=== PATIENT | male | born 1990 | race Caucasian/White ===

== ENCOUNTER 2017-01-27 00:36 | Inpatient (IN) | payer SELFPAY ==
[~2017-01-27] VITALS: Ht 193 cm; Wt 136.1 kg
[2017-01-27] MEDS ORDERED: IV NORMAL SALINE 1000ML BAG 1,000 ML IV SCH (01:30)
[2017-01-27] MEDS ORDERED: fentaNYL PF VIAL 100 MCG/2 ML VIAL IV ONE (01:30)
[2017-01-27] MEDS ORDERED: ONDANSETRON PF 4 MG/2 ML VIAL. IV ONE (01:30)
[2017-01-27 01:37] LABS: BASO # 0.1 x10^3/uL (0.0-0.2); BASO % 1 % (0-3); EOS % 3 % (0-3); HEMATOCRIT 50.6 % (39.0-53.0); HEMOGLOBIN 16.9 g/dL (13.0-17.5); LYMPH # 3.3 x10^3/uL (1.0-4.8); LYMPH % 27 % (24-48); MEAN CORPUSCULAR HEMOGLOBIN 30 pg (25-35); MEAN CORPUSCULAR HGB CONC 33 g/dL (31-37); MEAN CORPUSCULAR VOLUME 90 fL (79-100); MONO % 8 % (0-9); NEUT % 62 % (31-73); PLATELET COUNT 257 x10^3/uL (140-400); RED BLOOD COUNT 5.63 x10^6/uL (4.30-5.70); RED CELL DISTRIBUTION WIDTH 13.2 % (11.5-14.5); WHITE BLOOD COUNT 12.4 x10^3/uL (4.0-11.0)
[2017-01-27 01:45] LABS: CALCIUM 9.2 mg/dL (8.5-10.1); CREATININE 1.1 mg/dL (0.7-1.3); GFR 80.3; POTASSIUM 3.4 mmol/L (3.5-5.1)
[2017-01-27] MEDS ORDERED: CONTRAST GIVEN MC PRN (01:45)
[2017-01-27 01:51] LABS: ALBUMIN 4.3 g/dL (3.4-5.0); ALBUMIN/GLOBULIN RATIO 1.2 (1.0-1.7); TOTAL BILIRUBIN 0.3 mg/dL (0.2-1.0); TOTAL PROTEIN 7.8 g/dL (6.4-8.2)
[2017-01-27] MEDS ORDERED: IOHEXOL 300 MG/ML 75 ML VIAL IV ONE (02:00)
[2017-01-27] MEDS ORDERED: HYDROmorphone 2 MG/ML VIAL IV ONE (02:30)
--- NOTE | 2017-01-27 02:31 | RAD ---
CT abdomen and pelvis with contrast Indication: Lower abdominal pain. Axial imaging of the abdomen and pelvis was performed after the administration of intravenous contrast PQRS STATEMENT One or more of the following individualized dose reduction techniques were utilized for this study: 1.Automated exposure control. 2.Adjustment of the mA and/orkVaccording to patient size. 3.Use of iterative reconstruction technique. No prior studies are available for comparison. The lung bases are clear. The liver and gallbladder are unremarkable. The pancreas and spleen are unremarkable. No adrenal mass is detected. The kidneys are unremarkable. Aorta is not aneurysmal. The bowel loops are normal caliber. The appendix is visualized and unremarkable. There does appear to be some inflammation in the anterior aspect of the lower abdomen. This is associated with the sigmoid colon. There appear to be diverticuli present. Findings are consistent with acute diverticulitis. There are small gas bubbles present adjacent to the inflamed sigmoid loop consistent with micro perforations. No focal fluid collection is seen to suggest abscess formation. There is no bowel obstruction. Small bowel is unremarkable. There is no free air. The bladder is unremarkable. Impression: Findings consistent with acute sigmoid diverticulitis with micro perforations. No abscess formation or bowel obstruction is detected. Electronically signed by: Kalpesh Mijares MD (Jan 27, 2017 02:29:19)
--- NOTE | 2017-01-27 03:05 | PHYS DOC ---
Past Medical History Past Medical History: Diverticulitis, Diverticulosis, Kidney Stone Past Surgical History: Other Additional Past Surgical Histo: "kidney stone surgury" Alcohol Use: None Drug Use: Marijuana Adult General Chief Complaint Chief Complaint: ABDOMINAL PAIN HPI HPI Patient is a 26 year old male who presents with abdominal pain. Patient reports about 9:00 tonight he started having lower abdominal pain, most prominent in the right lower quadrant. Pain has continued to progress is severe at this time. He says his abdomen feels "full of air". Denies N/V/D. No fever. Has had similar pain in the past with bouts of diverticulitis. Has not taken anything at home for pain. No other acute complaints. Review of Systems Review of Systems Constitutional: Denies fever or chills Respiratory: Denies cough or shortness of breath Cardiovascular: Denies chest pain GI: Lower abdominal pain. Denies nausea, vomiting, bloody stools or diarrhea : Denies dysuria or hematuria Musculoskeletal: Denies back pain or joint pain Neurologic: Denies headache, focal weakness or sensory changes Current Medications Current Medications Current Medications Medications (Trade) Dose Ordered Sig/Bernardino Start Time Stop Time Status Last Admin Dose Admin Acetaminophen (Tylenol) 650 mg PRN Q4HRS PRN 01/27/17 03:15 01/28/17 03:14 Fentanyl Citrate (Fentanyl 2ml Vial) 50 mcg 1X ONCE 01/27/17 01:30 01/27/17 01:31 DC 01/27/17 01:26 50 MCG Hydromorphone HCl (Dilaudid) 1 mg PRN Q2HRS PRN 01/27/17 03:15 Hydromorphone HCl 1 mg 1 mg 1X ONCE 01/27/17 02:30 01/27/17 02:31 DC 01/27/17 02:19 1 MG Info (Do NOT chart on this entry -- for MONITORING) 1 each PRN DAILY PRN 01/27/17 01:45 01/29/17 01:44 Iohexol (Omnipaque 300 Mg/ml) 75 ml 1X ONCE 01/27/17 02:00 01/27/17 02:01 DC 01/27/17 02:00 75 ML Meropenem/Sodium Chloride (Merrem/Iv Sodium Chloride 0.9% 100ml) 100 ml @ 200 mls/hr 1X ONCE 01/27/17 03:30 01/27/17 03:59 01/27/17 03:11 200 MLS/HR Ondansetron HCl (Zofran) 4 mg 1X ONCE 01/27/17 01:30 01/27/17 01:31 DC 01/27/17 01:24 4 MG Ondansetron HCl 4 mg 4 mg PRN Q8HRS PRN 01/27/17 03:15 01/28/17 03:14 Sodium Chloride (Iv Sodium Chloride 0.9% 1000ml Bag) 1,000 ml @ 150 mls/hr Q6H40M 01/27/17 03:05 01/28/17 03:04 01/27/17 03:12 150 MLS/HR Allergies Allergies Allergies Coded Allergies Type Severity Reaction Last Updated Verified Penicillins Allergy Intermediate hives 01/27/17 Yes morphine Allergy Intermediate n/v, hives 01/27/17 Yes Physical Exam Physical Exam Constitutional: Well developed, well nourished, no acute distress, non-toxic appearance HENT: Normocephalic, atraumatic, bilateral external ears normal Eyes: EOMI, conjunctiva normal, no discharge Neck: Normal range of motion, no stridor Cardiovascular: Heart rate normal, regular rhythm, no murmur Lungs & Thorax: Bilateral breath sounds clear to auscultation Abdomen: Bowel sounds normal, soft, non-distended, suprapubic and RLQ TTP without rebound or guarding Skin: Warm, dry, no erythema, no rash Extremities: No obvious deformity, no edema Neurologic: Alert and oriented X 3, no gross deficits noted Current Patient Data Vital Signs Vital Signs Date Time Temp Pulse Resp B/P Pulse Ox O2 Delivery O2 Flow Rate FiO2 01/27/17 01:26 25 99 01/27/17 00:41 98.8 85 162/77 Room Air 98.8 Lab Values Laboratory Tests Test 01/27/17 00:45 White Blood Count 12.4x10^3/uL (4.0-11.0) H Red Blood Count 5.63x10^6/uL (4.30-5.70) Hemoglobin 16.9g/dL (13.0-17.5) Hematocrit 50.6% (39.0-53.0) Mean Corpuscular Volume 90fL (79-100) Mean Corpuscular Hemoglobin 30pg (25-35) Mean Corpuscular Hemoglobin Concent 33g/dL (31-37) Red Cell Distribution Width 13.2% (11.5-14.5) Platelet Count 257x10^3/uL (140-400) Neutrophils (%) (Auto) 62% (31-73) Lymphocytes (%) (Auto) 27% (24-48) Monocytes (%) (Auto) 8% (0-9) Eosinophils (%) (Auto) 3% (0-3) Basophils (%) (Auto) 1% (0-3) Neutrophils # (Auto) 7.7x10^3uL (1.8-7.7) Lymphocytes # (Auto) 3.3x10^3/uL (1.0-4.8) Monocytes # (Auto) 1.0x10^3/uL (0.0-1.1) Eosinophils # (Auto) 0.3x10^3/uL (0.0-0.7) Basophils # (Auto) 0.1x10^3/uL (0.0-0.2) Sodium Level 141mmol/L (136-145) Potassium Level 3.4mmol/L (3.5-5.1) L Chloride Level 102mmol/L (98-107) Carbon Dioxide Level 32mmol/L (21-32) Anion Gap 7 (6-14) Blood Urea Nitrogen 8mg/dL (8-26) Creatinine 1.1mg/dL (0.7-1.3) Estimated GFR (Cockcroft-Gault) 80.3 BUN/Creatinine Ratio 7 (6-20) Glucose Level 106mg/dL (70-99) H Calcium Level 9.2mg/dL (8.5-10.1) Total Bilirubin 0.3mg/dL (0.2-1.0) Aspartate Amino Transferase (AST) 24U/L (15-37) Alanine Aminotransferase (ALT) 40U/L (16-63) Alkaline Phosphatase 68U/L (46-116) Total Protein 7.8g/dL (6.4-8.2) Albumin 4.3g/dL (3.4-5.0) Albumin/Globulin Ratio 1.2 (1.0-1.7) Lipase 262U/L (73-393) Laboratory Tests 01/27/17 00:45 Laboratory Tests 01/27/17 00:45 EKG EKG [] Radiology/Procedures Radiology/Procedures CT A/P: Impression: Findings consistent with acute sigmoid diverticulitis with micro perforations. No abscess formation or bowel obstruction is detected. Course & Med Decision Making Course & Med Decision Making Pertinent Labs and Imaging studies reviewed. (See chart for details) Patient is 26 year old male who presents with lower abdominal pain. DDx includes appendicitis, diverticulitis, colitis. Will check labs, CT A/P. IV fluid, pain meds, nausea meds ordered for relief of symptoms. Labs notable for mild leukocytosis. Imaging shows acute sigmoid diverticulitis with microperforations. Discussed results with patient. Discussed with Dr. Beyer. As patient has penicillin allergy, I spoke with pharmacist (Jim) re:abx choice. We decided on meropenem for broad spectrum coverage of intra-abdominal infection and low rate of cross-reactivity in patients with pcn allergy. Will admit under the care of Dr. Pompa for further evaluation and treatment. Dragon Disclaimer Dragon Disclaimer This electronic medical record was generated, in whole or in part, using a voice recognition dictation system. Departure Departure Impression: Primary Impression: Acute diverticulitis Disposition: ADMITTED INPATIENT Admitting Physician: Poly Pompa Condition: STABLE Referrals: NO PCP (PCP) JESSE SOLANO MD Jan 27, 2017 03:05
[2017-01-27] MEDS: IV NORMAL SALINE 1000ML BAG 1,000 ML IV SCH ×4 (03:12→23:05)
[2017-01-27] MEDS ORDERED: ONDANSETRON PF 4 MG/2 ML VIAL. IV PRN (03:15)
[2017-01-27] MEDS ORDERED: ACETAMINOPHEN 325 MG TABLET. PO PRN (03:15)
[2017-01-27] MEDS ORDERED: MEROPENEM 1 GM in IV NORMAL SALINE 100ML 100 ML IV ONE (03:30)
[2017-01-27 03:55] LABS: BILIRUBIN,URINE NEGATIVE (NEG); GLUCOSE,URINE NEGATIVE (NEG); NITRITE,URINE NEGATIVE (NEG); PROTEIN,URINE NEGATIVE (NEG-TRACE); UROBILINOGEN,URINE 0.2 mg/dL (0.2 mg/dL)
[2017-01-27] MEDS: HYDROmorphone 2 MG/ML VIAL IV PRN ×8 (03:57→23:28)
[2017-01-27 04:14] LABS: BACTERIA,URINE 0 /HPF (0-FEW); RBC,URINE 0 /HPF (0-2); SQUAMOUS EPITHELIAL CELL,UR FEW /LPF; WBC,URINE OCC /HPF (0-4)
[2017-01-27 07:00] VITALS: BP 126/63
--- NOTE | 2017-01-27 09:08 | PDOC2 ---
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 At this time pain is most severe to LLQ. Associated nausea/emesis. No aggravating or alleviating factors. He has had multiple attacks, several last year at [facility], planned for surgery then canceled due to lack of insurance/cost. It has been about a year since last attack. He has never had a colonoscopy Past Medical History Past Medical History diverticulitis, kidney stones, obesity Past Surgical History Past Surgical History: No pertinent history Social History No ALCOHOL: rare Drugs: Marijuana Lives: with Family Current Problem List Problem List Problems Medical Problems: (1) Acute diverticulitis Status: Acute Current Medications Current Medications Current Medications Sodium Chloride (Iv Sodium Chloride 0.9% 1000ml Bag) 1,000 ml @ 1,000 mls/hr Q1H IV Last administered on 01/27/17 01:24; Start 01/27/17 at 01:30; Stop at 02:29; Status DC Fentanyl Citrate (Fentanyl 2ml Vial) 50 mcg 1X ONCE IV Last administered on 01:26; Start 01/27/17 at 01:30; Stop 01/27/17 at 01:31; Status DC Ondansetron HCl (Zofran) 4 mg 1X ONCE IV Last administered on 01/27/17 01:24 ; Start 01/27/17 at 01:30; Stop 01/27/17 at 01:31; Status DC Iohexol (Omnipaque 300 Mg/ml) 75 ml 1X ONCE IV Last administered on 01/27/17 02:00; Start 01/27/17 at 02:00; Stop 01/27/17 at 02:01; Status DC Info (Do NOT chart on this entry -- for MONITORING) 1 each PRN DAILY PRN MC SEE COMMENTS; Start 01/27/17 at 01:45; Stop 01/29/17 at 01:44 Hydromorphone HCl 1 mg 1 mg 1X ONCE IV Last administered on 01/27/17 02:19; Start 01/27/17 at 02:30; Stop 01/27/17 at 02:31; Status DC Meropenem/Sodium Chloride (Merrem/Iv Sodium Chloride 0.9% 100ml) 100 ml @ 200 mls/hr 1X ONCE IV Last administered on 01/27/17 03:11; Start 01/27/17 at 03: 30; Stop 01/27/17 at 03:59; Status DC Ondansetron HCl 4 mg 4 mg PRN Q8HRS PRN IV NAUSEA/VOMITING; Start 01/27/17 at 03:15; Stop 01/28/17 at 03:14 Sodium Chloride (Iv Sodium Chloride 0.9% 1000ml Bag) 1,000 ml @ 150 mls/hr Q6H40M IV Last administered on 01/27/17 03:12; Start 01/27/17 at 03:05; Stop 01/28/17 at 03:04 Acetaminophen (Tylenol) 650 mg PRN Q4HRS PRN PO FEVER Last administered on 01/27 03:56; Start 01/27/17 at 03:15; Stop 01/28/17 at 03:14 Hydromorphone HCl 1 mg 1 mg PRN Q2HRS PRN IV SEVERE PAIN Last administered on 07:37; Start 01/27/17 at 03:15 Potassium Chloride (KCl Premix 10meq) 100 ml @ 100 mls/hr Q1H IV ; Start at 09:30; Stop 01/27/17 at 11:29 Active Scripts Active Reported No Known Medications Prior To Admisstion (Info) Each 1 Each Allergies Allergies: Coded Allergies: Penicillins (Verified Allergy, Intermediate, hives, 01/27/17) morphine (Verified Allergy, Intermediate, n/v, hives, 01/27/17) ROS General: No: Chills, Other (fevers) PSYCHOLOGICAL ROS: No: Anxiety, Depression Eyes: No Blurry vision, No Double vision HEENT: No: Heacaches, Sore Throat Hematological and Lymphatic: No: Bleeding Problems, Blood Clots Respiratory: YES: Shortness of breath (due to pain), No: Cough Cardiovascular: No Chest Pain, No Palpitations Gastrointestinal: Yes Other (see hpi) Genitourinary: No Dysuria, No Hematuria Neurological: No Confusion, No Numbness/Tingling Skin: No Pruritus, No Rash Physical Exam General: Alert, Oriented X3, Other (in acute pain) HEENT: Atraumatic, PERRLA Lungs: Clear to auscultation, Normal air movement Heart: Regular rate, Normal S1, Normal S2, No murmurs Abdomen: Soft, Other (moderate tto RLQ and LLQ, no guarding ) Extremities: No clubbing, No cyanosis Skin: No rashes, No breakdown Neuro: Normal speech, Sensation intact Psych/Mental Status: Mental status NL, Mood NL MUSCULOSKELETAL: No deformity, No swelling Vitals VITALS Vital Signs Date Time Temp Pulse Resp B/P Pulse Ox O2 Delivery O2 Flow Rate FiO2 01/27/17 07:37 Room Air 01/27/17 03:57 95 01/27/17 02:48 82 16 149/69 01/27/17 00:41 98.8 98.8 Labs Labs Laboratory Tests Test 01/27/17 00:45 01/27/17 03:10 White Blood Count 12.4x10^3/uL (4.0-11.0) Red Blood Count 5.63x10^6/uL (4.30-5.70) Hemoglobin 16.9g/dL (13.0-17.5) Hematocrit 50.6% (39.0-53.0) Mean Corpuscular Volume 90fL (79-100) Mean Corpuscular Hemoglobin 30pg (25-35) Mean Corpuscular Hemoglobin Concent 33g/dL (31-37) Red Cell Distribution Width 13.2% (11.5-14.5) Platelet Count 257x10^3/uL (140-400) Neutrophils (%) (Auto) 62% (31-73) Lymphocytes (%) (Auto) 27% (24-48) Monocytes (%) (Auto) 8% (0-9) Eosinophils (%) (Auto) 3% (0-3) Basophils (%) (Auto) 1% (0-3) Neutrophils # (Auto) 7.7x10^3uL (1.8-7.7) Lymphocytes # (Auto) 3.3x10^3/uL (1.0-4.8) Monocytes # (Auto) 1.0x10^3/uL (0.0-1.1) Eosinophils # (Auto) 0.3x10^3/uL (0.0-0.7) Basophils # (Auto) 0.1x10^3/uL (0.0-0.2) Sodium Level 141mmol/L (136-145) Potassium Level 3.4mmol/L (3.5-5.1) Chloride Level 102mmol/L (98-107) Carbon Dioxide Level 32mmol/L (21-32) Anion Gap 7 (6-14) Blood Urea Nitrogen 8mg/dL (8-26) Creatinine 1.1mg/dL (0.7-1.3) Estimated GFR (Cockcroft-Gault) 80.3 BUN/Creatinine Ratio 7 (6-20) Glucose Level 106mg/dL (70-99) Calcium Level 9.2mg/dL (8.5-10.1) Total Bilirubin 0.3mg/dL (0.2-1.0) Aspartate Amino Transf (AST/SGOT) 24U/L (15-37) Alanine Aminotransferase (ALT/SGPT) 40U/L (16-63) Alkaline Phosphatase 68U/L (46-116) Total Protein 7.8g/dL (6.4-8.2) Albumin 4.3g/dL (3.4-5.0) Albumin/Globulin Ratio 1.2 (1.0-1.7) Lipase 262U/L (73-393) Urine Collection Type Unknown Urine Color Yellow Urine Clarity Clear Urine pH 8.0 Urine Specific [place] 1.020 Urine Protein Negativemg/dL (NEG-TRACE) Urine Glucose (UA) Negativemg/dL (NEG) Urine Ketones (Stick) Negativemg/dL (NEG) Urine Blood Negative (NEG) Urine Nitrite Negative (NEG) Urine Bilirubin Negative (NEG) Urine Urobilinogen Dipstick 0.2mg/dL (0.2 mg/dL) Urine Leukocyte Esterase Negative (NEG) Urine RBC 0/HPF (0-2) Urine WBC Occ/HPF (0-4) Urine Squamous Epithelial Cells Few/LPF Urine Amorphous Sediment Present/HPF Urine Bacteria 0/HPF (0-FEW) Laboratory Tests Test 01/27/17 00:45 01/27/17 03:10 White Blood Count 12.4x10^3/uL (4.0-11.0) Red Blood Count 5.63x10^6/uL (4.30-5.70) Hemoglobin 16.9g/dL (13.0-17.5) Hematocrit 50.6% (39.0-53.0) Mean Corpuscular Volume 90fL (79-100) Mean Corpuscular Hemoglobin 30pg (25-35) Mean Corpuscular Hemoglobin Concent 33g/dL (31-37) Red Cell Distribution Width 13.2% (11.5-14.5) Platelet Count 257x10^3/uL (140-400) Neutrophils (%) (Auto) 62% (31-73) Lymphocytes (%) (Auto) 27% (24-48) Monocytes (%) (Auto) 8% (0-9) Eosinophils (%) (Auto) 3% (0-3) Basophils (%) (Auto) 1% (0-3) Neutrophils # (Auto) 7.7x10^3uL (1.8-7.7) Lymphocytes # (Auto) 3.3x10^3/uL (1.0-4.8) Monocytes # (Auto) 1.0x10^3/uL (0.0-1.1) Eosinophils # (Auto) 0.3x10^3/uL (0.0-0.7) Basophils # (Auto) 0.1x10^3/uL (0.0-0.2) Sodium Level 141mmol/L (136-145) Potassium Level 3.4mmol/L (3.5-5.1) Chloride Level 102mmol/L (98-107) Carbon Dioxide Level 32mmol/L (21-32) Anion Gap 7 (6-14) Blood Urea Nitrogen 8mg/dL (8-26) Creatinine 1.1mg/dL (0.7-1.3) Estimated GFR (Cockcroft-Gault) 80.3 BUN/Creatinine Ratio 7 (6-20) Glucose Level 106mg/dL (70-99) Calcium Level 9.2mg/dL (8.5-10.1) Total Bilirubin 0.3mg/dL (0.2-1.0) Aspartate Amino Transf (AST/SGOT) 24U/L (15-37) Alanine Aminotransferase (ALT/SGPT) 40U/L (16-63) Alkaline Phosphatase 68U/L (46-116) Total Protein 7.8g/dL (6.4-8.2) Albumin 4.3g/dL (3.4-5.0) Albumin/Globulin Ratio 1.2 (1.0-1.7) Lipase 262U/L (73-393) Urine Collection Type Unknown Urine Color Yellow Urine Clarity Clear Urine pH 8.0 Urine Specific [place] 1.020 Urine Protein Negativemg/dL (NEG-TRACE) Urine Glucose (UA) Negativemg/dL (NEG) Urine Ketones (Stick) Negativemg/dL (NEG) Urine Blood Negative (NEG) Urine Nitrite Negative (NEG) Urine Bilirubin Negative (NEG) Urine Urobilinogen Dipstick 0.2mg/dL (0.2 mg/dL) Urine Leukocyte Esterase Negative (NEG) Urine RBC 0/HPF (0-2) Urine WBC Occ/HPF (0-4) Urine Squamous Epithelial Cells Few/LPF Urine Amorphous Sediment Present/HPF Urine Bacteria 0/HPF (0-FEW) Images Images reviewed Assessment/Plan Assessment/Plan acute diverticulitis with microperf, no abscess seen on CT, multiple episodes ID consulted for abx management obesity BMI 36 continue NPO, hydration, IV abx, bowel rest if increasing pain/fevers/leukocytosis--repeat CT for possible abscess attempt conservative management, may require surgery if not improving/worsening will review with MAURICIO Whalen MD 01/27/171950: CONSULT Allergies Allergies: Coded Allergies: Penicillins (Verified Allergy, Intermediate, hives, 01/27/17) morphine (Verified Allergy, Intermediate, n/v, hives, 01/27/17) Assessment/Plan Assessment/Plan Pt seen and examined by myself; 26 year old male with lower abdominal pain, has had prior bouts of similar pain and reportedly treated for diverticulitis. He states he was scheduled for a colonoscopy and surgery, but didn't proceed due to financial issues. He reported with severe and sharp lower abdominal pain , worse in the LLQ. PMH/PSH/ROS/SH as above; exam: alert, oriented, no distress, no neck masses, lungs clear, heart RR and R, abdomen obese, soft, tender LLQ with focal guarding, ext neg for deformity or edema; labs and CT reviewed. Suspect diverticulitis with focal perforation. Recommend IV abx, consult ID, bowel rest, serial exam/lab. 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
[2017-01-27] MEDS: POTASSIUM CHLORIDE 10MEQ 100 ML IV SCH ×2 (10:05→12:48)
--- NOTE | 2017-01-27 10:08 | PDOC1 ---
History and Physical Date of Admission Date of Admission DATE: 01/27/17 TIME: 10:02 Identification/Chief Complaint Chief Complaint abd pain Problems: Source Source: Chart review, Patient History of Present Illness History of Present Illness Mr. Sepulveda, is a 26 year old male admit from ER overnight with acute abdominal pain. Acute left lower pain, pain worse with movemetn, he had normal stool yesterday 1500. pain 8/10 after IV pain meds, 10 without no gas, but feels very bloated prior [facility], [facility], was hospitalized 3 wks last years for same Past Medical History Cardiovascular: No pertinent hx Pulmonary: No pertinent hx Musculoskeletal: low back pain Rheumatologic: No pertinent hx Infectious disease: No pertinent hx ENT: No pertinent hx Renal/: No pertinent hx Endocrine: No pertinent hx Past Surgical History Past Surgical History: No pertinent history Family History Family History: No Significant Social History Smoke: No ALCOHOL: rare Drugs: Marijuana Current Problem List Problem List Problems Medical Problems: (1) Acute diverticulitis Status: Acute Problems: Current Medications Current Medications Current Medications Sodium Chloride (Iv Sodium Chloride 0.9% 1000ml Bag) 1,000 ml @ 1,000 mls/hr Q1H IV Last administered on 01/27/17 01:24; Start 01/27/17 at 01:30; Stop at 02:29; Status DC Fentanyl Citrate (Fentanyl 2ml Vial) 50 mcg 1X ONCE IV Last administered on 01:26; Start 01/27/17 at 01:30; Stop 01/27/17 at 01:31; Status DC Ondansetron HCl (Zofran) 4 mg 1X ONCE IV Last administered on 01/27/17 01:24 ; Start 01/27/17 at 01:30; Stop 01/27/17 at 01:31; Status DC Iohexol (Omnipaque 300 Mg/ml) 75 ml 1X ONCE IV Last administered on 01/27/17 02:00; Start 01/27/17 at 02:00; Stop 01/27/17 at 02:01; Status DC Info (Do NOT chart on this entry -- for MONITORING) 1 each PRN DAILY PRN MC SEE COMMENTS; Start 01/27/17 at 01:45; Stop 01/29/17 at 01:44 Hydromorphone HCl 1 mg 1 mg 1X ONCE IV Last administered on 01/27/17 02:19; Start 01/27/17 at 02:30; Stop 01/27/17 at 02:31; Status DC Meropenem/Sodium Chloride (Merrem/Iv Sodium Chloride 0.9% 100ml) 100 ml @ 200 mls/hr 1X ONCE IV Last administered on 01/27/17 03:11; Start 01/27/17 at 03: 30; Stop 01/27/17 at 03:59; Status DC Ondansetron HCl 4 mg 4 mg PRN Q8HRS PRN IV NAUSEA/VOMITING; Start 01/27/17 at 03:15; Stop 01/28/17 at 03:14 Sodium Chloride (Iv Sodium Chloride 0.9% 1000ml Bag) 1,000 ml @ 150 mls/hr Q6H40M IV Last administered on 01/27/17 03:12; Start 01/27/17 at 03:05; Stop 01/28/17 at 03:04 Acetaminophen (Tylenol) 650 mg PRN Q4HRS PRN PO FEVER Last administered on 01/27 03:56; Start 01/27/17 at 03:15; Stop 01/28/17 at 03:14 Hydromorphone HCl 1 mg 1 mg PRN Q2HRS PRN IV SEVERE PAIN Last administered on 07:37; Start 01/27/17 at 03:15 Potassium Chloride (KCl Premix 10meq) 100 ml @ 100 mls/hr Q1H IV ; Start at 09:30; Stop 01/27/17 at 11:29 Active Scripts Active Reported No Known Medications Prior To Admisstion (Info) Each 1 Each Allergies Allergies: Coded Allergies: Penicillins (Verified Allergy, Intermediate, hives, 01/27/17) morphine (Verified Allergy, Intermediate, n/v, hives, 01/27/17) ROS General: No: Appetite, Chills, Fatigue, Malaise, Night Sweats, Other PSYCHOLOGICAL ROS: No: Anxiety, Behavioral Disorder, Concentration difficultie , Decreased libido, Depression, Disorientation, Hallucinations, Hostility, Irritablity, Memory difficulties, Mood Swings, Obsessive thoughts, Other, Physical abuse, Sexual abuse, Sleep disturbances, Suicidal ideation Eyes: No Blurry vision, No Decreased vision, No Double vision, No Dry eyes, No Excessive tearing, No Eye Pain, No Itchy Eyes, No Loss of vision, No Other, No Photophobia, No Scotomata, No Uses contacts, No Uses glasses HEENT: No: Epistaxis, Heacaches, Hearing change, Nasal congestion, Nasal discharge, Oral lesions, Other, Sinus pain, Sneezing, Snoring, Sore Throat, Tinnitus, Vertigo, Visual Changes, Vocal changes Hematological and Lymphatic: No: Bleeding Problems, Blood Clots, Blood Transfusions, Brusing, Night Sweats, Other, Pallor, Swollen Lymph Nodes Respiratory: No: Cough, Hemoptysis, Orthopnea, Other, Pleuritic Pain, SOB with excertion, Shortness of breath, Sputum Changes, Stridor, Tachypnea, Wheezing Gastrointestinal: Yes Abdominal Pain, Yes Nausea, Yes Vomiting, No Constipation, No Diarrhea, No Hematochezia, No Melena, No Other Genitourinary: No , No , No , No , No , No , No , No Discharge, No Dysuria, No Flank Pain, No Frequency, No Hematuria, No Incontinence, No Other, No Pain, No Retention, No Urgency Musculoskeletal: Yes Joint Pain, No Gait Disturbance, No Joint Stiffness, No Joint Swelling, No Muscle Pain, No Muscular Weakness, No Other, No Pain In:, No Swelling In: Neurological: No Behavorial Changes, No Bowel/Bladder ControlChng, No Confusion , No Dizziness, No Gait Disturbance, No Headaches, No Impaired Coord/balance, No Memory Loss, No Numbness/Tingling, No Other, No Seizures, No Speech Problems , No Tremors, No Visual Changes, No Weakness Skin: No Acne, No Dry Skin, No Eczema, No Hair Changes, No Lumps, No Mole Changes, No Mottling, No Nail Changes, No Other, No Pruritus, No Rash, No Skin Lesion Changes Physical Exam General: Alert, Oriented X3, Cooperative, moderate distress HEENT: Atraumatic, PERRLA, EOMI, Mucous membr. moist/pink Lungs: Clear to auscultation, Normal air movement Heart: S1S2, no gallops, no murmurs Abdomen: Soft (hypoactive sounds) Rectal Exam: not examined Extremities: No clubbing, No cyanosis, No edema, Normal pulses Skin: No rashes Neuro: Normal gait, Normal speech, Normal tone, Sensation intact Psych/Mental Status: Mood NL Vitals Vitals Vital Signs Date Time Temp Pulse Resp B/P Pulse Ox O2 Delivery O2 Flow Rate FiO2 01/27/17 08:15 Room Air 01/27/17 07:00 98.3 83 18 126/63 95 98.3 Labs Labs Laboratory Tests Test 01/27/17 00:45 01/27/17 03:10 White Blood Count 12.4x10^3/uL (4.0-11.0) Red Blood Count 5.63x10^6/uL (4.30-5.70) Hemoglobin 16.9g/dL (13.0-17.5) Hematocrit 50.6% (39.0-53.0) Mean Corpuscular Volume 90fL (79-100) Mean Corpuscular Hemoglobin 30pg (25-35) Mean Corpuscular Hemoglobin Concent 33g/dL (31-37) Red Cell Distribution Width 13.2% (11.5-14.5) Platelet Count 257x10^3/uL (140-400) Neutrophils (%) (Auto) 62% (31-73) Lymphocytes (%) (Auto) 27% (24-48) Monocytes (%) (Auto) 8% (0-9) Eosinophils (%) (Auto) 3% (0-3) Basophils (%) (Auto) 1% (0-3) Neutrophils # (Auto) 7.7x10^3uL (1.8-7.7) Lymphocytes # (Auto) 3.3x10^3/uL (1.0-4.8) Monocytes # (Auto) 1.0x10^3/uL (0.0-1.1) Eosinophils # (Auto) 0.3x10^3/uL (0.0-0.7) Basophils # (Auto) 0.1x10^3/uL (0.0-0.2) Sodium Level 141mmol/L (136-145) Potassium Level 3.4mmol/L (3.5-5.1) Chloride Level 102mmol/L (98-107) Carbon Dioxide Level 32mmol/L (21-32) Anion Gap 7 (6-14) Blood Urea Nitrogen 8mg/dL (8-26) Creatinine 1.1mg/dL (0.7-1.3) Estimated GFR (Cockcroft-Gault) 80.3 BUN/Creatinine Ratio 7 (6-20) Glucose Level 106mg/dL (70-99) Calcium Level 9.2mg/dL (8.5-10.1) Total Bilirubin 0.3mg/dL (0.2-1.0) Aspartate Amino Transf (AST/SGOT) 24U/L (15-37) Alanine Aminotransferase (ALT/SGPT) 40U/L (16-63) Alkaline Phosphatase 68U/L (46-116) Total Protein 7.8g/dL (6.4-8.2) Albumin 4.3g/dL (3.4-5.0) Albumin/Globulin Ratio 1.2 (1.0-1.7) Lipase 262U/L (73-393) Urine Collection Type Unknown Urine Color Yellow Urine Clarity Clear Urine pH 8.0 Urine Specific [place] 1.020 Urine Protein Negativemg/dL (NEG-TRACE) Urine Glucose (UA) Negativemg/dL (NEG) Urine Ketones (Stick) Negativemg/dL (NEG) Urine Blood Negative (NEG) Urine Nitrite Negative (NEG) Urine Bilirubin Negative (NEG) Urine Urobilinogen Dipstick 0.2mg/dL (0.2 mg/dL) Urine Leukocyte Esterase Negative (NEG) Urine RBC 0/HPF (0-2) Urine WBC Occ/HPF (0-4) Urine Squamous Epithelial Cells Few/LPF Urine Amorphous Sediment Present/HPF Urine Bacteria 0/HPF (0-FEW) Laboratory Tests Test 01/27/17 00:45 01/27/17 03:10 White Blood Count 12.4x10^3/uL (4.0-11.0) Red Blood Count 5.63x10^6/uL (4.30-5.70) Hemoglobin 16.9g/dL (13.0-17.5) Hematocrit 50.6% (39.0-53.0) Mean Corpuscular Volume 90fL (79-100) Mean Corpuscular Hemoglobin 30pg (25-35) Mean Corpuscular Hemoglobin Concent 33g/dL (31-37) Red Cell Distribution Width 13.2% (11.5-14.5) Platelet Count 257x10^3/uL (140-400) Neutrophils (%) (Auto) 62% (31-73) Lymphocytes (%) (Auto) 27% (24-48) Monocytes (%) (Auto) 8% (0-9) Eosinophils (%) (Auto) 3% (0-3) Basophils (%) (Auto) 1% (0-3) Neutrophils # (Auto) 7.7x10^3uL (1.8-7.7) Lymphocytes # (Auto) 3.3x10^3/uL (1.0-4.8) Monocytes # (Auto) 1.0x10^3/uL (0.0-1.1) Eosinophils # (Auto) 0.3x10^3/uL (0.0-0.7) Basophils # (Auto) 0.1x10^3/uL (0.0-0.2) Sodium Level 141mmol/L (136-145) Potassium Level 3.4mmol/L (3.5-5.1) Chloride Level 102mmol/L (98-107) Carbon Dioxide Level 32mmol/L (21-32) Anion Gap 7 (6-14) Blood Urea Nitrogen 8mg/dL (8-26) Creatinine 1.1mg/dL (0.7-1.3) Estimated GFR (Cockcroft-Gault) 80.3 BUN/Creatinine Ratio 7 (6-20) Glucose Level 106mg/dL (70-99) Calcium Level 9.2mg/dL (8.5-10.1) Total Bilirubin 0.3mg/dL (0.2-1.0) Aspartate Amino Transf (AST/SGOT) 24U/L (15-37) Alanine Aminotransferase (ALT/SGPT) 40U/L (16-63) Alkaline Phosphatase 68U/L (46-116) Total Protein 7.8g/dL (6.4-8.2) Albumin 4.3g/dL (3.4-5.0) Albumin/Globulin Ratio 1.2 (1.0-1.7) Lipase 262U/L (73-393) Urine Collection Type Unknown Urine Color Yellow Urine Clarity Clear Urine pH 8.0 Urine Specific [place] 1.020 Urine Protein Negativemg/dL (NEG-TRACE) Urine Glucose (UA) Negativemg/dL (NEG) Urine Ketones (Stick) Negativemg/dL (NEG) Urine Blood Negative (NEG) Urine Nitrite Negative (NEG) Urine Bilirubin Negative (NEG) Urine Urobilinogen Dipstick 0.2mg/dL (0.2 mg/dL) Urine Leukocyte Esterase Negative (NEG) Urine RBC 0/HPF (0-2) Urine WBC Occ/HPF (0-4) Urine Squamous Epithelial Cells Few/LPF Urine Amorphous Sediment Present/HPF Urine Bacteria 0/HPF (0-FEW) VTE Prophylaxis Ordered VTE Prophylaxis Devices: No VTE Pharmacological Prophylaxi: Yes Assessment/Plan Assessment/Plan acute abd pain acute diverticulitis sepsis microperf PCN allergy ID consult, will start Merrem gen surg following, prior surg considered, mult and freq. exac. obesity, BMI 36 FRANCISCA HORN MD Jan 27, 2017 10:08
[2017-01-27] MEDS ORDERED: MORPHINE SULFATE 10 MG/ML VIAL. IV PRN (10:15)
[2017-01-27] MEDS ORDERED: fentaNYL PF VIAL 100 MCG/2 ML VIAL IV PRN (10:15)
[2017-01-27 11:00] VITALS: BP 117/71
[2017-01-27] MEDS: MEROPENEM 1 GM in IV NORMAL SALINE 100ML 100 ML IV SCH ×2 (11:40→21:09)
[2017-01-27 15:00] VITALS: BP 117/65
[2017-01-27 19:00] VITALS: BP 148/63
[2017-01-28] MEDS: HYDROmorphone 2 MG/ML VIAL IV PRN ×9 (01:40→22:00)
[2017-01-28 03:20] VITALS: BP 137/82
--- NOTE | 2017-01-28 03:56 | ACF ---
Admit Criteria Forms Admit Criteria Forms Admit Criteria Forms DIVERTICULITIS, ACUTE Clinical Indications for Admission to Inpatient Care (Place 'X' for any and all applicable criteria): Admission is indicated for ANY ONE of the following (1)(2)(3)(4): [ ]I. Peritoneal signs on physical examination (eg, acute abdominal pain, abdominal tenderness and guarding) [ ]II. Hemodynamic instability [ ]III. Persistent gross bleeding per rectum [ ]IV. Need for inpatient surgical intervention [ ]V. Significant abnormality on imaging study including ANY ONE of the following: [ ]a) Abscess [ ]b) Obstruction [ ]c) Fistula [ ]d) Ileus [ ]e) Free perforation [ ]. Immunocompromised patient (steroid use, chemotherapy, uremia, AIDS , transplant patient ) with acute symptoms [X]VII Inpatient admission required rather than observation care (also use Diverticulitis, Acute: Observation Care as appropriate) because of ANY ONE of the following: [ ]a) High fever or infection. requiring inpatient admission as indicated by ANY ONE of the following(5): [ ]1) Appropriate outpatient or observation care antimicrobial treatment unavailable, not effective, not feasible [ ]2) Temperature > 103.1 degrees F (39.5 degrees C) (oral) or < 96.8 degrees F (36 degrees C)(rectal) that does not respond to all emergency treatment measures [ ]3) Temperature> 104.9 degrees F (40.5 degrees C)( oral) [ ]4) Documented bacteremia [X]b) Severe pain requiring acute inpatient management [ ]c) Severe electrolyte abnormalities requiring inpatient care [ ]d) Ongoing transfusion for blood loss (> 2 units) [ ]e) IV fluid to replace significant ongoing losses (> 3 L/m2 per day) [ ]f) Parenteral nutrition regimen that must be implemented on inpatient basis [ ]g) Other condition, treatment or monitoring requiring inpatient admission Extended stay beyond goal length of stay may be needed for (2) (15) : [ ]a) Unresolved symptoms (19) [ ]b) Complications [ ]c) Diverticular hemorrhage(2) The original [facility] [employer] content created by Linda Walker has been revised. The portions of the content which have been revised are identified through the use of italic text or in bold, and Linda Walker has neither reviewed nor approved the modified material. All other unmodified content is copyright [facility]. Please see references footnoted in the original [facility] edition 2016 SHAMA COLIN Jan 28, 2017 03:56
[2017-01-28 05:37] LABS: BASO % 0 % (0-3); EOS % 0 % (0-3); HEMOGLOBIN 16.8 g/dL (13.0-17.5); LYMPH # 1.2 x10^3/uL (1.0-4.8); LYMPH % 8 % (24-48); MEAN CORPUSCULAR HEMOGLOBIN 30 pg (25-35); MEAN CORPUSCULAR HGB CONC 34 g/dL (31-37); MEAN CORPUSCULAR VOLUME 89 fL (79-100); MONO % 8 % (0-9); NEUT % 83 % (31-73); PLATELET COUNT 228 x10^3/uL (140-400); RED BLOOD COUNT 5.53 x10^6/uL (4.30-5.70); RED CELL DISTRIBUTION WIDTH 13.4 % (11.5-14.5); WHITE BLOOD COUNT 14.8 x10^3/uL (4.0-11.0)
[2017-01-28] MEDS: MEROPENEM 1 GM in IV NORMAL SALINE 100ML 100 ML IV SCH ×3 (05:40→22:03)
[2017-01-28 05:56] LABS: ALBUMIN 3.6 g/dL (3.4-5.0); ALBUMIN/GLOBULIN RATIO 1.1 (1.0-1.7); CALCIUM 9.1 mg/dL (8.5-10.1); CREATININE 0.8 mg/dL (0.7-1.3); POTASSIUM 4.3 mmol/L (3.5-5.1); TOTAL BILIRUBIN 1.4 mg/dL (0.2-1.0)
[2017-01-28 07:00] VITALS: BP 152/93
[2017-01-28] MEDS ORDERED: fentaNYL 12MCG/HR PATCH 1 PATCH PATCH.TD72 TD ONE (09:45)
--- NOTE | 2017-01-28 10:03 | PDOC ---
SERGE BOB CHECK INSPECTOR 01/28/17 1003: SURGICAL PROGRESS NOTE Subjective pain improved no nausea Vital Signs Vital Signs Date Time Temp Pulse Resp B/P Pulse Ox O2 Delivery O2 Flow Rate FiO2 01/28/17 08:00 Room Air 01/28/17 07:56 20 90 01/28/17 07:00 99.7 84 152/93 99.7 I&O Intake and Output 01/28/17 07:00 Intake Total 300 ml Output Total 500 ml Balance -200 ml Intake Oral 0 ml IV Total 300 ml Output Urine Total 500 ml # Voids 3 PATIENT HAS A WYNNE: No General: Alert, Oriented X3, Cooperative, No acute distress Abdomen: Soft, Other (tenderness to LLQ, no guarding) Labs Laboratory Tests Test 01/27/17 00:45 01/27/17 03:10 01/28/17 04:50 White Blood Count 12.4x10^3/uL (4.0-11.0) 14.8x10^3/uL (4.0-11.0) Red Blood Count 5.63x10^6/uL (4.30-5.70) 5.53x10^6/uL (4.30-5.70) Hemoglobin 16.9g/dL (13.0-17.5) 16.8g/dL (13.0-17.5) Hematocrit 50.6% (39.0-53.0) 49.0% (39.0-53.0) Mean Corpuscular Volume 90fL (79-100) 89fL (79-100) Mean Corpuscular Hemoglobin 30pg (25-35) 30pg (25-35) Mean Corpuscular Hemoglobin Concent 33g/dL (31-37) 34g/dL (31-37) Red Cell Distribution Width 13.2% (11.5-14.5) 13.4% (11.5-14.5) Platelet Count 257x10^3/uL (140-400) 228x10^3/uL (140-400) Neutrophils (%) (Auto) 62% (31-73) 83% (31-73) Lymphocytes (%) (Auto) 27% (24-48) 8% (24-48) Monocytes (%) (Auto) 8% (0-9) 8% (0-9) Eosinophils (%) (Auto) 3% (0-3) 0% (0-3) Basophils (%) (Auto) 1% (0-3) 0% (0-3) Neutrophils # (Auto) 7.7x10^3uL (1.8-7.7) 12.3x10^3uL (1.8-7.7) Lymphocytes # (Auto) 3.3x10^3/uL (1.0-4.8) 1.2x10^3/uL (1.0-4.8) Monocytes # (Auto) 1.0x10^3/uL (0.0-1.1) 1.2x10^3/uL (0.0-1.1) Eosinophils # (Auto) 0.3x10^3/uL (0.0-0.7) 0.0x10^3/uL (0.0-0.7) Basophils # (Auto) 0.1x10^3/uL (0.0-0.2) 0.0x10^3/uL (0.0-0.2) Sodium Level 141mmol/L (136-145) 139mmol/L (136-145) Potassium Level 3.4mmol/L (3.5-5.1) 4.3mmol/L (3.5-5.1) Chloride Level 102mmol/L (98-107) 102mmol/L (98-107) Carbon Dioxide Level 32mmol/L (21-32) 25mmol/L (21-32) Anion Gap 7 (6-14) 12 (6-14) Blood Urea Nitrogen 8mg/dL (8-26) 9mg/dL (8-26) Creatinine 1.1mg/dL (0.7-1.3) 0.8mg/dL (0.7-1.3) Estimated GFR (Cockcroft-Gault) 80.3 116.0 BUN/Creatinine Ratio 7 (6-20) 11 (6-20) Glucose Level 106mg/dL (70-99) 108mg/dL (70-99) Calcium Level 9.2mg/dL (8.5-10.1) 9.1mg/dL (8.5-10.1) Total Bilirubin 0.3mg/dL (0.2-1.0) 1.4mg/dL (0.2-1.0) Aspartate Amino Transf (AST/SGOT) 24U/L (15-37) 17U/L (15-37) Alanine Aminotransferase (ALT/SGPT) 40U/L (16-63) 29U/L (16-63) Alkaline Phosphatase 68U/L (46-116) 65U/L (46-116) Total Protein 7.8g/dL (6.4-8.2) 7.0g/dL (6.4-8.2) Albumin 4.3g/dL (3.4-5.0) 3.6g/dL (3.4-5.0) Albumin/Globulin Ratio 1.2 (1.0-1.7) 1.1 (1.0-1.7) Lipase 262U/L (73-393) Urine Collection Type Unknown Urine Color Yellow Urine Clarity Clear Urine pH 8.0 Urine Specific [place] 1.020 Urine Protein Negativemg/dL (NEG-TRACE) Urine Glucose (UA) Negativemg/dL (NEG) Urine Ketones (Stick) Negativemg/dL (NEG) Urine Blood Negative (NEG) Urine Nitrite Negative (NEG) Urine Bilirubin Negative (NEG) Urine Urobilinogen Dipstick 0.2mg/dL (0.2 mg/dL) Urine Leukocyte Esterase Negative (NEG) Urine RBC 0/HPF (0-2) Urine WBC Occ/HPF (0-4) Urine Squamous Epithelial Cells Few/LPF Urine Amorphous Sediment Present/HPF Urine Bacteria 0/HPF (0-FEW) Laboratory Tests Test 01/28/17 04:50 White Blood Count 14.8x10^3/uL (4.0-11.0) Red Blood Count 5.53x10^6/uL (4.30-5.70) Hemoglobin 16.8g/dL (13.0-17.5) Hematocrit 49.0% (39.0-53.0) Mean Corpuscular Volume 89fL (79-100) Mean Corpuscular Hemoglobin 30pg (25-35) Mean Corpuscular Hemoglobin Concent 34g/dL (31-37) Red Cell Distribution Width 13.4% (11.5-14.5) Platelet Count 228x10^3/uL (140-400) Neutrophils (%) (Auto) 83% (31-73) Lymphocytes (%) (Auto) 8% (24-48) Monocytes (%) (Auto) 8% (0-9) Eosinophils (%) (Auto) 0% (0-3) Basophils (%) (Auto) 0% (0-3) Neutrophils # (Auto) 12.3x10^3uL (1.8-7.7) Lymphocytes # (Auto) 1.2x10^3/uL (1.0-4.8) Monocytes # (Auto) 1.2x10^3/uL (0.0-1.1) Eosinophils # (Auto) 0.0x10^3/uL (0.0-0.7) Basophils # (Auto) 0.0x10^3/uL (0.0-0.2) Sodium Level 139mmol/L (136-145) Potassium Level 4.3mmol/L (3.5-5.1) Chloride Level 102mmol/L (98-107) Carbon Dioxide Level 25mmol/L (21-32) Anion Gap 12 (6-14) Blood Urea Nitrogen 9mg/dL (8-26) Creatinine 0.8mg/dL (0.7-1.3) Estimated GFR (Cockcroft-Gault) 116.0 BUN/Creatinine Ratio 11 (6-20) Glucose Level 108mg/dL (70-99) Calcium Level 9.1mg/dL (8.5-10.1) Total Bilirubin 1.4mg/dL (0.2-1.0) Aspartate Amino Transf (AST/SGOT) 17U/L (15-37) Alanine Aminotransferase (ALT/SGPT) 29U/L (16-63) Alkaline Phosphatase 65U/L (46-116) Total Protein 7.0g/dL (6.4-8.2) Albumin 3.6g/dL (3.4-5.0) Albumin/Globulin Ratio 1.1 (1.0-1.7) Problem List Problems Medical Problems: (1) Acute diverticulitis Status: Acute Assessment/Plan diverticulitis with micro perf tmax 100, wbc today 14.8 continue abx, npo, bowel rest, hydration, pain control ID consult pending Problems: JASE REYNOSO MD 01/28/172010: SURGICAL PROGRESS NOTE Assessment/Plan Pt seen and examined. Agree with Ms. Bob's note Pt feels better and passing flatus abd soft, mild TTP cont abx Problems: SERGE BOB CHECK INSPECTOR Jan 28, 2017 10:03 JASE REYNOSO MD Jan 28, 2017 20:11
--- NOTE | 2017-01-28 10:14 | PDOC ---
PROGRESS NOTES Chief Complaint Chief Complaint acute abd pain w/ diverticulitis sepsis microperf on Merrem gen surg following, prior surg considered, obesity, BMI 36 History of Present Illness History of Present Illness feels a little better today, getting dilaudid IV Q2, but a little better will start fent patch X1, low dose, discussed cont aggressive iv fluid Vitals Vitals Vital Signs Date Time Temp Pulse Resp B/P Pulse Ox O2 Delivery O2 Flow Rate FiO2 01/28/17 08:00 Room Air 01/28/17 07:56 20 90 01/28/17 07:00 99.7 84 152/93 99.7 Physical Exam General: Alert, Oriented X3, Cooperative, No acute distress Heart: Regular rate, Normal S1, Normal S2, No murmurs Abdomen: Soft, Other (tenderness to LLQ, no guarding) Extremities: No clubbing, No cyanosis, No edema, Normal pulses Skin: No rashes Labs LABS Laboratory Tests Test 01/28/17 04:50 White Blood Count 14.8x10^3/uL (4.0-11.0) Red Blood Count 5.53x10^6/uL (4.30-5.70) Hemoglobin 16.8g/dL (13.0-17.5) Hematocrit 49.0% (39.0-53.0) Mean Corpuscular Volume 89fL (79-100) Mean Corpuscular Hemoglobin 30pg (25-35) Mean Corpuscular Hemoglobin Concent 34g/dL (31-37) Red Cell Distribution Width 13.4% (11.5-14.5) Platelet Count 228x10^3/uL (140-400) Neutrophils (%) (Auto) 83% (31-73) Lymphocytes (%) (Auto) 8% (24-48) Monocytes (%) (Auto) 8% (0-9) Eosinophils (%) (Auto) 0% (0-3) Basophils (%) (Auto) 0% (0-3) Neutrophils # (Auto) 12.3x10^3uL (1.8-7.7) Lymphocytes # (Auto) 1.2x10^3/uL (1.0-4.8) Monocytes # (Auto) 1.2x10^3/uL (0.0-1.1) Eosinophils # (Auto) 0.0x10^3/uL (0.0-0.7) Basophils # (Auto) 0.0x10^3/uL (0.0-0.2) Sodium Level 139mmol/L (136-145) Potassium Level 4.3mmol/L (3.5-5.1) Chloride Level 102mmol/L (98-107) Carbon Dioxide Level 25mmol/L (21-32) Anion Gap 12 (6-14) Blood Urea Nitrogen 9mg/dL (8-26) Creatinine 0.8mg/dL (0.7-1.3) Estimated GFR (Cockcroft-Gault) 116.0 BUN/Creatinine Ratio 11 (6-20) Glucose Level 108mg/dL (70-99) Calcium Level 9.1mg/dL (8.5-10.1) Total Bilirubin 1.4mg/dL (0.2-1.0) Aspartate Amino Transf (AST/SGOT) 17U/L (15-37) Alanine Aminotransferase (ALT/SGPT) 29U/L (16-63) Alkaline Phosphatase 65U/L (46-116) Total Protein 7.0g/dL (6.4-8.2) Albumin 3.6g/dL (3.4-5.0) Albumin/Globulin Ratio 1.1 (1.0-1.7) Review of Systems Review of Systems abd pain, nausea, xerostoma Assessment and Plan Assessmemt and Plan Problems Medical Problems: (1) Acute diverticulitis Status: Acute Problems: Comment Review of Relevant I have reviewed the following items matilde (where applicable) has been applied. Labs Laboratory Tests Test 01/27/17 00:45 01/27/17 03:10 01/28/17 04:50 White Blood Count 12.4x10^3/uL (4.0-11.0) 14.8x10^3/uL (4.0-11.0) Red Blood Count 5.63x10^6/uL (4.30-5.70) 5.53x10^6/uL (4.30-5.70) Hemoglobin 16.9g/dL (13.0-17.5) 16.8g/dL (13.0-17.5) Hematocrit 50.6% (39.0-53.0) 49.0% (39.0-53.0) Mean Corpuscular Volume 90fL (79-100) 89fL (79-100) Mean Corpuscular Hemoglobin 30pg (25-35) 30pg (25-35) Mean Corpuscular Hemoglobin Concent 33g/dL (31-37) 34g/dL (31-37) Red Cell Distribution Width 13.2% (11.5-14.5) 13.4% (11.5-14.5) Platelet Count 257x10^3/uL (140-400) 228x10^3/uL (140-400) Neutrophils (%) (Auto) 62% (31-73) 83% (31-73) Lymphocytes (%) (Auto) 27% (24-48) 8% (24-48) Monocytes (%) (Auto) 8% (0-9) 8% (0-9) Eosinophils (%) (Auto) 3% (0-3) 0% (0-3) Basophils (%) (Auto) 1% (0-3) 0% (0-3) Neutrophils # (Auto) 7.7x10^3uL (1.8-7.7) 12.3x10^3uL (1.8-7.7) Lymphocytes # (Auto) 3.3x10^3/uL (1.0-4.8) 1.2x10^3/uL (1.0-4.8) Monocytes # (Auto) 1.0x10^3/uL (0.0-1.1) 1.2x10^3/uL (0.0-1.1) Eosinophils # (Auto) 0.3x10^3/uL (0.0-0.7) 0.0x10^3/uL (0.0-0.7) Basophils # (Auto) 0.1x10^3/uL (0.0-0.2) 0.0x10^3/uL (0.0-0.2) Sodium Level 141mmol/L (136-145) 139mmol/L (136-145) Potassium Level 3.4mmol/L (3.5-5.1) 4.3mmol/L (3.5-5.1) Chloride Level 102mmol/L (98-107) 102mmol/L (98-107) Carbon Dioxide Level 32mmol/L (21-32) 25mmol/L (21-32) Anion Gap 7 (6-14) 12 (6-14) Blood Urea Nitrogen 8mg/dL (8-26) 9mg/dL (8-26) Creatinine 1.1mg/dL (0.7-1.3) 0.8mg/dL (0.7-1.3) Estimated GFR (Cockcroft-Gault) 80.3 116.0 BUN/Creatinine Ratio 7 (6-20) 11 (6-20) Glucose Level 106mg/dL (70-99) 108mg/dL (70-99) Calcium Level 9.2mg/dL (8.5-10.1) 9.1mg/dL (8.5-10.1) Total Bilirubin 0.3mg/dL (0.2-1.0) 1.4mg/dL (0.2-1.0) Aspartate Amino Transf (AST/SGOT) 24U/L (15-37) 17U/L (15-37) Alanine Aminotransferase (ALT/SGPT) 40U/L (16-63) 29U/L (16-63) Alkaline Phosphatase 68U/L (46-116) 65U/L (46-116) Total Protein 7.8g/dL (6.4-8.2) 7.0g/dL (6.4-8.2) Albumin 4.3g/dL (3.4-5.0) 3.6g/dL (3.4-5.0) Albumin/Globulin Ratio 1.2 (1.0-1.7) 1.1 (1.0-1.7) Lipase 262U/L (73-393) Urine Collection Type Unknown Urine Color Yellow Urine Clarity Clear Urine pH 8.0 Urine Specific [place] 1.020 Urine Protein Negativemg/dL (NEG-TRACE) Urine Glucose (UA) Negativemg/dL (NEG) Urine Ketones (Stick) Negativemg/dL (NEG) Urine Blood Negative (NEG) Urine Nitrite Negative (NEG) Urine Bilirubin Negative (NEG) Urine Urobilinogen Dipstick 0.2mg/dL (0.2 mg/dL) Urine Leukocyte Esterase Negative (NEG) Urine RBC 0/HPF (0-2) Urine WBC Occ/HPF (0-4) Urine Squamous Epithelial Cells Few/LPF Urine Amorphous Sediment Present/HPF Urine Bacteria 0/HPF (0-FEW) Laboratory Tests Test 01/28/17 04:50 White Blood Count 14.8x10^3/uL (4.0-11.0) Red Blood Count 5.53x10^6/uL (4.30-5.70) Hemoglobin 16.8g/dL (13.0-17.5) Hematocrit 49.0% (39.0-53.0) Mean Corpuscular Volume 89fL (79-100) Mean Corpuscular Hemoglobin 30pg (25-35) Mean Corpuscular Hemoglobin Concent 34g/dL (31-37) Red Cell Distribution Width 13.4% (11.5-14.5) Platelet Count 228x10^3/uL (140-400) Neutrophils (%) (Auto) 83% (31-73) Lymphocytes (%) (Auto) 8% (24-48) Monocytes (%) (Auto) 8% (0-9) Eosinophils (%) (Auto) 0% (0-3) Basophils (%) (Auto) 0% (0-3) Neutrophils # (Auto) 12.3x10^3uL (1.8-7.7) Lymphocytes # (Auto) 1.2x10^3/uL (1.0-4.8) Monocytes # (Auto) 1.2x10^3/uL (0.0-1.1) Eosinophils # (Auto) 0.0x10^3/uL (0.0-0.7) Basophils # (Auto) 0.0x10^3/uL (0.0-0.2) Sodium Level 139mmol/L (136-145) Potassium Level 4.3mmol/L (3.5-5.1) Chloride Level 102mmol/L (98-107) Carbon Dioxide Level 25mmol/L (21-32) Anion Gap 12 (6-14) Blood Urea Nitrogen 9mg/dL (8-26) Creatinine 0.8mg/dL (0.7-1.3) Estimated GFR (Cockcroft-Gault) 116.0 BUN/Creatinine Ratio 11 (6-20) Glucose Level 108mg/dL (70-99) Calcium Level 9.1mg/dL (8.5-10.1) Total Bilirubin 1.4mg/dL (0.2-1.0) Aspartate Amino Transf (AST/SGOT) 17U/L (15-37) Alanine Aminotransferase (ALT/SGPT) 29U/L (16-63) Alkaline Phosphatase 65U/L (46-116) Total Protein 7.0g/dL (6.4-8.2) Albumin 3.6g/dL (3.4-5.0) Albumin/Globulin Ratio 1.1 (1.0-1.7) Medications Current Medications Sodium Chloride (Iv Sodium Chloride 0.9% 1000ml Bag) 1,000 ml @ 1,000 mls/hr Q1H IV Last administered on 01/27/17 01:24; Start 01/27/17 at 01:30; Stop at 02:29; Status DC Fentanyl Citrate (Fentanyl 2ml Vial) 50 mcg 1X ONCE IV Last administered on 01:26; Start 01/27/17 at 01:30; Stop 01/27/17 at 01:31; Status DC Ondansetron HCl (Zofran) 4 mg 1X ONCE IV Last administered on 01/27/17 01:24 ; Start 01/27/17 at 01:30; Stop 01/27/17 at 01:31; Status DC Iohexol (Omnipaque 300 Mg/ml) 75 ml 1X ONCE IV Last administered on 01/27/17 02:00; Start 01/27/17 at 02:00; Stop 01/27/17 at 02:01; Status DC Info (Do NOT chart on this entry -- for MONITORING) 1 each PRN DAILY PRN MC SEE COMMENTS; Start 01/27/17 at 01:45; Stop 01/29/17 at 01:44 Hydromorphone HCl 1 mg 1 mg 1X ONCE IV Last administered on 01/27/17 02:19; Start 01/27/17 at 02:30; Stop 01/27/17 at 02:31; Status DC Meropenem/Sodium Chloride (Merrem/Iv Sodium Chloride 0.9% 100ml) 100 ml @ 200 mls/hr 1X ONCE IV Last administered on 01/27/17 03:11; Start 01/27/17 at 03: 30; Stop 01/27/17 at 03:59; Status DC Ondansetron HCl 4 mg 4 mg PRN Q8HRS PRN IV NAUSEA/VOMITING; Start 01/27/17 at 03:15; Stop 01/28/17 at 03:14; Status DC Sodium Chloride (Iv Sodium Chloride 0.9% 1000ml Bag) 1,000 ml @ 150 mls/hr Q6H40M IV Last administered on 01/27/17 21:07; Start 01/27/17 at 03:05; Stop 01/28/17 at 03:04; Status DC Acetaminophen (Tylenol) 650 mg PRN Q4HRS PRN PO FEVER Last administered on 01/27 03:56; Start 01/27/17 at 03:15; Stop 01/28/17 at 03:14; Status DC Hydromorphone HCl 1 mg 1 mg PRN Q2HRS PRN IV SEVERE PAIN Last administered on 10:07; Start 01/27/17 at 03:15; Stop 01/27/17 at 10:14; Status DC Potassium Chloride 100 ml @ 100 mls/hr Q1H IV Last administered on 01/27/17 12:48; Start 01/27/17 at 09:30; Stop 01/27/17 at 11:29; Status DC Meropenem/Sodium Chloride (Merrem/Iv Sodium Chloride 0.9% 100ml) 100 ml @ 200 mls/hr Q8HRS IV Last administered on 01/28/17 05:40; Start 01/27/17 at 11:00 Morphine Sulfate 10 mg PRN Q2HR PRN IV PAIN; Start 01/27/17 at 10:15; Status UNV Hydromorphone HCl (Dilaudid) 2 mg PRN Q2HRS PRN IV SEVERE PAIN Last administered on 01/28/17 07:56; Start 01/27/17 at 10:15 Fentanyl Citrate (Fentanyl 2ml Vial) 50 mcg PRN Q2HR PRN IV PAIN; Start at 10:15 Fentanyl (Duragesic 12mcg/ Hr Patch) 1 patch 1X ONCE TD ; Start 01/28/17 at 09: 45; Stop 01/28/17 at 09:47; Status DC Active Scripts Active Reported No Known Medications Prior To Admisstion (Info) Each 1 Each Vitals/I & O Vital Sign - Last 24 Hours 01/27/17 01/27/17 01/27/17 01/27/17 11:00 12:44 15:00 16:06 Temp 100.0 98.6 100.0 98.6 Pulse 86 89 Resp 16 18 B/P 117/71 117/65 Pulse Ox 94 93 O2 Delivery Room Air Room Air Room Air Room Air 01/27/17 01/27/17 01/27/17 01/27/17 18:39 19:00 20:00 21:04 Temp 98.8 98.8 Pulse 84 Resp 18 18 B/P 148/63 Pulse Ox 90 93 O2 Delivery Room Air Room Air Room Air Room Air 01/27/17 01/28/17 01/28/17 01/28/17 23:28 01:40 03:20 03:48 Temp 98.8 98.8 Pulse 88 Resp 20 18 16 18 B/P 137/82 Pulse Ox 93 93 90 90 O2 Delivery Room Air Room Air Room Air Room Air 01/28/17 01/28/17 01/28/17 01/28/17 05:42 06:14 07:00 07:56 Temp 99.7 99.7 Pulse 84 Resp 18 18 18 20 B/P 152/93 Pulse Ox 90 90 90 O2 Delivery Room Air Room Air Room Air Room Air 01/28/17 08:00 O2 Delivery Room Air Intake and Output 01/27/17 01/27/17 01/28/17 15:00 23:00 07:00 Intake Total 300 ml 0 ml Output Total 500 ml Balance 300 ml -500 ml 0 ml FRANCISCA HORN MD Jan 28, 2017 10:14
[2017-01-28] MEDS: ENOXAPARIN 40 MG/0.4 ML SYRINGE. SQ SCH (10:39)
[2017-01-28 11:00] VITALS: BP 148/90
[2017-01-28 15:00] VITALS: BP 142/94
[2017-01-28] MEDS: IV DEXTROSE 5 %-0.45 % NACL 1,000 ML IV SCH (18:19)
[2017-01-28 19:00] VITALS: BP 138/88
[2017-01-28 23:00] VITALS: BP 144/82
[2017-01-29] MEDS: HYDROmorphone 2 MG/ML VIAL IV PRN ×11 (00:02→23:42)
[2017-01-29] MEDS: IV DEXTROSE 5 %-0.45 % NACL 1,000 ML IV SCH ×3 (02:09→18:10)
[2017-01-29 03:00] VITALS: BP 135/85
[2017-01-29 05:03] LABS: BASO % 0 % (0-3); EOS % 1 % (0-3); HEMATOCRIT 47.3 % (39.0-53.0); HEMOGLOBIN 16.2 g/dL (13.0-17.5); LYMPH % 16 % (24-48); MEAN CORPUSCULAR HEMOGLOBIN 31 pg (25-35); MEAN CORPUSCULAR HGB CONC 34 g/dL (31-37); MEAN CORPUSCULAR VOLUME 90 fL (79-100); MONO % 10 % (0-9); NEUT % 74 % (31-73); PLATELET COUNT 236 x10^3/uL (140-400); RED BLOOD COUNT 5.27 x10^6/uL (4.30-5.70); RED CELL DISTRIBUTION WIDTH 12.8 % (11.5-14.5); WHITE BLOOD COUNT 12.5 x10^3/uL (4.0-11.0)
[2017-01-29] MEDS: MEROPENEM 1 GM in IV NORMAL SALINE 100ML 100 ML IV SCH ×3 (06:02→21:23)
[2017-01-29 07:00] VITALS: BP 137/86
--- NOTE | 2017-01-29 09:17 | PDOC ---
[employer] 01/29/17 0917: SURGICAL PROGRESS NOTE Subjective pain about the same no nausea Vital Signs Vital Signs Date Time Temp Pulse Resp B/P Pulse Ox O2 Delivery O2 Flow Rate FiO2 01/29/17 08:25 20 92 Room Air 01/29/17 03:00 99.5 90 135/85 99.5 I&O Intake and Output 01/29/17 07:00 Intake Total 0 ml Balance 0 ml Intake Oral 0 ml # Voids 2 General: Alert, Oriented X3, Cooperative, No acute distress Abdomen: Soft, Other (ND, moderate tenderness to LLQ on exam(worse than yesterday)) Labs Laboratory Tests Test 01/28/17 04:50 01/29/17 04:00 White Blood Count 14.8x10^3/uL (4.0-11.0) 12.5x10^3/uL (4.0-11.0) Red Blood Count 5.53x10^6/uL (4.30-5.70) 5.27x10^6/uL (4.30-5.70) Hemoglobin 16.8g/dL (13.0-17.5) 16.2g/dL (13.0-17.5) Hematocrit 49.0% (39.0-53.0) 47.3% (39.0-53.0) Mean Corpuscular Volume 89fL (79-100) 90fL (79-100) Mean Corpuscular Hemoglobin 30pg (25-35) 31pg (25-35) Mean Corpuscular Hemoglobin Concent 34g/dL (31-37) 34g/dL (31-37) Red Cell Distribution Width 13.4% (11.5-14.5) 12.8% (11.5-14.5) Platelet Count 228x10^3/uL (140-400) 236x10^3/uL (140-400) Neutrophils (%) (Auto) 83% (31-73) 74% (31-73) Lymphocytes (%) (Auto) 8% (24-48) 16% (24-48) Monocytes (%) (Auto) 8% (0-9) 10% (0-9) Eosinophils (%) (Auto) 0% (0-3) 1% (0-3) Basophils (%) (Auto) 0% (0-3) 0% (0-3) Neutrophils # (Auto) 12.3x10^3uL (1.8-7.7) 9.2x10^3uL (1.8-7.7) Lymphocytes # (Auto) 1.2x10^3/uL (1.0-4.8) 2.0x10^3/uL (1.0-4.8) Monocytes # (Auto) 1.2x10^3/uL (0.0-1.1) 1.2x10^3/uL (0.0-1.1) Eosinophils # (Auto) 0.0x10^3/uL (0.0-0.7) 0.1x10^3/uL (0.0-0.7) Basophils # (Auto) 0.0x10^3/uL (0.0-0.2) 0.0x10^3/uL (0.0-0.2) Sodium Level 139mmol/L (136-145) Potassium Level 4.3mmol/L (3.5-5.1) Chloride Level 102mmol/L (98-107) Carbon Dioxide Level 25mmol/L (21-32) Anion Gap 12 (6-14) Blood Urea Nitrogen 9mg/dL (8-26) Creatinine 0.8mg/dL (0.7-1.3) Estimated GFR (Cockcroft-Gault) 116.0 BUN/Creatinine Ratio 11 (6-20) Glucose Level 108mg/dL (70-99) Calcium Level 9.1mg/dL (8.5-10.1) Total Bilirubin 1.4mg/dL (0.2-1.0) Aspartate Amino Transf (AST/SGOT) 17U/L (15-37) Alanine Aminotransferase (ALT/SGPT) 29U/L (16-63) Alkaline Phosphatase 65U/L (46-116) Total Protein 7.0g/dL (6.4-8.2) Albumin 3.6g/dL (3.4-5.0) Albumin/Globulin Ratio 1.1 (1.0-1.7) Laboratory Tests Test 01/29/17 04:00 White Blood Count 12.5x10^3/uL (4.0-11.0) Red Blood Count 5.27x10^6/uL (4.30-5.70) Hemoglobin 16.2g/dL (13.0-17.5) Hematocrit 47.3% (39.0-53.0) Mean Corpuscular Volume 90fL (79-100) Mean Corpuscular Hemoglobin 31pg (25-35) Mean Corpuscular Hemoglobin Concent 34g/dL (31-37) Red Cell Distribution Width 12.8% (11.5-14.5) Platelet Count 236x10^3/uL (140-400) Neutrophils (%) (Auto) 74% (31-73) Lymphocytes (%) (Auto) 16% (24-48) Monocytes (%) (Auto) 10% (0-9) Eosinophils (%) (Auto) 1% (0-3) Basophils (%) (Auto) 0% (0-3) Neutrophils # (Auto) 9.2x10^3uL (1.8-7.7) Lymphocytes # (Auto) 2.0x10^3/uL (1.0-4.8) Monocytes # (Auto) 1.2x10^3/uL (0.0-1.1) Eosinophils # (Auto) 0.1x10^3/uL (0.0-0.7) Basophils # (Auto) 0.0x10^3/uL (0.0-0.2) Problem List Problems Medical Problems: (1) Acute diverticulitis Status: Acute Assessment/Plan diverticulitis with micro perf increased pain on exam--wbc 12, afebrile--if continued high pain in AM repeat Ct for abscess continue abx cbc in am Problems: JASE REYNOSO MD 01/29/17 1351: SURGICAL PROGRESS NOTE Assessment/Plan Pt seen and examined. Agree with Binta's note Pt with c/o pain in LLQ, especially after urinating abd soft, TTP LLQ CT in AM, if not improved Problems: [employer] Jan 29, 2017 09:17 JASE REYNOSO MD Jan 29, 2017 13:51
[2017-01-29] MEDS: ENOXAPARIN 40 MG/0.4 ML SYRINGE. SQ SCH (10:50)
[2017-01-29 11:00] VITALS: BP 134/77
--- NOTE | 2017-01-29 14:39 | PDOC ---
PROGRESS NOTES Chief Complaint Chief Complaint acute abd pain w/ diverticulitis sepsis microperf on Merrem gen surg following, prior surg considered, obesity, BMI 36 History of Present Illness History of Present Illness feels a little better today, getting dilaudid IV Q2, but a little better will start fent patch X1, low dose, discussed cont aggressive iv fluid Vitals Vitals Vital Signs Date Time Temp Pulse Resp B/P Pulse Ox O2 Delivery O2 Flow Rate FiO2 01/29/17 13:43 20 Room Air 01/29/17 11:20 94 01/29/17 11:00 99.9 74 134/77 99.9 Physical Exam General: Alert, Oriented X3, Cooperative, No acute distress Heart: Regular rate, Normal S1, Normal S2, No murmurs Lungs: Clear Abdomen: Soft, Other (ND, moderate tenderness to LLQ on exam(worse than yesterday)) Extremities: No clubbing, No cyanosis, No edema, Normal pulses Skin: No rashes Labs LABS Laboratory Tests Test 01/29/17 04:00 White Blood Count 12.5x10^3/uL (4.0-11.0) Red Blood Count 5.27x10^6/uL (4.30-5.70) Hemoglobin 16.2g/dL (13.0-17.5) Hematocrit 47.3% (39.0-53.0) Mean Corpuscular Volume 90fL (79-100) Mean Corpuscular Hemoglobin 31pg (25-35) Mean Corpuscular Hemoglobin Concent 34g/dL (31-37) Red Cell Distribution Width 12.8% (11.5-14.5) Platelet Count 236x10^3/uL (140-400) Neutrophils (%) (Auto) 74% (31-73) Lymphocytes (%) (Auto) 16% (24-48) Monocytes (%) (Auto) 10% (0-9) Eosinophils (%) (Auto) 1% (0-3) Basophils (%) (Auto) 0% (0-3) Neutrophils # (Auto) 9.2x10^3uL (1.8-7.7) Lymphocytes # (Auto) 2.0x10^3/uL (1.0-4.8) Monocytes # (Auto) 1.2x10^3/uL (0.0-1.1) Eosinophils # (Auto) 0.1x10^3/uL (0.0-0.7) Basophils # (Auto) 0.0x10^3/uL (0.0-0.2) Review of Systems Review of Systems nausea and pain unable to ambulate pain in abdomen after urinating, no pain while urinating Assessment and Plan Assessmemt and Plan Problems Medical Problems: (1) Acute diverticulitis Status: Acute Problems: Comment Review of Relevant I have reviewed the following items matilde (where applicable) has been applied. Labs Laboratory Tests Test 01/28/17 04:50 01/29/17 04:00 White Blood Count 14.8x10^3/uL (4.0-11.0) 12.5x10^3/uL (4.0-11.0) Red Blood Count 5.53x10^6/uL (4.30-5.70) 5.27x10^6/uL (4.30-5.70) Hemoglobin 16.8g/dL (13.0-17.5) 16.2g/dL (13.0-17.5) Hematocrit 49.0% (39.0-53.0) 47.3% (39.0-53.0) Mean Corpuscular Volume 89fL (79-100) 90fL (79-100) Mean Corpuscular Hemoglobin 30pg (25-35) 31pg (25-35) Mean Corpuscular Hemoglobin Concent 34g/dL (31-37) 34g/dL (31-37) Red Cell Distribution Width 13.4% (11.5-14.5) 12.8% (11.5-14.5) Platelet Count 228x10^3/uL (140-400) 236x10^3/uL (140-400) Neutrophils (%) (Auto) 83% (31-73) 74% (31-73) Lymphocytes (%) (Auto) 8% (24-48) 16% (24-48) Monocytes (%) (Auto) 8% (0-9) 10% (0-9) Eosinophils (%) (Auto) 0% (0-3) 1% (0-3) Basophils (%) (Auto) 0% (0-3) 0% (0-3) Neutrophils # (Auto) 12.3x10^3uL (1.8-7.7) 9.2x10^3uL (1.8-7.7) Lymphocytes # (Auto) 1.2x10^3/uL (1.0-4.8) 2.0x10^3/uL (1.0-4.8) Monocytes # (Auto) 1.2x10^3/uL (0.0-1.1) 1.2x10^3/uL (0.0-1.1) Eosinophils # (Auto) 0.0x10^3/uL (0.0-0.7) 0.1x10^3/uL (0.0-0.7) Basophils # (Auto) 0.0x10^3/uL (0.0-0.2) 0.0x10^3/uL (0.0-0.2) Sodium Level 139mmol/L (136-145) Potassium Level 4.3mmol/L (3.5-5.1) Chloride Level 102mmol/L (98-107) Carbon Dioxide Level 25mmol/L (21-32) Anion Gap 12 (6-14) Blood Urea Nitrogen 9mg/dL (8-26) Creatinine 0.8mg/dL (0.7-1.3) Estimated GFR (Cockcroft-Gault) 116.0 BUN/Creatinine Ratio 11 (6-20) Glucose Level 108mg/dL (70-99) Calcium Level 9.1mg/dL (8.5-10.1) Total Bilirubin 1.4mg/dL (0.2-1.0) Aspartate Amino Transf (AST/SGOT) 17U/L (15-37) Alanine Aminotransferase (ALT/SGPT) 29U/L (16-63) Alkaline Phosphatase 65U/L (46-116) Total Protein 7.0g/dL (6.4-8.2) Albumin 3.6g/dL (3.4-5.0) Albumin/Globulin Ratio 1.1 (1.0-1.7) Laboratory Tests Test 01/29/17 04:00 White Blood Count 12.5x10^3/uL (4.0-11.0) Red Blood Count 5.27x10^6/uL (4.30-5.70) Hemoglobin 16.2g/dL (13.0-17.5) Hematocrit 47.3% (39.0-53.0) Mean Corpuscular Volume 90fL (79-100) Mean Corpuscular Hemoglobin 31pg (25-35) Mean Corpuscular Hemoglobin Concent 34g/dL (31-37) Red Cell Distribution Width 12.8% (11.5-14.5) Platelet Count 236x10^3/uL (140-400) Neutrophils (%) (Auto) 74% (31-73) Lymphocytes (%) (Auto) 16% (24-48) Monocytes (%) (Auto) 10% (0-9) Eosinophils (%) (Auto) 1% (0-3) Basophils (%) (Auto) 0% (0-3) Neutrophils # (Auto) 9.2x10^3uL (1.8-7.7) Lymphocytes # (Auto) 2.0x10^3/uL (1.0-4.8) Monocytes # (Auto) 1.2x10^3/uL (0.0-1.1) Eosinophils # (Auto) 0.1x10^3/uL (0.0-0.7) Basophils # (Auto) 0.0x10^3/uL (0.0-0.2) Medications Current Medications Sodium Chloride (Iv Sodium Chloride 0.9% 1000ml Bag) 1,000 ml @ 1,000 mls/hr Q1H IV Last administered on 01/27/17 01:24; Start 01/27/17 at 01:30; Stop at 02:29; Status DC Fentanyl Citrate (Fentanyl 2ml Vial) 50 mcg 1X ONCE IV Last administered on 01:26; Start 01/27/17 at 01:30; Stop 01/27/17 at 01:31; Status DC Ondansetron HCl (Zofran) 4 mg 1X ONCE IV Last administered on 01/27/17 01:24 ; Start 01/27/17 at 01:30; Stop 01/27/17 at 01:31; Status DC Iohexol (Omnipaque 300 Mg/ml) 75 ml 1X ONCE IV Last administered on 01/27/17 02:00; Start 01/27/17 at 02:00; Stop 01/27/17 at 02:01; Status DC Info (Do NOT chart on this entry -- for MONITORING) 1 each PRN DAILY PRN MC SEE COMMENTS; Start 01/27/17 at 01:45; Stop 01/29/17 at 01:44; Status DC Hydromorphone HCl 1 mg 1 mg 1X ONCE IV Last administered on 01/27/17 02:19; Start 01/27/17 at 02:30; Stop 01/27/17 at 02:31; Status DC Meropenem/Sodium Chloride (Merrem/Iv Sodium Chloride 0.9% 100ml) 100 ml @ 200 mls/hr 1X ONCE IV Last administered on 01/27/17 03:11; Start 01/27/17 at 03: 30; Stop 01/27/17 at 03:59; Status DC Ondansetron HCl 4 mg 4 mg PRN Q8HRS PRN IV NAUSEA/VOMITING; Start 01/27/17 at 03:15; Stop 01/28/17 at 03:14; Status DC Sodium Chloride (Iv Sodium Chloride 0.9% 1000ml Bag) 1,000 ml @ 150 mls/hr Q6H40M IV Last administered on 01/27/17 21:07; Start 01/27/17 at 03:05; Stop 01/28/17 at 03:04; Status DC Acetaminophen (Tylenol) 650 mg PRN Q4HRS PRN PO FEVER Last administered on 01/27 03:56; Start 01/27/17 at 03:15; Stop 01/28/17 at 03:14; Status DC Hydromorphone HCl 1 mg 1 mg PRN Q2HRS PRN IV SEVERE PAIN Last administered on 10:07; Start 01/27/17 at 03:15; Stop 01/27/17 at 10:14; Status DC Potassium Chloride 100 ml @ 100 mls/hr Q1H IV Last administered on 01/27/17 12:48; Start 01/27/17 at 09:30; Stop 01/27/17 at 11:29; Status DC Meropenem/Sodium Chloride (Merrem/Iv Sodium Chloride 0.9% 100ml) 100 ml @ 200 mls/hr Q8HRS IV Last administered on 01/29/17 13:49; Start 01/27/17 at 11:00 Morphine Sulfate 10 mg PRN Q2HR PRN IV PAIN; Start 01/27/17 at 10:15; Status UNV Hydromorphone HCl (Dilaudid) 2 mg PRN Q2HRS PRN IV SEVERE PAIN Last administered on 01/29/17 13:43; Start 01/27/17 at 10:15 Fentanyl Citrate (Fentanyl 2ml Vial) 50 mcg PRN Q2HR PRN IV PAIN; Start at 10:15 Fentanyl (Duragesic 12mcg/ Hr Patch) 1 patch 1X ONCE TD Last administered on 10:32; Start 01/28/17 at 09:45; Stop 01/28/17 at 09:47; Status DC Enoxaparin Sodium (Lovenox Per Pharmacy Prophylaxis Dosing) 1 each PRN DAILY PRN MC SEE COMMENTS; Start 01/28/17 at 10:30 Enoxaparin Sodium 40 mg 40 mg Q24H SQ Last administered on 01/29/17 10:50; Start 01/28/17 at 11:00 Dextrose/Sodium Chloride (Iv D5% - 1/2 NS) 1,000 ml @ 125 mls/hr Q8H IV Last administered on 01/29/17 10:57; Start 01/28/17 at 15:15 Active Scripts Active Reported No Known Medications Prior To Admisstion (Info) Each 1 Each Vitals/I & O Vital Sign - Last 24 Hours 01/28/17 01/28/17 01/28/17 01/28/17 15:00 16:19 18:18 19:00 Temp 98.7 98.8 98.7 98.8 Pulse 94 94 Resp B/P 142/94 138/88 Pulse Ox 92 92 92 O2 Delivery Room Air Room Air Room Air Room Air 01/28/17 01/28/17 01/28/17 01/29/17 20:00 22:00 23:00 00:02 Temp 99.9 99.9 Pulse 98 Resp B/P 144/82 Pulse Ox 90 90 O2 Delivery Room Air Room Air Room Air Room Air 01/29/17 01/29/17 01/29/17 01/29/17 02:06 03:00 04:07 06:02 Temp 99.5 99.5 Pulse 90 Resp 18 B/P 135/85 Pulse Ox 90 92 92 92 O2 Delivery Room Air Room Air Room Air Room Air 01/29/17 01/29/17 01/29/17 01/29/17 07:00 08:00 08:25 08:55 Temp 100.4 100.4 Pulse 92 Resp B/P 137/86 Pulse Ox 94 92 O2 Delivery Room Air Room Air Room Air Room Air 01/29/17 01/29/17 01/29/17 01/29/17 10:50 11:00 11:20 13:43 Temp 99.9 99.9 Pulse 74 Resp B/P 134/77 Pulse Ox 92 94 94 O2 Delivery Room Air Room Air Room Air Intake and Output 01/28/17 01/28/17 01/29/17 15:00 23:00 07:00 Intake Total 0 ml 0 ml Balance 0 ml 0 ml FRANCISCA HORN MD Jan 29, 2017 14:39
[2017-01-29] MEDS ORDERED: KETOROLAC 15 MG/ML VIAL. IV PRN (14:45)
[2017-01-29 15:00] VITALS: BP 141/81
[2017-01-29 19:00] VITALS: BP 143/84
[2017-01-29 23:00] VITALS: BP 146/93
[2017-01-30] VITALS (10 sets, daily range): BP systolic 127–151; BP diastolic 52–87
[2017-01-30] MEDS: HYDROmorphone 2 MG/ML VIAL IV PRN ×9 (01:40→21:57)
[2017-01-30] MEDS: IV DEXTROSE 5 %-0.45 % NACL 1,000 ML IV SCH ×3 (01:41→18:12)
[2017-01-30 04:53] LABS: BASO % 0 % (0-3); EOS % 1 % (0-3); HEMATOCRIT 47.1 % (39.0-53.0); HEMOGLOBIN 16.3 g/dL (13.0-17.5); LYMPH # 1.7 x10^3/uL (1.0-4.8); LYMPH % 18 % (24-48); MEAN CORPUSCULAR HEMOGLOBIN 31 pg (25-35); MEAN CORPUSCULAR HGB CONC 35 g/dL (31-37); MEAN CORPUSCULAR VOLUME 89 fL (79-100); MONO % 12 % (0-9); NEUT % 68 % (31-73); PLATELET COUNT 250 x10^3/uL (140-400); RED BLOOD COUNT 5.28 x10^6/uL (4.30-5.70); RED CELL DISTRIBUTION WIDTH 13.1 % (11.5-14.5); WHITE BLOOD COUNT 9.5 x10^3/uL (4.0-11.0)
[2017-01-30 05:23] LABS: ALBUMIN/GLOBULIN RATIO 0.7 (1.0-1.7); CREATININE 0.8 mg/dL (0.7-1.3); POTASSIUM 3.7 mmol/L (3.5-5.1); TOTAL BILIRUBIN 1.2 mg/dL (0.2-1.0); TOTAL PROTEIN 7.6 g/dL (6.4-8.2)
[2017-01-30] MEDS: MEROPENEM 1 GM in IV NORMAL SALINE 100ML 100 ML IV SCH ×3 (06:21→21:56)
--- NOTE | 2017-01-30 09:02 | PDOC ---
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 0902: SURGICAL PROGRESS NOTE Subjective pain at 8, up to 10 with palpation no nausea/vomiting Vital Signs Vital Signs Date Time Temp Pulse Resp B/P Pulse Ox O2 Delivery O2 Flow Rate FiO2 01/30/17 08:50 20 Nasal Cannula 01/30/17 06:51 94 01/29/17 23:00 98.1 81 146/93 98.1 I&O Intake and Output 01/30/17 07:00 Intake Total 200 ml Output Total 850 ml Balance -650 ml Intake Oral 200 ml Output Urine Total 850 ml # Voids 3 General: Alert, Oriented X3, Cooperative, No acute distress Abdomen: Soft, Other (moderate to severe LLQ ttp with mild palpation, gaurding on exam) Labs Laboratory Tests Test 01/29/17 04:00 01/30/17 04:15 White Blood Count 12.5x10^3/uL (4.0-11.0) 9.5x10^3/uL (4.0-11.0) Red Blood Count 5.27x10^6/uL (4.30-5.70) 5.28x10^6/uL (4.30-5.70) Hemoglobin 16.2g/dL (13.0-17.5) 16.3g/dL (13.0-17.5) Hematocrit 47.3% (39.0-53.0) 47.1% (39.0-53.0) Mean Corpuscular Volume 90fL (79-100) 89fL (79-100) Mean Corpuscular Hemoglobin 31pg (25-35) 31pg (25-35) Mean Corpuscular Hemoglobin Concent 34g/dL (31-37) 35g/dL (31-37) Red Cell Distribution Width 12.8% (11.5-14.5) 13.1% (11.5-14.5) Platelet Count 236x10^3/uL (140-400) 250x10^3/uL (140-400) Neutrophils (%) (Auto) 74% (31-73) 68% (31-73) Lymphocytes (%) (Auto) 16% (24-48) 18% (24-48) Monocytes (%) (Auto) 10% (0-9) 12% (0-9) Eosinophils (%) (Auto) 1% (0-3) 1% (0-3) Basophils (%) (Auto) 0% (0-3) 0% (0-3) Neutrophils # (Auto) 9.2x10^3uL (1.8-7.7) 6.5x10^3uL (1.8-7.7) Lymphocytes # (Auto) 2.0x10^3/uL (1.0-4.8) 1.7x10^3/uL (1.0-4.8) Monocytes # (Auto) 1.2x10^3/uL (0.0-1.1) 1.1x10^3/uL (0.0-1.1) Eosinophils # (Auto) 0.1x10^3/uL (0.0-0.7) 0.1x10^3/uL (0.0-0.7) Basophils # (Auto) 0.0x10^3/uL (0.0-0.2) 0.0x10^3/uL (0.0-0.2) Sodium Level 136mmol/L (136-145) Potassium Level 3.7mmol/L (3.5-5.1) Chloride Level 99mmol/L (98-107) Carbon Dioxide Level 27mmol/L (21-32) Anion Gap 10 (6-14) Blood Urea Nitrogen 11mg/dL (8-26) Creatinine 0.8mg/dL (0.7-1.3) Estimated GFR (Cockcroft-Gault) 116.0 BUN/Creatinine Ratio 14 (6-20) Glucose Level 107mg/dL (70-99) Calcium Level 9.0mg/dL (8.5-10.1) Total Bilirubin 1.2mg/dL (0.2-1.0) Aspartate Amino Transf (AST/SGOT) 17U/L (15-37) Alanine Aminotransferase (ALT/SGPT) 22U/L (16-63) Alkaline Phosphatase 63U/L (46-116) Total Protein 7.6g/dL (6.4-8.2) Albumin 3.0g/dL (3.4-5.0) Albumin/Globulin Ratio 0.7 (1.0-1.7) Laboratory Tests Test 01/30/17 04:15 White Blood Count 9.5x10^3/uL (4.0-11.0) Red Blood Count 5.28x10^6/uL (4.30-5.70) Hemoglobin 16.3g/dL (13.0-17.5) Hematocrit 47.1% (39.0-53.0) Mean Corpuscular Volume 89fL (79-100) Mean Corpuscular Hemoglobin 31pg (25-35) Mean Corpuscular Hemoglobin Concent 35g/dL (31-37) Red Cell Distribution Width 13.1% (11.5-14.5) Platelet Count 250x10^3/uL (140-400) Neutrophils (%) (Auto) 68% (31-73) Lymphocytes (%) (Auto) 18% (24-48) Monocytes (%) (Auto) 12% (0-9) Eosinophils (%) (Auto) 1% (0-3) Basophils (%) (Auto) 0% (0-3) Neutrophils # (Auto) 6.5x10^3uL (1.8-7.7) Lymphocytes # (Auto) 1.7x10^3/uL (1.0-4.8) Monocytes # (Auto) 1.1x10^3/uL (0.0-1.1) Eosinophils # (Auto) 0.1x10^3/uL (0.0-0.7) Basophils # (Auto) 0.0x10^3/uL (0.0-0.2) Sodium Level 136mmol/L (136-145) Potassium Level 3.7mmol/L (3.5-5.1) Chloride Level 99mmol/L (98-107) Carbon Dioxide Level 27mmol/L (21-32) Anion Gap 10 (6-14) Blood Urea Nitrogen 11mg/dL (8-26) Creatinine 0.8mg/dL (0.7-1.3) Estimated GFR (Cockcroft-Gault) 116.0 BUN/Creatinine Ratio 14 (6-20) Glucose Level 107mg/dL (70-99) Calcium Level 9.0mg/dL (8.5-10.1) Total Bilirubin 1.2mg/dL (0.2-1.0) Aspartate Amino Transf (AST/SGOT) 17U/L (15-37) Alanine Aminotransferase (ALT/SGPT) 22U/L (16-63) Alkaline Phosphatase 63U/L (46-116) Total Protein 7.6g/dL (6.4-8.2) Albumin 3.0g/dL (3.4-5.0) Albumin/Globulin Ratio 0.7 (1.0-1.7) Problem List Problems Medical Problems: (1) Acute diverticulitis Status: Acute Assessment/Plan wbc normal however pain not improving will repeat CT today Problems: JASE REYNOSO MD 01/30/17 1529: SURGICAL PROGRESS NOTE Assessment/Plan Pt seen and examined. Agree with Ms. 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
[2017-01-30] MEDS ORDERED: CONTRAST GIVEN MC PRN (10:00)
[2017-01-30] MEDS ORDERED: IOHEXOL 300 MG/ML 75 ML VIAL IV ONE (10:00)
[2017-01-30] MEDS ORDERED: IOHEXOL 240 MG/ML 50ML VIAL. PO ONE (10:00)
--- NOTE | 2017-01-30 10:02 | PDOC ---
PROGRESS NOTES Chief Complaint Chief Complaint acute abd pain w/ diverticulitis sepsis microperf on Merrem gen surg following, prior surg considered, obesity, BMI 36 History of Present Illness History of Present Illness feels a little better today, getting dilaudid IV Q2, but a little better pain better cont aggressive iv fluid Vitals Vitals Vital Signs Date Time Temp Pulse Resp B/P Pulse Ox O2 Delivery O2 Flow Rate FiO2 01/30/17 08:50 20 Nasal Cannula 01/30/17 07:00 99.1 81 127/52 94 99.1 Physical Exam General: Alert, Oriented X3, Cooperative, No acute distress Heart: Regular rate, Normal S1, Normal S2, No murmurs Lungs: Clear Abdomen: Soft, Other (moderate to severe LLQ ttp with mild palpation, gaurding on exam) Extremities: No clubbing, No cyanosis, No edema, Normal pulses Skin: No rashes Labs LABS Laboratory Tests Test 01/30/17 04:15 White Blood Count 9.5x10^3/uL (4.0-11.0) Red Blood Count 5.28x10^6/uL (4.30-5.70) Hemoglobin 16.3g/dL (13.0-17.5) Hematocrit 47.1% (39.0-53.0) Mean Corpuscular Volume 89fL (79-100) Mean Corpuscular Hemoglobin 31pg (25-35) Mean Corpuscular Hemoglobin Concent 35g/dL (31-37) Red Cell Distribution Width 13.1% (11.5-14.5) Platelet Count 250x10^3/uL (140-400) Neutrophils (%) (Auto) 68% (31-73) Lymphocytes (%) (Auto) 18% (24-48) Monocytes (%) (Auto) 12% (0-9) Eosinophils (%) (Auto) 1% (0-3) Basophils (%) (Auto) 0% (0-3) Neutrophils # (Auto) 6.5x10^3uL (1.8-7.7) Lymphocytes # (Auto) 1.7x10^3/uL (1.0-4.8) Monocytes # (Auto) 1.1x10^3/uL (0.0-1.1) Eosinophils # (Auto) 0.1x10^3/uL (0.0-0.7) Basophils # (Auto) 0.0x10^3/uL (0.0-0.2) Sodium Level 136mmol/L (136-145) Potassium Level 3.7mmol/L (3.5-5.1) Chloride Level 99mmol/L (98-107) Carbon Dioxide Level 27mmol/L (21-32) Anion Gap 10 (6-14) Blood Urea Nitrogen 11mg/dL (8-26) Creatinine 0.8mg/dL (0.7-1.3) Estimated GFR (Cockcroft-Gault) 116.0 BUN/Creatinine Ratio 14 (6-20) Glucose Level 107mg/dL (70-99) Calcium Level 9.0mg/dL (8.5-10.1) Total Bilirubin 1.2mg/dL (0.2-1.0) Aspartate Amino Transf (AST/SGOT) 17U/L (15-37) Alanine Aminotransferase (ALT/SGPT) 22U/L (16-63) Alkaline Phosphatase 63U/L (46-116) Total Protein 7.6g/dL (6.4-8.2) Albumin 3.0g/dL (3.4-5.0) Albumin/Globulin Ratio 0.7 (1.0-1.7) Assessment and Plan Assessmemt and Plan Problems Medical Problems: (1) Acute diverticulitis Status: Acute Problems: Comment Review of Relevant I have reviewed the following items matilde (where applicable) has been applied. Labs Laboratory Tests Test 01/29/17 04:00 01/30/17 04:15 White Blood Count 12.5x10^3/uL (4.0-11.0) 9.5x10^3/uL (4.0-11.0) Red Blood Count 5.27x10^6/uL (4.30-5.70) 5.28x10^6/uL (4.30-5.70) Hemoglobin 16.2g/dL (13.0-17.5) 16.3g/dL (13.0-17.5) Hematocrit 47.3% (39.0-53.0) 47.1% (39.0-53.0) Mean Corpuscular Volume 90fL (79-100) 89fL (79-100) Mean Corpuscular Hemoglobin 31pg (25-35) 31pg (25-35) Mean Corpuscular Hemoglobin Concent 34g/dL (31-37) 35g/dL (31-37) Red Cell Distribution Width 12.8% (11.5-14.5) 13.1% (11.5-14.5) Platelet Count 236x10^3/uL (140-400) 250x10^3/uL (140-400) Neutrophils (%) (Auto) 74% (31-73) 68% (31-73) Lymphocytes (%) (Auto) 16% (24-48) 18% (24-48) Monocytes (%) (Auto) 10% (0-9) 12% (0-9) Eosinophils (%) (Auto) 1% (0-3) 1% (0-3) Basophils (%) (Auto) 0% (0-3) 0% (0-3) Neutrophils # (Auto) 9.2x10^3uL (1.8-7.7) 6.5x10^3uL (1.8-7.7) Lymphocytes # (Auto) 2.0x10^3/uL (1.0-4.8) 1.7x10^3/uL (1.0-4.8) Monocytes # (Auto) 1.2x10^3/uL (0.0-1.1) 1.1x10^3/uL (0.0-1.1) Eosinophils # (Auto) 0.1x10^3/uL (0.0-0.7) 0.1x10^3/uL (0.0-0.7) Basophils # (Auto) 0.0x10^3/uL (0.0-0.2) 0.0x10^3/uL (0.0-0.2) Sodium Level 136mmol/L (136-145) Potassium Level 3.7mmol/L (3.5-5.1) Chloride Level 99mmol/L (98-107) Carbon Dioxide Level 27mmol/L (21-32) Anion Gap 10 (6-14) Blood Urea Nitrogen 11mg/dL (8-26) Creatinine 0.8mg/dL (0.7-1.3) Estimated GFR (Cockcroft-Gault) 116.0 BUN/Creatinine Ratio 14 (6-20) Glucose Level 107mg/dL (70-99) Calcium Level 9.0mg/dL (8.5-10.1) Total Bilirubin 1.2mg/dL (0.2-1.0) Aspartate Amino Transf (AST/SGOT) 17U/L (15-37) Alanine Aminotransferase (ALT/SGPT) 22U/L (16-63) Alkaline Phosphatase 63U/L (46-116) Total Protein 7.6g/dL (6.4-8.2) Albumin 3.0g/dL (3.4-5.0) Albumin/Globulin Ratio 0.7 (1.0-1.7) Laboratory Tests Test 01/30/17 04:15 White Blood Count 9.5x10^3/uL (4.0-11.0) Red Blood Count 5.28x10^6/uL (4.30-5.70) Hemoglobin 16.3g/dL (13.0-17.5) Hematocrit 47.1% (39.0-53.0) Mean Corpuscular Volume 89fL (79-100) Mean Corpuscular Hemoglobin 31pg (25-35) Mean Corpuscular Hemoglobin Concent 35g/dL (31-37) Red Cell Distribution Width 13.1% (11.5-14.5) Platelet Count 250x10^3/uL (140-400) Neutrophils (%) (Auto) 68% (31-73) Lymphocytes (%) (Auto) 18% (24-48) Monocytes (%) (Auto) 12% (0-9) Eosinophils (%) (Auto) 1% (0-3) Basophils (%) (Auto) 0% (0-3) Neutrophils # (Auto) 6.5x10^3uL (1.8-7.7) Lymphocytes # (Auto) 1.7x10^3/uL (1.0-4.8) Monocytes # (Auto) 1.1x10^3/uL (0.0-1.1) Eosinophils # (Auto) 0.1x10^3/uL (0.0-0.7) Basophils # (Auto) 0.0x10^3/uL (0.0-0.2) Sodium Level 136mmol/L (136-145) Potassium Level 3.7mmol/L (3.5-5.1) Chloride Level 99mmol/L (98-107) Carbon Dioxide Level 27mmol/L (21-32) Anion Gap 10 (6-14) Blood Urea Nitrogen 11mg/dL (8-26) Creatinine 0.8mg/dL (0.7-1.3) Estimated GFR (Cockcroft-Gault) 116.0 BUN/Creatinine Ratio 14 (6-20) Glucose Level 107mg/dL (70-99) Calcium Level 9.0mg/dL (8.5-10.1) Total Bilirubin 1.2mg/dL (0.2-1.0) Aspartate Amino Transf (AST/SGOT) 17U/L (15-37) Alanine Aminotransferase (ALT/SGPT) 22U/L (16-63) Alkaline Phosphatase 63U/L (46-116) Total Protein 7.6g/dL (6.4-8.2) Albumin 3.0g/dL (3.4-5.0) Albumin/Globulin Ratio 0.7 (1.0-1.7) Medications Current Medications Sodium Chloride (Iv Sodium Chloride 0.9% 1000ml Bag) 1,000 ml @ 1,000 mls/hr Q1H IV Last administered on 01/27/17 01:24; Start 01/27/17 at 01:30; Stop at 02:29; Status DC Fentanyl Citrate (Fentanyl 2ml Vial) 50 mcg 1X ONCE IV Last administered on 01:26; Start 01/27/17 at 01:30; Stop 01/27/17 at 01:31; Status DC Ondansetron HCl (Zofran) 4 mg 1X ONCE IV Last administered on 01/27/17 01:24 ; Start 01/27/17 at 01:30; Stop 01/27/17 at 01:31; Status DC Iohexol (Omnipaque 300 Mg/ml) 75 ml 1X ONCE IV Last administered on 01/27/17 02:00; Start 01/27/17 at 02:00; Stop 01/27/17 at 02:01; Status DC Info (Do NOT chart on this entry -- for MONITORING) 1 each PRN DAILY PRN MC SEE COMMENTS; Start 01/27/17 at 01:45; Stop 01/29/17 at 01:44; Status DC Hydromorphone HCl 1 mg 1 mg 1X ONCE IV Last administered on 01/27/17 02:19; Start 01/27/17 at 02:30; Stop 01/27/17 at 02:31; Status DC Meropenem/Sodium Chloride (Merrem/Iv Sodium Chloride 0.9% 100ml) 100 ml @ 200 mls/hr 1X ONCE IV Last administered on 01/27/17 03:11; Start 01/27/17 at 03: 30; Stop 01/27/17 at 03:59; Status DC Ondansetron HCl 4 mg 4 mg PRN Q8HRS PRN IV NAUSEA/VOMITING; Start 01/27/17 at 03:15; Stop 01/28/17 at 03:14; Status DC Sodium Chloride (Iv Sodium Chloride 0.9% 1000ml Bag) 1,000 ml @ 150 mls/hr Q6H40M IV Last administered on 01/27/17 21:07; Start 01/27/17 at 03:05; Stop 01/28/17 at 03:04; Status DC Acetaminophen (Tylenol) 650 mg PRN Q4HRS PRN PO FEVER Last administered on 01/27 03:56; Start 01/27/17 at 03:15; Stop 01/28/17 at 03:14; Status DC Hydromorphone HCl 1 mg 1 mg PRN Q2HRS PRN IV SEVERE PAIN Last administered on 10:07; Start 01/27/17 at 03:15; Stop 01/27/17 at 10:14; Status DC Potassium Chloride 100 ml @ 100 mls/hr Q1H IV Last administered on 01/27/17 12:48; Start 01/27/17 at 09:30; Stop 01/27/17 at 11:29; Status DC Meropenem/Sodium Chloride (Merrem/Iv Sodium Chloride 0.9% 100ml) 100 ml @ 200 mls/hr Q8HRS IV Last administered on 01/30/17 06:21; Start 01/27/17 at 11:00 Morphine Sulfate 10 mg PRN Q2HR PRN IV PAIN; Start 01/27/17 at 10:15; Status UNV Hydromorphone HCl (Dilaudid) 2 mg PRN Q2HRS PRN IV SEVERE PAIN Last administered on 01/30/17 08:50; Start 01/27/17 at 10:15 Fentanyl Citrate (Fentanyl 2ml Vial) 50 mcg PRN Q2HR PRN IV PAIN; Start at 10:15 Fentanyl (Duragesic 12mcg/ Hr Patch) 1 patch 1X ONCE TD Last administered on 10:32; Start 01/28/17 at 09:45; Stop 01/28/17 at 09:47; Status DC Enoxaparin Sodium (Lovenox Per Pharmacy Prophylaxis Dosing) 1 each PRN DAILY PRN MC SEE COMMENTS; Start 01/28/17 at 10:30 Enoxaparin Sodium 40 mg 40 mg Q24H SQ Last administered on 01/29/17 10:50; Start 01/28/17 at 11:00 Dextrose/Sodium Chloride (Iv D5% - 1/2 NS) 1,000 ml @ 125 mls/hr Q8H IV Last administered on 01/30/17 01:41; Start 01/28/17 at 15:15 Ketorolac Tromethamine (Toradol) 15 mg PRN Q12HR PRN IV PAIN; Start 01/29/17 at 14:45; Stop 02/03/17 at 14:44 Iohexol (Omnipaque 300 Mg/ml) 75 ml 1X ONCE IV ; Start 01/30/17 at 10:00; Stop 01/30/17 at 10:01; Status DC Iohexol (Omnipaque 240 Mg/ml) 50 ml 1X ONCE PO ; Start 01/30/17 at 10:00; Stop 01/30/17 at 10:01; Status DC Info (Do NOT chart on this entry -- for MONITORING) 1 each PRN DAILY PRN MC SEE COMMENTS; Start 01/30/17 at 10:00; Stop 02/01/17 at 09:59 Active Scripts Active Reported No Known Medications Prior To Admisstion (Info) Each 1 Each MC Vitals/I & O Vital Sign - Last 24 Hours 01/29/17 01/29/17 01/29/17 01/29/17 10:50 11:00 13:43 15:00 Temp 99.9 99.9 99.9 99.9 Pulse 74 77 Resp 18 18 20 20 B/P 134/77 141/81 Pulse Ox 92 94 94 O2 Delivery Room Air Room Air Room Air Room Air 01/29/17 01/29/17 01/29/17 01/29/17 16:51 19:00 19:12 20:00 Temp 98.1 98.1 Pulse 80 Resp 20 17 20 B/P 143/84 Pulse Ox 94 93 94 O2 Delivery Room Air Room Air Room Air Room Air 01/29/17 01/29/17 01/29/17 01/30/17 21:23 23:00 23:42 01:40 Temp 98.1 98.1 Pulse 81 Resp 17 20 B/P 146/93 Pulse Ox 94 95 94 O2 Delivery Room Air Room Air Room Air Room Air 01/30/17 01/30/17 01/30/17 01/30/17 04:15 06:21 06:51 07:00 Temp 99.1 99.1 Pulse 81 Resp 20 18 20 20 B/P 127/52 Pulse Ox 94 94 O2 Delivery Room Air Room Air Room Air Room Air 01/30/17 08:50 Resp 20 O2 Delivery Nasal Cannula Intake and Output 01/29/17 01/29/17 01/30/17 15:00 23:00 07:00 Intake Total 200 ml Output Total 850 ml Balance -850 ml 200 ml FRANCISCA HORN MD Jan 30, 2017 10:02
[2017-01-30] MEDS: ENOXAPARIN 40 MG/0.4 ML SYRINGE. SQ SCH (10:54)
--- NOTE | 2017-01-30 12:29 | RAD ---
CT of the abdomen and pelvis with contrast, 01/30/2017: History: Abdominal pain, follow-up diverticulitis Multidetector CT imaging was performed following oral and IV administration of contrast. Comparison is made to a study from 01/27/2017. There are mild streaky basilar opacities compatible with atelectasis. There are ongoing inflammatory changes in the paracolic fat adjacent to the proximal to mid sigmoid colon. There are underlying diverticula with mural thickening. Extraluminal gas collections have increased. Pneumoperitoneum is now evident in the upper abdomen. There is now a 5 x 2 cm cavity along the anterior aspect of the sigmoid colon which contains small air-fluid levels. The appearance is that of a developing abscess. There are couple of other separate small extraluminal gas collections in this region. Streaky inflammatory changes now extend into the left paracolic gutter and to a lesser degree on the right. There is a trace amount of free fluid in pelvis. There is no evidence of bowel obstruction. The liver demonstrates no intrinsic abnormality. The gallbladder is unremarkable. No pancreatic abnormality is seen. The spleen is of normal size. The kidneys demonstrate no intrinsic abnormality. There is a small collection of gas in Morison's pouch on the right. IMPRESSION: Worsening acute sigmoid diverticulitis with perforation and interval development of a paracolic abscess. There is now pneumoperitoneum with inflammation extending into the left paracolic gutter, and a small amount of free fluid in the pelvis. PQRS Compliance Statement: One or more of the following individualized dose reduction techniques were utilized for this examination: 1. Automated exposure control 2. Adjustment of the mA and/or kV according to patient size 3. Use of iterative reconstruction technique
[2017-01-30] MEDS ORDERED: IV RINGERS,LACTATED 1000ML 1,000 ML IV SCH (13:20)
[2017-01-30] MEDS ORDERED: LIDOCAINE 1% / SOD BICARB 8.4% 20 ML VIAL. IJ ONE ×2 (13:26→14:15)
[2017-01-30] MEDS ORDERED: PROCHLORPERAZINE 10 MG/2 ML VIAL. IV PRN (13:30)
[2017-01-30] MEDS ORDERED: LIDOCAINE 1% 1 ML SYRINGE. ID PRN (13:30)
[2017-01-30] MEDS ORDERED: ONDANSETRON PF 4 MG/2 ML VIAL. IV PRN (13:30)
[2017-01-30] MEDS ORDERED: fentaNYL PF VIAL 100 MCG/2 ML VIAL IV PRN ×2 (13:30)
[2017-01-30] MEDS ORDERED: PROPOFOL 20 ML IV ONE ×2 (13:33→13:34)
[2017-01-30] MEDS ORDERED: KETAMINE HCL 500 MG/10 ML VIAL. ONE (13:39)
[2017-01-30] MEDS ORDERED: IOHEXOL 300 MG/ML 50 ML VIAL. ONE (14:34)
--- NOTE | 2017-01-30 14:51 | PDOC ---
Exam Card Checker Card Checker Kassidy Ceramic Restorer Ceramic Restorer F Ndumbu Pre-Procedure Diagnosis Pre-Procedure Diagnosis 26 YO male with perisigmoid diverticular abscess Post-Procedure Diagnosis Post-Procedure Diagnosis Same Procedure Performed Procedure Performed CT guided abscess drain insertion Type of Anesthesia Type of Anesthesia MAC by anesthesia Estimated Blood Loss EBL: Minimal Specimens Specimans 10 cc pink-turbid complex fluid removed---samples to micro for aerobic/ anaerobic C&S Drain/Tubes Drains/Tubes 12F locking pigtail perisigmoid diverticular abscess drain to bulb suction. Condition of Patient Condition of Patient Stable. No apparent complication. Disposition Disposition From IR/CT to PACU, then return to 500 post recovery, if no problems. Abscess drain in place---to bulb suction. F/u with HIMS and General Surgery. Full report to follow. ERIN LIU MD Jan 30, 2017 14:51
[2017-01-31] MEDS: HYDROmorphone 2 MG/ML VIAL IV PRN ×11 (00:14→23:33)
[2017-01-31] MEDS: IV DEXTROSE 5 %-0.45 % NACL 1,000 ML IV SCH ×3 (02:54→19:27)
[2017-01-31] MEDS: MEROPENEM 1 GM in IV NORMAL SALINE 100ML 100 ML IV SCH ×3 (05:08→21:36)
[2017-01-31 07:40] VITALS: BP 133/75
[2017-01-31 10:45] VITALS: BP 126/77
--- NOTE | 2017-01-31 11:26 | RAD ---
CT-guided insertion of pericolic diverticular abscess drain Indication: 26-year-old male with a developing pericolic abscess, likely diverticular in origin. CT-guided drain insertion has been requested. Anesthesia: Mac anesthesia was provided by the department of anesthesiology. [facility] Compliance Statement: One or more of the following individualized dose reduction techniques was/were utilized for this CT examination or procedure: 1. Automated exposure control. 2. Adjustment of mA and/or kV according to patient size. 3. Iterative reconstruction technique. Procedure: Informed consent was obtained the patient. He was placed supine on the CT scanner. Preliminary noncontrast CT images confirmed the presence of a gas lie fluid containing pericolic abscess within anterior aspect of lower abdomen, centered just left of midline. An overlying skin site suitable for CT-guided drain placement was selected and marked. That area was prepped and draped in the usual sterile fashion. Mac anesthesia was provided by the department of anesthesiology. Using aseptic technique, local anesthesia, and CT guidance, a 19-gauge needle was successfully introduced into the gas/fluid containing abscess. Needle was removed over a guidewire. The percutaneous tract was dilated and a 12 [place] locking pigtail drainage catheter was successfully introduced. Approximately 10 cc of pink-turbid complex fluid was aspirated, a sample of which was submitted to microbiology for aerobic and anaerobic culture and sensitivity. Completion CT images documented satisfactory position of the drainage catheter, which was connected to bulb suction, and was secured at the skin exit site utilizing suture and sterile dressing. Patient tolerated the procedure well without apparent complication. He was transported from the CT suite to the postanesthesia care unit in stable condition. Impression: Successful, uneventful CT-guided insertion of a 12 [place] locking pigtail abscess drainage catheter, as described.
[2017-01-31] MEDS: ENOXAPARIN 40 MG/0.4 ML SYRINGE. SQ SCH (11:42)
--- NOTE | 2017-01-31 13:42 | PDOC ---
PROGRESS NOTES Chief Complaint Chief Complaint acute abd pain w/ micro perforated diverticulitis sepsis obesity, BMI 36 plan: fu with sx on drainage NPO ivf pain control iv on meropenum , altho allergic to PCN dvt, gi ppx History of Present Illness History of Present Illness pain slightly better, still need dilaudid q2h iv cont aggressive iv fluid got RLQ drainage cath on 01/30, has flatus Vitals Vitals Vital Signs Date Time Temp Pulse Resp B/P Pulse Ox O2 Delivery O2 Flow Rate FiO2 01/31/17 12:55 Room Air 01/31/17 10:45 98.2 74 18 126/77 94 98.2 01/30/17 21:57 2.0 Physical Exam General: Alert, Oriented X3, Cooperative, No acute distress Heart: Regular rate, Normal S1, Normal S2, No murmurs Lungs: Clear Abdomen: Soft, Other (moderate to severe LLQ ttp with mild palpation, gaurding on exam) Extremities: No clubbing, No cyanosis, No edema, Normal pulses Skin: No rashes Labs LABS Laboratory Tests Test 01/30/17 15:04 Glucose (Fingerstick) 110mg/dL (70-99) Review of Systems Review of Systems no fever, chills, sob or chest pain Assessment and Plan Assessmemt and Plan Problems Medical Problems: (1) Acute diverticulitis Status: Acute Problems: Comment Review of Relevant I have reviewed the following items matilde (where applicable) has been applied. Labs Laboratory Tests Test 01/30/17 04:15 01/30/17 15:04 White Blood Count 9.5x10^3/uL (4.0-11.0) Red Blood Count 5.28x10^6/uL (4.30-5.70) Hemoglobin 16.3g/dL (13.0-17.5) Hematocrit 47.1% (39.0-53.0) Mean Corpuscular Volume 89fL (79-100) Mean Corpuscular Hemoglobin 31pg (25-35) Mean Corpuscular Hemoglobin Concent 35g/dL (31-37) Red Cell Distribution Width 13.1% (11.5-14.5) Platelet Count 250x10^3/uL (140-400) Neutrophils (%) (Auto) 68% (31-73) Lymphocytes (%) (Auto) 18% (24-48) Monocytes (%) (Auto) 12% (0-9) Eosinophils (%) (Auto) 1% (0-3) Basophils (%) (Auto) 0% (0-3) Neutrophils # (Auto) 6.5x10^3uL (1.8-7.7) Lymphocytes # (Auto) 1.7x10^3/uL (1.0-4.8) Monocytes # (Auto) 1.1x10^3/uL (0.0-1.1) Eosinophils # (Auto) 0.1x10^3/uL (0.0-0.7) Basophils # (Auto) 0.0x10^3/uL (0.0-0.2) Sodium Level 136mmol/L (136-145) Potassium Level 3.7mmol/L (3.5-5.1) Chloride Level 99mmol/L (98-107) Carbon Dioxide Level 27mmol/L (21-32) Anion Gap 10 (6-14) Blood Urea Nitrogen 11mg/dL (8-26) Creatinine 0.8mg/dL (0.7-1.3) Estimated GFR (Cockcroft-Gault) 116.0 BUN/Creatinine Ratio 14 (6-20) Glucose Level 107mg/dL (70-99) Calcium Level 9.0mg/dL (8.5-10.1) Total Bilirubin 1.2mg/dL (0.2-1.0) Aspartate Amino Transf (AST/SGOT) 17U/L (15-37) Alanine Aminotransferase (ALT/SGPT) 22U/L (16-63) Alkaline Phosphatase 63U/L (46-116) Total Protein 7.6g/dL (6.4-8.2) Albumin 3.0g/dL (3.4-5.0) Albumin/Globulin Ratio 0.7 (1.0-1.7) Glucose (Fingerstick) 110mg/dL (70-99) Laboratory Tests Test 01/30/17 15:04 Glucose (Fingerstick) 110mg/dL (70-99) Microbiology 01/30/17 Gram Stain - Final, Complete Medications Current Medications Sodium Chloride (Iv Sodium Chloride 0.9% 1000ml Bag) 1,000 ml @ 1,000 mls/hr Q1H IV Last administered on 01/27/17 01:24; Start 01/27/17 at 01:30; Stop at 02:29; Status DC Fentanyl Citrate (Fentanyl 2ml Vial) 50 mcg 1X ONCE IV Last administered on 01:26; Start 01/27/17 at 01:30; Stop 01/27/17 at 01:31; Status DC Ondansetron HCl (Zofran) 4 mg 1X ONCE IV Last administered on 01/27/17 01:24 ; Start 01/27/17 at 01:30; Stop 01/27/17 at 01:31; Status DC Iohexol (Omnipaque 300 Mg/ml) 75 ml 1X ONCE IV Last administered on 01/27/17 02:00; Start 01/27/17 at 02:00; Stop 01/27/17 at 02:01; Status DC Info (Do NOT chart on this entry -- for MONITORING) 1 each PRN DAILY PRN MC SEE COMMENTS; Start 01/27/17 at 01:45; Stop 01/29/17 at 01:44; Status DC Hydromorphone HCl 1 mg 1 mg 1X ONCE IV Last administered on 01/27/17 02:19; Start 01/27/17 at 02:30; Stop 01/27/17 at 02:31; Status DC Meropenem/Sodium Chloride (Merrem/Iv Sodium Chloride 0.9% 100ml) 100 ml @ 200 mls/hr 1X ONCE IV Last administered on 01/27/17 03:11; Start 01/27/17 at 03: 30; Stop 01/27/17 at 03:59; Status DC Ondansetron HCl 4 mg 4 mg PRN Q8HRS PRN IV NAUSEA/VOMITING; Start 01/27/17 at 03:15; Stop 01/28/17 at 03:14; Status DC Sodium Chloride (Iv Sodium Chloride 0.9% 1000ml Bag) 1,000 ml @ 150 mls/hr Q6H40M IV Last administered on 01/27/17 21:07; Start 01/27/17 at 03:05; Stop 01/28/17 at 03:04; Status DC Acetaminophen (Tylenol) 650 mg PRN Q4HRS PRN PO FEVER Last administered on 01/27 03:56; Start 01/27/17 at 03:15; Stop 01/28/17 at 03:14; Status DC Hydromorphone HCl 1 mg 1 mg PRN Q2HRS PRN IV SEVERE PAIN Last administered on 10:07; Start 01/27/17 at 03:15; Stop 01/27/17 at 10:14; Status DC Potassium Chloride 100 ml @ 100 mls/hr Q1H IV Last administered on 01/27/17 12:48; Start 01/27/17 at 09:30; Stop 01/27/17 at 11:29; Status DC Meropenem/Sodium Chloride (Merrem/Iv Sodium Chloride 0.9% 100ml) 100 ml @ 200 mls/hr Q8HRS IV Last administered on 01/31/17 05:08; Start 01/27/17 at 11:00 Morphine Sulfate 10 mg PRN Q2HR PRN IV PAIN; Start 01/27/17 at 10:15; Status UNV Hydromorphone HCl (Dilaudid) 2 mg PRN Q2HRS PRN IV SEVERE PAIN Last administered on 01/31/17 12:14; Start 01/27/17 at 10:15 Fentanyl Citrate (Fentanyl 2ml Vial) 50 mcg PRN Q2HR PRN IV PAIN; Start at 10:15 Fentanyl (Duragesic 12mcg/ Hr Patch) 1 patch 1X ONCE TD Last administered on 10:32; Start 01/28/17 at 09:45; Stop 01/28/17 at 09:47; Status DC Enoxaparin Sodium (Lovenox Per Pharmacy Prophylaxis Dosing) 1 each PRN DAILY PRN MC SEE COMMENTS; Start 01/28/17 at 10:30 Enoxaparin Sodium 40 mg 40 mg Q24H SQ Last administered on 01/31/17 11:42; Start 01/28/17 at 11:00 Dextrose/Sodium Chloride (Iv D5% - 1/2 NS) 1,000 ml @ 125 mls/hr Q8H IV Last administered on 01/31/17 11:39; Start 01/28/17 at 15:15 Ketorolac Tromethamine (Toradol) 15 mg PRN Q12HR PRN IV PAIN; Start 01/29/17 at 14:45; Stop 02/03/17 at 14:44 Iohexol (Omnipaque 300 Mg/ml) 75 ml 1X ONCE IV Last administered on 01/30/17t 11:08; Start 01/30/17 at 10:00; Stop 01/30/17 at 10:01; Status DC Iohexol (Omnipaque 240 Mg/ml) 50 ml 1X ONCE PO Last administered on 01/30/17t 11:08; Start 01/30/17 at 10:00; Stop 01/30/17 at 10:01; Status DC Info (Do NOT chart on this entry -- for MONITORING) 1 each PRN DAILY PRN MC SEE COMMENTS; Start 01/30/17 at 10:00; Stop 02/01/17 at 09:59 Ondansetron HCl (Zofran) 4 mg PRN Q6HRS PRN IV NAUSEA/VOMITING; Start 01/30/17 at 13:30; Stop 01/31/17 at 13:29; Status DC Fentanyl Citrate (Fentanyl 2ml Vial) 25 mcg PRN Q5MIN PRN IV MILD PAIN; Start 01/30/17 at 13:30; Stop 01/31/17 at 13:29; Status DC Fentanyl Citrate 50 mcg 50 mcg PRN Q5MIN PRN IV MODERATE PAIN; Start 01/30/17 at 13:30; Stop 01/31/17 at 13:29; Status DC Lactated Ringer's (Iv Lactated Ringers) 1,000 ml @ 30 mls/hr Q24H IV ; Start at 13:20; Stop 01/31/17 at 01:19; Status DC Lidocaine HCl 2 ml PRN 1X PRN ID PRIOR TO IV START; Start 01/30/17 at 13:30; Stop 01/31/17 at 13:29; Status DC Prochlorperazine Edisylate (Compazine) 5 mg PACU PRN PRN IV NAUSEA, MRX1; Start 01/30/17 at 13:30; Stop 01/31/17 at 13:29; Status DC Lidocaine/Sodium Bicarbonate 20 ml 20 ml STK-MED ONCE IJ ; Start 01/30/17 at 13: 26; Stop 01/30/17 at 13:27; Status DC Propofol 20 ml @ As Directed STK-MED ONCE IV ; Start 01/30/17 at 13:33; Stop at 13:34; Status DC Propofol (Diprivan) 20 ml @ As Directed STK-MED ONCE IV ; Start 01/30/17 at 13: 34; Stop 01/30/17 at 13:35; Status DC Ketamine HCl 500 mg STK-MED ONCE .ROUTE ; Start 01/30/17 at 13:39; Stop at 13:40; Status DC Lidocaine/Sodium Bicarbonate (Buffered Lidocaine 1%) 20 ml 1X ONCE IJ Last administered on 01/30/17t 14:42; Start 01/30/17 at 14:15; Stop 01/30/17 at 14:16 ; Status DC Iohexol (Omnipaque 300 Mg/ml) 50 ml STK-MED ONCE .ROUTE ; Start 01/30/17 at 14: 34; Stop 01/30/17 at 14:35; Status DC Active Scripts Active Reported No Known Medications Prior To Admisstion (Info) Each 1 Each Vitals/I & O Vital Sign - Last 24 Hours 01/30/17 01/30/17 01/30/17 01/30/17 14:49 14:49 15:04 15:19 Temp 97.0 97.0 Pulse 110 84 78 Resp 16 16 20 B/P 159/97 186/94 161/80 Pulse Ox 96 97 98 O2 Delivery Nasal Cannula Nasal Cannula Nasal Cannula Room Air O2 Flow Rate 2 2 2 01/30/17 01/30/17 01/30/17 01/30/17 15:34 16:00 16:15 16:30 Temp 98.8 98.4 98.8 98.8 98.4 98.8 Pulse 71 78 77 76 Resp 20 B/P 147/80 151/81 150/80 Pulse Ox 94 94 97 O2 Delivery Room Air Room Air Room Air 01/30/17 01/30/17 01/30/17 01/30/17 16:50 17:05 17:25 18:00 Temp 98.8 99.1 98.1 98.8 99.1 98.1 Pulse 73 74 67 Resp 20 18 18 B/P 146/87 147/86 145/82 Pulse Ox 96 98 96 93 O2 Delivery Room Air Nasal Cannula Room Air Room Air O2 Flow Rate 2.0 01/30/17 01/30/17 01/30/17 01/30/17 19:00 19:28 20:00 21:57 Temp 98.4 98.4 Pulse 65 Resp 18 18 B/P 145/84 Pulse Ox 96 96 O2 Delivery Room Air Room Air Nasal Cannula O2 Flow Rate 2.0 01/30/17 01/31/17 01/31/17 01/31/17 23:00 00:14 02:54 05:40 Temp 98.8 98.8 Pulse 75 Resp 18 18 18 18 B/P 140/78 Pulse Ox 95 95 O2 Delivery Room Air 01/31/17 01/31/17 01/31/17 01/31/17 07:30 07:40 07:54 10:06 Temp 98.8 98.8 Pulse 79 Resp 18 B/P 133/75 Pulse Ox 93 O2 Delivery Room Air Room Air Room Air Room Air 01/31/17 01/31/17 01/31/17 10:45 12:14 12:55 Temp 98.2 98.2 Pulse 74 Resp 18 B/P 126/77 Pulse Ox 94 O2 Delivery Room Air Room Air Room Air Intake and Output 01/30/17 01/30/17 01/31/17 15:00 23:00 07:00 Intake Total 825 ml 100 ml Output Total 510 ml 1010 ml Balance 315 ml -910 ml OCRA DEL VALLE MD Jan 31, 2017 13:42
[2017-01-31] MEDS ORDERED: ONDANSETRON PF 4 MG/2 ML VIAL. IV PRN (13:45)
[2017-01-31] MEDS ORDERED: ACETAMINOPHEN 325 MG TABLET. PO PRN (13:45)
[2017-01-31] MEDS: PANTOPRAZOLE IV PUSH 40 MG VIAL. IVP SCH (13:54)
--- NOTE | 2017-01-31 14:15 | PDOC ---
Provider Note Provider Note much less abd pain since drain placed. +flatus. afeb vss appears well abd soft nd min tender in lower abd drain in place, serosang in bulb now a/p diverticulitis with abscess. s/p perc drain. cont abx. would not advance diet. RENU DELGADILLO MD Jan 31, 2017 14:15
[2017-01-31 14:49] VITALS: BP 134/83
[2017-01-31 19:00] VITALS: BP 141/92
[2017-02-01] MEDS: HYDROmorphone 2 MG/ML VIAL IV PRN ×10 (01:35→22:24)
[2017-02-01 03:00] VITALS: BP 136/73
[2017-02-01] MEDS: IV DEXTROSE 5 %-0.45 % NACL 1,000 ML IV SCH ×4 (03:43→23:15)
[2017-02-01 03:56] LABS: BASO % 0 % (0-3); EOS % 3 % (0-3); HEMATOCRIT 45.6 % (39.0-53.0); HEMOGLOBIN 16.3 g/dL (13.0-17.5); LYMPH # 1.6 x10^3/uL (1.0-4.8); LYMPH % 22 % (24-48); MEAN CORPUSCULAR HEMOGLOBIN 32 pg (25-35); MEAN CORPUSCULAR HGB CONC 36 g/dL (31-37); MEAN CORPUSCULAR VOLUME 88 fL (79-100); MONO % 12 % (0-9); NEUT % 62 % (31-73); PLATELET COUNT 306 x10^3/uL (140-400); RED BLOOD COUNT 5.18 x10^6/uL (4.30-5.70); RED CELL DISTRIBUTION WIDTH 12.9 % (11.5-14.5); WHITE BLOOD COUNT 7.1 x10^3/uL (4.0-11.0)
[2017-02-01 04:13] LABS: CALCIUM 9.2 mg/dL (8.5-10.1); CREATININE 0.8 mg/dL (0.7-1.3); POTASSIUM 3.5 mmol/L (3.5-5.1)
[2017-02-01] MEDS: MEROPENEM 1 GM in IV NORMAL SALINE 100ML 100 ML IV SCH ×3 (05:45→20:26)
[2017-02-01 07:10] VITALS: BP 137/75
[2017-02-01] MEDS: PANTOPRAZOLE IV PUSH 40 MG VIAL. IVP SCH (08:08)
[2017-02-01 10:57] VITALS: BP 157/92
[2017-02-01] MEDS: ENOXAPARIN 40 MG/0.4 ML SYRINGE. SQ SCH (11:08)
--- NOTE | 2017-02-01 13:21 | PDOC ---
PROGRESS NOTES Chief Complaint Chief Complaint acute abd pain w/ micro perforated diverticulitis sepsis obesity, BMI 36 plan: fu with sx on drainage, cx + Ecoli NPO ivf pain control iv on meropenum , altho allergic to PCN dvt, gi ppx History of Present Illness History of Present Illness pain slightly better, still need dilaudid q2h iv cont aggressive iv fluid got RLQ drainage cath on 01/30, has flatus Vitals Vitals Vital Signs Date Time Temp Pulse Resp B/P Pulse Ox O2 Delivery O2 Flow Rate FiO2 02/01/17 11:40 Room Air 02/01/17 10:57 98.2 72 18 157/92 96 98.2 02/01/17 06:09 2.0 Physical Exam General: Alert, Oriented X3, Cooperative, No acute distress Heart: Regular rate, Normal S1, Normal S2, No murmurs Lungs: Clear Abdomen: Soft, Other (moderate to severe LLQ ttp with mild palpation, gaurding on exam) Extremities: No clubbing, No cyanosis, No edema, Normal pulses Skin: No rashes Labs LABS Laboratory Tests Test 02/01/17 03:05 White Blood Count 7.1x10^3/uL (4.0-11.0) Red Blood Count 5.18x10^6/uL (4.30-5.70) Hemoglobin 16.3g/dL (13.0-17.5) Hematocrit 45.6% (39.0-53.0) Mean Corpuscular Volume 88fL (79-100) Mean Corpuscular Hemoglobin 32pg (25-35) Mean Corpuscular Hemoglobin Concent 36g/dL (31-37) Red Cell Distribution Width 12.9% (11.5-14.5) Platelet Count 306x10^3/uL (140-400) Neutrophils (%) (Auto) 62% (31-73) Lymphocytes (%) (Auto) 22% (24-48) Monocytes (%) (Auto) 12% (0-9) Eosinophils (%) (Auto) 3% (0-3) Basophils (%) (Auto) 0% (0-3) Neutrophils # (Auto) 4.4x10^3uL (1.8-7.7) Lymphocytes # (Auto) 1.6x10^3/uL (1.0-4.8) Monocytes # (Auto) 0.9x10^3/uL (0.0-1.1) Eosinophils # (Auto) 0.2x10^3/uL (0.0-0.7) Basophils # (Auto) 0.0x10^3/uL (0.0-0.2) Sodium Level 140mmol/L (136-145) Potassium Level 3.5mmol/L (3.5-5.1) Chloride Level 101mmol/L (98-107) Carbon Dioxide Level 32mmol/L (21-32) Anion Gap 7 (6-14) Blood Urea Nitrogen 11mg/dL (8-26) Creatinine 0.8mg/dL (0.7-1.3) Estimated GFR (Cockcroft-Gault) 116.0 Glucose Level 95mg/dL (70-99) Calcium Level 9.2mg/dL (8.5-10.1) Review of Systems Review of Systems no fever, chills, sob or chest pain Assessment and Plan Assessmemt and Plan Problems Medical Problems: (1) Acute diverticulitis Status: Acute Problems: Comment Review of Relevant I have reviewed the following items matilde (where applicable) has been applied. Labs Laboratory Tests Test 01/30/17 15:04 02/01/17 03:05 Glucose (Fingerstick) 110mg/dL (70-99) White Blood Count 7.1x10^3/uL (4.0-11.0) Red Blood Count 5.18x10^6/uL (4.30-5.70) Hemoglobin 16.3g/dL (13.0-17.5) Hematocrit 45.6% (39.0-53.0) Mean Corpuscular Volume 88fL (79-100) Mean Corpuscular Hemoglobin 32pg (25-35) Mean Corpuscular Hemoglobin Concent 36g/dL (31-37) Red Cell Distribution Width 12.9% (11.5-14.5) Platelet Count 306x10^3/uL (140-400) Neutrophils (%) (Auto) 62% (31-73) Lymphocytes (%) (Auto) 22% (24-48) Monocytes (%) (Auto) 12% (0-9) Eosinophils (%) (Auto) 3% (0-3) Basophils (%) (Auto) 0% (0-3) Neutrophils # (Auto) 4.4x10^3uL (1.8-7.7) Lymphocytes # (Auto) 1.6x10^3/uL (1.0-4.8) Monocytes # (Auto) 0.9x10^3/uL (0.0-1.1) Eosinophils # (Auto) 0.2x10^3/uL (0.0-0.7) Basophils # (Auto) 0.0x10^3/uL (0.0-0.2) Sodium Level 140mmol/L (136-145) Potassium Level 3.5mmol/L (3.5-5.1) Chloride Level 101mmol/L (98-107) Carbon Dioxide Level 32mmol/L (21-32) Anion Gap 7 (6-14) Blood Urea Nitrogen 11mg/dL (8-26) Creatinine 0.8mg/dL (0.7-1.3) Estimated GFR (Cockcroft-Gault) 116.0 Glucose Level 95mg/dL (70-99) Calcium Level 9.2mg/dL (8.5-10.1) Laboratory Tests Test 02/01/17 03:05 White Blood Count 7.1x10^3/uL (4.0-11.0) Red Blood Count 5.18x10^6/uL (4.30-5.70) Hemoglobin 16.3g/dL (13.0-17.5) Hematocrit 45.6% (39.0-53.0) Mean Corpuscular Volume 88fL (79-100) Mean Corpuscular Hemoglobin 32pg (25-35) Mean Corpuscular Hemoglobin Concent 36g/dL (31-37) Red Cell Distribution Width 12.9% (11.5-14.5) Platelet Count 306x10^3/uL (140-400) Neutrophils (%) (Auto) 62% (31-73) Lymphocytes (%) (Auto) 22% (24-48) Monocytes (%) (Auto) 12% (0-9) Eosinophils (%) (Auto) 3% (0-3) Basophils (%) (Auto) 0% (0-3) Neutrophils # (Auto) 4.4x10^3uL (1.8-7.7) Lymphocytes # (Auto) 1.6x10^3/uL (1.0-4.8) Monocytes # (Auto) 0.9x10^3/uL (0.0-1.1) Eosinophils # (Auto) 0.2x10^3/uL (0.0-0.7) Basophils # (Auto) 0.0x10^3/uL (0.0-0.2) Sodium Level 140mmol/L (136-145) Potassium Level 3.5mmol/L (3.5-5.1) Chloride Level 101mmol/L (98-107) Carbon Dioxide Level 32mmol/L (21-32) Anion Gap 7 (6-14) Blood Urea Nitrogen 11mg/dL (8-26) Creatinine 0.8mg/dL (0.7-1.3) Estimated GFR (Cockcroft-Gault) 116.0 Glucose Level 95mg/dL (70-99) Calcium Level 9.2mg/dL (8.5-10.1) Microbiology 01/30/17 Anaerobic/Aerobic Culture, Resulted Pending 01/30/17 Anaerobic Culture Result 1 (PRANAV), Resulted Pending 01/30/17 Aerobic Culture - Final, Resulted 01/30/17 Aerobic Culture Result 1 (PRANAV) - Final, Resulted 01/30/17 Antimicrobic Susceptibility - Final, Resulted Medications Current Medications Sodium Chloride (Iv Sodium Chloride 0.9% 1000ml Bag) 1,000 ml @ 1,000 mls/hr Q1H IV Last administered on 01/27/17 01:24; Start 01/27/17 at 01:30; Stop at 02:29; Status DC Fentanyl Citrate (Fentanyl 2ml Vial) 50 mcg 1X ONCE IV Last administered on 01:26; Start 01/27/17 at 01:30; Stop 01/27/17 at 01:31; Status DC Ondansetron HCl (Zofran) 4 mg 1X ONCE IV Last administered on 01/27/17 01:24 ; Start 01/27/17 at 01:30; Stop 01/27/17 at 01:31; Status DC Iohexol (Omnipaque 300 Mg/ml) 75 ml 1X ONCE IV Last administered on 01/27/17 02:00; Start 01/27/17 at 02:00; Stop 01/27/17 at 02:01; Status DC Info (Do NOT chart on this entry -- for MONITORING) 1 each PRN DAILY PRN MC SEE COMMENTS; Start 01/27/17 at 01:45; Stop 01/29/17 at 01:44; Status DC Hydromorphone HCl 1 mg 1 mg 1X ONCE IV Last administered on 01/27/17 02:19; Start 01/27/17 at 02:30; Stop 01/27/17 at 02:31; Status DC Meropenem/Sodium Chloride (Merrem/Iv Sodium Chloride 0.9% 100ml) 100 ml @ 200 mls/hr 1X ONCE IV Last administered on 01/27/17 03:11; Start 01/27/17 at 03: 30; Stop 01/27/17 at 03:59; Status DC Ondansetron HCl 4 mg 4 mg PRN Q8HRS PRN IV NAUSEA/VOMITING; Start 01/27/17 at 03:15; Stop 01/28/17 at 03:14; Status DC Sodium Chloride (Iv Sodium Chloride 0.9% 1000ml Bag) 1,000 ml @ 150 mls/hr Q6H40M IV Last administered on 01/27/17 21:07; Start 01/27/17 at 03:05; Stop 01/28/17 at 03:04; Status DC Acetaminophen (Tylenol) 650 mg PRN Q4HRS PRN PO FEVER Last administered on 01/27 03:56; Start 01/27/17 at 03:15; Stop 01/28/17 at 03:14; Status DC Hydromorphone HCl 1 mg 1 mg PRN Q2HRS PRN IV SEVERE PAIN Last administered on 10:07; Start 01/27/17 at 03:15; Stop 01/27/17 at 10:14; Status DC Potassium Chloride 100 ml @ 100 mls/hr Q1H IV Last administered on 01/27/17 12:48; Start 01/27/17 at 09:30; Stop 01/27/17 at 11:29; Status DC Meropenem/Sodium Chloride (Merrem/Iv Sodium Chloride 0.9% 100ml) 100 ml @ 200 mls/hr Q8HRS IV Last administered on 02/01/17 05:45; Start 01/27/17 at 11:00 Morphine Sulfate 10 mg PRN Q2HR PRN IV PAIN; Start 01/27/17 at 10:15; Status UNV Hydromorphone HCl (Dilaudid) 2 mg PRN Q2HRS PRN IV SEVERE PAIN Last administered on 02/01/17 11:07; Start 01/27/17 at 10:15 Fentanyl Citrate (Fentanyl 2ml Vial) 50 mcg PRN Q2HR PRN IV PAIN; Start at 10:15 Fentanyl (Duragesic 12mcg/ Hr Patch) 1 patch 1X ONCE TD Last administered on 10:32; Start 01/28/17 at 09:45; Stop 01/28/17 at 09:47; Status DC Enoxaparin Sodium (Lovenox Per Pharmacy Prophylaxis Dosing) 1 each PRN DAILY PRN MC SEE COMMENTS; Start 01/28/17 at 10:30 Enoxaparin Sodium 40 mg 40 mg Q24H SQ Last administered on 02/01/17 11:08; Start 01/28/17 at 11:00 Dextrose/Sodium Chloride (Iv D5% - 1/2 NS) 1,000 ml @ 125 mls/hr Q8H IV Last administered on 02/01/17 03:43; Start 01/28/17 at 15:15 Ketorolac Tromethamine (Toradol) 15 mg PRN Q12HR PRN IV PAIN; Start 01/29/17 at 14:45; Stop 02/03/17 at 14:44 Iohexol (Omnipaque 300 Mg/ml) 75 ml 1X ONCE IV Last administered on 01/30/17 11:08; Start 01/30/17 at 10:00; Stop 01/30/17 at 10:01; Status DC Iohexol (Omnipaque 240 Mg/ml) 50 ml 1X ONCE PO Last administered on 01/30/17 11:08; Start 01/30/17 at 10:00; Stop 01/30/17 at 10:01; Status DC Info (Do NOT chart on this entry -- for MONITORING) 1 each PRN DAILY PRN MC SEE COMMENTS; Start 01/30/17 at 10:00; Stop 02/01/17 at 09:59; Status DC Ondansetron HCl (Zofran) 4 mg PRN Q6HRS PRN IV NAUSEA/VOMITING; Start 01/30/17 at 13:30; Stop 01/31/17 at 13:29; Status DC Fentanyl Citrate (Fentanyl 2ml Vial) 25 mcg PRN Q5MIN PRN IV MILD PAIN; Start 01/30/17 at 13:30; Stop 01/31/17 at 13:29; Status DC Fentanyl Citrate 50 mcg 50 mcg PRN Q5MIN PRN IV MODERATE PAIN; Start 01/30/17 at 13:30; Stop 01/31/17 at 13:29; Status DC Lactated Ringer's (Iv Lactated Ringers) 1,000 ml @ 30 mls/hr Q24H IV ; Start at 13:20; Stop 01/31/17 at 01:19; Status DC Lidocaine HCl 2 ml PRN 1X PRN ID PRIOR TO IV START; Start 01/30/17 at 13:30; Stop 01/31/17 at 13:29; Status DC Prochlorperazine Edisylate (Compazine) 5 mg PACU PRN PRN IV NAUSEA, MRX1; Start 01/30/17 at 13:30; Stop 01/31/17 at 13:29; Status DC Lidocaine/Sodium Bicarbonate 20 ml 20 ml STK-MED ONCE IJ ; Start 01/30/17 at 13: 26; Stop 01/30/17 at 13:27; Status DC Propofol 20 ml @ As Directed STK-MED ONCE IV ; Start 01/30/17 at 13:33; Stop at 13:34; Status DC Propofol (Diprivan) 20 ml @ As Directed STK-MED ONCE IV ; Start 01/30/17 at 13: 34; Stop 01/30/17 at 13:35; Status DC Ketamine HCl 500 mg STK-MED ONCE .ROUTE ; Start 01/30/17 at 13:39; Stop at 13:40; Status DC Lidocaine/Sodium Bicarbonate (Buffered Lidocaine 1%) 20 ml 1X ONCE IJ Last administered on 01/30/17t 14:42; Start 01/30/17 at 14:15; Stop 01/30/17 at 14:16 ; Status DC Iohexol (Omnipaque 300 Mg/ml) 50 ml STK-MED ONCE .ROUTE ; Start 01/30/17 at 14: 34; Stop 01/30/17 at 14:35; Status DC Acetaminophen (Tylenol) 650 mg PRN Q6HRS PRN PO FEVER; Start 01/31/17 at 13:45 Ondansetron HCl (Zofran) 4 mg PRN Q6HRS PRN IV NAUSEA/VOMITING; Start 01/31/17 at 13:45 Pantoprazole Sodium (Protonix Vial) 40 mg DAILYAC IVP Last administered on 02/01t 08:08; Start 01/31/17 at 14:00 Active Scripts Active Reported No Known Medications Prior To Admisstion (Info) Each 1 Each Vitals/I & O Vital Sign - Last 24 Hours 01/31/17 01/31/17 01/31/17 01/31/17 14:17 14:49 17:12 19:00 Temp 97.7 98.3 97.7 98.3 Pulse 63 63 Resp 18 18 B/P 134/83 141/92 Pulse Ox 95 95 O2 Delivery Room Air Room Air Room Air Room Air 01/31/17 01/31/17 01/31/17 01/31/17 19:23 19:56 21:37 23:33 Resp 18 18 18 Pulse Ox 95 95 95 O2 Delivery Room Air Room Air Room Air Room Air O2 Flow Rate 2.0 2.0 2.0 02/01/17 02/01/17 02/01/17 02/01/17 01:35 03:00 03:43 05:43 Temp 98.3 98.3 Pulse 62 Resp 18 18 18 18 B/P 136/73 Pulse Ox 94 95 95 O2 Delivery Room Air Room Air Room Air Room Air O2 Flow Rate 2.0 2.0 02/01/17 02/01/17 02/01/17 02/01/17 06:09 07:10 08:09 08:15 Temp 98.2 98.2 Pulse 66 Resp 18 18 B/P 137/75 Pulse Ox 95 95 O2 Delivery Room Air Room Air Room Air O2 Flow Rate 2.0 02/01/17 02/01/17 02/01/17 10:57 11:07 11:40 Temp 98.2 98.2 Pulse 72 Resp 18 B/P 157/92 Pulse Ox 96 O2 Delivery Room Air Room Air Room Air Intake and Output 4/01/31/17 02/01/17 15:00 23:00 07:00 Intake Total 0 ml Output Total 1115 ml 1015 ml Balance -1115 ml -1015 ml CORA DEL VALLE MD Feb 01, 2017 13:21
[2017-02-01 15:15] VITALS: BP 159/87
--- NOTE | 2017-02-01 15:41 | PDOC ---
Provider Note Provider Note Pain improved with the drain. +flatus afeb vss wbc normal abd soft nd min LLQ/lower abd tenderness stephanie serous a/p diverticulitis with abscess. clear liquids. RENU DELGADILLO MD Feb 01, 2017 15:41
[2017-02-01 19:00] VITALS: BP 146/90
[2017-02-02] MEDS: HYDROmorphone 2 MG/ML VIAL IV PRN ×10 (00:28→22:01)
[2017-02-02 03:00] VITALS: BP 146/78
[2017-02-02] MEDS: MEROPENEM 1 GM in IV NORMAL SALINE 100ML 100 ML IV SCH (05:37)
[2017-02-02 05:57] LABS: BASO % 1 % (0-3); EOS % 4 % (0-3); HEMOGLOBIN 16.2 g/dL (13.0-17.5); LYMPH % 24 % (24-48); MEAN CORPUSCULAR HEMOGLOBIN 31 pg (25-35); MEAN CORPUSCULAR HGB CONC 35 g/dL (31-37); MEAN CORPUSCULAR VOLUME 88 fL (79-100); MONO % 11 % (0-9); NEUT % 60 % (31-73); PLATELET COUNT 321 x10^3/uL (140-400); RED BLOOD COUNT 5.23 x10^6/uL (4.30-5.70); RED CELL DISTRIBUTION WIDTH 12.7 % (11.5-14.5); WHITE BLOOD COUNT 8.3 x10^3/uL (4.0-11.0)
[2017-02-02 06:08] LABS: CALCIUM 8.8 mg/dL (8.5-10.1); CREATININE 0.8 mg/dL (0.7-1.3); POTASSIUM 3.4 mmol/L (3.5-5.1)
[2017-02-02 07:00] VITALS: BP 138/87
[2017-02-02] MEDS: PANTOPRAZOLE IV PUSH 40 MG VIAL. IVP SCH (07:28)
[2017-02-02 07:32] VITALS: BP 160/89
--- NOTE | 2017-02-02 10:24 | PDOC ---
S[employer] 02/02/17 1024: SURGICAL PROGRESS NOTE Subjective still having pain, improving taking few clears Vital Signs Vital Signs Date Time Temp Pulse Resp B/P Pulse Ox O2 Delivery O2 Flow Rate FiO2 02/02/17 10:10 Room Air 02/02/17 07:32 98.3 72 12 160/89 98.3 02/02/17 05:20 95 2.0 I&O Intake and Output 02/02/17 07:00 Intake Total 1100 ml Output Total 5710 ml Balance -4610 ml IV Total 1100 ml Output Urine Total 5700 ml Drainage Total 10 ml # Voids 5 General: Alert, Oriented X3, Cooperative, No acute distress Abdomen: Soft, Other (drain in place, no drainage, tender to drain site and llq ) Labs Laboratory Tests Test 02/01/17 03:05 02/02/17 05:35 White Blood Count 7.1x10^3/uL (4.0-11.0) 8.3x10^3/uL (4.0-11.0) Red Blood Count 5.18x10^6/uL (4.30-5.70) 5.23x10^6/uL (4.30-5.70) Hemoglobin 16.3g/dL (13.0-17.5) 16.2g/dL (13.0-17.5) Hematocrit 45.6% (39.0-53.0) 46.0% (39.0-53.0) Mean Corpuscular Volume 88fL (79-100) 88fL (79-100) Mean Corpuscular Hemoglobin 32pg (25-35) 31pg (25-35) Mean Corpuscular Hemoglobin Concent 36g/dL (31-37) 35g/dL (31-37) Red Cell Distribution Width 12.9% (11.5-14.5) 12.7% (11.5-14.5) Platelet Count 306x10^3/uL (140-400) 321x10^3/uL (140-400) Neutrophils (%) (Auto) 62% (31-73) 60% (31-73) Lymphocytes (%) (Auto) 22% (24-48) 24% (24-48) Monocytes (%) (Auto) 12% (0-9) 11% (0-9) Eosinophils (%) (Auto) 3% (0-3) 4% (0-3) Basophils (%) (Auto) 0% (0-3) 1% (0-3) Neutrophils # (Auto) 4.4x10^3uL (1.8-7.7) 5.0x10^3uL (1.8-7.7) Lymphocytes # (Auto) 1.6x10^3/uL (1.0-4.8) 2.0x10^3/uL (1.0-4.8) Monocytes # (Auto) 0.9x10^3/uL (0.0-1.1) 0.9x10^3/uL (0.0-1.1) Eosinophils # (Auto) 0.2x10^3/uL (0.0-0.7) 0.3x10^3/uL (0.0-0.7) Basophils # (Auto) 0.0x10^3/uL (0.0-0.2) 0.0x10^3/uL (0.0-0.2) Sodium Level 140mmol/L (136-145) 137mmol/L (136-145) Potassium Level 3.5mmol/L (3.5-5.1) 3.4mmol/L (3.5-5.1) Chloride Level 101mmol/L (98-107) 99mmol/L (98-107) Carbon Dioxide Level 32mmol/L (21-32) 29mmol/L (21-32) Anion Gap 7 (6-14) 9 (6-14) Blood Urea Nitrogen 11mg/dL (8-26) 11mg/dL (8-26) Creatinine 0.8mg/dL (0.7-1.3) 0.8mg/dL (0.7-1.3) Estimated GFR (Cockcroft-Gault) 116.0 116.0 Glucose Level 95mg/dL (70-99) 92mg/dL (70-99) Calcium Level 9.2mg/dL (8.5-10.1) 8.8mg/dL (8.5-10.1) Laboratory Tests Test 02/02/17 05:35 White Blood Count 8.3x10^3/uL (4.0-11.0) Red Blood Count 5.23x10^6/uL (4.30-5.70) Hemoglobin 16.2g/dL (13.0-17.5) Hematocrit 46.0% (39.0-53.0) Mean Corpuscular Volume 88fL (79-100) Mean Corpuscular Hemoglobin 31pg (25-35) Mean Corpuscular Hemoglobin Concent 35g/dL (31-37) Red Cell Distribution Width 12.7% (11.5-14.5) Platelet Count 321x10^3/uL (140-400) Neutrophils (%) (Auto) 60% (31-73) Lymphocytes (%) (Auto) 24% (24-48) Monocytes (%) (Auto) 11% (0-9) Eosinophils (%) (Auto) 4% (0-3) Basophils (%) (Auto) 1% (0-3) Neutrophils # (Auto) 5.0x10^3uL (1.8-7.7) Lymphocytes # (Auto) 2.0x10^3/uL (1.0-4.8) Monocytes # (Auto) 0.9x10^3/uL (0.0-1.1) Eosinophils # (Auto) 0.3x10^3/uL (0.0-0.7) Basophils # (Auto) 0.0x10^3/uL (0.0-0.2) Sodium Level 137mmol/L (136-145) Potassium Level 3.4mmol/L (3.5-5.1) Chloride Level 99mmol/L (98-107) Carbon Dioxide Level 29mmol/L (21-32) Anion Gap 9 (6-14) Blood Urea Nitrogen 11mg/dL (8-26) Creatinine 0.8mg/dL (0.7-1.3) Estimated GFR (Cockcroft-Gault) 116.0 Glucose Level 92mg/dL (70-99) Calcium Level 8.8mg/dL (8.5-10.1) Problem List Problems Medical Problems: (1) Acute diverticulitis Status: Acute Assessment/Plan diverticulitis, abscess, s/p perc drain minimal drain output cultures reviewed, asked ID to evaluate abx needed continue clears Problems: MAURICIO TOMAS MD 02/02/173: SURGICAL PROGRESS NOTE Assessment/Plan Reviewed, agree with above Problems: [employer] Feb 02, 2017 10:24 MAURICIO TOMAS MD Feb 02, 2017 19:43
[2017-02-02 10:27] VITALS: BP 141/82
--- NOTE | 2017-02-02 11:42 | PDOC ---
Infectious Disease Note ROS ROS GEN: Denies fevers, chills, sweats HEENT: Denies blurred vision, sore throat CV: Denies chest pain RESP: Denies shortness of air, cough GI: Denies n/v/d NEURO: Denies confusion, dizziness MSK: Denies weakness, joint pain/swelling Vital Sign Vital Signs Vital Signs Date Time Temp Pulse Resp B/P Pulse Ox O2 Delivery O2 Flow Rate FiO2 02/02/17 10:27 98.3 69 16 141/82 94 Room Air 98.3 02/02/17 05:20 2.0 Physical Exam PHYSICAL EXAM GENERAL: NAD, Alert HEENT: PERRL, OC/OP NECK: Supple, no JVD, no LN LUNGS: Clear HEART: S1S2, no gallop, no murmur ABD: Soft, NT, no organomegaly, no rebound EXT: No edema, no cyanosis GUIDANCE SECRETARY: Alert, oriented x 3, no focal neurologic deficit SKIN: No rash IV: ok Labs Lab Laboratory Tests Test 02/02/17 05:35 White Blood Count 8.3x10^3/uL (4.0-11.0) Red Blood Count 5.23x10^6/uL (4.30-5.70) Hemoglobin 16.2g/dL (13.0-17.5) Hematocrit 46.0% (39.0-53.0) Mean Corpuscular Volume 88fL (79-100) Mean Corpuscular Hemoglobin 31pg (25-35) Mean Corpuscular Hemoglobin Concent 35g/dL (31-37) Red Cell Distribution Width 12.7% (11.5-14.5) Platelet Count 321x10^3/uL (140-400) Neutrophils (%) (Auto) 60% (31-73) Lymphocytes (%) (Auto) 24% (24-48) Monocytes (%) (Auto) 11% (0-9) Eosinophils (%) (Auto) 4% (0-3) Basophils (%) (Auto) 1% (0-3) Neutrophils # (Auto) 5.0x10^3uL (1.8-7.7) Lymphocytes # (Auto) 2.0x10^3/uL (1.0-4.8) Monocytes # (Auto) 0.9x10^3/uL (0.0-1.1) Eosinophils # (Auto) 0.3x10^3/uL (0.0-0.7) Basophils # (Auto) 0.0x10^3/uL (0.0-0.2) Sodium Level 137mmol/L (136-145) Potassium Level 3.4mmol/L (3.5-5.1) Chloride Level 99mmol/L (98-107) Carbon Dioxide Level 29mmol/L (21-32) Anion Gap 9 (6-14) Blood Urea Nitrogen 11mg/dL (8-26) Creatinine 0.8mg/dL (0.7-1.3) Estimated GFR (Cockcroft-Gault) 116.0 Glucose Level 92mg/dL (70-99) Calcium Level 8.8mg/dL (8.5-10.1) Micro IMPRESSION: Worsening acute sigmoid diverticulitis with perforation and interval development of a paracolic abscess. There is now pneumoperitoneum with inflammation extending into the left paracolic gutter, and a small amount of free fluid in the pelvis. Objective Assessment Diverticulitis with perforation Abscess s/p drain 01/30 Ecoli Amox allergy - thinks may have had a "Cef" abx Plan Plan of Care Discont Meropenem Can change to Rocephin/Flagyl to aid in potential d/c therapy Will need repeat CT soon # [id number] ENMA GRANDA MD Feb 02, 2017 11:42
[2017-02-02] MEDS: ENOXAPARIN 40 MG/0.4 ML SYRINGE. SQ SCH (12:26)
--- NOTE | 2017-02-02 14:20 | PDOC ---
PROGRESS NOTES Chief Complaint Chief Complaint Acute abd pain ASSESSMENT AND PLAN: 1. diverticulitis with micro perf and abscess formation: s/p drain placement RLQ on 01/30. culture growing E.coli 2. Peritonitis: appreciate Dr Diaz's input: karen castillo 3. Sepsis: no ongoing fevers, VS stble 4. Nutrition: starting on clears w/o N/V 5. on fairly generous doses of dilaudid, pain scale ratings incongruous with exam and activity level. start weaning. History of Present Illness History of Present Illness c/o ongoig sever pain in abd. + flatus, + "snot" from rectum Vitals Vitals Vital Signs Date Time Temp Pulse Resp B/P Pulse Ox O2 Delivery O2 Flow Rate FiO2 02/02/17 12:27 94 Room Air 02/02/17 10:27 98.3 69 16 141/82 98.3 02/02/17 05:20 2.0 Physical Exam General: Alert, Oriented X3, Cooperative, No acute distress Heart: Regular rate, No murmurs Lungs: Clear Abdomen: Normal bowel sounds, Soft, Other (drain in place, no drainage, tender to drain site and LLQ) Extremities: No edema Skin: No rashes Labs LABS Laboratory Tests Test 02/02/17 05:35 White Blood Count 8.3x10^3/uL (4.0-11.0) Red Blood Count 5.23x10^6/uL (4.30-5.70) Hemoglobin 16.2g/dL (13.0-17.5) Hematocrit 46.0% (39.0-53.0) Mean Corpuscular Volume 88fL (79-100) Mean Corpuscular Hemoglobin 31pg (25-35) Mean Corpuscular Hemoglobin Concent 35g/dL (31-37) Red Cell Distribution Width 12.7% (11.5-14.5) Platelet Count 321x10^3/uL (140-400) Neutrophils (%) (Auto) 60% (31-73) Lymphocytes (%) (Auto) 24% (24-48) Monocytes (%) (Auto) 11% (0-9) Eosinophils (%) (Auto) 4% (0-3) Basophils (%) (Auto) 1% (0-3) Neutrophils # (Auto) 5.0x10^3uL (1.8-7.7) Lymphocytes # (Auto) 2.0x10^3/uL (1.0-4.8) Monocytes # (Auto) 0.9x10^3/uL (0.0-1.1) Eosinophils # (Auto) 0.3x10^3/uL (0.0-0.7) Basophils # (Auto) 0.0x10^3/uL (0.0-0.2) Sodium Level 137mmol/L (136-145) Potassium Level 3.4mmol/L (3.5-5.1) Chloride Level 99mmol/L (98-107) Carbon Dioxide Level 29mmol/L (21-32) Anion Gap 9 (6-14) Blood Urea Nitrogen 11mg/dL (8-26) Creatinine 0.8mg/dL (0.7-1.3) Estimated GFR (Cockcroft-Gault) 116.0 Glucose Level 92mg/dL (70-99) Calcium Level 8.8mg/dL (8.5-10.1) Comment Review of Relevant I have reviewed the following items matilde (where applicable) has been applied. Labs Laboratory Tests Test 02/01/17 03:05 02/02/17 05:35 White Blood Count 7.1x10^3/uL (4.0-11.0) 8.3x10^3/uL (4.0-11.0) Red Blood Count 5.18x10^6/uL (4.30-5.70) 5.23x10^6/uL (4.30-5.70) Hemoglobin 16.3g/dL (13.0-17.5) 16.2g/dL (13.0-17.5) Hematocrit 45.6% (39.0-53.0) 46.0% (39.0-53.0) Mean Corpuscular Volume 88fL (79-100) 88fL (79-100) Mean Corpuscular Hemoglobin 32pg (25-35) 31pg (25-35) Mean Corpuscular Hemoglobin Concent 36g/dL (31-37) 35g/dL (31-37) Red Cell Distribution Width 12.9% (11.5-14.5) 12.7% (11.5-14.5) Platelet Count 306x10^3/uL (140-400) 321x10^3/uL (140-400) Neutrophils (%) (Auto) 62% (31-73) 60% (31-73) Lymphocytes (%) (Auto) 22% (24-48) 24% (24-48) Monocytes (%) (Auto) 12% (0-9) 11% (0-9) Eosinophils (%) (Auto) 3% (0-3) 4% (0-3) Basophils (%) (Auto) 0% (0-3) 1% (0-3) Neutrophils # (Auto) 4.4x10^3uL (1.8-7.7) 5.0x10^3uL (1.8-7.7) Lymphocytes # (Auto) 1.6x10^3/uL (1.0-4.8) 2.0x10^3/uL (1.0-4.8) Monocytes # (Auto) 0.9x10^3/uL (0.0-1.1) 0.9x10^3/uL (0.0-1.1) Eosinophils # (Auto) 0.2x10^3/uL (0.0-0.7) 0.3x10^3/uL (0.0-0.7) Basophils # (Auto) 0.0x10^3/uL (0.0-0.2) 0.0x10^3/uL (0.0-0.2) Sodium Level 140mmol/L (136-145) 137mmol/L (136-145) Potassium Level 3.5mmol/L (3.5-5.1) 3.4mmol/L (3.5-5.1) Chloride Level 101mmol/L (98-107) 99mmol/L (98-107) Carbon Dioxide Level 32mmol/L (21-32) 29mmol/L (21-32) Anion Gap 7 (6-14) 9 (6-14) Blood Urea Nitrogen 11mg/dL (8-26) 11mg/dL (8-26) Creatinine 0.8mg/dL (0.7-1.3) 0.8mg/dL (0.7-1.3) Estimated GFR (Cockcroft-Gault) 116.0 116.0 Glucose Level 95mg/dL (70-99) 92mg/dL (70-99) Calcium Level 9.2mg/dL (8.5-10.1) 8.8mg/dL (8.5-10.1) Laboratory Tests Test 02/02/17 05:35 White Blood Count 8.3x10^3/uL (4.0-11.0) Red Blood Count 5.23x10^6/uL (4.30-5.70) Hemoglobin 16.2g/dL (13.0-17.5) Hematocrit 46.0% (39.0-53.0) Mean Corpuscular Volume 88fL (79-100) Mean Corpuscular Hemoglobin 31pg (25-35) Mean Corpuscular Hemoglobin Concent 35g/dL (31-37) Red Cell Distribution Width 12.7% (11.5-14.5) Platelet Count 321x10^3/uL (140-400) Neutrophils (%) (Auto) 60% (31-73) Lymphocytes (%) (Auto) 24% (24-48) Monocytes (%) (Auto) 11% (0-9) Eosinophils (%) (Auto) 4% (0-3) Basophils (%) (Auto) 1% (0-3) Neutrophils # (Auto) 5.0x10^3uL (1.8-7.7) Lymphocytes # (Auto) 2.0x10^3/uL (1.0-4.8) Monocytes # (Auto) 0.9x10^3/uL (0.0-1.1) Eosinophils # (Auto) 0.3x10^3/uL (0.0-0.7) Basophils # (Auto) 0.0x10^3/uL (0.0-0.2) Sodium Level 137mmol/L (136-145) Potassium Level 3.4mmol/L (3.5-5.1) Chloride Level 99mmol/L (98-107) Carbon Dioxide Level 29mmol/L (21-32) Anion Gap 9 (6-14) Blood Urea Nitrogen 11mg/dL (8-26) Creatinine 0.8mg/dL (0.7-1.3) Estimated GFR (Cockcroft-Gault) 116.0 Glucose Level 92mg/dL (70-99) Calcium Level 8.8mg/dL (8.5-10.1) Microbiology 01/30/17 Anaerobic/Aerobic Culture, Resulted Pending 01/30/17 Anaerobic Culture Result 1 (PRANAV), Resulted Pending 01/30/17 Aerobic Culture - Final, Resulted 01/30/17 Aerobic Culture Result 1 (PRANAV) - Final, Resulted 01/30/17 Antimicrobic Susceptibility - Final, Resulted Medications Current Medications Sodium Chloride (Iv Sodium Chloride 0.9% 1000ml Bag) 1,000 ml @ 1,000 mls/hr Q1H IV Last administered on 01/27/17 01:24; Start 01/27/17 at 01:30; Stop at 02:29; Status DC Fentanyl Citrate (Fentanyl 2ml Vial) 50 mcg 1X ONCE IV Last administered on 01:26; Start 01/27/17 at 01:30; Stop 01/27/17 at 01:31; Status DC Ondansetron HCl (Zofran) 4 mg 1X ONCE IV Last administered on 01/27/17 01:24 ; Start 01/27/17 at 01:30; Stop 01/27/17 at 01:31; Status DC Iohexol (Omnipaque 300 Mg/ml) 75 ml 1X ONCE IV Last administered on 01/27/17 02:00; Start 01/27/17 at 02:00; Stop 01/27/17 at 02:01; Status DC Info (Do NOT chart on this entry -- for MONITORING) 1 each PRN DAILY PRN MC SEE COMMENTS; Start 01/27/17 at 01:45; Stop 01/29/17 at 01:44; Status DC Hydromorphone HCl 1 mg 1 mg 1X ONCE IV Last administered on 01/27/17 02:19; Start 01/27/17 at 02:30; Stop 01/27/17 at 02:31; Status DC Meropenem/Sodium Chloride (Merrem/Iv Sodium Chloride 0.9% 100ml) 100 ml @ 200 mls/hr 1X ONCE IV Last administered on 01/27/17 03:11; Start 01/27/17 at 03: 30; Stop 01/27/17 at 03:59; Status DC Ondansetron HCl 4 mg 4 mg PRN Q8HRS PRN IV NAUSEA/VOMITING; Start 01/27/17 at 03:15; Stop 01/28/17 at 03:14; Status DC Sodium Chloride (Iv Sodium Chloride 0.9% 1000ml Bag) 1,000 ml @ 150 mls/hr Q6H40M IV Last administered on 01/27/17 21:07; Start 01/27/17 at 03:05; Stop 01/28/17 at 03:04; Status DC Acetaminophen (Tylenol) 650 mg PRN Q4HRS PRN PO FEVER Last administered on 01/27 03:56; Start 01/27/17 at 03:15; Stop 01/28/17 at 03:14; Status DC Hydromorphone HCl 1 mg 1 mg PRN Q2HRS PRN IV SEVERE PAIN Last administered on 10:07; Start 01/27/17 at 03:15; Stop 01/27/17 at 10:14; Status DC Potassium Chloride 100 ml @ 100 mls/hr Q1H IV Last administered on 01/27/17 12:48; Start 01/27/17 at 09:30; Stop 01/27/17 at 11:29; Status DC Meropenem/Sodium Chloride (Merrem/Iv Sodium Chloride 0.9% 100ml) 100 ml @ 200 mls/hr Q8HRS IV Last administered on 02/02/17 05:37; Start 01/27/17 at 11:00; Stop 02/02/17 at 11:43; Status DC Morphine Sulfate 10 mg PRN Q2HR PRN IV PAIN; Start 01/27/17 at 10:15; Status UNV Hydromorphone HCl (Dilaudid) 2 mg PRN Q2HRS PRN IV SEVERE PAIN Last administered on 02/02/17 12:27; Start 01/27/17 at 10:15 Fentanyl Citrate (Fentanyl 2ml Vial) 50 mcg PRN Q2HR PRN IV PAIN; Start at 10:15 Fentanyl (Duragesic 12mcg/ Hr Patch) 1 patch 1X ONCE TD Last administered on 10:32; Start 01/28/17 at 09:45; Stop 01/28/17 at 09:47; Status DC Enoxaparin Sodium (Lovenox Per Pharmacy Prophylaxis Dosing) 1 each PRN DAILY PRN MC SEE COMMENTS; Start 01/28/17 at 10:30 Enoxaparin Sodium 40 mg 40 mg Q24H SQ Last administered on 02/02/17 12:26; Start 01/28/17 at 11:00 Dextrose/Sodium Chloride (Iv D5% - 1/2 NS) 1,000 ml @ 125 mls/hr Q8H IV Last administered on 02/01/17 23:15; Start 01/28/17 at 15:15 Ketorolac Tromethamine (Toradol) 15 mg PRN Q12HR PRN IV PAIN; Start 01/29/17 at 14:45; Stop 02/03/17 at 14:44 Iohexol (Omnipaque 300 Mg/ml) 75 ml 1X ONCE IV Last administered on 01/30/17 11:08; Start 01/30/17 at 10:00; Stop 01/30/17 at 10:01; Status DC Iohexol (Omnipaque 240 Mg/ml) 50 ml 1X ONCE PO Last administered on 01/30/17 11:08; Start 01/30/17 at 10:00; Stop 01/30/17 at 10:01; Status DC Info (Do NOT chart on this entry -- for MONITORING) 1 each PRN DAILY PRN MC SEE COMMENTS; Start 01/30/17 at 10:00; Stop 02/01/17 at 09:59; Status DC Ondansetron HCl (Zofran) 4 mg PRN Q6HRS PRN IV NAUSEA/VOMITING; Start 01/30/17 at 13:30; Stop 01/31/17 at 13:29; Status DC Fentanyl Citrate (Fentanyl 2ml Vial) 25 mcg PRN Q5MIN PRN IV MILD PAIN; Start 01/30/17 at 13:30; Stop 01/31/17 at 13:29; Status DC Fentanyl Citrate 50 mcg 50 mcg PRN Q5MIN PRN IV MODERATE PAIN; Start 01/30/17 at 13:30; Stop 01/31/17 at 13:29; Status DC Lactated Ringer's (Iv Lactated Ringers) 1,000 ml @ 30 mls/hr Q24H IV ; Start at 13:20; Stop 01/31/17 at 01:19; Status DC Lidocaine HCl 2 ml PRN 1X PRN ID PRIOR TO IV START; Start 01/30/17 at 13:30; Stop 01/31/17 at 13:29; Status DC Prochlorperazine Edisylate (Compazine) 5 mg PACU PRN PRN IV NAUSEA, MRX1; Start 01/30/17 at 13:30; Stop 01/31/17 at 13:29; Status DC Lidocaine/Sodium Bicarbonate 20 ml 20 ml STK-MED ONCE IJ ; Start 01/30/17 at 13: 26; Stop 01/30/17 at 13:27; Status DC Propofol 20 ml @ As Directed STK-MED ONCE IV ; Start 01/30/17 at 13:33; Stop at 13:34; Status DC Propofol (Diprivan) 20 ml @ As Directed STK-MED ONCE IV ; Start 01/30/17 at 13: 34; Stop 01/30/17 at 13:35; Status DC Ketamine HCl 500 mg STK-MED ONCE .ROUTE ; Start 01/30/17 at 13:39; Stop at 13:40; Status DC Lidocaine/Sodium Bicarbonate (Buffered Lidocaine 1%) 20 ml 1X ONCE IJ Last administered on 01/30/17 14:42; Start 01/30/17 at 14:15; Stop 01/30/17 at 14:16 ; Status DC Iohexol (Omnipaque 300 Mg/ml) 50 ml STK-MED ONCE .ROUTE ; Start 01/30/17 at 14: 34; Stop 01/30/17 at 14:35; Status DC Acetaminophen (Tylenol) 650 mg PRN Q6HRS PRN PO FEVER; Start 01/31/17 at 13:45 Ondansetron HCl (Zofran) 4 mg PRN Q6HRS PRN IV NAUSEA/VOMITING; Start 01/31/17 at 13:45 Pantoprazole Sodium 40 mg 40 mg DAILYAC IVP Last administered on 02/02/17 07: 28; Start 01/31/17 at 14:00 Ceftriaxone Sodium 2 gm/ Sodium Chloride 100 ml @ 200 mls/hr Q24H IV Last administered on 02/02/17 12:27; Start 02/02/17 at 13:00 Metronidazole (FLAGYL 500Mmg PREMIX) 100 ml @ 100 mls/hr Q8HRS IV ; Start 02/02 at 14:00 Active Scripts Active Reported No Known Medications Prior To Admisstion (Info) Each 1 Each Vitals/I & O Vital Sign - Last 24 Hours 02/01/17 02/01/17 02/01/17 02/01/17 15:15 15:58 18:08 19:00 Temp 98.4 98.6 98.4 98.6 Pulse 71 60 Resp 18 18 B/P 159/87 146/90 Pulse Ox 95 97 O2 Delivery Room Air Room Air Room Air Room Air 02/01/17 02/01/17 02/01/17 02/02/17 20:00 20:23 22:24 00:28 Pulse Ox 95 95 95 O2 Delivery Room Air Room Air Room Air Room Air O2 Flow Rate 2.0 2.0 2.0 2.0 02/02/17 02/02/17 02/02/17 02/02/17 02:39 03:00 04:50 05:20 Temp 98.6 98.6 Pulse 60 Resp 18 18 18 B/P 146/78 Pulse Ox 95 96 95 95 O2 Delivery Room Air Room Air Room Air Room Air O2 Flow Rate 2.0 2.0 2.0 02/02/17 02/02/17 02/02/17 02/02/17 07:28 07:32 07:59 10:10 Temp 98.3 98.3 Pulse 72 Resp 12 B/P 160/89 O2 Delivery Room Air Room Air Room Air Room Air 02/02/17 02/02/17 10:27 12:27 Temp 98.3 98.3 Pulse 69 Resp 16 B/P 141/82 Pulse Ox 94 94 O2 Delivery Room Air Room Air Intake and Output 02/01/17 02/01/17 02/02/17 15:00 23:00 07:00 Intake Total 1100 ml Output Total 1710 ml 4000 ml Balance -1710 ml -2900 ml RAJESH KAY MD Feb 02, 2017 14:20
[2017-02-02] MEDS: METRONIDAZOLE 500mg PREMIX 100 ML IV SCH ×2 (14:59→22:21)
[2017-02-02 15:00] VITALS: BP 150/79
[2017-02-02] MEDS: IV DEXTROSE 5 %-0.45 % NACL 1,000 ML IV SCH ×2 (17:24→23:15)
[2017-02-02] MEDS ORDERED: SIMETHICONE 80 MG TAB.CHEW PO PRN (20:00)
[2017-02-02] MEDS ORDERED: OXYCODONE IR 5 MG TABLET. PO PRN (22:15)
[2017-02-02 23:00] VITALS: BP 155/80
[2017-02-03 03:00] VITALS: BP 148/86
--- NOTE | 2017-02-03 04:00 | CONS ---
DATE OF CONSULTATION: 02/02/2017 PATIENT ROOM: 500 REQUESTING PHYSICIAN: Dr. Roach. REASON FOR CONSULTATION: Antibiotic choices. HISTORY OF PRESENT ILLNESS: The patient is a 25-year-old gentleman with history of obesity. He has had prior episodes of diverticulitis with last summer he spent two weeks in [facility]. He additionally has a history of kidney stones. He presented to [facility] with acute abdominal pain starting approximately 01/26/2017. He had nausea and vomiting. He had a white count of 12.[address] scan on 01/27/2017, showed acute sigmoid diverticulitis with microperforations. Meropenem was instituted after I was curbsided. He has been doing fairly well; however, he continued to have ongoing pain. Repeat CT scan was performed on 01/30/2017, showed worsening sigmoid diverticulitis with perforation and development of a pericolic abscess as well as some pneumoperitoneum. He was taken down to Interventional Radiology, underwent a CT-guided insertion of a pigtail into the abscess, 10 mL fluid were returned. Cultures were obtained and are now growing an E. coli resistant to ampicillin, intermediate to cefuroxime, ciprofloxacin resistant, levofloxacin and piperacillin resistant. His white blood cell count is normal. He has been afebrile, but he continues to have abdominal pain. Diet has been advanced to clear liquids today per Surgery. PAST MEDICAL HISTORY: Positive for previous diverticulitis, history of kidney stones, obesity, history of sciatica. PAST SURGICAL HISTORY: He has had cystoscopy and sounds like lithotripsy in the past. REVIEW OF SYSTEMS: Otherwise, negative except for as mentioned above. ALLERGIES: LISTED MORE AMOXICILLIN CAUSES A RASH AND HIVES, BUT HE BELIEVES HE HAS HAD ____ ANTIBIOTIC IN THE PAST. SOCIAL HISTORY: No alcohol. Does have a history of marijuana use. 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 FAMILY HISTORY: Positive for diverticulitis in his father. CURRENT MEDICATIONS: Include meropenem, Lovenox, Toradol, Zofran and Protonix. Other meds were available and had been reviewed in the chart. PHYSICAL EXAMINATION: VITAL SIGNS: Afebrile. Temperature 93, pulse 69, respirations 16, blood pressure 141/82, satting 94% on room air. CONSTITUTIONAL: He is lying in bed, is cooperative, in no acute distress. HEENT: Pupils equal and reactive. Normal conjunctivae. Oral cavity and oropharynx is clear. He has a tongue stud and a lip piercing. NECK: Supple, no JVD. LUNGS: Clear to auscultation. HEART: S1, S2. ABDOMEN: Obese, soft, mild tenderness. He has a drain in place. EXTREMITIES: No clubbing or cyanosis. No gross edema. SKIN: Warm to touch without signs of rash. NEUROLOGICAL: He is nonfocal and appropriate. PSYCHIATRIC: Affect is appropriate. LABORATORY DATA: White count 8.3, hemoglobin 16.2, platelets of 321, neutrophils 64, lymphs are 24, monocytes 11, creatinine 0.8, glucose 92. Urine was clean. IMAGING: Reviewed in history of present illness. IMPRESSION: 1. Diverticulitis with perforation. 2. Abscess, status post drainage placement. 3. Escherichia coli with resistance pattern as mentioned above. 4. AMOXICILLIN ALLERGY, but thinks he may have had a ____ antibiotic in the past that caused rashes. Currently, he is tolerating the meropenem. At this point, we will discontinue and we will change to Rocephin and Flagyl to aid in potential therapy for discharge if his diet advances and he continues to do well, but would repeat a CT scan soon. Thank you for allowing me to participate in the patient's care. If you have any questions, please do not hesitate to contact me. ENMA GRANDA MD DR: VENICE/trini JOB#: [id number] / [id number]
[2017-02-03] MEDS: METRONIDAZOLE 500mg PREMIX 100 ML IV SCH ×3 (05:32→20:18)
[2017-02-03] MEDS ORDERED: OXYCODONE IR 5 MG TABLET. PO PRN ×2 (06:45→13:00)
[2017-02-03] MEDS: HYDROmorphone 2 MG/ML VIAL IV PRN ×5 (06:48→23:15)
[2017-02-03 07:00] VITALS: BP 141/87
[2017-02-03] MEDS: IV DEXTROSE 5 %-0.45 % NACL 1,000 ML IV SCH ×4 (07:15→23:15)
[2017-02-03 09:36] LABS: BASO % 0 % (0-3); EOS % 2 % (0-3); HEMATOCRIT 45.2 % (39.0-53.0); HEMOGLOBIN 16.1 g/dL (13.0-17.5); LYMPH # 1.7 x10^3/uL (1.0-4.8); LYMPH % 16 % (24-48); MEAN CORPUSCULAR HEMOGLOBIN 31 pg (25-35); MEAN CORPUSCULAR HGB CONC 36 g/dL (31-37); MEAN CORPUSCULAR VOLUME 88 fL (79-100); MONO % 9 % (0-9); NEUT % 73 % (31-73); PLATELET COUNT 356 x10^3/uL (140-400); RED BLOOD COUNT 5.17 x10^6/uL (4.30-5.70); RED CELL DISTRIBUTION WIDTH 12.5 % (11.5-14.5); WHITE BLOOD COUNT 10.8 x10^3/uL (4.0-11.0)
[2017-02-03 09:43] LABS: CALCIUM 9.1 mg/dL (8.5-10.1); CREATININE 0.8 mg/dL (0.7-1.3); POTASSIUM 3.9 mmol/L (3.5-5.1)
[2017-02-03] MEDS: OXYCODONE IR 5 MG TABLET. PO PRN ×2 (10:18→20:18)
--- NOTE | 2017-02-03 10:19 | PDOC ---
Infectious Disease Note Subjective Subjective Doing ok. Hungry. Less pain ROS ROS GEN: Denies fevers, chills, sweats HEENT: Denies blurred vision, sore throat CV: Denies chest pain RESP: Denies shortness of air, cough GI: Denies n/v/d NEURO: Denies confusion, dizziness MSK: Denies weakness, joint pain/swelling Vital Sign Vital Signs Vital Signs Date Time Temp Pulse Resp B/P Pulse Ox O2 Delivery O2 Flow Rate FiO2 02/03/17 07:00 98.4 70 19 141/87 92 Room Air 98.4 Physical Exam PHYSICAL EXAM GENERAL: NAD, Alert HEENT: PERRL, OC/OP - clear NECK: Supple, no JVD, no LN LUNGS: Clear HEART: S1S2, no gallop, no murmur ABD: Soft, NT, no organomegaly, no rebound. ND. 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, oriented x 3, no focal neurologic deficit SKIN: No rash IV: ok Labs Lab Laboratory Tests Test 02/03/17 09:05 White Blood Count 10.8x10^3/uL (4.0-11.0) Red Blood Count 5.17x10^6/uL (4.30-5.70) Hemoglobin 16.1g/dL (13.0-17.5) Hematocrit 45.2% (39.0-53.0) Mean Corpuscular Volume 88fL (79-100) Mean Corpuscular Hemoglobin 31pg (25-35) Mean Corpuscular Hemoglobin Concent 36g/dL (31-37) Red Cell Distribution Width 12.5% (11.5-14.5) Platelet Count 356x10^3/uL (140-400) Neutrophils (%) (Auto) 73% (31-73) Lymphocytes (%) (Auto) 16% (24-48) Monocytes (%) (Auto) 9% (0-9) Eosinophils (%) (Auto) 2% (0-3) Basophils (%) (Auto) 0% (0-3) Neutrophils # (Auto) 7.8x10^3uL (1.8-7.7) Lymphocytes # (Auto) 1.7x10^3/uL (1.0-4.8) Monocytes # (Auto) 1.0x10^3/uL (0.0-1.1) Eosinophils # (Auto) 0.2x10^3/uL (0.0-0.7) Basophils # (Auto) 0.0x10^3/uL (0.0-0.2) Sodium Level 137mmol/L (136-145) Potassium Level 3.9mmol/L (3.5-5.1) Chloride Level 100mmol/L (98-107) Carbon Dioxide Level 27mmol/L (21-32) Anion Gap 10 (6-14) Blood Urea Nitrogen 11mg/dL (8-26) Creatinine 0.8mg/dL (0.7-1.3) Estimated GFR (Cockcroft-Gault) 116.0 Glucose Level 112mg/dL (70-99) Calcium Level 9.1mg/dL (8.5-10.1) Micro IMPRESSION: Worsening acute sigmoid diverticulitis with perforation and interval development of a paracolic abscess. There is now pneumoperitoneum with inflammation extending into the left paracolic gutter, and a small amount of free fluid in the pelvis. Objective Assessment Diverticulitis with perforation Abscess s/p drain 01/30 Ecoli Amox allergy - thinks may have had a "Cef" abx Plan Plan of Care Cont Rocephin/Flagyl to aid in potential d/c therapy Will need repeat CT soon D/w ENMA Noriega MD Feb 03, 2017 10:19
[2017-02-03] MEDS: ENOXAPARIN 40 MG/0.4 ML SYRINGE. SQ SCH (10:26)
[2017-02-03 11:00] VITALS: BP 139/72
--- NOTE | 2017-02-03 12:22 | PDOC ---
PROGRESS NOTES Subjective Subjective states his prior pain is improving, now notices more discomfort at ANKUR site; passing gas, ramona liquids Objective Objective Vital Signs Date Time Temp Pulse Resp B/P Pulse Ox O2 Delivery O2 Flow Rate FiO2 02/03/17 11:33 Room Air 02/03/17 11:00 98.7 74 20 139/72 93 98.7 02/02/17 05:20 2.0 Intake and Output 02/03/17 07:00 Intake Total 2040 ml Output Total 1925 ml Balance 115 ml Intake Oral 1840 ml IV Total 200 ml Output Urine Total 1925 ml Physical Exam Abdomen: Soft (tender with palpation in LLQ, no guarding) Heart: Regular rate Extremities: No clubbing, No cyanosis General: Alert, Oriented X3, Cooperative HEENT: Atraumatic Psych/Mental Status: Mental status NL Skin: No rashes, No breakdown Assessment Assessment Problems Medical Problems: (1) Acute diverticulitis Status: Acute Plan Plan of Care Continue abx/ANKUR drainage; FU CT on to reassess Comment Review of Relevant I have reviewed the following items matilde (where applicable) has been applied. Labs Laboratory Tests Test 02/02/17 05:35 02/03/17 09:05 White Blood Count 8.3x10^3/uL (4.0-11.0) 10.8x10^3/uL (4.0-11.0) Red Blood Count 5.23x10^6/uL (4.30-5.70) 5.17x10^6/uL (4.30-5.70) Hemoglobin 16.2g/dL (13.0-17.5) 16.1g/dL (13.0-17.5) Hematocrit 46.0% (39.0-53.0) 45.2% (39.0-53.0) Mean Corpuscular Volume 88fL (79-100) 88fL (79-100) Mean Corpuscular Hemoglobin 31pg (25-35) 31pg (25-35) Mean Corpuscular Hemoglobin Concent 35g/dL (31-37) 36g/dL (31-37) Red Cell Distribution Width 12.7% (11.5-14.5) 12.5% (11.5-14.5) Platelet Count 321x10^3/uL (140-400) 356x10^3/uL (140-400) Neutrophils (%) (Auto) 60% (31-73) 73% (31-73) Lymphocytes (%) (Auto) 24% (24-48) 16% (24-48) Monocytes (%) (Auto) 11% (0-9) 9% (0-9) Eosinophils (%) (Auto) 4% (0-3) 2% (0-3) Basophils (%) (Auto) 1% (0-3) 0% (0-3) Neutrophils # (Auto) 5.0x10^3uL (1.8-7.7) 7.8x10^3uL (1.8-7.7) Lymphocytes # (Auto) 2.0x10^3/uL (1.0-4.8) 1.7x10^3/uL (1.0-4.8) Monocytes # (Auto) 0.9x10^3/uL (0.0-1.1) 1.0x10^3/uL (0.0-1.1) Eosinophils # (Auto) 0.3x10^3/uL (0.0-0.7) 0.2x10^3/uL (0.0-0.7) Basophils # (Auto) 0.0x10^3/uL (0.0-0.2) 0.0x10^3/uL (0.0-0.2) Sodium Level 137mmol/L (136-145) 137mmol/L (136-145) Potassium Level 3.4mmol/L (3.5-5.1) 3.9mmol/L (3.5-5.1) Chloride Level 99mmol/L (98-107) 100mmol/L (98-107) Carbon Dioxide Level 29mmol/L (21-32) 27mmol/L (21-32) Anion Gap 9 (6-14) 10 (6-14) Blood Urea Nitrogen 11mg/dL (8-26) 11mg/dL (8-26) Creatinine 0.8mg/dL (0.7-1.3) 0.8mg/dL (0.7-1.3) Estimated GFR (Cockcroft-Gault) 116.0 116.0 Glucose Level 92mg/dL (70-99) 112mg/dL (70-99) Calcium Level 8.8mg/dL (8.5-10.1) 9.1mg/dL (8.5-10.1) Laboratory Tests Test 02/03/17 09:05 White Blood Count 10.8x10^3/uL (4.0-11.0) Red Blood Count 5.17x10^6/uL (4.30-5.70) Hemoglobin 16.1g/dL (13.0-17.5) Hematocrit 45.2% (39.0-53.0) Mean Corpuscular Volume 88fL (79-100) Mean Corpuscular Hemoglobin 31pg (25-35) Mean Corpuscular Hemoglobin Concent 36g/dL (31-37) Red Cell Distribution Width 12.5% (11.5-14.5) Platelet Count 356x10^3/uL (140-400) Neutrophils (%) (Auto) 73% (31-73) Lymphocytes (%) (Auto) 16% (24-48) Monocytes (%) (Auto) 9% (0-9) Eosinophils (%) (Auto) 2% (0-3) Basophils (%) (Auto) 0% (0-3) Neutrophils # (Auto) 7.8x10^3uL (1.8-7.7) Lymphocytes # (Auto) 1.7x10^3/uL (1.0-4.8) Monocytes # (Auto) 1.0x10^3/uL (0.0-1.1) Eosinophils # (Auto) 0.2x10^3/uL (0.0-0.7) Basophils # (Auto) 0.0x10^3/uL (0.0-0.2) Sodium Level 137mmol/L (136-145) Potassium Level 3.9mmol/L (3.5-5.1) Chloride Level 100mmol/L (98-107) Carbon Dioxide Level 27mmol/L (21-32) Anion Gap 10 (6-14) Blood Urea Nitrogen 11mg/dL (8-26) Creatinine 0.8mg/dL (0.7-1.3) Estimated GFR (Cockcroft-Gault) 116.0 Glucose Level 112mg/dL (70-99) Calcium Level 9.1mg/dL (8.5-10.1) Microbiology 01/30/17 Anaerobic/Aerobic Culture - Final, Complete 01/30/17 Anaerobic Culture Result 1 (PRANAV) - Final, Complete 01/30/17 Aerobic Culture - Final, Complete 01/30/17 Aerobic Culture Result 1 (RPANAV) - Final, Complete 01/30/17 Antimicrobic Susceptibility - Final, Complete Medications Current Medications Sodium Chloride (Iv Sodium Chloride 0.9% 1000ml Bag) 1,000 ml @ 1,000 mls/hr Q1H IV Last administered on 01/27/17 01:24; Start 01/27/17 at 01:30; Stop at 02:29; Status DC Fentanyl Citrate (Fentanyl 2ml Vial) 50 mcg 1X ONCE IV Last administered on 01:26; Start 01/27/17 at 01:30; Stop 01/27/17 at 01:31; Status DC Ondansetron HCl (Zofran) 4 mg 1X ONCE IV Last administered on 01/27/17 01:24 ; Start 01/27/17 at 01:30; Stop 01/27/17 at 01:31; Status DC Iohexol (Omnipaque 300 Mg/ml) 75 ml 1X ONCE IV Last administered on 01/27/17 02:00; Start 01/27/17 at 02:00; Stop 01/27/17 at 02:01; Status DC Info (Do NOT chart on this entry -- for MONITORING) 1 each PRN DAILY PRN MC SEE COMMENTS; Start 01/27/17 at 01:45; Stop 01/29/17 at 01:44; Status DC Hydromorphone HCl 1 mg 1 mg 1X ONCE IV Last administered on 01/27/17 02:19; Start 01/27/17 at 02:30; Stop 01/27/17 at 02:31; Status DC Meropenem/Sodium Chloride (Merrem/Iv Sodium Chloride 0.9% 100ml) 100 ml @ 200 mls/hr 1X ONCE IV Last administered on 01/27/17 03:11; Start 01/27/17 at 03: 30; Stop 01/27/17 at 03:59; Status DC Ondansetron HCl 4 mg 4 mg PRN Q8HRS PRN IV NAUSEA/VOMITING; Start 01/27/17 at 03:15; Stop 01/28/17 at 03:14; Status DC Sodium Chloride (Iv Sodium Chloride 0.9% 1000ml Bag) 1,000 ml @ 150 mls/hr Q6H40M IV Last administered on 01/27/17 21:07; Start 01/27/17 at 03:05; Stop 01/28/17 at 03:04; Status DC Acetaminophen (Tylenol) 650 mg PRN Q4HRS PRN PO FEVER Last administered on 01/27 03:56; Start 01/27/17 at 03:15; Stop 01/28/17 at 03:14; Status DC Hydromorphone HCl 1 mg 1 mg PRN Q2HRS PRN IV SEVERE PAIN Last administered on 10:07; Start 01/27/17 at 03:15; Stop 01/27/17 at 10:14; Status DC Potassium Chloride 100 ml @ 100 mls/hr Q1H IV Last administered on 01/27/17 12:48; Start 01/27/17 at 09:30; Stop 01/27/17 at 11:29; Status DC Meropenem/Sodium Chloride (Merrem/Iv Sodium Chloride 0.9% 100ml) 100 ml @ 200 mls/hr Q8HRS IV Last administered on 02/02/17 05:37; Start 01/27/17 at 11:00; Stop 02/02/17 at 11:43; Status DC Morphine Sulfate 10 mg PRN Q2HR PRN IV PAIN; Start 01/27/17 at 10:15; Status UNV Hydromorphone HCl (Dilaudid) 2 mg PRN Q2HRS PRN IV SEVERE PAIN Last administered on 02/02/17 17:24; Start 01/27/17 at 10:15; Stop 02/02/17 at 19:20 ; Status DC Fentanyl Citrate (Fentanyl 2ml Vial) 50 mcg PRN Q2HR PRN IV PAIN; Start at 10:15; Stop 02/02/17 at 22:17; Status DC Fentanyl (Duragesic 12mcg/ Hr Patch) 1 patch 1X ONCE TD Last administered on 10:32; Start 01/28/17 at 09:45; Stop 01/28/17 at 09:47; Status DC Enoxaparin Sodium (Lovenox Per Pharmacy Prophylaxis Dosing) 1 each PRN DAILY PRN MC SEE COMMENTS; Start 01/28/17 at 10:30 Enoxaparin Sodium 40 mg 40 mg Q24H SQ Last administered on 02/03/17 10:26; Start 01/28/17 at 11:00 Dextrose/Sodium Chloride (Iv D5% - 1/2 NS) 1,000 ml @ 125 mls/hr Q8H IV Last administered on 02/02/17 17:24; Start 01/28/17 at 15:15 Ketorolac Tromethamine (Toradol) 15 mg PRN Q12HR PRN IV PAIN Last administered on 02/03/17 00:04; Start 01/29/17 at 14:45; Stop 02/03/17 at 14:44 Iohexol (Omnipaque 300 Mg/ml) 75 ml 1X ONCE IV Last administered on 01/30/17 11:08; Start 01/30/17 at 10:00; Stop 01/30/17 at 10:01; Status DC Iohexol (Omnipaque 240 Mg/ml) 50 ml 1X ONCE PO Last administered on 01/30/17 11:08; Start 01/30/17 at 10:00; Stop 01/30/17 at 10:01; Status DC Info (Do NOT chart on this entry -- for MONITORING) 1 each PRN DAILY PRN MC SEE COMMENTS; Start 01/30/17 at 10:00; Stop 02/01/17 at 09:59; Status DC Ondansetron HCl (Zofran) 4 mg PRN Q6HRS PRN IV NAUSEA/VOMITING; Start 01/30/17 at 13:30; Stop 01/31/17 at 13:29; Status DC Fentanyl Citrate (Fentanyl 2ml Vial) 25 mcg PRN Q5MIN PRN IV MILD PAIN; Start 01/30/17 at 13:30; Stop 01/31/17 at 13:29; Status DC Fentanyl Citrate 50 mcg 50 mcg PRN Q5MIN PRN IV MODERATE PAIN; Start 01/30/17 at 13:30; Stop 01/31/17 at 13:29; Status DC Lactated Ringer's (Iv Lactated Ringers) 1,000 ml @ 30 mls/hr Q24H IV ; Start at 13:20; Stop 01/31/17 at 01:19; Status DC Lidocaine HCl 2 ml PRN 1X PRN ID PRIOR TO IV START; Start 01/30/17 at 13:30; Stop 01/31/17 at 13:29; Status DC Prochlorperazine Edisylate (Compazine) 5 mg PACU PRN PRN IV NAUSEA, MRX1; Start 01/30/17 at 13:30; Stop 01/31/17 at 13:29; Status DC Lidocaine/Sodium Bicarbonate 20 ml 20 ml STK-MED ONCE IJ ; Start 01/30/17 at 13: 26; Stop 01/30/17 at 13:27; Status DC Propofol 20 ml @ As Directed STK-MED ONCE IV ; Start 01/30/17 at 13:33; Stop at 13:34; Status DC Propofol (Diprivan) 20 ml @ As Directed STK-MED ONCE IV ; Start 01/30/17 at 13: 34; Stop 01/30/17 at 13:35; Status DC Ketamine HCl 500 mg STK-MED ONCE .ROUTE ; Start 01/30/17 at 13:39; Stop at 13:40; Status DC Lidocaine/Sodium Bicarbonate (Buffered Lidocaine 1%) 20 ml 1X ONCE IJ Last administered on 01/30/17t 14:42; Start 01/30/17 at 14:15; Stop 01/30/17 at 14:16 ; Status DC Iohexol (Omnipaque 300 Mg/ml) 50 ml STK-MED ONCE .ROUTE ; Start 01/30/17 at 14: 34; Stop 01/30/17 at 14:35; Status DC Acetaminophen (Tylenol) 650 mg PRN Q6HRS PRN PO FEVER; Start 01/31/17 at 13:45 Ondansetron HCl (Zofran) 4 mg PRN Q6HRS PRN IV NAUSEA/VOMITING; Start 01/31/17 at 13:45; Stop 02/02/17 at 22:17; Status DC Pantoprazole Sodium 40 mg 40 mg DAILYAC IVP Last administered on 02/02/17t 07: 28; Start 01/31/17 at 14:00; Stop 02/02/17 at 22:17; Status DC Ceftriaxone Sodium 2 gm/ Sodium Chloride 100 ml @ 200 mls/hr Q24H IV Last administered on 02/02/17 12:27; Start 02/02/17 at 13:00 Metronidazole (FLAGYL 500Mmg PREMIX) 100 ml @ 100 mls/hr Q8HRS IV Last administered on 02/02/17 22:21; Start 02/02/17 at 14:00 Simethicone (Gas-X) 160 mg PRN Q4HRS PRN PO GAS / BLOATING; Start 02/02/17 at 20:00 Hydromorphone HCl (Dilaudid) 1 mg PRN Q2HRS PRN IV SEVERE PAIN Last administered on 02/03/17 11:33; Start 02/02/17 at 19:30 Oxycodone HCl (Roxicodone) 1 tab for pain 5-7 2 tabs ... PRN Q6HRS PRN PO PAIN Last administered on 02/03/17 01:58; Start 02/02/17 at 22:15; Stop 02/03/17 at 06:38; Status DC Oxycodone HCl (Roxicodone) 5 mg PRN Q6HRS PRN PO PAIN; Start 02/03/17 at 06:45 Oxycodone HCl (Roxicodone) 10 mg PRN Q6HRS PRN PO PAIN Last administered on 10:18; Start 02/03/17 at 06:45 Active Scripts Active Reported No Known Medications Prior To Admisstion (Info) Each 1 Each Vitals/I & O Vital Sign - Last 24 Hours 02/02/17 02/02/17 02/02/17 02/02/17 12:27 15:00 15:00 17:24 Temp 97.7 97.7 Pulse 67 Resp 19 B/P 150/79 Pulse Ox 94 95 O2 Delivery Room Air Room Air Room Air Room Air 02/02/17 02/02/17 02/02/17 02/02/17 18:10 19:39 20:00 22:01 Resp 20 16 Pulse Ox 95 95 O2 Delivery Room Air Room Air Room Air Room Air 02/02/17 02/02/17 02/03/17 02/03/17 22:31 23:00 01:58 03:00 Temp 98.6 98.6 98.6 98.6 Pulse 62 67 Resp 18 18 20 17 B/P 155/80 148/86 Pulse Ox 94 97 97 94 O2 Delivery Room Air Room Air 02/03/17 02/03/17 02/03/17 02/03/17 06:48 07:00 08:00 10:18 Temp 98.4 98.4 Pulse 70 Resp 20 19 B/P 141/87 Pulse Ox 94 92 O2 Delivery Room Air Room Air Room Air Room Air 02/03/17 02/03/17 11:00 11:33 Temp 98.7 98.7 Pulse 74 Resp 20 B/P 139/72 Pulse Ox 93 O2 Delivery Room Air Room Air Intake and Output 02/02/17 02/02/17 02/03/17 15:00 23:00 07:00 Intake Total 650 ml 1150 ml 240 ml Output Total 725 ml 1200 ml Balance 650 ml 425 ml -960 ml MAURICIO TOMAS MD Feb 03, 2017 12:22
--- NOTE | 2017-02-03 12:53 | PDOC ---
PROGRESS NOTES Chief Complaint Chief Complaint Acute abd pain ASSESSMENT AND PLAN: 1. diverticulitis with micro perf and abscess formation: s/p drain placement RLQ on 01/30. culture growing E.coli 2. Peritonitis: appreciate Dr Diaz's input: karen castillo 3. Sepsis: resolved 4. Nutrition: starting on clears w/o N/V. advance as per surg service 5. Pain control: switch to PO meds 6. Prophylaxis: lovenox History of Present Illness History of Present Illness abd pain now focalizing on drain, decreased in intensity. tolerating PO. no real BM yet. Vitals Vitals Vital Signs Date Time Temp Pulse Resp B/P Pulse Ox O2 Delivery O2 Flow Rate FiO2 02/03/17 11:33 Room Air 02/03/17 11:00 98.7 74 20 139/72 93 98.7 Physical Exam General: Alert, Oriented X3, Cooperative Heart: Regular rate Lungs: Clear Abdomen: Soft (tender with palpation in LLQ, no guarding) Extremities: No clubbing, No cyanosis Skin: No rashes, No breakdown Labs LABS Laboratory Tests Test 02/03/17 09:05 White Blood Count 10.8x10^3/uL (4.0-11.0) Red Blood Count 5.17x10^6/uL (4.30-5.70) Hemoglobin 16.1g/dL (13.0-17.5) Hematocrit 45.2% (39.0-53.0) Mean Corpuscular Volume 88fL (79-100) Mean Corpuscular Hemoglobin 31pg (25-35) Mean Corpuscular Hemoglobin Concent 36g/dL (31-37) Red Cell Distribution Width 12.5% (11.5-14.5) Platelet Count 356x10^3/uL (140-400) Neutrophils (%) (Auto) 73% (31-73) Lymphocytes (%) (Auto) 16% (24-48) Monocytes (%) (Auto) 9% (0-9) Eosinophils (%) (Auto) 2% (0-3) Basophils (%) (Auto) 0% (0-3) Neutrophils # (Auto) 7.8x10^3uL (1.8-7.7) Lymphocytes # (Auto) 1.7x10^3/uL (1.0-4.8) Monocytes # (Auto) 1.0x10^3/uL (0.0-1.1) Eosinophils # (Auto) 0.2x10^3/uL (0.0-0.7) Basophils # (Auto) 0.0x10^3/uL (0.0-0.2) Sodium Level 137mmol/L (136-145) Potassium Level 3.9mmol/L (3.5-5.1) Chloride Level 100mmol/L (98-107) Carbon Dioxide Level 27mmol/L (21-32) Anion Gap 10 (6-14) Blood Urea Nitrogen 11mg/dL (8-26) Creatinine 0.8mg/dL (0.7-1.3) Estimated GFR (Cockcroft-Gault) 116.0 Glucose Level 112mg/dL (70-99) Calcium Level 9.1mg/dL (8.5-10.1) RAJESH KAY MD Feb 03, 2017 12:53
[2017-02-03 15:00] VITALS: BP 147/83
[2017-02-03 19:00] VITALS: BP 138/77
[2017-02-03 23:00] VITALS: BP 135/84
[2017-02-04 02:57] VITALS: BP 131/85
[2017-02-04] MEDS: HYDROmorphone 2 MG/ML VIAL IV PRN ×5 (03:14→20:11)
[2017-02-04] MEDS: METRONIDAZOLE 500mg PREMIX 100 ML IV SCH ×3 (05:45→20:12)
[2017-02-04] MEDS: OXYCODONE IR 5 MG TABLET. PO PRN ×3 (05:45→17:54)
[2017-02-04 06:17] LABS: BASO # 0.1 x10^3/uL (0.0-0.2); BASO % 1 % (0-3); EOS % 2 % (0-3); HEMATOCRIT 46.7 % (39.0-53.0); HEMOGLOBIN 16.2 g/dL (13.0-17.5); LYMPH # 2.1 x10^3/uL (1.0-4.8); LYMPH % 22 % (24-48); MEAN CORPUSCULAR HEMOGLOBIN 31 pg (25-35); MEAN CORPUSCULAR HGB CONC 35 g/dL (31-37); MEAN CORPUSCULAR VOLUME 89 fL (79-100); MONO % 11 % (0-9); NEUT % 64 % (31-73); PLATELET COUNT 349 x10^3/uL (140-400); RED BLOOD COUNT 5.26 x10^6/uL (4.30-5.70); RED CELL DISTRIBUTION WIDTH 12.9 % (11.5-14.5); WHITE BLOOD COUNT 9.6 x10^3/uL (4.0-11.0)
[2017-02-04 06:37] LABS: CALCIUM 9.1 mg/dL (8.5-10.1); CREATININE 0.8 mg/dL (0.7-1.3); POTASSIUM 4.1 mmol/L (3.5-5.1)
[2017-02-04 07:10] VITALS: BP 141/80
[2017-02-04] MEDS: IV DEXTROSE 5 %-0.45 % NACL 1,000 ML IV SCH ×3 (07:15→23:15)
--- NOTE | 2017-02-04 08:41 | PDOC ---
PROGRESS NOTES Subjective Subjective had a hard stool, painful; left abdominal pain well controlled Objective Objective Vital Signs Date Time Temp Pulse Resp B/P Pulse Ox O2 Delivery O2 Flow Rate FiO2 02/04/17 07:35 Room Air 02/04/17 06:45 93 2.0 02/04/17 02:57 98.6 80 18 131/85 98.6 Intake and Output 02/04/17 07:00 Intake Total 3300 ml Output Total 0 ml Balance 3300 ml Intake Oral 2900 ml IV Total 400 ml Output Urine Total 0 ml # Voids 3 # Bowel Movements 1 Physical Exam Abdomen: Soft (mildly tender LLQ, no guarding) Heart: Regular rate Extremities: No clubbing, No cyanosis General: Alert, Oriented X3, Cooperative HEENT: Atraumatic Lungs: Clear to auscultation Psych/Mental Status: Mental status NL Assessment Assessment Problems Medical Problems: (1) Acute diverticulitis Status: Acute Plan Plan of Care Remains afebrile, WBC normal, slow improvement of pain; plan for FU CT tomorrow Comment Review of Relevant I have reviewed the following items matilde (where applicable) has been applied. Labs Laboratory Tests Test 02/03/17 09:05 02/04/17 05:05 White Blood Count 10.8x10^3/uL (4.0-11.0) 9.6x10^3/uL (4.0-11.0) Red Blood Count 5.17x10^6/uL (4.30-5.70) 5.26x10^6/uL (4.30-5.70) Hemoglobin 16.1g/dL (13.0-17.5) 16.2g/dL (13.0-17.5) Hematocrit 45.2% (39.0-53.0) 46.7% (39.0-53.0) Mean Corpuscular Volume 88fL (79-100) 89fL (79-100) Mean Corpuscular Hemoglobin 31pg (25-35) 31pg (25-35) Mean Corpuscular Hemoglobin Concent 36g/dL (31-37) 35g/dL (31-37) Red Cell Distribution Width 12.5% (11.5-14.5) 12.9% (11.5-14.5) Platelet Count 356x10^3/uL (140-400) 349x10^3/uL (140-400) Neutrophils (%) (Auto) 73% (31-73) 64% (31-73) Lymphocytes (%) (Auto) 16% (24-48) 22% (24-48) Monocytes (%) (Auto) 9% (0-9) 11% (0-9) Eosinophils (%) (Auto) 2% (0-3) 2% (0-3) Basophils (%) (Auto) 0% (0-3) 1% (0-3) Neutrophils # (Auto) 7.8x10^3uL (1.8-7.7) 6.1x10^3uL (1.8-7.7) Lymphocytes # (Auto) 1.7x10^3/uL (1.0-4.8) 2.1x10^3/uL (1.0-4.8) Monocytes # (Auto) 1.0x10^3/uL (0.0-1.1) 1.1x10^3/uL (0.0-1.1) Eosinophils # (Auto) 0.2x10^3/uL (0.0-0.7) 0.2x10^3/uL (0.0-0.7) Basophils # (Auto) 0.0x10^3/uL (0.0-0.2) 0.1x10^3/uL (0.0-0.2) Sodium Level 137mmol/L (136-145) 138mmol/L (136-145) Potassium Level 3.9mmol/L (3.5-5.1) 4.1mmol/L (3.5-5.1) Chloride Level 100mmol/L (98-107) 100mmol/L (98-107) Carbon Dioxide Level 27mmol/L (21-32) 29mmol/L (21-32) Anion Gap 10 (6-14) 9 (6-14) Blood Urea Nitrogen 11mg/dL (8-26) 12mg/dL (8-26) Creatinine 0.8mg/dL (0.7-1.3) 0.8mg/dL (0.7-1.3) Estimated GFR (Cockcroft-Gault) 116.0 116.0 Glucose Level 112mg/dL (70-99) 100mg/dL (70-99) Calcium Level 9.1mg/dL (8.5-10.1) 9.1mg/dL (8.5-10.1) Laboratory Tests Test 02/03/17 09:05 02/04/17 05:05 White Blood Count 10.8x10^3/uL (4.0-11.0) 9.6x10^3/uL (4.0-11.0) Red Blood Count 5.17x10^6/uL (4.30-5.70) 5.26x10^6/uL (4.30-5.70) Hemoglobin 16.1g/dL (13.0-17.5) 16.2g/dL (13.0-17.5) Hematocrit 45.2% (39.0-53.0) 46.7% (39.0-53.0) Mean Corpuscular Volume 88fL (79-100) 89fL (79-100) Mean Corpuscular Hemoglobin 31pg (25-35) 31pg (25-35) Mean Corpuscular Hemoglobin Concent 36g/dL (31-37) 35g/dL (31-37) Red Cell Distribution Width 12.5% (11.5-14.5) 12.9% (11.5-14.5) Platelet Count 356x10^3/uL (140-400) 349x10^3/uL (140-400) Neutrophils (%) (Auto) 73% (31-73) 64% (31-73) Lymphocytes (%) (Auto) 16% (24-48) 22% (24-48) Monocytes (%) (Auto) 9% (0-9) 11% (0-9) Eosinophils (%) (Auto) 2% (0-3) 2% (0-3) Basophils (%) (Auto) 0% (0-3) 1% (0-3) Neutrophils # (Auto) 7.8x10^3uL (1.8-7.7) 6.1x10^3uL (1.8-7.7) Lymphocytes # (Auto) 1.7x10^3/uL (1.0-4.8) 2.1x10^3/uL (1.0-4.8) Monocytes # (Auto) 1.0x10^3/uL (0.0-1.1) 1.1x10^3/uL (0.0-1.1) Eosinophils # (Auto) 0.2x10^3/uL (0.0-0.7) 0.2x10^3/uL (0.0-0.7) Basophils # (Auto) 0.0x10^3/uL (0.0-0.2) 0.1x10^3/uL (0.0-0.2) Sodium Level 137mmol/L (136-145) 138mmol/L (136-145) Potassium Level 3.9mmol/L (3.5-5.1) 4.1mmol/L (3.5-5.1) Chloride Level 100mmol/L (98-107) 100mmol/L (98-107) Carbon Dioxide Level 27mmol/L (21-32) 29mmol/L (21-32) Anion Gap 10 (6-14) 9 (6-14) Blood Urea Nitrogen 11mg/dL (8-26) 12mg/dL (8-26) Creatinine 0.8mg/dL (0.7-1.3) 0.8mg/dL (0.7-1.3) Estimated GFR (Cockcroft-Gault) 116.0 116.0 Glucose Level 112mg/dL (70-99) 100mg/dL (70-99) Calcium Level 9.1mg/dL (8.5-10.1) 9.1mg/dL (8.5-10.1) Microbiology 01/30/17 Anaerobic/Aerobic Culture - Final, Complete 01/30/17 Anaerobic Culture Result 1 (PRANAV) - Final, Complete 01/30/17 Aerobic Culture - Final, Complete 01/30/17 Aerobic Culture Result 1 (PRANAV) - Final, Complete 01/30/17 Antimicrobic Susceptibility - Final, Complete Medications Current Medications Sodium Chloride (Iv Sodium Chloride 0.9% 1000ml Bag) 1,000 ml @ 1,000 mls/hr Q1H IV Last administered on 01/27/17t 01:24; Start 01/27/17 at 01:30; Stop at 02:29; Status DC Fentanyl Citrate (Fentanyl 2ml Vial) 50 mcg 1X ONCE IV Last administered on 01:26; Start 01/27/17 at 01:30; Stop 01/27/17 at 01:31; Status DC Ondansetron HCl (Zofran) 4 mg 1X ONCE IV Last administered on 01/27/17 01:24 ; Start 01/27/17 at 01:30; Stop 01/27/17 at 01:31; Status DC Iohexol (Omnipaque 300 Mg/ml) 75 ml 1X ONCE IV Last administered on 01/27/17 02:00; Start 01/27/17 at 02:00; Stop 01/27/17 at 02:01; Status DC Info (Do NOT chart on this entry -- for MONITORING) 1 each PRN DAILY PRN MC SEE COMMENTS; Start 01/27/17 at 01:45; Stop 01/29/17 at 01:44; Status DC Hydromorphone HCl 1 mg 1 mg 1X ONCE IV Last administered on 01/27/17 02:19; Start 01/27/17 at 02:30; Stop 01/27/17 at 02:31; Status DC Meropenem/Sodium Chloride (Merrem/Iv Sodium Chloride 0.9% 100ml) 100 ml @ 200 mls/hr 1X ONCE IV Last administered on 01/27/17 03:11; Start 01/27/17 at 03: 30; Stop 01/27/17 at 03:59; Status DC Ondansetron HCl 4 mg 4 mg PRN Q8HRS PRN IV NAUSEA/VOMITING; Start 01/27/17 at 03:15; Stop 01/28/17 at 03:14; Status DC Sodium Chloride (Iv Sodium Chloride 0.9% 1000ml Bag) 1,000 ml @ 150 mls/hr Q6H40M IV Last administered on 01/27/17 21:07; Start 01/27/17 at 03:05; Stop 01/28/17 at 03:04; Status DC Acetaminophen (Tylenol) 650 mg PRN Q4HRS PRN PO FEVER Last administered on 01/27 03:56; Start 01/27/17 at 03:15; Stop 01/28/17 at 03:14; Status DC Hydromorphone HCl 1 mg 1 mg PRN Q2HRS PRN IV SEVERE PAIN Last administered on 10:07; Start 01/27/17 at 03:15; Stop 01/27/17 at 10:14; Status DC Potassium Chloride 100 ml @ 100 mls/hr Q1H IV Last administered on 01/27/17 12:48; Start 01/27/17 at 09:30; Stop 01/27/17 at 11:29; Status DC Meropenem/Sodium Chloride (Merrem/Iv Sodium Chloride 0.9% 100ml) 100 ml @ 200 mls/hr Q8HRS IV Last administered on 02/02/17 05:37; Start 01/27/17 at 11:00; Stop 02/02/17 at 11:43; Status DC Morphine Sulfate 10 mg PRN Q2HR PRN IV PAIN; Start 01/27/17 at 10:15; Status UNV Hydromorphone HCl (Dilaudid) 2 mg PRN Q2HRS PRN IV SEVERE PAIN Last administered on 02/02/17 17:24; Start 01/27/17 at 10:15; Stop 02/02/17 at 19:20 ; Status DC Fentanyl Citrate (Fentanyl 2ml Vial) 50 mcg PRN Q2HR PRN IV PAIN; Start at 10:15; Stop 02/02/17 at 22:17; Status DC Fentanyl (Duragesic 12mcg/ Hr Patch) 1 patch 1X ONCE TD Last administered on 10:32; Start 01/28/17 at 09:45; Stop 01/28/17 at 09:47; Status DC Enoxaparin Sodium (Lovenox Per Pharmacy Prophylaxis Dosing) 1 each PRN DAILY PRN MC SEE COMMENTS; Start 01/28/17 at 10:30 Enoxaparin Sodium 40 mg 40 mg Q24H SQ Last administered on 02/03/17 10:26; Start 01/28/17 at 11:00 Dextrose/Sodium Chloride (Iv D5% - 1/2 NS) 1,000 ml @ 125 mls/hr Q8H IV Last administered on 02/03/17 23:15; Start 01/28/17 at 15:15 Ketorolac Tromethamine (Toradol) 15 mg PRN Q12HR PRN IV PAIN Last administered on 02/03/17 00:04; Start 01/29/17 at 14:45; Stop 02/03/17 at 14:44; Status DC Iohexol (Omnipaque 300 Mg/ml) 75 ml 1X ONCE IV Last administered on 01/30/17 11:08; Start 01/30/17 at 10:00; Stop 01/30/17 at 10:01; Status DC Iohexol (Omnipaque 240 Mg/ml) 50 ml 1X ONCE PO Last administered on 01/30/17 11:08; Start 01/30/17 at 10:00; Stop 01/30/17 at 10:01; Status DC Info (Do NOT chart on this entry -- for MONITORING) 1 each PRN DAILY PRN MC SEE COMMENTS; Start 01/30/17 at 10:00; Stop 02/01/17 at 09:59; Status DC Ondansetron HCl (Zofran) 4 mg PRN Q6HRS PRN IV NAUSEA/VOMITING; Start 01/30/17 at 13:30; Stop 01/31/17 at 13:29; Status DC Fentanyl Citrate (Fentanyl 2ml Vial) 25 mcg PRN Q5MIN PRN IV MILD PAIN; Start 01/30/17 at 13:30; Stop 01/31/17 at 13:29; Status DC Fentanyl Citrate 50 mcg 50 mcg PRN Q5MIN PRN IV MODERATE PAIN; Start 01/30/17 at 13:30; Stop 01/31/17 at 13:29; Status DC Lactated Ringer's (Iv Lactated Ringers) 1,000 ml @ 30 mls/hr Q24H IV ; Start at 13:20; Stop 01/31/17 at 01:19; Status DC Lidocaine HCl 2 ml PRN 1X PRN ID PRIOR TO IV START; Start 01/30/17 at 13:30; Stop 01/31/17 at 13:29; Status DC Prochlorperazine Edisylate (Compazine) 5 mg PACU PRN PRN IV NAUSEA, MRX1; Start 01/30/17 at 13:30; Stop 01/31/17 at 13:29; Status DC Lidocaine/Sodium Bicarbonate 20 ml 20 ml STK-MED ONCE IJ ; Start 01/30/17 at 13: 26; Stop 01/30/17 at 13:27; Status DC Propofol 20 ml @ As Directed STK-MED ONCE IV ; Start 01/30/17 at 13:33; Stop at 13:34; Status DC Propofol (Diprivan) 20 ml @ As Directed STK-MED ONCE IV ; Start 01/30/17 at 13: 34; Stop 01/30/17 at 13:35; Status DC Ketamine HCl 500 mg STK-MED ONCE .ROUTE ; Start 01/30/17 at 13:39; Stop at 13:40; Status DC Lidocaine/Sodium Bicarbonate (Buffered Lidocaine 1%) 20 ml 1X ONCE IJ Last administered on 01/30/17 14:42; Start 01/30/17 at 14:15; Stop 01/30/17 at 14:16 ; Status DC Iohexol (Omnipaque 300 Mg/ml) 50 ml STK-MED ONCE .ROUTE ; Start 01/30/17 at 14: 34; Stop 01/30/17 at 14:35; Status DC Acetaminophen (Tylenol) 650 mg PRN Q6HRS PRN PO FEVER; Start 01/31/17 at 13:45 Ondansetron HCl (Zofran) 4 mg PRN Q6HRS PRN IV NAUSEA/VOMITING; Start 01/31/17 at 13:45; Stop 02/02/17 at 22:17; Status DC Pantoprazole Sodium 40 mg 40 mg DAILYAC IVP Last administered on 02/02/17 07: 28; Start 01/31/17 at 14:00; Stop 02/02/17 at 22:17; Status DC Ceftriaxone Sodium 2 gm/ Sodium Chloride 100 ml @ 200 mls/hr Q24H IV Last administered on 02/03/17 12:50; Start 02/02/17 at 13:00 Metronidazole (FLAGYL 500Mmg PREMIX) 100 ml @ 100 mls/hr Q8HRS IV Last administered on 02/04/17 05:45; Start 02/02/17 at 14:00 Simethicone (Gas-X) 160 mg PRN Q4HRS PRN PO GAS / BLOATING; Start 02/02/17 at 20:00 Hydromorphone HCl (Dilaudid) 1 mg PRN Q2HRS PRN IV SEVERE PAIN Last administered on 02/03/17 11:33; Start 02/02/17 at 19:30; Stop 02/03/17 at 12:54 ; Status DC Oxycodone HCl (Roxicodone) 1 tab for pain 5-7 2 tabs ... PRN Q6HRS PRN PO PAIN Last administered on 02/03/17 01:58; Start 02/02/17 at 22:15; Stop 02/03/17 at 06:38; Status DC Oxycodone HCl (Roxicodone) 5 mg PRN Q6HRS PRN PO PAIN; Start 02/03/17 at 06:45 ; Stop 02/03/17 at 12:57; Status DC Oxycodone HCl (Roxicodone) 10 mg PRN Q6HRS PRN PO PAIN Last administered on 05:45; Start 02/03/17 at 06:45 Hydromorphone HCl (Dilaudid) 1 mg PRN Q4HRS PRN IV SEVERE PAIN Last administered on 02/04/17 07:35; Start 02/03/17 at 13:00 Oxycodone HCl (Roxicodone) 5 mg PRN Q6HRS PRN PO MILD PAIN; Start 02/03/17 at 13:00 Active Scripts Active Reported No Known Medications Prior To Admisstion (Info) Each 1 Each Vitals/I & O Vital Sign - Last 24 Hours 02/03/17 02/03/17 02/03/17 02/03/17 10:18 11:00 11:33 14:51 Temp 98.7 98.7 Pulse 74 Resp 20 B/P 139/72 Pulse Ox 93 O2 Delivery Room Air Room Air Room Air Room Air 02/03/17 02/03/17 02/03/17 02/03/17 15:00 19:00 19:03 20:00 Temp 98.2 97.7 98.2 97.7 Pulse 63 71 Resp 19 18 B/P 147/83 138/77 Pulse Ox 93 97 O2 Delivery Room Air Room Air Room Air Room Air 02/03/17 02/03/17 02/03/17 02/04/17 20:18 23:00 23:15 02:57 Temp 98.4 98.6 98.4 98.6 Pulse 67 80 Resp 18 18 B/P 135/84 131/85 Pulse Ox 93 96 93 93 O2 Delivery Room Air Room Air Room Air Room Air O2 Flow Rate 2.0 2.0 02/04/17 02/04/17 02/04/17 02/04/17 03:14 03:44 05:45 06:45 Pulse Ox 93 93 93 93 O2 Delivery Room Air Room Air Room Air Room Air O2 Flow Rate 2.0 2.0 2.0 2.0 02/04/17 07:35 O2 Delivery Room Air Intake and Output 02/03/17 02/03/17 02/04/17 15:00 23:00 07:00 Intake Total 700 ml 1600 ml 1000 ml Output Total 0 ml Balance 700 ml 1600 ml 1000 ml MAURICIO TOMAS MD Feb 04, 2017 08:41
[2017-02-04] MEDS ORDERED: IOHEXOL 300 MG/ML 75 ML VIAL IV ONE (09:00)
[2017-02-04] MEDS ORDERED: IOHEXOL 240 MG/ML 50ML VIAL. PO ONE (09:00)
[2017-02-04] MEDS ORDERED: CONTRAST GIVEN MC PRN (09:00)
--- NOTE | 2017-02-04 10:11 | PDOC ---
Infectious Disease Note Subjective Subjective Doing ok. Still some pain. + Flatus. No nausea. No rash ROS ROS GEN: Denies fevers, chills, sweats HEENT: Denies blurred vision, sore throat CV: Denies chest pain RESP: Denies shortness of air, cough GI: Denies n/v/d NEURO: Denies confusion, dizziness MSK: Denies weakness, joint pain/swelling Vital Sign Vital Signs Vital Signs Date Time Temp Pulse Resp B/P Pulse Ox O2 Delivery O2 Flow Rate FiO2 02/04/17 08:10 Room Air 02/04/17 07:10 97.9 63 18 141/80 97 97.9 02/04/17 06:45 2.0 Physical Exam PHYSICAL EXAM GENERAL: NAD, Alert HEENT: PERRL, OC/OP - clear. Tongue stud and lip ring NECK: Supple, no JVD, no LN LUNGS: Clear HEART: S1S2, no gallop, no murmur ABD: Soft, NT, no organomegaly, no rebound. ND. Drain EXT: No edema, no cyanosis COLLECTIONS OFFICER: Alert, oriented x 3, no focal neurologic deficit SKIN: No rash IV: ok Labs Lab Laboratory Tests Test 02/04/17 05:05 White Blood Count 9.6x10^3/uL (4.0-11.0) Red Blood Count 5.26x10^6/uL (4.30-5.70) Hemoglobin 16.2g/dL (13.0-17.5) Hematocrit 46.7% (39.0-53.0) Mean Corpuscular Volume 89fL (79-100) Mean Corpuscular Hemoglobin 31pg (25-35) Mean Corpuscular Hemoglobin Concent 35g/dL (31-37) Red Cell Distribution Width 12.9% (11.5-14.5) Platelet Count 349x10^3/uL (140-400) Neutrophils (%) (Auto) 64% (31-73) Lymphocytes (%) (Auto) 22% (24-48) Monocytes (%) (Auto) 11% (0-9) Eosinophils (%) (Auto) 2% (0-3) Basophils (%) (Auto) 1% (0-3) Neutrophils # (Auto) 6.1x10^3uL (1.8-7.7) Lymphocytes # (Auto) 2.1x10^3/uL (1.0-4.8) Monocytes # (Auto) 1.1x10^3/uL (0.0-1.1) Eosinophils # (Auto) 0.2x10^3/uL (0.0-0.7) Basophils # (Auto) 0.1x10^3/uL (0.0-0.2) Sodium Level 138mmol/L (136-145) Potassium Level 4.1mmol/L (3.5-5.1) Chloride Level 100mmol/L (98-107) Carbon Dioxide Level 29mmol/L (21-32) Anion Gap 9 (6-14) Blood Urea Nitrogen 12mg/dL (8-26) Creatinine 0.8mg/dL (0.7-1.3) Estimated GFR (Cockcroft-Gault) 116.0 Glucose Level 100mg/dL (70-99) Calcium Level 9.1mg/dL (8.5-10.1) Micro IMPRESSION: Worsening acute sigmoid diverticulitis with perforation and interval development of a paracolic abscess. There is now pneumoperitoneum with inflammation extending into the left paracolic gutter, and a small amount of free fluid in the pelvis. Objective Assessment Diverticulitis with perforation Abscess s/p drain 01/30 Ecoli/Bacteroides Amox allergy - thinks may have had a "Cef" abx Plan Plan of Care Cont Rocephin/Flagyl to aid in potential d/c therapy f/u repeat CT soon D/w family ENMA GRANDA MD Feb 04, 2017 10:11
[2017-02-04 10:30] VITALS: BP 133/64
[2017-02-04] MEDS: ENOXAPARIN 40 MG/0.4 ML SYRINGE. SQ SCH (11:25)
[2017-02-04] MEDS ORDERED: POLYETHYLENE GLYCOL 3350 17 GM PACKET. PO ONE (11:45)
[2017-02-04] MEDS: DOCUSATE SODIUM 100 MG CAPSULE. PO SCH (11:53)
--- NOTE | 2017-02-04 12:42 | PDOC ---
PROGRESS NOTES Chief Complaint Chief Complaint Acute abd pain ASSESSMENT AND PLAN: 1. diverticulitis with micro perf and abscess formation: s/p drain placement RLQ on 01/30. culture growing E.coli 2. Peritonitis: appreciate Dr Diaz's input: karen castillo 3. Sepsis: resolved 4. Nutrition: starting on clears w/o N/V. advance as per surg service 5. Pain control: switch to PO meds 6. Prophylaxis: lovenox History of Present Illness History of Present Illness abd pain persists , decreased in intensity. tolerating minimal PO. try anxiolytic, check hepatic panel in AM, consider change to PPN in AM surg following, plan repeat CT scan pt reports benadryl allergy Vitals Vitals Vital Signs Date Time Temp Pulse Resp B/P Pulse Ox O2 Delivery O2 Flow Rate FiO2 02/04/17 11:55 Room Air 02/04/17 10:30 98.4 71 18 133/64 96 98.4 02/04/17 06:45 2.0 Physical Exam Physical Exam + anxiety General: Alert, Oriented X3, Cooperative, No acute distress Heart: Regular rate Lungs: Clear Abdomen: Soft (mildly tender LLQ, no guarding) Extremities: No clubbing, No cyanosis Skin: No rashes, No breakdown Labs LABS Laboratory Tests Test 02/04/17 05:05 White Blood Count 9.6x10^3/uL (4.0-11.0) Red Blood Count 5.26x10^6/uL (4.30-5.70) Hemoglobin 16.2g/dL (13.0-17.5) Hematocrit 46.7% (39.0-53.0) Mean Corpuscular Volume 89fL (79-100) Mean Corpuscular Hemoglobin 31pg (25-35) Mean Corpuscular Hemoglobin Concent 35g/dL (31-37) Red Cell Distribution Width 12.9% (11.5-14.5) Platelet Count 349x10^3/uL (140-400) Neutrophils (%) (Auto) 64% (31-73) Lymphocytes (%) (Auto) 22% (24-48) Monocytes (%) (Auto) 11% (0-9) Eosinophils (%) (Auto) 2% (0-3) Basophils (%) (Auto) 1% (0-3) Neutrophils # (Auto) 6.1x10^3uL (1.8-7.7) Lymphocytes # (Auto) 2.1x10^3/uL (1.0-4.8) Monocytes # (Auto) 1.1x10^3/uL (0.0-1.1) Eosinophils # (Auto) 0.2x10^3/uL (0.0-0.7) Basophils # (Auto) 0.1x10^3/uL (0.0-0.2) Sodium Level 138mmol/L (136-145) Potassium Level 4.1mmol/L (3.5-5.1) Chloride Level 100mmol/L (98-107) Carbon Dioxide Level 29mmol/L (21-32) Anion Gap 9 (6-14) Blood Urea Nitrogen 12mg/dL (8-26) Creatinine 0.8mg/dL (0.7-1.3) Estimated GFR (Cockcroft-Gault) 116.0 Glucose Level 100mg/dL (70-99) Calcium Level 9.1mg/dL (8.5-10.1) Review of Systems Review of Systems restless, anxiety, insomnia pain 1 small hard stool poor PO intake, Assessment and Plan Assessmemt and Plan Problems Medical Problems: (1) Acute diverticulitis Status: Acute Problems: Comment Review of Relevant I have reviewed the following items matilde (where applicable) has been applied. Labs Laboratory Tests Test 02/03/17 09:05 02/04/17 05:05 White Blood Count 10.8x10^3/uL (4.0-11.0) 9.6x10^3/uL (4.0-11.0) Red Blood Count 5.17x10^6/uL (4.30-5.70) 5.26x10^6/uL (4.30-5.70) Hemoglobin 16.1g/dL (13.0-17.5) 16.2g/dL (13.0-17.5) Hematocrit 45.2% (39.0-53.0) 46.7% (39.0-53.0) Mean Corpuscular Volume 88fL (79-100) 89fL (79-100) Mean Corpuscular Hemoglobin 31pg (25-35) 31pg (25-35) Mean Corpuscular Hemoglobin Concent 36g/dL (31-37) 35g/dL (31-37) Red Cell Distribution Width 12.5% (11.5-14.5) 12.9% (11.5-14.5) Platelet Count 356x10^3/uL (140-400) 349x10^3/uL (140-400) Neutrophils (%) (Auto) 73% (31-73) 64% (31-73) Lymphocytes (%) (Auto) 16% (24-48) 22% (24-48) Monocytes (%) (Auto) 9% (0-9) 11% (0-9) Eosinophils (%) (Auto) 2% (0-3) 2% (0-3) Basophils (%) (Auto) 0% (0-3) 1% (0-3) Neutrophils # (Auto) 7.8x10^3uL (1.8-7.7) 6.1x10^3uL (1.8-7.7) Lymphocytes # (Auto) 1.7x10^3/uL (1.0-4.8) 2.1x10^3/uL (1.0-4.8) Monocytes # (Auto) 1.0x10^3/uL (0.0-1.1) 1.1x10^3/uL (0.0-1.1) Eosinophils # (Auto) 0.2x10^3/uL (0.0-0.7) 0.2x10^3/uL (0.0-0.7) Basophils # (Auto) 0.0x10^3/uL (0.0-0.2) 0.1x10^3/uL (0.0-0.2) Sodium Level 137mmol/L (136-145) 138mmol/L (136-145) Potassium Level 3.9mmol/L (3.5-5.1) 4.1mmol/L (3.5-5.1) Chloride Level 100mmol/L (98-107) 100mmol/L (98-107) Carbon Dioxide Level 27mmol/L (21-32) 29mmol/L (21-32) Anion Gap 10 (6-14) 9 (6-14) Blood Urea Nitrogen 11mg/dL (8-26) 12mg/dL (8-26) Creatinine 0.8mg/dL (0.7-1.3) 0.8mg/dL (0.7-1.3) Estimated GFR (Cockcroft-Gault) 116.0 116.0 Glucose Level 112mg/dL (70-99) 100mg/dL (70-99) Calcium Level 9.1mg/dL (8.5-10.1) 9.1mg/dL (8.5-10.1) Laboratory Tests Test 02/04/17 05:05 White Blood Count 9.6x10^3/uL (4.0-11.0) Red Blood Count 5.26x10^6/uL (4.30-5.70) Hemoglobin 16.2g/dL (13.0-17.5) Hematocrit 46.7% (39.0-53.0) Mean Corpuscular Volume 89fL (79-100) Mean Corpuscular Hemoglobin 31pg (25-35) Mean Corpuscular Hemoglobin Concent 35g/dL (31-37) Red Cell Distribution Width 12.9% (11.5-14.5) Platelet Count 349x10^3/uL (140-400) Neutrophils (%) (Auto) 64% (31-73) Lymphocytes (%) (Auto) 22% (24-48) Monocytes (%) (Auto) 11% (0-9) Eosinophils (%) (Auto) 2% (0-3) Basophils (%) (Auto) 1% (0-3) Neutrophils # (Auto) 6.1x10^3uL (1.8-7.7) Lymphocytes # (Auto) 2.1x10^3/uL (1.0-4.8) Monocytes # (Auto) 1.1x10^3/uL (0.0-1.1) Eosinophils # (Auto) 0.2x10^3/uL (0.0-0.7) Basophils # (Auto) 0.1x10^3/uL (0.0-0.2) Sodium Level 138mmol/L (136-145) Potassium Level 4.1mmol/L (3.5-5.1) Chloride Level 100mmol/L (98-107) Carbon Dioxide Level 29mmol/L (21-32) Anion Gap 9 (6-14) Blood Urea Nitrogen 12mg/dL (8-26) Creatinine 0.8mg/dL (0.7-1.3) Estimated GFR (Cockcroft-Gault) 116.0 Glucose Level 100mg/dL (70-99) Calcium Level 9.1mg/dL (8.5-10.1) Microbiology 01/30/17 Anaerobic/Aerobic Culture - Final, Complete 01/30/17 Anaerobic Culture Result 1 (PRANAV) - Final, Complete 01/30/17 Aerobic Culture - Final, Complete 01/30/17 Aerobic Culture Result 1 (PRANAV) - Final, Complete 01/30/17 Antimicrobic Susceptibility - Final, Complete Medications Current Medications Sodium Chloride (Iv Sodium Chloride 0.9% 1000ml Bag) 1,000 ml @ 1,000 mls/hr Q1H IV Last administered on 01/27/17 01:24; Start 01/27/17 at 01:30; Stop at 02:29; Status DC Fentanyl Citrate (Fentanyl 2ml Vial) 50 mcg 1X ONCE IV Last administered on 01:26; Start 01/27/17 at 01:30; Stop 01/27/17 at 01:31; Status DC Ondansetron HCl (Zofran) 4 mg 1X ONCE IV Last administered on 01/27/17 01:24 ; Start 01/27/17 at 01:30; Stop 01/27/17 at 01:31; Status DC Iohexol (Omnipaque 300 Mg/ml) 75 ml 1X ONCE IV Last administered on 01/27/17 02:00; Start 01/27/17 at 02:00; Stop 01/27/17 at 02:01; Status DC Info (Do NOT chart on this entry -- for MONITORING) 1 each PRN DAILY PRN MC SEE COMMENTS; Start 01/27/17 at 01:45; Stop 01/29/17 at 01:44; Status DC Hydromorphone HCl 1 mg 1 mg 1X ONCE IV Last administered on 01/27/17 02:19; Start 01/27/17 at 02:30; Stop 01/27/17 at 02:31; Status DC Meropenem/Sodium Chloride (Merrem/Iv Sodium Chloride 0.9% 100ml) 100 ml @ 200 mls/hr 1X ONCE IV Last administered on 01/27/17 03:11; Start 01/27/17 at 03: 30; Stop 01/27/17 at 03:59; Status DC Ondansetron HCl 4 mg 4 mg PRN Q8HRS PRN IV NAUSEA/VOMITING; Start 01/27/17 at 03:15; Stop 01/28/17 at 03:14; Status DC Sodium Chloride (Iv Sodium Chloride 0.9% 1000ml Bag) 1,000 ml @ 150 mls/hr Q6H40M IV Last administered on 01/27/17 21:07; Start 01/27/17 at 03:05; Stop 01/28/17 at 03:04; Status DC Acetaminophen (Tylenol) 650 mg PRN Q4HRS PRN PO FEVER Last administered on 01/27 03:56; Start 01/27/17 at 03:15; Stop 01/28/17 at 03:14; Status DC Hydromorphone HCl 1 mg 1 mg PRN Q2HRS PRN IV SEVERE PAIN Last administered on 10:07; Start 01/27/17 at 03:15; Stop 01/27/17 at 10:14; Status DC Potassium Chloride 100 ml @ 100 mls/hr Q1H IV Last administered on 01/27/17 12:48; Start 01/27/17 at 09:30; Stop 01/27/17 at 11:29; Status DC Meropenem/Sodium Chloride (Merrem/Iv Sodium Chloride 0.9% 100ml) 100 ml @ 200 mls/hr Q8HRS IV Last administered on 02/02/17 05:37; Start 01/27/17 at 11:00; Stop 02/02/17 at 11:43; Status DC Morphine Sulfate 10 mg PRN Q2HR PRN IV PAIN; Start 01/27/17 at 10:15; Status UNV Hydromorphone HCl (Dilaudid) 2 mg PRN Q2HRS PRN IV SEVERE PAIN Last administered on 02/02/17 17:24; Start 01/27/17 at 10:15; Stop 02/02/17 at 19:20 ; Status DC Fentanyl Citrate (Fentanyl 2ml Vial) 50 mcg PRN Q2HR PRN IV PAIN; Start at 10:15; Stop 02/02/17 at 22:17; Status DC Fentanyl (Duragesic 12mcg/ Hr Patch) 1 patch 1X ONCE TD Last administered on 10:32; Start 01/28/17 at 09:45; Stop 01/28/17 at 09:47; Status DC Enoxaparin Sodium (Lovenox Per Pharmacy Prophylaxis Dosing) 1 each PRN DAILY PRN MC SEE COMMENTS; Start 01/28/17 at 10:30 Enoxaparin Sodium 40 mg 40 mg Q24H SQ Last administered on 02/04/17 11:25; Start 01/28/17 at 11:00 Dextrose/Sodium Chloride (Iv D5% - 1/2 NS) 1,000 ml @ 125 mls/hr Q8H IV Last administered on 02/03/17 23:15; Start 01/28/17 at 15:15 Ketorolac Tromethamine (Toradol) 15 mg PRN Q12HR PRN IV PAIN Last administered on 02/03/17 00:04; Start 01/29/17 at 14:45; Stop 02/03/17 at 14:44; Status DC Iohexol (Omnipaque 300 Mg/ml) 75 ml 1X ONCE IV Last administered on 01/30/17 11:08; Start 01/30/17 at 10:00; Stop 01/30/17 at 10:01; Status DC Iohexol (Omnipaque 240 Mg/ml) 50 ml 1X ONCE PO Last administered on 01/30/17 11:08; Start 01/30/17 at 10:00; Stop 01/30/17 at 10:01; Status DC Info (Do NOT chart on this entry -- for MONITORING) 1 each PRN DAILY PRN MC SEE COMMENTS; Start 01/30/17 at 10:00; Stop 02/01/17 at 09:59; Status DC Ondansetron HCl (Zofran) 4 mg PRN Q6HRS PRN IV NAUSEA/VOMITING; Start 01/30/17 at 13:30; Stop 01/31/17 at 13:29; Status DC Fentanyl Citrate (Fentanyl 2ml Vial) 25 mcg PRN Q5MIN PRN IV MILD PAIN; Start 01/30/17 at 13:30; Stop 01/31/17 at 13:29; Status DC Fentanyl Citrate 50 mcg 50 mcg PRN Q5MIN PRN IV MODERATE PAIN; Start 01/30/17 at 13:30; Stop 01/31/17 at 13:29; Status DC Lactated Ringer's (Iv Lactated Ringers) 1,000 ml @ 30 mls/hr Q24H IV ; Start at 13:20; Stop 01/31/17 at 01:19; Status DC Lidocaine HCl 2 ml PRN 1X PRN ID PRIOR TO IV START; Start 01/30/17 at 13:30; Stop 01/31/17 at 13:29; Status DC Prochlorperazine Edisylate (Compazine) 5 mg PACU PRN PRN IV NAUSEA, MRX1; Start 01/30/17 at 13:30; Stop 01/31/17 at 13:29; Status DC Lidocaine/Sodium Bicarbonate 20 ml 20 ml STK-MED ONCE IJ ; Start 01/30/17 at 13: 26; Stop 01/30/17 at 13:27; Status DC Propofol 20 ml @ As Directed STK-MED ONCE IV ; Start 01/30/17 at 13:33; Stop at 13:34; Status DC Propofol (Diprivan) 20 ml @ As Directed STK-MED ONCE IV ; Start 01/30/17 at 13: 34; Stop 01/30/17 at 13:35; Status DC Ketamine HCl 500 mg STK-MED ONCE .ROUTE ; Start 01/30/17 at 13:39; Stop at 13:40; Status DC Lidocaine/Sodium Bicarbonate (Buffered Lidocaine 1%) 20 ml 1X ONCE IJ Last administered on 01/30/17t 14:42; Start 01/30/17 at 14:15; Stop 01/30/17 at 14:16 ; Status DC Iohexol (Omnipaque 300 Mg/ml) 50 ml STK-MED ONCE .ROUTE ; Start 01/30/17 at 14: 34; Stop 01/30/17 at 14:35; Status DC Acetaminophen (Tylenol) 650 mg PRN Q6HRS PRN PO FEVER; Start 01/31/17 at 13:45 Ondansetron HCl (Zofran) 4 mg PRN Q6HRS PRN IV NAUSEA/VOMITING; Start 01/31/17 at 13:45; Stop 02/02/17 at 22:17; Status DC Pantoprazole Sodium 40 mg 40 mg DAILYAC IVP Last administered on 02/02/17 07: 28; Start 01/31/17 at 14:00; Stop 02/02/17 at 22:17; Status DC Ceftriaxone Sodium 2 gm/ Sodium Chloride 100 ml @ 200 mls/hr Q24H IV Last administered on 02/03/17 12:50; Start 02/02/17 at 13:00 Metronidazole (FLAGYL 500Mmg PREMIX) 100 ml @ 100 mls/hr Q8HRS IV Last administered on 02/04/17 05:45; Start 02/02/17 at 14:00 Simethicone (Gas-X) 160 mg PRN Q4HRS PRN PO GAS / BLOATING; Start 02/02/17 at 20:00 Hydromorphone HCl (Dilaudid) 1 mg PRN Q2HRS PRN IV SEVERE PAIN Last administered on 02/03/17 11:33; Start 02/02/17 at 19:30; Stop 02/03/17 at 12:54 ; Status DC Oxycodone HCl (Roxicodone) 1 tab for pain 5-7 2 tabs ... PRN Q6HRS PRN PO PAIN Last administered on 02/03/17 01:58; Start 02/02/17 at 22:15; Stop 02/03/17 at 06:38; Status DC Oxycodone HCl (Roxicodone) 5 mg PRN Q6HRS PRN PO PAIN; Start 02/03/17 at 06:45 ; Stop 02/03/17 at 12:57; Status DC Oxycodone HCl (Roxicodone) 10 mg PRN Q6HRS PRN PO PAIN Last administered on 11:49; Start 02/03/17 at 06:45 Hydromorphone HCl (Dilaudid) 1 mg PRN Q4HRS PRN IV SEVERE PAIN Last administered on 02/04/17 11:24; Start 02/03/17 at 13:00 Oxycodone HCl (Roxicodone) 5 mg PRN Q6HRS PRN PO MILD PAIN; Start 02/03/17 at 13:00 Iohexol (Omnipaque 240 Mg/ml) 30 ml 1X ONCE PO Last administered on 02/04/17 10:55; Start 02/04/17 at 09:00; Stop 02/04/17 at 09:01; Status DC Iohexol (Omnipaque 300 Mg/ml) 75 ml 1X ONCE IV Last administered on 02/04/17 10:55; Start 02/04/17 at 09:00; Stop 02/04/17 at 09:01; Status DC Info (Do NOT chart on this entry -- for MONITORING) 1 each PRN DAILY PRN MC SEE COMMENTS; Start 02/04/17 at 09:00; Stop 02/06/17 at 08:59 Polyethylene Glycol (miraLAX PACKET) 17 gm 1X ONCE PO Last administered on 11:53; Start 02/04/17 at 11:45; Stop 02/04/17 at 11:46; Status DC Polyethylene Glycol (miraLAX PACKET) 17 gm DAILY PO ; Start 02/05/17 at 09:00 Docusate Sodium (Colace) 100 mg DAILY PO Last administered on 02/04/17 11:53; Start 02/04/17 at 11:45 Active Scripts Active Reported No Known Medications Prior To Admisstion (Info) Each 1 Each Vitals/I & O Vital Sign - Last 24 Hours 02/03/17 02/03/17 02/03/17 02/03/17 14:51 15:00 19:00 19:03 Temp 98.2 97.7 98.2 97.7 Pulse 63 71 Resp 19 18 B/P 147/83 138/77 Pulse Ox 93 97 O2 Delivery Room Air Room Air Room Air Room Air 02/03/17 02/03/17 02/03/17 02/03/17 20:00 20:18 23:00 23:15 Temp 98.4 98.4 Pulse 67 Resp 18 B/P 135/84 Pulse Ox 93 96 93 O2 Delivery Room Air Room Air Room Air Room Air O2 Flow Rate 2.0 2.0 02/04/17 02/04/17 02/04/17 02/04/17 02:57 03:14 03:44 05:45 Temp 98.6 98.6 Pulse 80 Resp 18 B/P 131/85 Pulse Ox 93 93 93 93 O2 Delivery Room Air Room Air Room Air O2 Flow Rate 2.0 2.0 2.0 02/04/17 02/04/17 02/04/17 02/04/17 06:45 07:10 07:30 07:35 Temp 97.9 97.9 Pulse 63 Resp 18 B/P 141/80 Pulse Ox 93 97 O2 Delivery Room Air Room Air Room Air Room Air O2 Flow Rate 2.0 02/04/17 02/04/17 02/04/17 02/04/17 10:30 11:24 11:49 11:55 Temp 98.4 98.4 Pulse 71 Resp 18 B/P 133/64 Pulse Ox 96 O2 Delivery Room Air Room Air Room Air Room Air Intake and Output 02/03/17 02/03/17 02/04/17 15:00 23:00 07:00 Intake Total 700 ml 1600 ml 1000 ml Output Total 0 ml Balance 700 ml 1600 ml 1000 ml FRANCISCA HORN MD Feb 04, 2017 12:42
[2017-02-04] MEDS ORDERED: ZOLPIDEM 5 MG TABLET. PO PRN (12:45)
[2017-02-04] MEDS ORDERED: LORAZEPAM 2 MG/ML VIAL. IV PRN (12:45)
--- NOTE | 2017-02-04 13:06 | RAD ---
CT of the abdomen and pelvis with contrast, 02/04/2017: History: Follow-up diverticulitis with abscess Multidetector CT imaging was performed following oral and IV administration of contrast. Comparison is made to a study from 01/30/2017. There has been interval placement of a percutaneous drain within the paracolic abscess along the anterior aspect of the proximal to mid sigmoid colon. The fluid component has been largely drained. There is a small amount of residual gas in this cavity. There is mild residual streaky increased density in the adjacent fat.. There is moderate residual mural thickening involving the sigmoid colon. Inflammation extending into the left paracolic gutter and iliac fossa region has partially resolved. A small amount of free fluid previously seen in the deep pelvis has resolved. No new abscess is delineated. There is only a small amount of residual pneumoperitoneum in the upper abdomen. No hepatic abnormality is seen. The gallbladder is unremarkable. The pancreas shows no abnormality. The spleen is of normal size. No renal abnormality is detected. The other bowel loops are unremarkable. There is no evidence of obstruction. IMPRESSION: 1. Interval percutaneous drainage of the paracolic abscess at the sigmoid level with decreasing paracolic inflammation. 2. Moderate ongoing sigmoid mural thickening. 3. No new abscess is identified. PQRS Compliance Statement: One or more of the following individualized dose reduction techniques were utilized for this examination: 1. Automated exposure control 2. Adjustment of the mA and/or kV according to patient size 3. Use of iterative reconstruction technique
[2017-02-04 15:22] VITALS: BP 126/75
[2017-02-04 19:00] VITALS: BP 131/70
[2017-02-04 23:00] VITALS: BP 132/75
[2017-02-05] MEDS: HYDROmorphone 2 MG/ML VIAL IV PRN ×8 (00:38→21:52)
[2017-02-05] MEDS: OXYCODONE IR 5 MG TABLET. PO PRN ×3 (02:36→17:57)
[2017-02-05 03:00] VITALS: BP 126/77
[2017-02-05] MEDS: IV DEXTROSE 5 %-0.45 % NACL 1,000 ML IV SCH ×3 (04:20→18:21)
[2017-02-05 04:29] LABS: BASO # 0.1 x10^3/uL (0.0-0.2); BASO % 1 % (0-3); EOS % 2 % (0-3); HEMATOCRIT 46.7 % (39.0-53.0); HEMOGLOBIN 15.9 g/dL (13.0-17.5); LYMPH % 23 % (24-48); MEAN CORPUSCULAR HEMOGLOBIN 30 pg (25-35); MEAN CORPUSCULAR HGB CONC 34 g/dL (31-37); MEAN CORPUSCULAR VOLUME 90 fL (79-100); MONO % 10 % (0-9); NEUT % 64 % (31-73); PLATELET COUNT 351 x10^3/uL (140-400); RED BLOOD COUNT 5.22 x10^6/uL (4.30-5.70); RED CELL DISTRIBUTION WIDTH 12.7 % (11.5-14.5); WHITE BLOOD COUNT 8.5 x10^3/uL (4.0-11.0)
[2017-02-05 04:42] LABS: CALCIUM 9.2 mg/dL (8.5-10.1); CREATININE 0.8 mg/dL (0.7-1.3); POTASSIUM 3.9 mmol/L (3.5-5.1)
[2017-02-05 04:47] LABS: ALBUMIN 3.4 g/dL (3.4-5.0); DIRECT BILIRUBIN 0.3 mg/dL (0.0-0.2); TOTAL BILIRUBIN 0.8 mg/dL (0.2-1.0); TOTAL PROTEIN 7.5 g/dL (6.4-8.2)
[2017-02-05] MEDS: METRONIDAZOLE 500mg PREMIX 100 ML IV SCH ×3 (05:36→21:52)
[2017-02-05 07:00] VITALS: BP 139/79
[2017-02-05] MEDS ORDERED: POLYETHYLENE GLYCOL 3350 17 GM PACKET. PO SCH (09:00)
[2017-02-05] MEDS: DOCUSATE SODIUM 100 MG CAPSULE. PO SCH (09:00)
--- NOTE | 2017-02-05 09:16 | PDOC ---
Infectious Disease Note Subjective Subjective Doing ok. c/o increased pain about 5 pm after given miralax. still hurting. + Flatus. No nausea. No rash ROS ROS GEN: Denies fevers, chills, sweats HEENT: Denies blurred vision, sore throat CV: Denies chest pain RESP: Denies shortness of air, cough GI: Denies n/v/d NEURO: Denies confusion, dizziness MSK: Denies weakness, joint pain/swelling Vital Sign Vital Signs Vital Signs Date Time Temp Pulse Resp B/P Pulse Ox O2 Delivery O2 Flow Rate FiO2 02/05/17 08:34 98 Room Air 02/05/17 07:00 97.7 66 18 139/79 97.7 02/05/17 06:06 2.0 Physical Exam PHYSICAL EXAM GENERAL: NAD, Alert, appears comfortable HEENT: PERRL, OC/OP -clear NECK: Supple, no JVD, no LN LUNGS: Clear HEART: S1S2, no gallop, no murmur ABD: Soft, NT, tender to mild palpation but no distension, no rebound, drain in place EXT: No edema, no cyanosis 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: Alert, oriented x 3, no focal neurologic deficit SKIN: No rash IV: ok Labs Lab Laboratory Tests Test 02/05/17 03:50 White Blood Count 8.5x10^3/uL (4.0-11.0) Red Blood Count 5.22x10^6/uL (4.30-5.70) Hemoglobin 15.9g/dL (13.0-17.5) Hematocrit 46.7% (39.0-53.0) Mean Corpuscular Volume 90fL (79-100) Mean Corpuscular Hemoglobin 30pg (25-35) Mean Corpuscular Hemoglobin Concent 34g/dL (31-37) Red Cell Distribution Width 12.7% (11.5-14.5) Platelet Count 351x10^3/uL (140-400) Neutrophils (%) (Auto) 64% (31-73) Lymphocytes (%) (Auto) 23% (24-48) Monocytes (%) (Auto) 10% (0-9) Eosinophils (%) (Auto) 2% (0-3) Basophils (%) (Auto) 1% (0-3) Neutrophils # (Auto) 5.5x10^3uL (1.8-7.7) Lymphocytes # (Auto) 2.0x10^3/uL (1.0-4.8) Monocytes # (Auto) 0.8x10^3/uL (0.0-1.1) Eosinophils # (Auto) 0.2x10^3/uL (0.0-0.7) Basophils # (Auto) 0.1x10^3/uL (0.0-0.2) Sodium Level 136mmol/L (136-145) Potassium Level 3.9mmol/L (3.5-5.1) Chloride Level 100mmol/L (98-107) Carbon Dioxide Level 27mmol/L (21-32) Anion Gap 9 (6-14) Blood Urea Nitrogen 10mg/dL (8-26) Creatinine 0.8mg/dL (0.7-1.3) Estimated GFR (Cockcroft-Gault) 116.0 Glucose Level 108mg/dL (70-99) Calcium Level 9.2mg/dL (8.5-10.1) Total Bilirubin 0.8mg/dL (0.2-1.0) Direct Bilirubin 0.3mg/dL (0.0-0.2) Aspartate Amino Transf (AST/SGOT) 26U/L (15-37) Alanine Aminotransferase (ALT/SGPT) 46U/L (16-63) Alkaline Phosphatase 88U/L (46-116) Total Protein 7.5g/dL (6.4-8.2) Albumin 3.4g/dL (3.4-5.0) Micro IMPRESSION: Worsening acute sigmoid diverticulitis with perforation and interval development of a paracolic abscess. There is now pneumoperitoneum with inflammation extending into the left paracolic gutter, and a small amount of free fluid in the pelvis. Objective Assessment Diverticulitis with perforation. Repeat CT 02/04 improved. AF and WBC improved Abscess s/p drain 01/30 Ecoli/Bacteroides Amox allergy - thinks may have had a "Cef" abx Plan Plan of Care Cont Rocephin/Flagyl to aid in potential d/c therapy Await surgical f/u re pain ? suppository ENMA GRANDA MD Feb 05, 2017 09:16
--- NOTE | 2017-02-05 10:06 | PDOC ---
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 1006: SURGICAL PROGRESS NOTE Subjective more lower abdominal pain since having laxatives yesterday no vomiting Vital Signs Vital Signs Date Time Temp Pulse Resp B/P Pulse Ox O2 Delivery O2 Flow Rate FiO2 02/05/17 09:46 Room Air 02/05/17 08:34 98 02/05/17 07:00 97.7 66 18 139/79 97.7 02/05/17 06:06 2.0 I&O Intake and Output 02/05/17 07:00 Intake Total 1020 ml Output Total 510 ml Balance 510 ml Intake Oral 820 ml IV Total 200 ml Output Urine Total 500 ml Drainage Total 10 ml # Voids 4 # Bowel Movements 2 General: Alert, Oriented X3, Cooperative, No acute distress Abdomen: Soft, Other (moderate ttp to lower abdomen, no guarding, stephanie in place minimal output ) Labs Laboratory Tests Test 02/04/17 05:05 02/05/17 03:50 White Blood Count 9.6x10^3/uL (4.0-11.0) 8.5x10^3/uL (4.0-11.0) Red Blood Count 5.26x10^6/uL (4.30-5.70) 5.22x10^6/uL (4.30-5.70) Hemoglobin 16.2g/dL (13.0-17.5) 15.9g/dL (13.0-17.5) Hematocrit 46.7% (39.0-53.0) 46.7% (39.0-53.0) Mean Corpuscular Volume 89fL (79-100) 90fL (79-100) Mean Corpuscular Hemoglobin 31pg (25-35) 30pg (25-35) Mean Corpuscular Hemoglobin Concent 35g/dL (31-37) 34g/dL (31-37) Red Cell Distribution Width 12.9% (11.5-14.5) 12.7% (11.5-14.5) Platelet Count 349x10^3/uL (140-400) 351x10^3/uL (140-400) Neutrophils (%) (Auto) 64% (31-73) 64% (31-73) Lymphocytes (%) (Auto) 22% (24-48) 23% (24-48) Monocytes (%) (Auto) 11% (0-9) 10% (0-9) Eosinophils (%) (Auto) 2% (0-3) 2% (0-3) Basophils (%) (Auto) 1% (0-3) 1% (0-3) Neutrophils # (Auto) 6.1x10^3uL (1.8-7.7) 5.5x10^3uL (1.8-7.7) Lymphocytes # (Auto) 2.1x10^3/uL (1.0-4.8) 2.0x10^3/uL (1.0-4.8) Monocytes # (Auto) 1.1x10^3/uL (0.0-1.1) 0.8x10^3/uL (0.0-1.1) Eosinophils # (Auto) 0.2x10^3/uL (0.0-0.7) 0.2x10^3/uL (0.0-0.7) Basophils # (Auto) 0.1x10^3/uL (0.0-0.2) 0.1x10^3/uL (0.0-0.2) Sodium Level 138mmol/L (136-145) 136mmol/L (136-145) Potassium Level 4.1mmol/L (3.5-5.1) 3.9mmol/L (3.5-5.1) Chloride Level 100mmol/L (98-107) 100mmol/L (98-107) Carbon Dioxide Level 29mmol/L (21-32) 27mmol/L (21-32) Anion Gap 9 (6-14) 9 (6-14) Blood Urea Nitrogen 12mg/dL (8-26) 10mg/dL (8-26) Creatinine 0.8mg/dL (0.7-1.3) 0.8mg/dL (0.7-1.3) Estimated GFR (Cockcroft-Gault) 116.0 116.0 Glucose Level 100mg/dL (70-99) 108mg/dL (70-99) Calcium Level 9.1mg/dL (8.5-10.1) 9.2mg/dL (8.5-10.1) Total Bilirubin 0.8mg/dL (0.2-1.0) Direct Bilirubin 0.3mg/dL (0.0-0.2) Aspartate Amino Transf (AST/SGOT) 26U/L (15-37) Alanine Aminotransferase (ALT/SGPT) 46U/L (16-63) Alkaline Phosphatase 88U/L (46-116) Total Protein 7.5g/dL (6.4-8.2) Albumin 3.4g/dL (3.4-5.0) Laboratory Tests Test 02/05/17 03:50 White Blood Count 8.5x10^3/uL (4.0-11.0) Red Blood Count 5.22x10^6/uL (4.30-5.70) Hemoglobin 15.9g/dL (13.0-17.5) Hematocrit 46.7% (39.0-53.0) Mean Corpuscular Volume 90fL (79-100) Mean Corpuscular Hemoglobin 30pg (25-35) Mean Corpuscular Hemoglobin Concent 34g/dL (31-37) Red Cell Distribution Width 12.7% (11.5-14.5) Platelet Count 351x10^3/uL (140-400) Neutrophils (%) (Auto) 64% (31-73) Lymphocytes (%) (Auto) 23% (24-48) Monocytes (%) (Auto) 10% (0-9) Eosinophils (%) (Auto) 2% (0-3) Basophils (%) (Auto) 1% (0-3) Neutrophils # (Auto) 5.5x10^3uL (1.8-7.7) Lymphocytes # (Auto) 2.0x10^3/uL (1.0-4.8) Monocytes # (Auto) 0.8x10^3/uL (0.0-1.1) Eosinophils # (Auto) 0.2x10^3/uL (0.0-0.7) Basophils # (Auto) 0.1x10^3/uL (0.0-0.2) Sodium Level 136mmol/L (136-145) Potassium Level 3.9mmol/L (3.5-5.1) Chloride Level 100mmol/L (98-107) Carbon Dioxide Level 27mmol/L (21-32) Anion Gap 9 (6-14) Blood Urea Nitrogen 10mg/dL (8-26) Creatinine 0.8mg/dL (0.7-1.3) Estimated GFR (Cockcroft-Gault) 116.0 Glucose Level 108mg/dL (70-99) Calcium Level 9.2mg/dL (8.5-10.1) Total Bilirubin 0.8mg/dL (0.2-1.0) Direct Bilirubin 0.3mg/dL (0.0-0.2) Aspartate Amino Transf (AST/SGOT) 26U/L (15-37) Alanine Aminotransferase (ALT/SGPT) 46U/L (16-63) Alkaline Phosphatase 88U/L (46-116) Total Protein 7.5g/dL (6.4-8.2) Albumin 3.4g/dL (3.4-5.0) Problem List Problems Medical Problems: (1) Acute diverticulitis Status: Acute Assessment/Plan diverticulitis CT reviewed gradual improvement stop laxatives, would not give any laxatives with his acute diverticulitis process clears, do not advance yet wbc normal, afebrile continue abx and drain serial lab/exams Problems: MAURICIO TOMAS MD 02/05/17 1154: SURGICAL PROGRESS NOTE Assessment/Plan Above noted; CT improved, WBC normal, afebrile, good response to therapy; note pain after miralax. 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
[2017-02-05 11:20] VITALS: BP 131/73
--- NOTE | 2017-02-05 11:37 | PDOC ---
PROGRESS NOTES Chief Complaint Chief Complaint Acute abd pain ASSESSMENT AND PLAN: 1. diverticulitis with micro perf and abscess formation: s/p drain placement RLQ on 01/30. culture growing E.coli 2. Peritonitis: flagyl, ceftriax 3. Sepsis: resolved 4. Nutrition: starting on clears w/o N/V. advance as per surg service 5. Pain control: switch to PO meds 6. Prophylaxis: lovenox History of Present Illness History of Present Illness abd pain persists , decreased in intensity. tolerating minimal PO. anxiolytic avail, , consult nutrition, surg following, plan repeat CT scan pt reports benadryl allergy Vitals Vitals Vital Signs Date Time Temp Pulse Resp B/P Pulse Ox O2 Delivery O2 Flow Rate FiO2 02/05/17 11:20 97.9 62 18 131/73 95 Room Air 97.9 02/05/17 06:06 2.0 Physical Exam Physical Exam + anxiety General: Alert, Oriented X3, Cooperative, No acute distress Heart: Regular rate Lungs: Clear Abdomen: Soft, Other (pain worse, llq ) Extremities: No clubbing, No cyanosis Skin: No rashes, No breakdown Labs LABS Laboratory Tests Test 02/05/17 03:50 White Blood Count 8.5x10^3/uL (4.0-11.0) Red Blood Count 5.22x10^6/uL (4.30-5.70) Hemoglobin 15.9g/dL (13.0-17.5) Hematocrit 46.7% (39.0-53.0) Mean Corpuscular Volume 90fL (79-100) Mean Corpuscular Hemoglobin 30pg (25-35) Mean Corpuscular Hemoglobin Concent 34g/dL (31-37) Red Cell Distribution Width 12.7% (11.5-14.5) Platelet Count 351x10^3/uL (140-400) Neutrophils (%) (Auto) 64% (31-73) Lymphocytes (%) (Auto) 23% (24-48) Monocytes (%) (Auto) 10% (0-9) Eosinophils (%) (Auto) 2% (0-3) Basophils (%) (Auto) 1% (0-3) Neutrophils # (Auto) 5.5x10^3uL (1.8-7.7) Lymphocytes # (Auto) 2.0x10^3/uL (1.0-4.8) Monocytes # (Auto) 0.8x10^3/uL (0.0-1.1) Eosinophils # (Auto) 0.2x10^3/uL (0.0-0.7) Basophils # (Auto) 0.1x10^3/uL (0.0-0.2) Sodium Level 136mmol/L (136-145) Potassium Level 3.9mmol/L (3.5-5.1) Chloride Level 100mmol/L (98-107) Carbon Dioxide Level 27mmol/L (21-32) Anion Gap 9 (6-14) Blood Urea Nitrogen 10mg/dL (8-26) Creatinine 0.8mg/dL (0.7-1.3) Estimated GFR (Cockcroft-Gault) 116.0 Glucose Level 108mg/dL (70-99) Calcium Level 9.2mg/dL (8.5-10.1) Total Bilirubin 0.8mg/dL (0.2-1.0) Direct Bilirubin 0.3mg/dL (0.0-0.2) Aspartate Amino Transf (AST/SGOT) 26U/L (15-37) Alanine Aminotransferase (ALT/SGPT) 46U/L (16-63) Alkaline Phosphatase 88U/L (46-116) Total Protein 7.5g/dL (6.4-8.2) Albumin 3.4g/dL (3.4-5.0) Assessment and Plan Assessmemt and Plan Problems Medical Problems: (1) Acute diverticulitis Status: Acute Problems: Comment Review of Relevant I have reviewed the following items matilde (where applicable) has been applied. Labs Laboratory Tests Test 02/04/17 05:05 02/05/17 03:50 White Blood Count 9.6x10^3/uL (4.0-11.0) 8.5x10^3/uL (4.0-11.0) Red Blood Count 5.26x10^6/uL (4.30-5.70) 5.22x10^6/uL (4.30-5.70) Hemoglobin 16.2g/dL (13.0-17.5) 15.9g/dL (13.0-17.5) Hematocrit 46.7% (39.0-53.0) 46.7% (39.0-53.0) Mean Corpuscular Volume 89fL (79-100) 90fL (79-100) Mean Corpuscular Hemoglobin 31pg (25-35) 30pg (25-35) Mean Corpuscular Hemoglobin Concent 35g/dL (31-37) 34g/dL (31-37) Red Cell Distribution Width 12.9% (11.5-14.5) 12.7% (11.5-14.5) Platelet Count 349x10^3/uL (140-400) 351x10^3/uL (140-400) Neutrophils (%) (Auto) 64% (31-73) 64% (31-73) Lymphocytes (%) (Auto) 22% (24-48) 23% (24-48) Monocytes (%) (Auto) 11% (0-9) 10% (0-9) Eosinophils (%) (Auto) 2% (0-3) 2% (0-3) Basophils (%) (Auto) 1% (0-3) 1% (0-3) Neutrophils # (Auto) 6.1x10^3uL (1.8-7.7) 5.5x10^3uL (1.8-7.7) Lymphocytes # (Auto) 2.1x10^3/uL (1.0-4.8) 2.0x10^3/uL (1.0-4.8) Monocytes # (Auto) 1.1x10^3/uL (0.0-1.1) 0.8x10^3/uL (0.0-1.1) Eosinophils # (Auto) 0.2x10^3/uL (0.0-0.7) 0.2x10^3/uL (0.0-0.7) Basophils # (Auto) 0.1x10^3/uL (0.0-0.2) 0.1x10^3/uL (0.0-0.2) Sodium Level 138mmol/L (136-145) 136mmol/L (136-145) Potassium Level 4.1mmol/L (3.5-5.1) 3.9mmol/L (3.5-5.1) Chloride Level 100mmol/L (98-107) 100mmol/L (98-107) Carbon Dioxide Level 29mmol/L (21-32) 27mmol/L (21-32) Anion Gap 9 (6-14) 9 (6-14) Blood Urea Nitrogen 12mg/dL (8-26) 10mg/dL (8-26) Creatinine 0.8mg/dL (0.7-1.3) 0.8mg/dL (0.7-1.3) Estimated GFR (Cockcroft-Gault) 116.0 116.0 Glucose Level 100mg/dL (70-99) 108mg/dL (70-99) Calcium Level 9.1mg/dL (8.5-10.1) 9.2mg/dL (8.5-10.1) Total Bilirubin 0.8mg/dL (0.2-1.0) Direct Bilirubin 0.3mg/dL (0.0-0.2) Aspartate Amino Transf (AST/SGOT) 26U/L (15-37) Alanine Aminotransferase (ALT/SGPT) 46U/L (16-63) Alkaline Phosphatase 88U/L (46-116) Total Protein 7.5g/dL (6.4-8.2) Albumin 3.4g/dL (3.4-5.0) Laboratory Tests Test 02/05/17 03:50 White Blood Count 8.5x10^3/uL (4.0-11.0) Red Blood Count 5.22x10^6/uL (4.30-5.70) Hemoglobin 15.9g/dL (13.0-17.5) Hematocrit 46.7% (39.0-53.0) Mean Corpuscular Volume 90fL (79-100) Mean Corpuscular Hemoglobin 30pg (25-35) Mean Corpuscular Hemoglobin Concent 34g/dL (31-37) Red Cell Distribution Width 12.7% (11.5-14.5) Platelet Count 351x10^3/uL (140-400) Neutrophils (%) (Auto) 64% (31-73) Lymphocytes (%) (Auto) 23% (24-48) Monocytes (%) (Auto) 10% (0-9) Eosinophils (%) (Auto) 2% (0-3) Basophils (%) (Auto) 1% (0-3) Neutrophils # (Auto) 5.5x10^3uL (1.8-7.7) Lymphocytes # (Auto) 2.0x10^3/uL (1.0-4.8) Monocytes # (Auto) 0.8x10^3/uL (0.0-1.1) Eosinophils # (Auto) 0.2x10^3/uL (0.0-0.7) Basophils # (Auto) 0.1x10^3/uL (0.0-0.2) Sodium Level 136mmol/L (136-145) Potassium Level 3.9mmol/L (3.5-5.1) Chloride Level 100mmol/L (98-107) Carbon Dioxide Level 27mmol/L (21-32) Anion Gap 9 (6-14) Blood Urea Nitrogen 10mg/dL (8-26) Creatinine 0.8mg/dL (0.7-1.3) Estimated GFR (Cockcroft-Gault) 116.0 Glucose Level 108mg/dL (70-99) Calcium Level 9.2mg/dL (8.5-10.1) Total Bilirubin 0.8mg/dL (0.2-1.0) Direct Bilirubin 0.3mg/dL (0.0-0.2) Aspartate Amino Transf (AST/SGOT) 26U/L (15-37) Alanine Aminotransferase (ALT/SGPT) 46U/L (16-63) Alkaline Phosphatase 88U/L (46-116) Total Protein 7.5g/dL (6.4-8.2) Albumin 3.4g/dL (3.4-5.0) Microbiology 01/30/17 Anaerobic/Aerobic Culture - Final, Complete 01/30/17 Anaerobic Culture Result 1 (PRANAV) - Final, Complete 01/30/17 Aerobic Culture - Final, Complete 01/30/17 Aerobic Culture Result 1 (PRANAV) - Final, Complete 01/30/17 Antimicrobic Susceptibility - Final, Complete Medications Current Medications Sodium Chloride (Iv Sodium Chloride 0.9% 1000ml Bag) 1,000 ml @ 1,000 mls/hr Q1H IV Last administered on 01/27/17t 01:24; Start 01/27/17 at 01:30; Stop at 02:29; Status DC Fentanyl Citrate (Fentanyl 2ml Vial) 50 mcg 1X ONCE IV Last administered on 01:26; Start 01/27/17 at 01:30; Stop 01/27/17 at 01:31; Status DC Ondansetron HCl (Zofran) 4 mg 1X ONCE IV Last administered on 01/27/17 01:24 ; Start 01/27/17 at 01:30; Stop 01/27/17 at 01:31; Status DC Iohexol (Omnipaque 300 Mg/ml) 75 ml 1X ONCE IV Last administered on 01/27/17 02:00; Start 01/27/17 at 02:00; Stop 01/27/17 at 02:01; Status DC Info (Do NOT chart on this entry -- for MONITORING) 1 each PRN DAILY PRN MC SEE COMMENTS; Start 01/27/17 at 01:45; Stop 01/29/17 at 01:44; Status DC Hydromorphone HCl 1 mg 1 mg 1X ONCE IV Last administered on 01/27/17 02:19; Start 01/27/17 at 02:30; Stop 01/27/17 at 02:31; Status DC Meropenem/Sodium Chloride (Merrem/Iv Sodium Chloride 0.9% 100ml) 100 ml @ 200 mls/hr 1X ONCE IV Last administered on 01/27/17 03:11; Start 01/27/17 at 03: 30; Stop 01/27/17 at 03:59; Status DC Ondansetron HCl 4 mg 4 mg PRN Q8HRS PRN IV NAUSEA/VOMITING; Start 01/27/17 at 03:15; Stop 01/28/17 at 03:14; Status DC Sodium Chloride (Iv Sodium Chloride 0.9% 1000ml Bag) 1,000 ml @ 150 mls/hr Q6H40M IV Last administered on 01/27/17 21:07; Start 01/27/17 at 03:05; Stop 01/28/17 at 03:04; Status DC Acetaminophen (Tylenol) 650 mg PRN Q4HRS PRN PO FEVER Last administered on 01/27 03:56; Start 01/27/17 at 03:15; Stop 01/28/17 at 03:14; Status DC Hydromorphone HCl 1 mg 1 mg PRN Q2HRS PRN IV SEVERE PAIN Last administered on 10:07; Start 01/27/17 at 03:15; Stop 01/27/17 at 10:14; Status DC Potassium Chloride 100 ml @ 100 mls/hr Q1H IV Last administered on 01/27/17 12:48; Start 01/27/17 at 09:30; Stop 01/27/17 at 11:29; Status DC Meropenem/Sodium Chloride (Merrem/Iv Sodium Chloride 0.9% 100ml) 100 ml @ 200 mls/hr Q8HRS IV Last administered on 02/02/17 05:37; Start 01/27/17 at 11:00; Stop 02/02/17 at 11:43; Status DC Morphine Sulfate 10 mg PRN Q2HR PRN IV PAIN; Start 01/27/17 at 10:15; Status UNV Hydromorphone HCl (Dilaudid) 2 mg PRN Q2HRS PRN IV SEVERE PAIN Last administered on 02/02/17 17:24; Start 01/27/17 at 10:15; Stop 02/02/17 at 19:20 ; Status DC Fentanyl Citrate (Fentanyl 2ml Vial) 50 mcg PRN Q2HR PRN IV PAIN; Start at 10:15; Stop 02/02/17 at 22:17; Status DC Fentanyl (Duragesic 12mcg/ Hr Patch) 1 patch 1X ONCE TD Last administered on 10:32; Start 01/28/17 at 09:45; Stop 01/28/17 at 09:47; Status DC Enoxaparin Sodium (Lovenox Per Pharmacy Prophylaxis Dosing) 1 each PRN DAILY PRN MC SEE COMMENTS; Start 01/28/17 at 10:30 Enoxaparin Sodium 40 mg 40 mg Q24H SQ Last administered on 02/04/17 11:25; Start 01/28/17 at 11:00 Dextrose/Sodium Chloride (Iv D5% - 1/2 NS) 1,000 ml @ 125 mls/hr Q8H IV Last administered on 02/05/17 09:47; Start 01/28/17 at 15:15 Ketorolac Tromethamine (Toradol) 15 mg PRN Q12HR PRN IV PAIN Last administered on 02/03/17 00:04; Start 01/29/17 at 14:45; Stop 02/03/17 at 14:44; Status DC Iohexol (Omnipaque 300 Mg/ml) 75 ml 1X ONCE IV Last administered on 01/30/17 11:08; Start 01/30/17 at 10:00; Stop 01/30/17 at 10:01; Status DC Iohexol (Omnipaque 240 Mg/ml) 50 ml 1X ONCE PO Last administered on 01/30/17 11:08; Start 01/30/17 at 10:00; Stop 01/30/17 at 10:01; Status DC Info (Do NOT chart on this entry -- for MONITORING) 1 each PRN DAILY PRN MC SEE COMMENTS; Start 01/30/17 at 10:00; Stop 02/01/17 at 09:59; Status DC Ondansetron HCl (Zofran) 4 mg PRN Q6HRS PRN IV NAUSEA/VOMITING; Start 01/30/17 at 13:30; Stop 01/31/17 at 13:29; Status DC Fentanyl Citrate (Fentanyl 2ml Vial) 25 mcg PRN Q5MIN PRN IV MILD PAIN; Start 01/30/17 at 13:30; Stop 01/31/17 at 13:29; Status DC Fentanyl Citrate 50 mcg 50 mcg PRN Q5MIN PRN IV MODERATE PAIN; Start 01/30/17 at 13:30; Stop 01/31/17 at 13:29; Status DC Lactated Ringer's (Iv Lactated Ringers) 1,000 ml @ 30 mls/hr Q24H IV ; Start at 13:20; Stop 01/31/17 at 01:19; Status DC Lidocaine HCl 2 ml PRN 1X PRN ID PRIOR TO IV START; Start 01/30/17 at 13:30; Stop 01/31/17 at 13:29; Status DC Prochlorperazine Edisylate (Compazine) 5 mg PACU PRN PRN IV NAUSEA, MRX1; Start 01/30/17 at 13:30; Stop 01/31/17 at 13:29; Status DC Lidocaine/Sodium Bicarbonate 20 ml 20 ml STK-MED ONCE IJ ; Start 01/30/17 at 13: 26; Stop 01/30/17 at 13:27; Status DC Propofol 20 ml @ As Directed STK-MED ONCE IV ; Start 01/30/17 at 13:33; Stop at 13:34; Status DC Propofol (Diprivan) 20 ml @ As Directed STK-MED ONCE IV ; Start 01/30/17 at 13: 34; Stop 01/30/17 at 13:35; Status DC Ketamine HCl 500 mg STK-MED ONCE .ROUTE ; Start 01/30/17 at 13:39; Stop at 13:40; Status DC Lidocaine/Sodium Bicarbonate (Buffered Lidocaine 1%) 20 ml 1X ONCE IJ Last administered on 01/30/17 14:42; Start 01/30/17 at 14:15; Stop 01/30/17 at 14:16 ; Status DC Iohexol (Omnipaque 300 Mg/ml) 50 ml STK-MED ONCE .ROUTE ; Start 01/30/17 at 14: 34; Stop 01/30/17 at 14:35; Status DC Acetaminophen (Tylenol) 650 mg PRN Q6HRS PRN PO FEVER; Start 01/31/17 at 13:45 Ondansetron HCl (Zofran) 4 mg PRN Q6HRS PRN IV NAUSEA/VOMITING; Start 01/31/17 at 13:45; Stop 02/02/17 at 22:17; Status DC Pantoprazole Sodium 40 mg 40 mg DAILYAC IVP Last administered on 02/02/17 07: 28; Start 01/31/17 at 14:00; Stop 02/02/17 at 22:17; Status DC Ceftriaxone Sodium 2 gm/ Sodium Chloride 100 ml @ 200 mls/hr Q24H IV Last administered on 02/04/17 13:00; Start 02/02/17 at 13:00 Metronidazole (FLAGYL 500Mmg PREMIX) 100 ml @ 100 mls/hr Q8HRS IV Last administered on 02/05/17 05:36; Start 02/02/17 at 14:00 Simethicone (Gas-X) 160 mg PRN Q4HRS PRN PO GAS / BLOATING Last administered on 02/05/17 08:33; Start 02/02/17 at 20:00 Hydromorphone HCl (Dilaudid) 1 mg PRN Q2HRS PRN IV SEVERE PAIN Last administered on 02/03/17 11:33; Start 02/02/17 at 19:30; Stop 02/03/17 at 12:54 ; Status DC Oxycodone HCl (Roxicodone) 1 tab for pain 5-7 2 tabs ... PRN Q6HRS PRN PO PAIN Last administered on 02/03/17 01:58; Start 02/02/17 at 22:15; Stop 02/03/17 at 06:38; Status DC Oxycodone HCl (Roxicodone) 5 mg PRN Q6HRS PRN PO PAIN; Start 02/03/17 at 06:45 ; Stop 02/03/17 at 12:57; Status DC Oxycodone HCl (Roxicodone) 10 mg PRN Q6HRS PRN PO PAIN Last administered on 08:34; Start 02/03/17 at 06:45 Hydromorphone HCl (Dilaudid) 1 mg PRN Q4HRS PRN IV SEVERE PAIN Last administered on 02/05/17 00:38; Start 02/03/17 at 13:00; Stop 02/05/17 at 02:49 ; Status DC Oxycodone HCl (Roxicodone) 5 mg PRN Q6HRS PRN PO MILD PAIN; Start 02/03/17 at 13:00 Iohexol (Omnipaque 240 Mg/ml) 30 ml 1X ONCE PO Last administered on 02/04/17 10:55; Start 02/04/17 at 09:00; Stop 02/04/17 at 09:01; Status DC Iohexol (Omnipaque 300 Mg/ml) 75 ml 1X ONCE IV Last administered on 02/04/17 10:55; Start 02/04/17 at 09:00; Stop 02/04/17 at 09:01; Status DC Info (Do NOT chart on this entry -- for MONITORING) 1 each PRN DAILY PRN MC SEE COMMENTS; Start 02/04/17 at 09:00; Stop 02/06/17 at 08:59 Polyethylene Glycol (miraLAX PACKET) 17 gm 1X ONCE PO Last administered on 11:53; Start 02/04/17 at 11:45; Stop 02/04/17 at 11:46; Status DC Polyethylene Glycol (miraLAX PACKET) 17 gm DAILY PO ; Start 02/05/17 at 09:00; Stop 02/05/17 at 10:04; Status DC Docusate Sodium (Colace) 100 mg DAILY PO Last administered on 02/04/17 11:53; Start 02/04/17 at 11:45; Stop 02/05/17 at 11:02; Status DC Zolpidem Tartrate (Ambien) 5 mg PRN QHS PRN PO INSOMNIA, MAY REPEAT IN 1HR; Start 02/04/17 at 12:45 Lorazepam (Ativan) 1 mg PRN Q8HRS PRN IV ANXIETY / AGITATION; Start 02/04/17 at 12:45 Hydromorphone HCl (Dilaudid) 2 mg PRN Q2HR PRN IV SEVERE PAIN Last administered on 02/05/17 09:46; Start 02/05/17 at 03:00 Active Scripts Active Reported No Known Medications Prior To Admisstion (Info) Each 1 Each Vitals/I & O Vital Sign - Last 24 Hours 02/04/17 02/04/17 02/04/17 02/04/17 11:49 15:22 15:56 17:54 Temp 98.5 98.5 Pulse 57 Resp 18 B/P 126/75 Pulse Ox 95 O2 Delivery Room Air Room Air Room Air Room Air 02/04/17 02/04/17 02/04/17 02/04/17 19:00 19:30 20:11 23:00 Temp 98.1 98.6 98.1 98.6 Pulse 74 70 Resp 18 18 B/P 131/70 132/75 Pulse Ox 97 95 94 O2 Delivery Room Air Room Air Room Air Room Air O2 Flow Rate 2.0 2.0 02/05/17 02/05/17 02/05/17 02/05/17 00:38 01:08 02:36 03:00 Temp 97.9 97.9 Pulse 82 Resp 18 B/P 126/77 Pulse Ox 94 94 94 92 O2 Delivery Room Air Room Air Room Air Room Air O2 Flow Rate 2.0 2.0 2.0 02/05/17 02/05/17 02/05/17 02/05/17 03:17 03:36 05:36 06:06 Pulse Ox 92 92 92 92 O2 Delivery Room Air Room Air O2 Flow Rate 2.0 2.0 2.0 2.0 02/05/17 02/05/17 02/05/17 02/05/17 07:00 07:30 08:34 09:46 Temp 97.7 97.7 Pulse 66 Resp 18 B/P 139/79 Pulse Ox 98 98 O2 Delivery Room Air Room Air Room Air Room Air 02/05/17 02/05/17 02/05/17 09:46 10:09 11:20 Temp 97.9 97.9 Pulse 62 Resp 18 B/P 131/73 Pulse Ox 95 O2 Delivery Room Air Room Air Room Air Intake and Output 02/04/17 02/04/17 02/05/17 14:59 22:59 06:59 Intake Total 820 ml 200 ml Output Total 10 ml 500 ml Balance 810 ml -300 ml FRANCISCA HORN MD Feb 05, 2017 11:37
[2017-02-05] MEDS: ENOXAPARIN 40 MG/0.4 ML SYRINGE. SQ SCH (13:03)
[2017-02-05 15:18] VITALS: BP 126/81
[2017-02-05 19:00] VITALS: BP 124/79
[2017-02-05 23:00] VITALS: BP 129/69
[2017-02-06] MEDS: HYDROmorphone 2 MG/ML VIAL IV PRN ×6 (02:03→21:36)
[2017-02-06 03:00] VITALS: BP 135/84
[2017-02-06] MEDS: IV DEXTROSE 5 %-0.45 % NACL 1,000 ML IV SCH ×2 (04:20→14:33)
[2017-02-06] MEDS: METRONIDAZOLE 500mg PREMIX 100 ML IV SCH ×3 (05:35→21:36)
[2017-02-06] MEDS: OXYCODONE IR 5 MG TABLET. PO PRN (05:35)
[2017-02-06 06:16] LABS: BASO # 0.1 x10^3/uL (0.0-0.2); BASO % 1 % (0-3); EOS % 3 % (0-3); HEMATOCRIT 46.3 % (39.0-53.0); HEMOGLOBIN 15.7 g/dL (13.0-17.5); LYMPH # 2.1 x10^3/uL (1.0-4.8); LYMPH % 28 % (24-48); MEAN CORPUSCULAR HEMOGLOBIN 30 pg (25-35); MEAN CORPUSCULAR HGB CONC 34 g/dL (31-37); MEAN CORPUSCULAR VOLUME 90 fL (79-100); MONO % 10 % (0-9); NEUT % 59 % (31-73); PLATELET COUNT 344 x10^3/uL (140-400); RED BLOOD COUNT 5.18 x10^6/uL (4.30-5.70); RED CELL DISTRIBUTION WIDTH 12.5 % (11.5-14.5); WHITE BLOOD COUNT 7.4 x10^3/uL (4.0-11.0)
[2017-02-06 06:44] LABS: CREATININE 0.9 mg/dL (0.7-1.3); GFR 101.2
[2017-02-06 07:08] VITALS: BP 127/66
[2017-02-06 10:30] VITALS: BP 140/73
--- NOTE | 2017-02-06 12:40 | PDOC ---
PROGRESS NOTES Chief Complaint Chief Complaint Acute abd pain ASSESSMENT AND PLAN: 1. diverticulitis with micro perf and abscess formation: s/p drain placement RLQ on 01/30. culture growing E.coli 2. Peritonitis: flagyl, ceftriax 3. Sepsis: resolved 4. Nutrition: starting on clears w/o N/V. advance as per surg service 5. Pain control: switch to PO meds 6. Prophylaxis: lovenox History of Present Illness History of Present Illness feels ok. this is his fourth (!) bout with diverticulitis. wants to go slowly. Vitals Vitals Vital Signs Date Time Temp Pulse Resp B/P Pulse Ox O2 Delivery O2 Flow Rate FiO2 02/06/17 10:30 98.2 69 18 140/73 96 Room Air 98.2 02/06/17 05:35 2.0 Physical Exam Physical Exam + anxiety General: Alert, Oriented X3, Cooperative, No acute distress Heart: Regular rate Lungs: Clear Abdomen: Soft, No tenderness Extremities: No clubbing Skin: No rashes Labs LABS Laboratory Tests Test 02/06/17 05:05 White Blood Count 7.4x10^3/uL (4.0-11.0) Red Blood Count 5.18x10^6/uL (4.30-5.70) Hemoglobin 15.7g/dL (13.0-17.5) Hematocrit 46.3% (39.0-53.0) Mean Corpuscular Volume 90fL (79-100) Mean Corpuscular Hemoglobin 30pg (25-35) Mean Corpuscular Hemoglobin Concent 34g/dL (31-37) Red Cell Distribution Width 12.5% (11.5-14.5) Platelet Count 344x10^3/uL (140-400) Neutrophils (%) (Auto) 59% (31-73) Lymphocytes (%) (Auto) 28% (24-48) Monocytes (%) (Auto) 10% (0-9) Eosinophils (%) (Auto) 3% (0-3) Basophils (%) (Auto) 1% (0-3) Neutrophils # (Auto) 4.3x10^3uL (1.8-7.7) Lymphocytes # (Auto) 2.1x10^3/uL (1.0-4.8) Monocytes # (Auto) 0.7x10^3/uL (0.0-1.1) Eosinophils # (Auto) 0.2x10^3/uL (0.0-0.7) Basophils # (Auto) 0.1x10^3/uL (0.0-0.2) Sodium Level 136mmol/L (136-145) Potassium Level 4.0mmol/L (3.5-5.1) Chloride Level 98mmol/L (98-107) Carbon Dioxide Level 29mmol/L (21-32) Anion Gap 9 (6-14) Blood Urea Nitrogen 10mg/dL (8-26) Creatinine 0.9mg/dL (0.7-1.3) Estimated GFR (Cockcroft-Gault) 101.2 Glucose Level 83mg/dL (70-99) Calcium Level 9.0mg/dL (8.5-10.1) RAJESH KAY MD Feb 06, 2017 12:40
--- NOTE | 2017-02-06 12:48 | PDOC ---
Infectious Disease Note Subjective Subjective Wants to go home c/o mild lower abdominal "pressure" + BM ROS ROS GEN: Denies fevers, chills, sweats HEENT: Denies sore throat CV: Denies chest pain RESP: Denies shortness of air, cough GI: Denies n/v/d Vital Sign Vital Signs Vital Signs Date Time Temp Pulse Resp B/P Pulse Ox O2 Delivery O2 Flow Rate FiO2 02/06/17 10:30 98.2 69 18 140/73 96 Room Air 98.2 02/06/17 05:35 2.0 Physical Exam PHYSICAL EXAM GENERAL: Alert, smiling, lying down HEENT: PERRL, OC/OP pink NECK: Supple LUNGS: Clear HEART: S1S2, no gallop, no murmur ABD: Obese, BS present, soft, NT light palpation. ANKUR intact EXT: No edema, no cyanosis [employer]ER/[employer] OFFICER: Alert, oriented x 3, no focal neurologic deficit SKIN: No rash IV: ok Labs Lab Laboratory Tests Test 02/06/17 05:05 White Blood Count 7.4x10^3/uL (4.0-11.0) Red Blood Count 5.18x10^6/uL (4.30-5.70) Hemoglobin 15.7g/dL (13.0-17.5) Hematocrit 46.3% (39.0-53.0) Mean Corpuscular Volume 90fL (79-100) Mean Corpuscular Hemoglobin 30pg (25-35) Mean Corpuscular Hemoglobin Concent 34g/dL (31-37) Red Cell Distribution Width 12.5% (11.5-14.5) Platelet Count 344x10^3/uL (140-400) Neutrophils (%) (Auto) 59% (31-73) Lymphocytes (%) (Auto) 28% (24-48) Monocytes (%) (Auto) 10% (0-9) Eosinophils (%) (Auto) 3% (0-3) Basophils (%) (Auto) 1% (0-3) Neutrophils # (Auto) 4.3x10^3uL (1.8-7.7) Lymphocytes # (Auto) 2.1x10^3/uL (1.0-4.8) Monocytes # (Auto) 0.7x10^3/uL (0.0-1.1) Eosinophils # (Auto) 0.2x10^3/uL (0.0-0.7) Basophils # (Auto) 0.1x10^3/uL (0.0-0.2) Sodium Level 136mmol/L (136-145) Potassium Level 4.0mmol/L (3.5-5.1) Chloride Level 98mmol/L (98-107) Carbon Dioxide Level 29mmol/L (21-32) Anion Gap 9 (6-14) Blood Urea Nitrogen 10mg/dL (8-26) Creatinine 0.9mg/dL (0.7-1.3) Estimated GFR (Cockcroft-Gault) 101.2 Glucose Level 83mg/dL (70-99) Calcium Level 9.0mg/dL (8.5-10.1) Micro ANAEROBIC RES 1 Final Bacteroides species, B. fragilis group AEROBIC RES 1 Final Escherichia coli Antibiotic RSLT#1 Amoxicillin/Clavulanic Acid S Ampicillin R Cefepime S Ceftriaxone S Cefuroxime I Ciprofloxacin R Ertapenem S Gentamicin S Imipenem S Levofloxacin R Piperacillin R Tetracycline S Tobramycin S Trimethoprim/Sulfa S Objective Assessment Diverticulitis with perforation. Repeat CT 02/04 improved. AF and WBC improved Abscess s/p drain 01/30 Ecoli and Bacteroides Amox allergy - thinks may have had a "Cef" abx Plan Plan of Care Cont Rocephin/yl Supportive care Attending Co-Sign The patient was seen and interviewed as well as examined at the bedside. The chart was reviewed. The case was discussed. Agree with the plan of care. MIKAL ARREGUIN APRN Feb 06, 2017 12:48 KARTIK HAWTHORNE MD Feb 06, 2017 16:19
[2017-02-06] MEDS: ENOXAPARIN 40 MG/0.4 ML SYRINGE. SQ SCH (13:01)
--- NOTE | 2017-02-06 14:25 | PDOC ---
[employer] 02/06/17 1425: SURGICAL PROGRESS NOTE Subjective pain is improved, shaker tender llq Vital Signs Vital Signs Date Time Temp Pulse Resp B/P Pulse Ox O2 Delivery O2 Flow Rate FiO2 02/06/17 13:32 20 96 Room Air 02/06/17 10:30 98.2 69 140/73 98.2 02/06/17 05:35 2.0 I&O Intake and Output 02/06/17 07:00 Intake Total 120 ml Output Total 10 ml Balance 110 ml Intake Oral 120 ml Drainage Total 10 ml # Voids 7 # Bowel Movements 1 General: Alert, Oriented X3, Cooperative, No acute distress Abdomen: Soft, Other (tenderness to LLQ, drain without output ) Labs Laboratory Tests Test 02/05/17 03:50 02/06/17 05:05 White Blood Count 8.5x10^3/uL (4.0-11.0) 7.4x10^3/uL (4.0-11.0) Red Blood Count 5.22x10^6/uL (4.30-5.70) 5.18x10^6/uL (4.30-5.70) Hemoglobin 15.9g/dL (13.0-17.5) 15.7g/dL (13.0-17.5) Hematocrit 46.7% (39.0-53.0) 46.3% (39.0-53.0) Mean Corpuscular Volume 90fL (79-100) 90fL (79-100) Mean Corpuscular Hemoglobin 30pg (25-35) 30pg (25-35) Mean Corpuscular Hemoglobin Concent 34g/dL (31-37) 34g/dL (31-37) Red Cell Distribution Width 12.7% (11.5-14.5) 12.5% (11.5-14.5) Platelet Count 351x10^3/uL (140-400) 344x10^3/uL (140-400) Neutrophils (%) (Auto) 64% (31-73) 59% (31-73) Lymphocytes (%) (Auto) 23% (24-48) 28% (24-48) Monocytes (%) (Auto) 10% (0-9) 10% (0-9) Eosinophils (%) (Auto) 2% (0-3) 3% (0-3) Basophils (%) (Auto) 1% (0-3) 1% (0-3) Neutrophils # (Auto) 5.5x10^3uL (1.8-7.7) 4.3x10^3uL (1.8-7.7) Lymphocytes # (Auto) 2.0x10^3/uL (1.0-4.8) 2.1x10^3/uL (1.0-4.8) Monocytes # (Auto) 0.8x10^3/uL (0.0-1.1) 0.7x10^3/uL (0.0-1.1) Eosinophils # (Auto) 0.2x10^3/uL (0.0-0.7) 0.2x10^3/uL (0.0-0.7) Basophils # (Auto) 0.1x10^3/uL (0.0-0.2) 0.1x10^3/uL (0.0-0.2) Sodium Level 136mmol/L (136-145) 136mmol/L (136-145) Potassium Level 3.9mmol/L (3.5-5.1) 4.0mmol/L (3.5-5.1) Chloride Level 100mmol/L (98-107) 98mmol/L (98-107) Carbon Dioxide Level 27mmol/L (21-32) 29mmol/L (21-32) Anion Gap 9 (6-14) 9 (6-14) Blood Urea Nitrogen 10mg/dL (8-26) 10mg/dL (8-26) Creatinine 0.8mg/dL (0.7-1.3) 0.9mg/dL (0.7-1.3) Estimated GFR (Cockcroft-Gault) 116.0 101.2 Glucose Level 108mg/dL (70-99) 83mg/dL (70-99) Calcium Level 9.2mg/dL (8.5-10.1) 9.0mg/dL (8.5-10.1) Total Bilirubin 0.8mg/dL (0.2-1.0) Direct Bilirubin 0.3mg/dL (0.0-0.2) Aspartate Amino Transf (AST/SGOT) 26U/L (15-37) Alanine Aminotransferase (ALT/SGPT) 46U/L (16-63) Alkaline Phosphatase 88U/L (46-116) Total Protein 7.5g/dL (6.4-8.2) Albumin 3.4g/dL (3.4-5.0) Laboratory Tests Test 02/06/17 05:05 White Blood Count 7.4x10^3/uL (4.0-11.0) Red Blood Count 5.18x10^6/uL (4.30-5.70) Hemoglobin 15.7g/dL (13.0-17.5) Hematocrit 46.3% (39.0-53.0) Mean Corpuscular Volume 90fL (79-100) Mean Corpuscular Hemoglobin 30pg (25-35) Mean Corpuscular Hemoglobin Concent 34g/dL (31-37) Red Cell Distribution Width 12.5% (11.5-14.5) Platelet Count 344x10^3/uL (140-400) Neutrophils (%) (Auto) 59% (31-73) Lymphocytes (%) (Auto) 28% (24-48) Monocytes (%) (Auto) 10% (0-9) Eosinophils (%) (Auto) 3% (0-3) Basophils (%) (Auto) 1% (0-3) Neutrophils # (Auto) 4.3x10^3uL (1.8-7.7) Lymphocytes # (Auto) 2.1x10^3/uL (1.0-4.8) Monocytes # (Auto) 0.7x10^3/uL (0.0-1.1) Eosinophils # (Auto) 0.2x10^3/uL (0.0-0.7) Basophils # (Auto) 0.1x10^3/uL (0.0-0.2) Sodium Level 136mmol/L (136-145) Potassium Level 4.0mmol/L (3.5-5.1) Chloride Level 98mmol/L (98-107) Carbon Dioxide Level 29mmol/L (21-32) Anion Gap 9 (6-14) Blood Urea Nitrogen 10mg/dL (8-26) Creatinine 0.9mg/dL (0.7-1.3) Estimated GFR (Cockcroft-Gault) 101.2 Glucose Level 83mg/dL (70-99) Calcium Level 9.0mg/dL (8.5-10.1) Problem List Problems Medical Problems: (1) Acute diverticulitis Status: Acute Assessment/Plan gradual improvement, continue abx would hold on advancing diet and continue drain due to severity of diverticulitis Problems: MAURICIO TOMAS MD 02/06/171: SURGICAL PROGRESS NOTE Assessment/Plan Above reviewed, appears to be making slow, gradual progress; ok for clears, may be ok to advance tomorrow; if tolerates would begin working toward discharge Problems: [employer] Feb 06, 2017 14:25 MAURICIO TOMAS MD Feb 06, 2017 19:21
[2017-02-06 14:35] VITALS: BP 116/68
[2017-02-06 19:00] VITALS: BP 109/76
[2017-02-06 23:00] VITALS: BP 141/69
[2017-02-07] VITALS (7 sets, daily range): BP systolic 121–148; BP diastolic 69–97
[2017-02-07] MEDS: HYDROmorphone 2 MG/ML VIAL IV PRN ×8 (01:42→22:06)
[2017-02-07] MEDS: IV DEXTROSE 5 %-0.45 % NACL 1,000 ML IV SCH ×3 (01:45→20:01)
[2017-02-07] MEDS: METRONIDAZOLE 500mg PREMIX 100 ML IV SCH ×3 (05:35→22:04)
[2017-02-07] MEDS: ENOXAPARIN 40 MG/0.4 ML SYRINGE. SQ SCH (10:53)
--- NOTE | 2017-02-07 11:26 | PDOC ---
SERGE BOB CLINICAL LAW PROFESSOR 02/07/17 1126: SURGICAL PROGRESS NOTE Subjective more pain to RLQ today drain with some purulent drainage, had not been draining until last night Vital Signs Vital Signs Date Time Temp Pulse Resp B/P Pulse Ox O2 Delivery O2 Flow Rate FiO2 02/07/17 10:52 98 Room Air 2.0 02/07/17 10:29 97.9 58 18 140/88 97.9 I&O Intake and Output 02/07/17 07:00 Intake Total 2090 ml Output Total 15 ml Balance 2075 ml Intake Oral 840 ml IV Total 1250 ml Drainage Total 15 ml # Voids 2 # Bowel Movements 1 General: Alert, Oriented X3, Cooperative, No acute distress Abdomen: Soft, Other (ND, tender RLQ and LLQ, no guarding or rebound ) Labs Laboratory Tests Test 02/06/17 05:05 White Blood Count 7.4x10^3/uL (4.0-11.0) Red Blood Count 5.18x10^6/uL (4.30-5.70) Hemoglobin 15.7g/dL (13.0-17.5) Hematocrit 46.3% (39.0-53.0) Mean Corpuscular Volume 90fL (79-100) Mean Corpuscular Hemoglobin 30pg (25-35) Mean Corpuscular Hemoglobin Concent 34g/dL (31-37) Red Cell Distribution Width 12.5% (11.5-14.5) Platelet Count 344x10^3/uL (140-400) Neutrophils (%) (Auto) 59% (31-73) Lymphocytes (%) (Auto) 28% (24-48) Monocytes (%) (Auto) 10% (0-9) Eosinophils (%) (Auto) 3% (0-3) Basophils (%) (Auto) 1% (0-3) Neutrophils # (Auto) 4.3x10^3uL (1.8-7.7) Lymphocytes # (Auto) 2.1x10^3/uL (1.0-4.8) Monocytes # (Auto) 0.7x10^3/uL (0.0-1.1) Eosinophils # (Auto) 0.2x10^3/uL (0.0-0.7) Basophils # (Auto) 0.1x10^3/uL (0.0-0.2) Sodium Level 136mmol/L (136-145) Potassium Level 4.0mmol/L (3.5-5.1) Chloride Level 98mmol/L (98-107) Carbon Dioxide Level 29mmol/L (21-32) Anion Gap 9 (6-14) Blood Urea Nitrogen 10mg/dL (8-26) Creatinine 0.9mg/dL (0.7-1.3) Estimated GFR (Cockcroft-Gault) 101.2 Glucose Level 83mg/dL (70-99) Calcium Level 9.0mg/dL (8.5-10.1) Problem List Problems Medical Problems: (1) Acute diverticulitis Status: Acute Assessment/Plan clears, cbc in am had some more drain from drain, continue if stable will plan advancing diet in AM Problems: MAURICIO TOMAS MD 02/07/17 1229: SURGICAL PROGRESS NOTE Assessment/Plan Reviewed, agree with above Problems: SERGE BOB APRN Feb 07, 2017 11:26 MAURICIO TOMAS MD Feb 07, 2017 12:29
--- NOTE | 2017-02-07 11:59 | PDOC ---
Infectious Disease Note Subjective Subjective "lot's of gas" No BM No nausea since yesterday Fever Tmax 100.2 ROS ROS GEN: Denies chills, sweats CV: Denies chest pain RESP: Denies shortness of air, cough Vital Sign Vital Signs Vital Signs Date Time Temp Pulse Resp B/P Pulse Ox O2 Delivery O2 Flow Rate FiO2 02/07/17 10:52 98 Room Air 2.0 02/07/17 10:29 97.9 58 18 140/88 97.9 Physical Exam PHYSICAL EXAM GENERAL: Alert, lying down HEENT: OC/OP pink NECK: Supple LUNGS: Clear HEART: S1S2, no gallop, no murmur ABD: Obese, BS present, soft, NT light palpation. ANKUR intact-purulent drainage EXT: No edema, no cyanosis FILM MAKER: Alert, oriented x 3, no focal neurologic deficit SKIN: No rash IV: ok Labs Micro ANAEROBIC RES 1 Final Bacteroides species, B. fragilis group AEROBIC RES 1 Final Escherichia coli Antibiotic RSLT#1 Amoxicillin/Clavulanic Acid S Ampicillin R Cefepime S Ceftriaxone S Cefuroxime I Ciprofloxacin R Ertapenem S Gentamicin S Imipenem S Levofloxacin R Piperacillin R Tetracycline S Tobramycin S Trimethoprim/Sulfa S Objective Assessment Diverticulitis with perforation. Repeat CT 02/04 improved. Abscess s/p drain 01/30 Ecoli and Bacteroides Amox allergy - thinks may have had a "Cef" abx Plan Plan of Care Cont Rocephin/Flagyl f/u am labs Supportive care Attending Co-Sign The patient was seen and interviewed as well as examined at the bedside. The chart was reviewed. The case was discussed. Agree with the plan of care. MIKAL ARREGUIN APRN Feb 07, 2017 11:59 KARTIK HAWTHORNE MD Feb 07, 2017 15:15
--- NOTE | 2017-02-07 15:25 | PDOC ---
PROGRESS NOTES Chief Complaint Chief Complaint Acute abdominal pain ASSESSMENT AND PLAN: 1. diverticulitis with micro perf and abscess formation: s/p drain placement RLQ on 01/30. culture growing E.coli and Bacteroids 2. Peritonitis: Flagyl, ceftriaxone 3. Sepsis: resolved 4. Nutrition: starting on clears w/o N/V. advance as per surg service 5. Pain control: IV fentanyl 6. Prophylaxis: Lovenox History of Present Illness History of Present Illness pain no fever drainage present Vitals Vitals Vital Signs Date Time Temp Pulse Resp B/P Pulse Ox O2 Delivery O2 Flow Rate FiO2 02/07/17 14:15 Room Air 02/07/17 11:22 98 2.0 02/07/17 10:29 97.9 58 18 140/88 97.9 Physical Exam Physical Exam + anxiety General: Alert, Oriented X3, Cooperative, No acute distress Heart: Regular rate Lungs: Clear Abdomen: Soft, Other (stephanie) Extremities: No clubbing Skin: No rashes Assessment and Plan Assessmemt and Plan Problems Medical Problems: (1) Acute diverticulitis Status: Acute Problems: Comment Review of Relevant I have reviewed the following items matilde (where applicable) has been applied. Labs Laboratory Tests Test 02/06/17 05:05 White Blood Count 7.4x10^3/uL (4.0-11.0) Red Blood Count 5.18x10^6/uL (4.30-5.70) Hemoglobin 15.7g/dL (13.0-17.5) Hematocrit 46.3% (39.0-53.0) Mean Corpuscular Volume 90fL (79-100) Mean Corpuscular Hemoglobin 30pg (25-35) Mean Corpuscular Hemoglobin Concent 34g/dL (31-37) Red Cell Distribution Width 12.5% (11.5-14.5) Platelet Count 344x10^3/uL (140-400) Neutrophils (%) (Auto) 59% (31-73) Lymphocytes (%) (Auto) 28% (24-48) Monocytes (%) (Auto) 10% (0-9) Eosinophils (%) (Auto) 3% (0-3) Basophils (%) (Auto) 1% (0-3) Neutrophils # (Auto) 4.3x10^3uL (1.8-7.7) Lymphocytes # (Auto) 2.1x10^3/uL (1.0-4.8) Monocytes # (Auto) 0.7x10^3/uL (0.0-1.1) Eosinophils # (Auto) 0.2x10^3/uL (0.0-0.7) Basophils # (Auto) 0.1x10^3/uL (0.0-0.2) Sodium Level 136mmol/L (136-145) Potassium Level 4.0mmol/L (3.5-5.1) Chloride Level 98mmol/L (98-107) Carbon Dioxide Level 29mmol/L (21-32) Anion Gap 9 (6-14) Blood Urea Nitrogen 10mg/dL (8-26) Creatinine 0.9mg/dL (0.7-1.3) Estimated GFR (Cockcroft-Gault) 101.2 Glucose Level 83mg/dL (70-99) Calcium Level 9.0mg/dL (8.5-10.1) Microbiology 01/30/17 Anaerobic/Aerobic Culture - Final, Complete 01/30/17 Anaerobic Culture Result 1 (PRANAV) - Final, Complete 01/30/17 Aerobic Culture - Final, Complete 01/30/17 Aerobic Culture Result 1 (PRANAV) - Final, Complete 01/30/17 Antimicrobic Susceptibility - Final, Complete Medications Current Medications Sodium Chloride (Iv Sodium Chloride 0.9% 1000ml Bag) 1,000 ml @ 1,000 mls/hr Q1H IV Last administered on 01/27/17 01:24; Start 01/27/17 at 01:30; Stop at 02:29; Status DC Fentanyl Citrate (Fentanyl 2ml Vial) 50 mcg 1X ONCE IV Last administered on 01:26; Start 01/27/17 at 01:30; Stop 01/27/17 at 01:31; Status DC Ondansetron HCl (Zofran) 4 mg 1X ONCE IV Last administered on 01/27/17 01:24 ; Start 01/27/17 at 01:30; Stop 01/27/17 at 01:31; Status DC Iohexol (Omnipaque 300 Mg/ml) 75 ml 1X ONCE IV Last administered on 01/27/17 02:00; Start 01/27/17 at 02:00; Stop 01/27/17 at 02:01; Status DC Info (Do NOT chart on this entry -- for MONITORING) 1 each PRN DAILY PRN MC SEE COMMENTS; Start 01/27/17 at 01:45; Stop 01/29/17 at 01:44; Status DC Hydromorphone HCl 1 mg 1 mg 1X ONCE IV Last administered on 01/27/17 02:19; Start 01/27/17 at 02:30; Stop 01/27/17 at 02:31; Status DC Meropenem/Sodium Chloride (Merrem/Iv Sodium Chloride 0.9% 100ml) 100 ml @ 200 mls/hr 1X ONCE IV Last administered on 01/27/17 03:11; Start 01/27/17 at 03: 30; Stop 01/27/17 at 03:59; Status DC Ondansetron HCl 4 mg 4 mg PRN Q8HRS PRN IV NAUSEA/VOMITING; Start 01/27/17 at 03:15; Stop 01/28/17 at 03:14; Status DC Sodium Chloride (Iv Sodium Chloride 0.9% 1000ml Bag) 1,000 ml @ 150 mls/hr Q6H40M IV Last administered on 01/27/17 21:07; Start 01/27/17 at 03:05; Stop 01/28/17 at 03:04; Status DC Acetaminophen (Tylenol) 650 mg PRN Q4HRS PRN PO FEVER Last administered on 01/27 03:56; Start 01/27/17 at 03:15; Stop 01/28/17 at 03:14; Status DC Hydromorphone HCl 1 mg 1 mg PRN Q2HRS PRN IV SEVERE PAIN Last administered on 10:07; Start 01/27/17 at 03:15; Stop 01/27/17 at 10:14; Status DC Potassium Chloride 100 ml @ 100 mls/hr Q1H IV Last administered on 01/27/17 12:48; Start 01/27/17 at 09:30; Stop 01/27/17 at 11:29; Status DC Meropenem/Sodium Chloride (Merrem/Iv Sodium Chloride 0.9% 100ml) 100 ml @ 200 mls/hr Q8HRS IV Last administered on 02/02/17 05:37; Start 01/27/17 at 11:00; Stop 02/02/17 at 11:43; Status DC Morphine Sulfate 10 mg PRN Q2HR PRN IV PAIN; Start 01/27/17 at 10:15; Status UNV Hydromorphone HCl (Dilaudid) 2 mg PRN Q2HRS PRN IV SEVERE PAIN Last administered on 02/02/17 17:24; Start 01/27/17 at 10:15; Stop 02/02/17 at 19:20 ; Status DC Fentanyl Citrate (Fentanyl 2ml Vial) 50 mcg PRN Q2HR PRN IV PAIN; Start at 10:15; Stop 02/02/17 at 22:17; Status DC Fentanyl (Duragesic 12mcg/ Hr Patch) 1 patch 1X ONCE TD Last administered on 10:32; Start 01/28/17 at 09:45; Stop 01/28/17 at 09:47; Status DC Enoxaparin Sodium (Lovenox Per Pharmacy Prophylaxis Dosing) 1 each PRN DAILY PRN MC SEE COMMENTS; Start 01/28/17 at 10:30; Stop 02/05/17 at 12:24; Status DC Enoxaparin Sodium 40 mg 40 mg Q24H SQ Last administered on 02/07/17 10:53; Start 01/28/17 at 11:00 Dextrose/Sodium Chloride (Iv D5% - 1/2 NS) 1,000 ml @ 125 mls/hr Q8H IV Last administered on 02/07/17 09:00; Start 01/28/17 at 15:15 Ketorolac Tromethamine (Toradol) 15 mg PRN Q12HR PRN IV PAIN Last administered on 02/03/17 00:04; Start 01/29/17 at 14:45; Stop 02/03/17 at 14:44; Status DC Iohexol (Omnipaque 300 Mg/ml) 75 ml 1X ONCE IV Last administered on 01/30/17 11:08; Start 01/30/17 at 10:00; Stop 01/30/17 at 10:01; Status DC Iohexol (Omnipaque 240 Mg/ml) 50 ml 1X ONCE PO Last administered on 01/30/17 11:08; Start 01/30/17 at 10:00; Stop 01/30/17 at 10:01; Status DC Info (Do NOT chart on this entry -- for MONITORING) 1 each PRN DAILY PRN MC SEE COMMENTS; Start 01/30/17 at 10:00; Stop 02/01/17 at 09:59; Status DC Ondansetron HCl (Zofran) 4 mg PRN Q6HRS PRN IV NAUSEA/VOMITING; Start 01/30/17 at 13:30; Stop 01/31/17 at 13:29; Status DC Fentanyl Citrate (Fentanyl 2ml Vial) 25 mcg PRN Q5MIN PRN IV MILD PAIN; Start 01/30/17 at 13:30; Stop 01/31/17 at 13:29; Status DC Fentanyl Citrate 50 mcg 50 mcg PRN Q5MIN PRN IV MODERATE PAIN; Start 01/30/17 at 13:30; Stop 01/31/17 at 13:29; Status DC Lactated Ringer's (Iv Lactated Ringers) 1,000 ml @ 30 mls/hr Q24H IV ; Start at 13:20; Stop 01/31/17 at 01:19; Status DC Lidocaine HCl 2 ml PRN 1X PRN ID PRIOR TO IV START; Start 01/30/17 at 13:30; Stop 01/31/17 at 13:29; Status DC Prochlorperazine Edisylate (Compazine) 5 mg PACU PRN PRN IV NAUSEA, MRX1; Start 01/30/17 at 13:30; Stop 01/31/17 at 13:29; Status DC Lidocaine/Sodium Bicarbonate 20 ml 20 ml STK-MED ONCE IJ ; Start 01/30/17 at 13: 26; Stop 01/30/17 at 13:27; Status DC Propofol 20 ml @ As Directed STK-MED ONCE IV ; Start 01/30/17 at 13:33; Stop at 13:34; Status DC Propofol (Diprivan) 20 ml @ As Directed STK-MED ONCE IV ; Start 01/30/17 at 13: 34; Stop 01/30/17 at 13:35; Status DC Ketamine HCl 500 mg STK-MED ONCE .ROUTE ; Start 01/30/17 at 13:39; Stop at 13:40; Status DC Lidocaine/Sodium Bicarbonate (Buffered Lidocaine 1%) 20 ml 1X ONCE IJ Last administered on 01/30/17 14:42; Start 01/30/17 at 14:15; Stop 01/30/17 at 14:16 ; Status DC Iohexol (Omnipaque 300 Mg/ml) 50 ml STK-MED ONCE .ROUTE ; Start 01/30/17 at 14: 34; Stop 01/30/17 at 14:35; Status DC Acetaminophen (Tylenol) 650 mg PRN Q6HRS PRN PO FEVER; Start 01/31/17 at 13:45 Ondansetron HCl (Zofran) 4 mg PRN Q6HRS PRN IV NAUSEA/VOMITING; Start 01/31/17 at 13:45; Stop 02/02/17 at 22:17; Status DC Pantoprazole Sodium 40 mg 40 mg DAILYAC IVP Last administered on 02/02/17 07: 28; Start 01/31/17 at 14:00; Stop 02/02/17 at 22:17; Status DC Ceftriaxone Sodium 2 gm/ Sodium Chloride 100 ml @ 200 mls/hr Q24H IV Last administered on 02/07/17 13:05; Start 02/02/17 at 13:00 Metronidazole (FLAGYL 500Mmg PREMIX) 100 ml @ 100 mls/hr Q8HRS IV Last administered on 02/07/17 05:35; Start 02/02/17 at 14:00 Simethicone (Gas-X) 160 mg PRN Q4HRS PRN PO GAS / BLOATING Last administered on 02/05/17 08:33; Start 02/02/17 at 20:00 Hydromorphone HCl (Dilaudid) 1 mg PRN Q2HRS PRN IV SEVERE PAIN Last administered on 02/03/17 11:33; Start 02/02/17 at 19:30; Stop 02/03/17 at 12:54 ; Status DC Oxycodone HCl (Roxicodone) 1 tab for pain 5-7 2 tabs ... PRN Q6HRS PRN PO PAIN Last administered on 02/03/17 01:58; Start 02/02/17 at 22:15; Stop 02/03/17 at 06:38; Status DC Oxycodone HCl (Roxicodone) 5 mg PRN Q6HRS PRN PO PAIN; Start 02/03/17 at 06:45 ; Stop 02/03/17 at 12:57; Status DC Oxycodone HCl (Roxicodone) 10 mg PRN Q6HRS PRN PO PAIN Last administered on 05:35; Start 02/03/17 at 06:45 Hydromorphone HCl (Dilaudid) 1 mg PRN Q4HRS PRN IV SEVERE PAIN Last administered on 02/05/17 00:38; Start 02/03/17 at 13:00; Stop 02/05/17 at 02:49 ; Status DC Oxycodone HCl (Roxicodone) 5 mg PRN Q6HRS PRN PO MILD PAIN; Start 02/03/17 at 13:00 Iohexol (Omnipaque 240 Mg/ml) 30 ml 1X ONCE PO Last administered on 02/04/17 10:55; Start 02/04/17 at 09:00; Stop 02/04/17 at 09:01; Status DC Iohexol (Omnipaque 300 Mg/ml) 75 ml 1X ONCE IV Last administered on 02/04/17 10:55; Start 02/04/17 at 09:00; Stop 02/04/17 at 09:01; Status DC Info (Do NOT chart on this entry -- for MONITORING) 1 each PRN DAILY PRN MC SEE COMMENTS; Start 02/04/17 at 09:00; Stop 02/06/17 at 08:59; Status DC Polyethylene Glycol (miraLAX PACKET) 17 gm 1X ONCE PO Last administered on 11:53; Start 02/04/17 at 11:45; Stop 02/04/17 at 11:46; Status DC Polyethylene Glycol (miraLAX PACKET) 17 gm DAILY PO ; Start 02/05/17 at 09:00; Stop 02/05/17 at 10:04; Status DC Docusate Sodium (Colace) 100 mg DAILY PO Last administered on 02/04/17 11:53; Start 02/04/17 at 11:45; Stop 02/05/17 at 11:02; Status DC Zolpidem Tartrate (Ambien) 5 mg PRN QHS PRN PO INSOMNIA, MAY REPEAT IN 1HR; Start 4/26/17 at 12:45 Lorazepam (Ativan) 1 mg PRN Q8HRS PRN IV ANXIETY / AGITATION; Start 02/04/17 at 12:45 Hydromorphone HCl (Dilaudid) 2 mg PRN Q2HR PRN IV SEVERE PAIN Last administered on 02/07/17t 14:15; Start 02/05/17 at 03:00 Active Scripts Active Reported No Known Medications Prior To Admisstion (Info) Each 1 Each Vitals/I & O Vital Sign - Last 24 Hours 02/06/17 02/06/17 02/06/17 02/06/17 16:16 19:00 19:30 19:31 Temp 100.2 100.2 Pulse 64 Resp 20 18 20 B/P 109/76 Pulse Ox 96 100 O2 Delivery Room Air Room Air Room Air Room Air 02/06/17 02/06/17 02/07/17 02/07/17 21:36 23:00 01:42 03:00 Temp 98.6 98.2 98.6 98.2 Pulse 62 55 Resp 20 18 20 18 B/P 141/69 137/78 Pulse Ox 96 91 O2 Delivery Room Air Room Air Room Air Room Air 02/07/17 02/07/17 02/07/17 02/07/17 04:01 04:35 07:00 07:00 Temp 98.7 97.9 98.7 97.9 Pulse 69 69 Resp 20 20 18 B/P 121/69 121/69 Pulse Ox 93 93 O2 Delivery Room Air Room Air Room Air O2 Flow Rate 2.0 02/07/17 02/07/17 02/07/17 02/07/17 07:51 08:00 08:27 10:29 Temp 97.9 97.9 97.9 97.9 Pulse 69 58 Resp 12 18 B/P 121/69 140/88 Pulse Ox 91 93 98 O2 Delivery Room Air Room Air Room Air Room Air O2 Flow Rate 2.0 02/07/17 02/07/17 02/07/17 10:52 11:22 14:15 Pulse Ox 98 98 O2 Delivery Room Air Room Air Room Air O2 Flow Rate 2.0 2.0 Intake and Output 02/06/17 02/06/17 02/07/17 15:00 23:00 07:00 Intake Total 240 ml 220 ml 1630 ml Output Total 3 ml 12 ml Balance 240 ml 217 ml 1618 ml ALENA CROWE MD Feb 07, 2017 15:25
[2017-02-08] MEDS: HYDROmorphone 2 MG/ML VIAL IV PRN ×9 (01:05→22:31)
[2017-02-08 03:00] VITALS: BP 129/89
[2017-02-08 05:21] LABS: BASO # 0.1 x10^3/uL (0.0-0.2); BASO % 1 % (0-3); EOS % 3 % (0-3); HEMATOCRIT 45.6 % (39.0-53.0); HEMOGLOBIN 16.1 g/dL (13.0-17.5); LYMPH % 33 % (24-48); MEAN CORPUSCULAR HEMOGLOBIN 31 pg (25-35); MEAN CORPUSCULAR HGB CONC 35 g/dL (31-37); MEAN CORPUSCULAR VOLUME 88 fL (79-100); MONO % 9 % (0-9); NEUT % 54 % (31-73); PLATELET COUNT 368 x10^3/uL (140-400); RED BLOOD COUNT 5.15 x10^6/uL (4.30-5.70); RED CELL DISTRIBUTION WIDTH 12.7 % (11.5-14.5); WHITE BLOOD COUNT 6.3 x10^3/uL (4.0-11.0)
[2017-02-08] MEDS: METRONIDAZOLE 500mg PREMIX 100 ML IV SCH ×3 (05:58→22:30)
[2017-02-08] MEDS: IV DEXTROSE 5 %-0.45 % NACL 1,000 ML IV SCH ×4 (05:58→23:15)
[2017-02-08 07:00] VITALS: BP 125/75
--- NOTE | 2017-02-08 10:24 | PDOC ---
SERGE BOB TECHNICAL INFORMATION SPECIALIST 02/08/17 1024: SURGICAL PROGRESS NOTE Subjective pain minimally improved no n/v Vital Signs Vital Signs Date Time Temp Pulse Resp B/P Pulse Ox O2 Delivery O2 Flow Rate FiO2 02/08/17 09:11 96 Room Air 2.0 02/08/17 07:00 97.7 52 19 125/75 97.7 I&O Intake and Output 02/08/17 07:00 Intake Total 2320 ml Output Total 5 ml Balance 2315 ml Intake Oral 2320 ml Drainage Total 5 ml # Voids 2 General: Alert, Oriented X3, Cooperative, No acute distress Abdomen: Soft, Other (ND, mild tenderness to rlq and llq, minimal drainage in drain) Labs Laboratory Tests Test 02/08/17 03:50 White Blood Count 6.3x10^3/uL (4.0-11.0) Red Blood Count 5.15x10^6/uL (4.30-5.70) Hemoglobin 16.1g/dL (13.0-17.5) Hematocrit 45.6% (39.0-53.0) Mean Corpuscular Volume 88fL (79-100) Mean Corpuscular Hemoglobin 31pg (25-35) Mean Corpuscular Hemoglobin Concent 35g/dL (31-37) Red Cell Distribution Width 12.7% (11.5-14.5) Platelet Count 368x10^3/uL (140-400) Neutrophils (%) (Auto) 54% (31-73) Lymphocytes (%) (Auto) 33% (24-48) Monocytes (%) (Auto) 9% (0-9) Eosinophils (%) (Auto) 3% (0-3) Basophils (%) (Auto) 1% (0-3) Neutrophils # (Auto) 3.4x10^3uL (1.8-7.7) Lymphocytes # (Auto) 2.0x10^3/uL (1.0-4.8) Monocytes # (Auto) 0.6x10^3/uL (0.0-1.1) Eosinophils # (Auto) 0.2x10^3/uL (0.0-0.7) Basophils # (Auto) 0.1x10^3/uL (0.0-0.2) Laboratory Tests Test 02/08/17 03:50 White Blood Count 6.3x10^3/uL (4.0-11.0) Red Blood Count 5.15x10^6/uL (4.30-5.70) Hemoglobin 16.1g/dL (13.0-17.5) Hematocrit 45.6% (39.0-53.0) Mean Corpuscular Volume 88fL (79-100) Mean Corpuscular Hemoglobin 31pg (25-35) Mean Corpuscular Hemoglobin Concent 35g/dL (31-37) Red Cell Distribution Width 12.7% (11.5-14.5) Platelet Count 368x10^3/uL (140-400) Neutrophils (%) (Auto) 54% (31-73) Lymphocytes (%) (Auto) 33% (24-48) Monocytes (%) (Auto) 9% (0-9) Eosinophils (%) (Auto) 3% (0-3) Basophils (%) (Auto) 1% (0-3) Neutrophils # (Auto) 3.4x10^3uL (1.8-7.7) Lymphocytes # (Auto) 2.0x10^3/uL (1.0-4.8) Monocytes # (Auto) 0.6x10^3/uL (0.0-1.1) Eosinophils # (Auto) 0.2x10^3/uL (0.0-0.7) Basophils # (Auto) 0.1x10^3/uL (0.0-0.2) Problem List Problems Medical Problems: (1) Acute diverticulitis Status: Acute Assessment/Plan minimal drainage from perc drain pain not worsening afebrile, normal wbc will advance diet, work toward discharge next couple of days ID managing abx if minimal drainage from drain--likely dc prior to discharge Problems: MAURICIO TOMAS MD 02/08/17 1712: SURGICAL PROGRESS NOTE Assessment/Plan Reviewed, agree with above, work toward discharge; will DC drain prior to DC Problems: SERGE BOB TECHNICAL INFORMATION SPECIALIST Feb 08, 2017 10:24 MAURICIO TOMAS MD Feb 08, 2017 17:12
[2017-02-08] MEDS: ENOXAPARIN 40 MG/0.4 ML SYRINGE. SQ SCH (10:59)
[2017-02-08 11:00] VITALS: BP 127/75
--- NOTE | 2017-02-08 12:01 | PDOC ---
Infectious Disease Note Subjective Subjective c/o RLQ pain Diet recently changed full liquid No fever last 24 hours ROS ROS GEN: Denies chills, sweats HEENT: Denies sore throat CV: Denies chest pain RESP: Denies shortness of air, cough GI: Denies n/v Vital Sign Vital Signs Vital Signs Date Time Temp Pulse Resp B/P Pulse Ox O2 Delivery O2 Flow Rate FiO2 02/08/17 11:00 97.9 55 19 127/75 93 Room Air 97.9 02/08/17 09:11 2.0 Physical Exam PHYSICAL EXAM GENERAL: Alert, lying down HEENT: OC/OP pink NECK: Supple LUNGS: Clear HEART: S1S2, no gallop, no murmur ABD: Obese, BS present, soft, NT light palpation. ANKUR intact-purulent drainage EXT: No edema, no cyanosis ACUPRESSURE THERAPIST: Alert, oriented x 3, no focal neurologic deficit SKIN: No rash IV: ok Labs Lab Laboratory Tests Test 02/08/17 03:50 White Blood Count 6.3x10^3/uL (4.0-11.0) Red Blood Count 5.15x10^6/uL (4.30-5.70) Hemoglobin 16.1g/dL (13.0-17.5) Hematocrit 45.6% (39.0-53.0) Mean Corpuscular Volume 88fL (79-100) Mean Corpuscular Hemoglobin 31pg (25-35) Mean Corpuscular Hemoglobin Concent 35g/dL (31-37) Red Cell Distribution Width 12.7% (11.5-14.5) Platelet Count 368x10^3/uL (140-400) Neutrophils (%) (Auto) 54% (31-73) Lymphocytes (%) (Auto) 33% (24-48) Monocytes (%) (Auto) 9% (0-9) Eosinophils (%) (Auto) 3% (0-3) Basophils (%) (Auto) 1% (0-3) Neutrophils # (Auto) 3.4x10^3uL (1.8-7.7) Lymphocytes # (Auto) 2.0x10^3/uL (1.0-4.8) Monocytes # (Auto) 0.6x10^3/uL (0.0-1.1) Eosinophils # (Auto) 0.2x10^3/uL (0.0-0.7) Basophils # (Auto) 0.1x10^3/uL (0.0-0.2) Objective Assessment Diverticulitis with perforation. Repeat CT 02/04 improved. Abscess s/p drain 01/30 Ecoli and Bacteroides Amox allergy - thinks may have had a "Cef" abx Plan Plan of Care Cont Rocephin/Flagyl Supportive care Attending Co-Sign The patient was seen and interviewed as well as examined at the bedside. The chart was reviewed. The case was discussed. Agree with the plan of care. MIKAL ARREGUIN FACILITY PLANNER Feb 08, 2017 12:01 KARTIK HAWTHORNE MD Feb 08, 2017 13:13
--- NOTE | 2017-02-08 14:49 | PDOC ---
PROGRESS NOTES Chief Complaint Chief Complaint Acute abdominal pain ASSESSMENT AND PLAN: 1. diverticulitis with micro perf and abscess formation: s/p drain placement RLQ on 01/30. culture growing E.coli and Bacteroids 2. Peritonitis: Flagyl, ceftriaxone 3. Sepsis: resolved 4. Nutrition: starting on clears w/o N/V. advance as per surg service 5. Pain control: IV fentanyl 6. Prophylaxis: Lovenox History of Present Illness History of Present Illness pain no fever drainage present Vitals Vitals Vital Signs Date Time Temp Pulse Resp B/P Pulse Ox O2 Delivery O2 Flow Rate FiO2 02/08/17 12:34 93 Room Air 2.0 02/08/17 11:00 97.9 55 19 127/75 97.9 Physical Exam Physical Exam + anxiety General: Alert, Oriented X3, Cooperative, No acute distress Heart: Regular rate Lungs: Clear Abdomen: Soft, Other (ND, mild tenderness to rlq and llq, minimal drainage in drain) Extremities: No clubbing Skin: No rashes Labs LABS Laboratory Tests Test 02/08/17 03:50 White Blood Count 6.3x10^3/uL (4.0-11.0) Red Blood Count 5.15x10^6/uL (4.30-5.70) Hemoglobin 16.1g/dL (13.0-17.5) Hematocrit 45.6% (39.0-53.0) Mean Corpuscular Volume 88fL (79-100) Mean Corpuscular Hemoglobin 31pg (25-35) Mean Corpuscular Hemoglobin Concent 35g/dL (31-37) Red Cell Distribution Width 12.7% (11.5-14.5) Platelet Count 368x10^3/uL (140-400) Neutrophils (%) (Auto) 54% (31-73) Lymphocytes (%) (Auto) 33% (24-48) Monocytes (%) (Auto) 9% (0-9) Eosinophils (%) (Auto) 3% (0-3) Basophils (%) (Auto) 1% (0-3) Neutrophils # (Auto) 3.4x10^3uL (1.8-7.7) Lymphocytes # (Auto) 2.0x10^3/uL (1.0-4.8) Monocytes # (Auto) 0.6x10^3/uL (0.0-1.1) Eosinophils # (Auto) 0.2x10^3/uL (0.0-0.7) Basophils # (Auto) 0.1x10^3/uL (0.0-0.2) Assessment and Plan Assessmemt and Plan Problems Medical Problems: (1) Acute diverticulitis Status: Acute Problems: Comment Review of Relevant I have reviewed the following items matilde (where applicable) has been applied. Labs Laboratory Tests Test 02/08/17 03:50 White Blood Count 6.3x10^3/uL (4.0-11.0) Red Blood Count 5.15x10^6/uL (4.30-5.70) Hemoglobin 16.1g/dL (13.0-17.5) Hematocrit 45.6% (39.0-53.0) Mean Corpuscular Volume 88fL (79-100) Mean Corpuscular Hemoglobin 31pg (25-35) Mean Corpuscular Hemoglobin Concent 35g/dL (31-37) Red Cell Distribution Width 12.7% (11.5-14.5) Platelet Count 368x10^3/uL (140-400) Neutrophils (%) (Auto) 54% (31-73) Lymphocytes (%) (Auto) 33% (24-48) Monocytes (%) (Auto) 9% (0-9) Eosinophils (%) (Auto) 3% (0-3) Basophils (%) (Auto) 1% (0-3) Neutrophils # (Auto) 3.4x10^3uL (1.8-7.7) Lymphocytes # (Auto) 2.0x10^3/uL (1.0-4.8) Monocytes # (Auto) 0.6x10^3/uL (0.0-1.1) Eosinophils # (Auto) 0.2x10^3/uL (0.0-0.7) Basophils # (Auto) 0.1x10^3/uL (0.0-0.2) Laboratory Tests Test 02/08/17 03:50 White Blood Count 6.3x10^3/uL (4.0-11.0) Red Blood Count 5.15x10^6/uL (4.30-5.70) Hemoglobin 16.1g/dL (13.0-17.5) Hematocrit 45.6% (39.0-53.0) Mean Corpuscular Volume 88fL (79-100) Mean Corpuscular Hemoglobin 31pg (25-35) Mean Corpuscular Hemoglobin Concent 35g/dL (31-37) Red Cell Distribution Width 12.7% (11.5-14.5) Platelet Count 368x10^3/uL (140-400) Neutrophils (%) (Auto) 54% (31-73) Lymphocytes (%) (Auto) 33% (24-48) Monocytes (%) (Auto) 9% (0-9) Eosinophils (%) (Auto) 3% (0-3) Basophils (%) (Auto) 1% (0-3) Neutrophils # (Auto) 3.4x10^3uL (1.8-7.7) Lymphocytes # (Auto) 2.0x10^3/uL (1.0-4.8) Monocytes # (Auto) 0.6x10^3/uL (0.0-1.1) Eosinophils # (Auto) 0.2x10^3/uL (0.0-0.7) Basophils # (Auto) 0.1x10^3/uL (0.0-0.2) Microbiology 01/30/17 Anaerobic/Aerobic Culture - Final, Complete 01/30/17 Anaerobic Culture Result 1 (PRANAV) - Final, Complete 01/30/17 Aerobic Culture - Final, Complete 01/30/17 Aerobic Culture Result 1 (PRANAV) - Final, Complete 01/30/17 Antimicrobic Susceptibility - Final, Complete Medications Current Medications Sodium Chloride (Iv Sodium Chloride 0.9% 1000ml Bag) 1,000 ml @ 1,000 mls/hr Q1H IV Last administered on 01/27/17 01:24; Start 01/27/17 at 01:30; Stop at 02:29; Status DC Fentanyl Citrate (Fentanyl 2ml Vial) 50 mcg 1X ONCE IV Last administered on 01:26; Start 01/27/17 at 01:30; Stop 01/27/17 at 01:31; Status DC Ondansetron HCl (Zofran) 4 mg 1X ONCE IV Last administered on 01/27/17 01:24 ; Start 01/27/17 at 01:30; Stop 01/27/17 at 01:31; Status DC Iohexol (Omnipaque 300 Mg/ml) 75 ml 1X ONCE IV Last administered on 01/27/17 02:00; Start 01/27/17 at 02:00; Stop 01/27/17 at 02:01; Status DC Info (Do NOT chart on this entry -- for MONITORING) 1 each PRN DAILY PRN MC SEE COMMENTS; Start 01/27/17 at 01:45; Stop 01/29/17 at 01:44; Status DC Hydromorphone HCl 1 mg 1 mg 1X ONCE IV Last administered on 01/27/17 02:19; Start 01/27/17 at 02:30; Stop 01/27/17 at 02:31; Status DC Meropenem/Sodium Chloride (Merrem/Iv Sodium Chloride 0.9% 100ml) 100 ml @ 200 mls/hr 1X ONCE IV Last administered on 01/27/17 03:11; Start 01/27/17 at 03: 30; Stop 01/27/17 at 03:59; Status DC Ondansetron HCl 4 mg 4 mg PRN Q8HRS PRN IV NAUSEA/VOMITING; Start 01/27/17 at 03:15; Stop 01/28/17 at 03:14; Status DC Sodium Chloride (Iv Sodium Chloride 0.9% 1000ml Bag) 1,000 ml @ 150 mls/hr Q6H40M IV Last administered on 01/27/17 21:07; Start 01/27/17 at 03:05; Stop 01/28/17 at 03:04; Status DC Acetaminophen (Tylenol) 650 mg PRN Q4HRS PRN PO FEVER Last administered on 01/27 03:56; Start 01/27/17 at 03:15; Stop 01/28/17 at 03:14; Status DC Hydromorphone HCl 1 mg 1 mg PRN Q2HRS PRN IV SEVERE PAIN Last administered on 10:07; Start 01/27/17 at 03:15; Stop 01/27/17 at 10:14; Status DC Potassium Chloride 100 ml @ 100 mls/hr Q1H IV Last administered on 01/27/17 12:48; Start 01/27/17 at 09:30; Stop 01/27/17 at 11:29; Status DC Meropenem/Sodium Chloride (Merrem/Iv Sodium Chloride 0.9% 100ml) 100 ml @ 200 mls/hr Q8HRS IV Last administered on 02/02/17 05:37; Start 01/27/17 at 11:00; Stop 02/02/17 at 11:43; Status DC Morphine Sulfate 10 mg PRN Q2HR PRN IV PAIN; Start 01/27/17 at 10:15; Status UNV Hydromorphone HCl (Dilaudid) 2 mg PRN Q2HRS PRN IV SEVERE PAIN Last administered on 02/02/17 17:24; Start 01/27/17 at 10:15; Stop 02/02/17 at 19:20 ; Status DC Fentanyl Citrate (Fentanyl 2ml Vial) 50 mcg PRN Q2HR PRN IV PAIN; Start at 10:15; Stop 02/02/17 at 22:17; Status DC Fentanyl (Duragesic 12mcg/ Hr Patch) 1 patch 1X ONCE TD Last administered on 10:32; Start 01/28/17 at 09:45; Stop 01/28/17 at 09:47; Status DC Enoxaparin Sodium (Lovenox Per Pharmacy Prophylaxis Dosing) 1 each PRN DAILY PRN MC SEE COMMENTS; Start 01/28/17 at 10:30; Stop 02/05/17 at 12:24; Status DC Enoxaparin Sodium 40 mg 40 mg Q24H SQ Last administered on 02/08/17 10:59; Start 01/28/17 at 11:00 Dextrose/Sodium Chloride (Iv D5% - 1/2 NS) 1,000 ml @ 125 mls/hr Q8H IV Last administered on 02/08/17 05:58; Start 01/28/17 at 15:15 Ketorolac Tromethamine (Toradol) 15 mg PRN Q12HR PRN IV PAIN Last administered on 02/03/17 00:04; Start 01/29/17 at 14:45; Stop 02/03/17 at 14:44; Status DC Iohexol (Omnipaque 300 Mg/ml) 75 ml 1X ONCE IV Last administered on 01/30/17 11:08; Start 01/30/17 at 10:00; Stop 01/30/17 at 10:01; Status DC Iohexol (Omnipaque 240 Mg/ml) 50 ml 1X ONCE PO Last administered on 01/30/17t 11:08; Start 01/30/17 at 10:00; Stop 01/30/17 at 10:01; Status DC Info (Do NOT chart on this entry -- for MONITORING) 1 each PRN DAILY PRN MC SEE COMMENTS; Start 01/30/17 at 10:00; Stop 02/01/17 at 09:59; Status DC Ondansetron HCl (Zofran) 4 mg PRN Q6HRS PRN IV NAUSEA/VOMITING; Start 01/30/17 at 13:30; Stop 01/31/17 at 13:29; Status DC Fentanyl Citrate (Fentanyl 2ml Vial) 25 mcg PRN Q5MIN PRN IV MILD PAIN; Start 01/30/17 at 13:30; Stop 01/31/17 at 13:29; Status DC Fentanyl Citrate 50 mcg 50 mcg PRN Q5MIN PRN IV MODERATE PAIN; Start 01/30/17 at 13:30; Stop 01/31/17 at 13:29; Status DC Lactated Ringer's (Iv Lactated Ringers) 1,000 ml @ 30 mls/hr Q24H IV ; Start at 13:20; Stop 01/31/17 at 01:19; Status DC Lidocaine HCl 2 ml PRN 1X PRN ID PRIOR TO IV START; Start 01/30/17 at 13:30; Stop 01/31/17 at 13:29; Status DC Prochlorperazine Edisylate (Compazine) 5 mg PACU PRN PRN IV NAUSEA, MRX1; Start 01/30/17 at 13:30; Stop 01/31/17 at 13:29; Status DC Lidocaine/Sodium Bicarbonate 20 ml 20 ml STK-MED ONCE IJ ; Start 01/30/17 at 13: 26; Stop 01/30/17 at 13:27; Status DC Propofol 20 ml @ As Directed STK-MED ONCE IV ; Start 01/30/17 at 13:33; Stop at 13:34; Status DC Propofol (Diprivan) 20 ml @ As Directed STK-MED ONCE IV ; Start 01/30/17 at 13: 34; Stop 01/30/17 at 13:35; Status DC Ketamine HCl 500 mg STK-MED ONCE .ROUTE ; Start 01/30/17 at 13:39; Stop at 13:40; Status DC Lidocaine/Sodium Bicarbonate (Buffered Lidocaine 1%) 20 ml 1X ONCE IJ Last administered on 01/30/17 14:42; Start 01/30/17 at 14:15; Stop 01/30/17 at 14:16 ; Status DC Iohexol (Omnipaque 300 Mg/ml) 50 ml STK-MED ONCE .ROUTE ; Start 01/30/17 at 14: 34; Stop 01/30/17 at 14:35; Status DC Acetaminophen (Tylenol) 650 mg PRN Q6HRS PRN PO FEVER; Start 01/31/17 at 13:45 Ondansetron HCl (Zofran) 4 mg PRN Q6HRS PRN IV NAUSEA/VOMITING; Start 01/31/17 at 13:45; Stop 02/02/17 at 22:17; Status DC Pantoprazole Sodium 40 mg 40 mg DAILYAC IVP Last administered on 02/02/17 07: 28; Start 01/31/17 at 14:00; Stop 02/02/17 at 22:17; Status DC Ceftriaxone Sodium 2 gm/ Sodium Chloride 100 ml @ 200 mls/hr Q24H IV Last administered on 02/08/17 12:05; Start 02/02/17 at 13:00 Metronidazole (FLAGYL 500Mmg PREMIX) 100 ml @ 100 mls/hr Q8HRS IV Last administered on 02/08/17 13:53; Start 02/02/17 at 14:00 Simethicone (Gas-X) 160 mg PRN Q4HRS PRN PO GAS / BLOATING Last administered on 02/05/17 08:33; Start 02/02/17 at 20:00 Hydromorphone HCl (Dilaudid) 1 mg PRN Q2HRS PRN IV SEVERE PAIN Last administered on 02/03/17 11:33; Start 02/02/17 at 19:30; Stop 02/03/17 at 12:54 ; Status DC Oxycodone HCl (Roxicodone) 1 tab for pain 5-7 2 tabs ... PRN Q6HRS PRN PO PAIN Last administered on 02/03/17 01:58; Start 02/02/17 at 22:15; Stop 02/03/17 at 06:38; Status DC Oxycodone HCl (Roxicodone) 5 mg PRN Q6HRS PRN PO PAIN; Start 02/03/17 at 06:45 ; Stop 02/03/17 at 12:57; Status DC Oxycodone HCl (Roxicodone) 10 mg PRN Q6HRS PRN PO PAIN Last administered on 05:35; Start 02/03/17 at 06:45 Hydromorphone HCl (Dilaudid) 1 mg PRN Q4HRS PRN IV SEVERE PAIN Last administered on 02/05/17 00:38; Start 02/03/17 at 13:00; Stop 02/05/17 at 02:49 ; Status DC Oxycodone HCl (Roxicodone) 5 mg PRN Q6HRS PRN PO MILD PAIN; Start 02/03/17 at 13:00 Iohexol (Omnipaque 240 Mg/ml) 30 ml 1X ONCE PO Last administered on 02/04/17 10:55; Start 02/04/17 at 09:00; Stop 02/04/17 at 09:01; Status DC Iohexol (Omnipaque 300 Mg/ml) 75 ml 1X ONCE IV Last administered on 02/04/17 10:55; Start 02/04/17 at 09:00; Stop 02/04/17 at 09:01; Status DC Info (Do NOT chart on this entry -- for MONITORING) 1 each PRN DAILY PRN MC SEE COMMENTS; Start 02/04/17 at 09:00; Stop 02/06/17 at 08:59; Status DC Polyethylene Glycol (miraLAX PACKET) 17 gm 1X ONCE PO Last administered on 11:53; Start 02/04/17 at 11:45; Stop 02/04/17 at 11:46; Status DC Polyethylene Glycol (miraLAX PACKET) 17 gm DAILY PO ; Start 02/05/17 at 09:00; Stop 02/05/17 at 10:04; Status DC Docusate Sodium (Colace) 100 mg DAILY PO Last administered on 02/04/17 11:53; Start 02/04/17 at 11:45; Stop 02/05/17 at 11:02; Status DC Zolpidem Tartrate (Ambien) 5 mg PRN QHS PRN PO INSOMNIA, MAY REPEAT IN 1HR; Start 02/04/17 at 12:45 Lorazepam (Ativan) 1 mg PRN Q8HRS PRN IV ANXIETY / AGITATION; Start 02/04/17 at 12:45 Hydromorphone HCl (Dilaudid) 2 mg PRN Q2HR PRN IV SEVERE PAIN Last administered on 02/08/17t 12:04; Start 02/05/17 at 03:00 Active Scripts Active Reported No Known Medications Prior To Admisstion (Info) Each 1 Each Vitals/I & O Vital Sign - Last 24 Hours 02/07/17 02/07/17 02/07/17 02/07/17 15:00 17:59 19:00 20:00 Temp 98.1 97.7 98.1 97.7 Pulse 68 53 Resp 18 18 B/P 135/78 136/77 Pulse Ox 98 98 95 O2 Delivery Room Air Room Air Room Air Room Air O2 Flow Rate 2.0 02/07/17 02/07/17 02/07/17 02/08/17 20:02 22:06 23:00 01:05 Temp 97.9 97.9 Pulse 70 Resp 18 20 18 20 B/P 148/97 Pulse Ox 98 98 98 98 O2 Delivery Room Air Room Air Room Air Room Air 02/08/17 02/08/17 02/08/17 02/08/17 03:00 03:18 05:58 06:28 Temp 98.4 98.4 Pulse 59 Resp 18 18 18 18 B/P 129/89 Pulse Ox 95 95 O2 Delivery Room Air Room Air Room Air 02/08/17 02/08/17 02/08/17 02/08/17 07:00 08:00 09:11 11:00 Temp 97.7 97.9 97.7 97.9 Pulse 52 55 Resp 19 19 B/P 125/75 127/75 Pulse Ox 96 96 93 O2 Delivery Room Air Room Air Room Air Room Air O2 Flow Rate 2.0 02/08/17 02/08/17 12:04 12:34 Pulse Ox 93 93 O2 Delivery Room Air Room Air O2 Flow Rate 2.0 2.0 Intake and Output 4/02/07/17 02/08/17 15:00 23:00 07:00 Intake Total 250 ml 1050 ml 1020 ml Output Total 5 ml Balance 250 ml 1050 ml 1015 ml ALENA CROWE MD Feb 08, 2017 14:49
[2017-02-08 15:00] VITALS: BP 113/63
[2017-02-08 19:00] VITALS: BP 148/77
[2017-02-08 23:00] VITALS: BP 143/87
[2017-02-09] MEDS: HYDROmorphone 2 MG/ML VIAL IV PRN ×10 (00:49→22:46)
[2017-02-09 03:00] VITALS: BP 153/87
[2017-02-09] MEDS: METRONIDAZOLE 500mg PREMIX 100 ML IV SCH ×3 (06:03→20:20)
[2017-02-09 07:00] VITALS: BP 117/75
--- NOTE | 2017-02-09 10:18 | PDOC ---
[employer] TELE[employer]WORKER 02/09/17 1018: SURGICAL PROGRESS NOTE Subjective tolerating full liquids pain about the same Vital Signs Vital Signs Date Time Temp Pulse Resp B/P Pulse Ox O2 Delivery O2 Flow Rate FiO2 02/09/17 08:56 Room Air 02/09/17 07:00 98.2 65 18 117/75 96 98.2 02/08/17 18:17 2.0 I&O Intake and Output 02/09/17 06:59 Intake Total 1750 ml Output Total 10 ml Balance 1740 ml Intake Oral 1750 ml Drainage Total 5 ml Other 5 ml # Voids 4 General: Alert, Oriented X3, Cooperative, No acute distress Abdomen: Soft, Other (ND, minimal tenderness to lower abdomen, drain in place no drainage) Labs Laboratory Tests Test 02/08/17 03:50 White Blood Count 6.3x10^3/uL (4.0-11.0) Red Blood Count 5.15x10^6/uL (4.30-5.70) Hemoglobin 16.1g/dL (13.0-17.5) Hematocrit 45.6% (39.0-53.0) Mean Corpuscular Volume 88fL (79-100) Mean Corpuscular Hemoglobin 31pg (25-35) Mean Corpuscular Hemoglobin Concent 35g/dL (31-37) Red Cell Distribution Width 12.7% (11.5-14.5) Platelet Count 368x10^3/uL (140-400) Neutrophils (%) (Auto) 54% (31-73) Lymphocytes (%) (Auto) 33% (24-48) Monocytes (%) (Auto) 9% (0-9) Eosinophils (%) (Auto) 3% (0-3) Basophils (%) (Auto) 1% (0-3) Neutrophils # (Auto) 3.4x10^3uL (1.8-7.7) Lymphocytes # (Auto) 2.0x10^3/uL (1.0-4.8) Monocytes # (Auto) 0.6x10^3/uL (0.0-1.1) Eosinophils # (Auto) 0.2x10^3/uL (0.0-0.7) Basophils # (Auto) 0.1x10^3/uL (0.0-0.2) Problem List Problems Medical Problems: (1) Acute diverticulitis Status: Acute Assessment/Plan advance to soft diet defer abx management to ID work toward dc will dc drain prior to discharge d/w should FU with GI 4-6 weeks for colonoscopy at some point, however lack of insurance has caused that to be an issue in past Problems: MAURICIO TOMAS MD 02/09/176: SURGICAL PROGRESS NOTE Assessment/Plan Agree with above, DC planning, will DC drain prior, abx per ID Problems: [employer]WORKER February 09, 2017 10:18 MAURICIO TOMAS MD February 09, 2017 19:46
--- NOTE | 2017-02-09 10:45 | PDOC ---
Infectious Disease Note Subjective Subjective feeling good ROS ROS GEN: Denies fevers, chills, sweats HEENT: Denies blurred vision, sore throat CV: Denies chest pain RESP: Denies shortness of air, cough GI: Denies n/v/d NEURO: Denies confusion, dizziness MSK: Denies weakness, joint pain/swelling Vital Sign Vital Signs Vital Signs Date Time Temp Pulse Resp B/P Pulse Ox O2 Delivery O2 Flow Rate FiO2 02/09/17 08:56 Room Air 02/09/17 07:00 98.2 65 18 117/75 96 98.2 02/08/17 18:17 2.0 Physical Exam PHYSICAL EXAM GENERAL: NAD, Alert HEENT: PERRL, OC/OP NECK: Supple, no JVD, no LN LUNGS: Clear HEART: S1S2, no gallop, no murmur ABD: Soft, NT, no organomegaly, no rebound EXT: No edema, no cyanosis CHASER HELPER: Alert, oriented x 3, no focal neurologic deficit SKIN: No rash IV: ok Objective Assessment Diverticulitis with perforation. Repeat CT 02/04 improved. Abscess s/p drain 01/30 Ecoli and Bacteroides Amox allergy - thinks may have had a "Cef" abx Plan Plan of Care Cont Rocephin/Flagyl Supportive care soon change to po vantin and flagyl d/c soon d/c draining cath soon KARTIK HAWTHORNE MD February 09, 2017 10:45
[2017-02-09 11:00] VITALS: BP 121/78
[2017-02-09] MEDS: ENOXAPARIN 40 MG/0.4 ML SYRINGE. SQ SCH (11:26)
[2017-02-09] MEDS: IV DEXTROSE 5 %-0.45 % NACL 1,000 ML IV SCH ×3 (12:27→23:15)
--- NOTE | 2017-02-09 13:42 | PDOC ---
PROGRESS NOTES Chief Complaint Chief Complaint Acute abdominal pain ASSESSMENT AND PLAN: 1. diverticulitis with micro perf and abscess formation: s/p drain placement RLQ on 01/30. culture growing E.coli and Bacteroids 2. Peritonitis: Flagyl, ceftriaxone 3. Sepsis: resolved 4. Nutrition: starting on clears w/o N/V. advance as per surg service 5. Pain control: IV fentanyl 6. Prophylaxis: Lovenox plan: fu with id, sx gi soft diet as per sx hope dc in 1-2 days, with stephanie removed and cont vantin and flagyl for another 1 week pain control History of Present Illness History of Present Illness pain no fever drainage present Vitals Vitals Vital Signs Date Time Temp Pulse Resp B/P Pulse Ox O2 Delivery O2 Flow Rate FiO2 02/09/17 13:30 Room Air 02/09/17 11:00 98.1 69 18 121/78 96 98.1 02/08/17 18:17 2.0 Physical Exam Physical Exam + anxiety General: Alert, Oriented X3, Cooperative, No acute distress Heart: Regular rate Lungs: Clear Abdomen: Soft, Other (ND, minimal tenderness to lower abdomen, drain in place no drainage) Extremities: No clubbing Skin: No rashes Review of Systems Review of Systems no fever, chills, sob or chest pain Assessment and Plan Assessmemt and Plan Problems Medical Problems: (1) Acute diverticulitis Status: Acute Problems: Comment Review of Relevant I have reviewed the following items matilde (where applicable) has been applied. Labs Laboratory Tests Test 02/08/17 03:50 White Blood Count 6.3x10^3/uL (4.0-11.0) Red Blood Count 5.15x10^6/uL (4.30-5.70) Hemoglobin 16.1g/dL (13.0-17.5) Hematocrit 45.6% (39.0-53.0) Mean Corpuscular Volume 88fL (79-100) Mean Corpuscular Hemoglobin 31pg (25-35) Mean Corpuscular Hemoglobin Concent 35g/dL (31-37) Red Cell Distribution Width 12.7% (11.5-14.5) Platelet Count 368x10^3/uL (140-400) Neutrophils (%) (Auto) 54% (31-73) Lymphocytes (%) (Auto) 33% (24-48) Monocytes (%) (Auto) 9% (0-9) Eosinophils (%) (Auto) 3% (0-3) Basophils (%) (Auto) 1% (0-3) Neutrophils # (Auto) 3.4x10^3uL (1.8-7.7) Lymphocytes # (Auto) 2.0x10^3/uL (1.0-4.8) Monocytes # (Auto) 0.6x10^3/uL (0.0-1.1) Eosinophils # (Auto) 0.2x10^3/uL (0.0-0.7) Basophils # (Auto) 0.1x10^3/uL (0.0-0.2) Microbiology 01/30/17 Anaerobic/Aerobic Culture - Final, Complete 01/30/17 Anaerobic Culture Result 1 (PRANAV) - Final, Complete 01/30/17 Aerobic Culture - Final, Complete 01/30/17 Aerobic Culture Result 1 (PRANAV) - Final, Complete 01/30/17 Antimicrobic Susceptibility - Final, Complete Medications Current Medications Sodium Chloride (Iv Sodium Chloride 0.9% 1000ml Bag) 1,000 ml @ 1,000 mls/hr Q1H IV Last administered on 01/27/17 01:24; Start 01/27/17 at 01:30; Stop at 02:29; Status DC Fentanyl Citrate (Fentanyl 2ml Vial) 50 mcg 1X ONCE IV Last administered on 01:26; Start 01/27/17 at 01:30; Stop 01/27/17 at 01:31; Status DC Ondansetron HCl (Zofran) 4 mg 1X ONCE IV Last administered on 01/27/17 01:24 ; Start 01/27/17 at 01:30; Stop 01/27/17 at 01:31; Status DC Iohexol (Omnipaque 300 Mg/ml) 75 ml 1X ONCE IV Last administered on 01/27/17 02:00; Start 01/27/17 at 02:00; Stop 01/27/17 at 02:01; Status DC Info (Do NOT chart on this entry -- for MONITORING) 1 each PRN DAILY PRN MC SEE COMMENTS; Start 01/27/17 at 01:45; Stop 01/29/17 at 01:44; Status DC Hydromorphone HCl 1 mg 1 mg 1X ONCE IV Last administered on 01/27/17 02:19; Start 01/27/17 at 02:30; Stop 01/27/17 at 02:31; Status DC Meropenem/Sodium Chloride (Merrem/Iv Sodium Chloride 0.9% 100ml) 100 ml @ 200 mls/hr 1X ONCE IV Last administered on 01/27/17 03:11; Start 01/27/17 at 03: 30; Stop 01/27/17 at 03:59; Status DC Ondansetron HCl 4 mg 4 mg PRN Q8HRS PRN IV NAUSEA/VOMITING; Start 01/27/17 at 03:15; Stop 01/28/17 at 03:14; Status DC Sodium Chloride (Iv Sodium Chloride 0.9% 1000ml Bag) 1,000 ml @ 150 mls/hr Q6H40M IV Last administered on 01/27/17 21:07; Start 01/27/17 at 03:05; Stop 01/28/17 at 03:04; Status DC Acetaminophen (Tylenol) 650 mg PRN Q4HRS PRN PO FEVER Last administered on 01/27 03:56; Start 01/27/17 at 03:15; Stop 01/28/17 at 03:14; Status DC Hydromorphone HCl 1 mg 1 mg PRN Q2HRS PRN IV SEVERE PAIN Last administered on 10:07; Start 01/27/17 at 03:15; Stop 01/27/17 at 10:14; Status DC Potassium Chloride 100 ml @ 100 mls/hr Q1H IV Last administered on 01/27/17 12:48; Start 01/27/17 at 09:30; Stop 01/27/17 at 11:29; Status DC Meropenem/Sodium Chloride (Merrem/Iv Sodium Chloride 0.9% 100ml) 100 ml @ 200 mls/hr Q8HRS IV Last administered on 02/02/17 05:37; Start 01/27/17 at 11:00; Stop 02/02/17 at 11:43; Status DC Morphine Sulfate 10 mg PRN Q2HR PRN IV PAIN; Start 01/27/17 at 10:15; Status UNV Hydromorphone HCl (Dilaudid) 2 mg PRN Q2HRS PRN IV SEVERE PAIN Last administered on 02/02/17 17:24; Start 01/27/17 at 10:15; Stop 02/02/17 at 19:20 ; Status DC Fentanyl Citrate (Fentanyl 2ml Vial) 50 mcg PRN Q2HR PRN IV PAIN; Start at 10:15; Stop 02/02/17 at 22:17; Status DC Fentanyl (Duragesic 12mcg/ Hr Patch) 1 patch 1X ONCE TD Last administered on 10:32; Start 01/28/17 at 09:45; Stop 01/28/17 at 09:47; Status DC Enoxaparin Sodium (Lovenox Per Pharmacy Prophylaxis Dosing) 1 each PRN DAILY PRN MC SEE COMMENTS; Start 01/28/17 at 10:30; Stop 02/05/17 at 12:24; Status DC Enoxaparin Sodium 40 mg 40 mg Q24H SQ Last administered on 02/09/17 11:26; Start 01/28/17 at 11:00 Dextrose/Sodium Chloride (Iv D5% - 1/2 NS) 1,000 ml @ 125 mls/hr Q8H IV Last administered on 02/09/17 12:27; Start 01/28/17 at 15:15 Ketorolac Tromethamine (Toradol) 15 mg PRN Q12HR PRN IV PAIN Last administered on 02/03/17 00:04; Start 01/29/17 at 14:45; Stop 02/03/17 at 14:44; Status DC Iohexol (Omnipaque 300 Mg/ml) 75 ml 1X ONCE IV Last administered on 01/30/17 11:08; Start 01/30/17 at 10:00; Stop 01/30/17 at 10:01; Status DC Iohexol (Omnipaque 240 Mg/ml) 50 ml 1X ONCE PO Last administered on 01/30/17 11:08; Start 01/30/17 at 10:00; Stop 01/30/17 at 10:01; Status DC Info (Do NOT chart on this entry -- for MONITORING) 1 each PRN DAILY PRN MC SEE COMMENTS; Start 01/30/17 at 10:00; Stop 02/01/17 at 09:59; Status DC Ondansetron HCl (Zofran) 4 mg PRN Q6HRS PRN IV NAUSEA/VOMITING; Start 01/30/17 at 13:30; Stop 01/31/17 at 13:29; Status DC Fentanyl Citrate (Fentanyl 2ml Vial) 25 mcg PRN Q5MIN PRN IV MILD PAIN; Start 01/30/17 at 13:30; Stop 01/31/17 at 13:29; Status DC Fentanyl Citrate 50 mcg 50 mcg PRN Q5MIN PRN IV MODERATE PAIN; Start 01/30/17 at 13:30; Stop 01/31/17 at 13:29; Status DC Lactated Ringer's (Iv Lactated Ringers) 1,000 ml @ 30 mls/hr Q24H IV ; Start at 13:20; Stop 01/31/17 at 01:19; Status DC Lidocaine HCl 2 ml PRN 1X PRN ID PRIOR TO IV START; Start 01/30/17 at 13:30; Stop 01/31/17 at 13:29; Status DC Prochlorperazine Edisylate (Compazine) 5 mg PACU PRN PRN IV NAUSEA, MRX1; Start 01/30/17 at 13:30; Stop 01/31/17 at 13:29; Status DC Lidocaine/Sodium Bicarbonate 20 ml 20 ml STK-MED ONCE IJ ; Start 01/30/17 at 13: 26; Stop 01/30/17 at 13:27; Status DC Propofol 20 ml @ As Directed STK-MED ONCE IV ; Start 01/30/17 at 13:33; Stop at 13:34; Status DC Propofol (Diprivan) 20 ml @ As Directed STK-MED ONCE IV ; Start 01/30/17 at 13: 34; Stop 01/30/17 at 13:35; Status DC Ketamine HCl 500 mg STK-MED ONCE .ROUTE ; Start 01/30/17 at 13:39; Stop at 13:40; Status DC Lidocaine/Sodium Bicarbonate (Buffered Lidocaine 1%) 20 ml 1X ONCE IJ Last administered on 01/30/17t 14:42; Start 01/30/17 at 14:15; Stop 01/30/17 at 14:16 ; Status DC Iohexol (Omnipaque 300 Mg/ml) 50 ml STK-MED ONCE .ROUTE ; Start 01/30/17 at 14: 34; Stop 01/30/17 at 14:35; Status DC Acetaminophen (Tylenol) 650 mg PRN Q6HRS PRN PO FEVER; Start 01/31/17 at 13:45 Ondansetron HCl (Zofran) 4 mg PRN Q6HRS PRN IV NAUSEA/VOMITING; Start 01/31/17 at 13:45; Stop 02/02/17 at 22:17; Status DC Pantoprazole Sodium 40 mg 40 mg DAILYAC IVP Last administered on 02/02/17 07: 28; Start 01/31/17 at 14:00; Stop 02/02/17 at 22:17; Status DC Ceftriaxone Sodium 2 gm/ Sodium Chloride 100 ml @ 200 mls/hr Q24H IV Last administered on 02/09/17 12:26; Start 02/02/17 at 13:00 Metronidazole (FLAGYL 500Mmg PREMIX) 100 ml @ 100 mls/hr Q8HRS IV Last administered on 02/09/17 13:30; Start 02/02/17 at 14:00 Simethicone (Gas-X) 160 mg PRN Q4HRS PRN PO GAS / BLOATING Last administered on 02/05/17 08:33; Start 02/02/17 at 20:00 Hydromorphone HCl (Dilaudid) 1 mg PRN Q2HRS PRN IV SEVERE PAIN Last administered on 02/03/17 11:33; Start 02/02/17 at 19:30; Stop 02/03/17 at 12:54 ; Status DC Oxycodone HCl (Roxicodone) 1 tab for pain 5-7 2 tabs ... PRN Q6HRS PRN PO PAIN Last administered on 02/03/17 01:58; Start 02/02/17 at 22:15; Stop 02/03/17 at 06:38; Status DC Oxycodone HCl (Roxicodone) 5 mg PRN Q6HRS PRN PO PAIN; Start 02/03/17 at 06:45 ; Stop 02/03/17 at 12:57; Status DC Oxycodone HCl (Roxicodone) 10 mg PRN Q6HRS PRN PO PAIN Last administered on 05:35; Start 02/03/17 at 06:45 Hydromorphone HCl (Dilaudid) 1 mg PRN Q4HRS PRN IV SEVERE PAIN Last administered on 02/05/17 00:38; Start 02/03/17 at 13:00; Stop 02/05/17 at 02:49 ; Status DC Oxycodone HCl (Roxicodone) 5 mg PRN Q6HRS PRN PO MILD PAIN; Start 02/03/17 at 13:00 Iohexol (Omnipaque 240 Mg/ml) 30 ml 1X ONCE PO Last administered on 02/04/17 10:55; Start 02/04/17 at 09:00; Stop 02/04/17 at 09:01; Status DC Iohexol (Omnipaque 300 Mg/ml) 75 ml 1X ONCE IV Last administered on 02/04/17 10:55; Start 02/04/17 at 09:00; Stop 02/04/17 at 09:01; Status DC Info (Do NOT chart on this entry -- for MONITORING) 1 each PRN DAILY PRN MC SEE COMMENTS; Start 02/04/17 at 09:00; Stop 02/06/17 at 08:59; Status DC Polyethylene Glycol (miraLAX PACKET) 17 gm 1X ONCE PO Last administered on 11:53; Start 02/04/17 at 11:45; Stop 02/04/17 at 11:46; Status DC Polyethylene Glycol (miraLAX PACKET) 17 gm DAILY PO ; Start 02/05/17 at 09:00; Stop 02/05/17 at 10:04; Status DC Docusate Sodium (Colace) 100 mg DAILY PO Last administered on 02/04/17 11:53; Start 02/04/17 at 11:45; Stop 02/05/17 at 11:02; Status DC Zolpidem Tartrate (Ambien) 5 mg PRN QHS PRN PO INSOMNIA, MAY REPEAT IN 1HR; Start 02/04/17 at 12:45 Lorazepam (Ativan) 1 mg PRN Q8HRS PRN IV ANXIETY / AGITATION; Start 02/04/17 at 12:45 Hydromorphone HCl (Dilaudid) 2 mg PRN Q2HR PRN IV SEVERE PAIN Last administered on 5/1/17at 13:30; Start 02/05/17 at 03:00 Active Scripts Active Reported No Known Medications Prior To Admisstion (Info) Each 1 Each Vitals/I & O Vital Sign - Last 24 Hours 02/08/17 02/08/17 02/08/17 02/08/17 15:00 15:04 17:55 18:17 Temp 97.8 97.8 Pulse 68 Resp 18 B/P 113/63 Pulse Ox 96 93 93 O2 Delivery Room Air Room Air Room Air O2 Flow Rate 2.0 2.0 2.0 02/08/17 02/08/17 02/08/17 02/08/17 19:00 20:00 20:10 20:40 Temp 97.9 97.9 Pulse 59 Resp 18 20 18 B/P 148/77 Pulse Ox 95 93 97 O2 Delivery Room Air Room Air Room Air 02/08/17 02/08/17 02/09/17 02/09/17 22:31 23:00 00:49 03:00 Temp 97.7 98.0 97.7 98.0 Pulse 56 55 Resp 20 18 18 18 B/P 143/87 153/87 Pulse Ox 93 97 97 97 O2 Delivery Room Air Room Air Room Air Room Air 02/09/17 02/09/17 02/09/17 02/09/17 04:35 06:47 07:00 08:30 Temp 98.2 98.2 Pulse 65 Resp 20 18 B/P 117/75 Pulse Ox 97 96 O2 Delivery Room Air Room Air Room Air Room Air 02/09/17 02/09/17 02/09/17 02/09/17 08:56 11:00 11:26 12:30 Temp 98.1 98.1 Pulse 69 Resp 18 B/P 121/78 Pulse Ox 96 O2 Delivery Room Air Room Air Room Air Room Air 02/09/17 13:30 O2 Delivery Room Air Intake and Output 02/08/17 02/08/17 02/09/17 14:59 22:59 06:59 Intake Total 1050 ml 700 ml Output Total 5 ml 5 ml Balance 1045 ml 695 ml CORA DEL VALLE MD February 09, 2017 13:42
[2017-02-09 15:00] VITALS: BP 113/61
[2017-02-09 19:00] VITALS: BP 137/74
[2017-02-09 23:00] VITALS: BP 117/73
[2017-02-10] MEDS: HYDROmorphone 2 MG/ML VIAL IV PRN ×10 (00:49→22:34)
[2017-02-10] MEDS: METRONIDAZOLE 500mg PREMIX 100 ML IV SCH ×3 (05:23→20:22)
[2017-02-10 07:10] VITALS: BP 124/84
[2017-02-10] MEDS: IV DEXTROSE 5 %-0.45 % NACL 1,000 ML IV SCH (07:15)
--- NOTE | 2017-02-10 10:13 | PDOC ---
Infectious Disease Note Subjective Subjective feeling good, though vomited once last night ROS ROS GEN: Denies fevers, chills, sweats HEENT: Denies blurred vision, sore throat CV: Denies chest pain RESP: Denies shortness of air, cough GI: Denies n//d NEURO: Denies confusion, dizziness MSK: Denies weakness, joint pain/swelling Vital Sign Vital Signs Vital Signs Date Time Temp Pulse Resp B/P Pulse Ox O2 Delivery O2 Flow Rate FiO2 02/10/17 09:00 Room Air 02/10/17 07:10 97.9 60 18 124/84 98 97.9 02/09/17 18:36 2.0 Physical Exam PHYSICAL EXAM GENERAL: NAD, Alert HEENT: PERRL, OC/OP NECK: Supple, no JVD, no LN LUNGS: Clear HEART: S1S2, no gallop, no murmur ABD: Soft, NT, no organomegaly, no rebound EXT: No edema, no cyanosis SEARCH ANALYST: Alert, oriented x 3, no focal neurologic deficit SKIN: No rash IV: ok Objective Assessment Diverticulitis with perforation. Repeat CT 02/04 improved. Abscess s/p drain 01/30 Ecoli and Bacteroides Amox allergy - thinks may have had a "Cef" abx Plan Plan of Care Cont Rocephin/Flagyl Supportive care soon change to po vantin and flagyl d/c soon d/c draining cath soon KARTIK HAWTHORNE MD February 10, 2017 10:13
[2017-02-10] MEDS: ENOXAPARIN 40 MG/0.4 ML SYRINGE. SQ SCH (10:53)
[2017-02-10 10:58] VITALS: BP 110/73
[2017-02-10 14:45] VITALS: BP 124/79
--- NOTE | 2017-02-10 15:33 | PDOC ---
PROGRESS NOTES Chief Complaint Chief Complaint Acute abdominal pain ASSESSMENT AND PLAN: 1. diverticulitis with micro perf and abscess formation: s/p drain placement RLQ on 01/30. culture growing E.coli and Bacteroids 2. Peritonitis: Flagyl, ceftriaxone 3. Sepsis: resolved 4. Nutrition: starting on clears w/o N/V. advance as per surg service 5. Pain control: IV fentanyl 6. Prophylaxis: Lovenox plan: fu with id, sx gi soft diet as per sx hope dc today or tmr, waiting for sx. and cont vantin and flagyl for another 1 week pain control History of Present Illness History of Present Illness pain no fever drainage present Vitals Vitals Vital Signs Date Time Temp Pulse Resp B/P Pulse Ox O2 Delivery O2 Flow Rate FiO2 02/10/17 15:17 Room Air 02/10/17 14:45 97.7 71 18 124/79 96 97.7 02/09/17 18:36 2.0 Physical Exam Physical Exam + anxiety General: Alert, Oriented X3, Cooperative, No acute distress Heart: Regular rate Lungs: Clear Abdomen: Soft, Other (ND, minimal tenderness to lower abdomen, drain in place no drainage) Extremities: No clubbing Skin: No rashes Review of Systems Review of Systems no fever, chills, sob or chest pain Assessment and Plan Assessmemt and Plan Problems Medical Problems: (1) Acute diverticulitis Status: Acute Problems: Comment Review of Relevant I have reviewed the following items matilde (where applicable) has been applied. Labs Microbiology 01/30/17 Anaerobic/Aerobic Culture - Final, Complete 01/30/17 Anaerobic Culture Result 1 (PRANAV) - Final, Complete 01/30/17 Aerobic Culture - Final, Complete 01/30/17 Aerobic Culture Result 1 (PRANAV) - Final, Complete 01/30/17 Antimicrobic Susceptibility - Final, Complete Medications Current Medications Sodium Chloride (Iv Sodium Chloride 0.9% 1000ml Bag) 1,000 ml @ 1,000 mls/hr Q1H IV Last administered on 01/27/17 01:24; Start 01/27/17 at 01:30; Stop at 02:29; Status DC Fentanyl Citrate (Fentanyl 2ml Vial) 50 mcg 1X ONCE IV Last administered on 01:26; Start 01/27/17 at 01:30; Stop 01/27/17 at 01:31; Status DC Ondansetron HCl (Zofran) 4 mg 1X ONCE IV Last administered on 01/27/17 01:24 ; Start 01/27/17 at 01:30; Stop 01/27/17 at 01:31; Status DC Iohexol (Omnipaque 300 Mg/ml) 75 ml 1X ONCE IV Last administered on 01/27/17 02:00; Start 01/27/17 at 02:00; Stop 01/27/17 at 02:01; Status DC Info (Do NOT chart on this entry -- for MONITORING) 1 each PRN DAILY PRN MC SEE COMMENTS; Start 01/27/17 at 01:45; Stop 01/29/17 at 01:44; Status DC Hydromorphone HCl 1 mg 1 mg 1X ONCE IV Last administered on 01/27/17 02:19; Start 01/27/17 at 02:30; Stop 01/27/17 at 02:31; Status DC Meropenem/Sodium Chloride (Merrem/Iv Sodium Chloride 0.9% 100ml) 100 ml @ 200 mls/hr 1X ONCE IV Last administered on 01/27/17 03:11; Start 01/27/17 at 03: 30; Stop 01/27/17 at 03:59; Status DC Ondansetron HCl 4 mg 4 mg PRN Q8HRS PRN IV NAUSEA/VOMITING; Start 01/27/17 at 03:15; Stop 01/28/17 at 03:14; Status DC Sodium Chloride (Iv Sodium Chloride 0.9% 1000ml Bag) 1,000 ml @ 150 mls/hr Q6H40M IV Last administered on 01/27/17 21:07; Start 01/27/17 at 03:05; Stop 01/28/17 at 03:04; Status DC Acetaminophen (Tylenol) 650 mg PRN Q4HRS PRN PO FEVER Last administered on 01/27 03:56; Start 01/27/17 at 03:15; Stop 01/28/17 at 03:14; Status DC Hydromorphone HCl 1 mg 1 mg PRN Q2HRS PRN IV SEVERE PAIN Last administered on 10:07; Start 01/27/17 at 03:15; Stop 01/27/17 at 10:14; Status DC Potassium Chloride 100 ml @ 100 mls/hr Q1H IV Last administered on 01/27/17 12:48; Start 01/27/17 at 09:30; Stop 01/27/17 at 11:29; Status DC Meropenem/Sodium Chloride (Merrem/Iv Sodium Chloride 0.9% 100ml) 100 ml @ 200 mls/hr Q8HRS IV Last administered on 02/02/17 05:37; Start 01/27/17 at 11:00; Stop 02/02/17 at 11:43; Status DC Morphine Sulfate 10 mg PRN Q2HR PRN IV PAIN; Start 01/27/17 at 10:15; Status UNV Hydromorphone HCl (Dilaudid) 2 mg PRN Q2HRS PRN IV SEVERE PAIN Last administered on 02/02/17 17:24; Start 01/27/17 at 10:15; Stop 02/02/17 at 19:20 ; Status DC Fentanyl Citrate (Fentanyl 2ml Vial) 50 mcg PRN Q2HR PRN IV PAIN; Start at 10:15; Stop 02/02/17 at 22:17; Status DC Fentanyl (Duragesic 12mcg/ Hr Patch) 1 patch 1X ONCE TD Last administered on 10:32; Start 01/28/17 at 09:45; Stop 01/28/17 at 09:47; Status DC Enoxaparin Sodium (Lovenox Per Pharmacy Prophylaxis Dosing) 1 each PRN DAILY PRN MC SEE COMMENTS; Start 01/28/17 at 10:30; Stop 02/05/17 at 12:24; Status DC Enoxaparin Sodium 40 mg 40 mg Q24H SQ Last administered on 02/10/17 10:53; Start 01/28/17 at 11:00 Dextrose/Sodium Chloride (Iv D5% - 1/2 NS) 1,000 ml @ 125 mls/hr Q8H IV Last administered on 02/09/17 20:21; Start 01/28/17 at 15:15; Stop 02/10/17 at 10:18; Status DC Ketorolac Tromethamine (Toradol) 15 mg PRN Q12HR PRN IV PAIN Last administered on 02/03/17 00:04; Start 01/29/17 at 14:45; Stop 02/03/17 at 14:44; Status DC Iohexol (Omnipaque 300 Mg/ml) 75 ml 1X ONCE IV Last administered on 01/30/17t 11:08; Start 01/30/17 at 10:00; Stop 01/30/17 at 10:01; Status DC Iohexol (Omnipaque 240 Mg/ml) 50 ml 1X ONCE PO Last administered on 01/30/17t 11:08; Start 01/30/17 at 10:00; Stop 01/30/17 at 10:01; Status DC Info (Do NOT chart on this entry -- for MONITORING) 1 each PRN DAILY PRN MC SEE COMMENTS; Start 01/30/17 at 10:00; Stop 02/01/17 at 09:59; Status DC Ondansetron HCl (Zofran) 4 mg PRN Q6HRS PRN IV NAUSEA/VOMITING; Start 01/30/17 at 13:30; Stop 01/31/17 at 13:29; Status DC Fentanyl Citrate (Fentanyl 2ml Vial) 25 mcg PRN Q5MIN PRN IV MILD PAIN; Start 01/30/17 at 13:30; Stop 01/31/17 at 13:29; Status DC Fentanyl Citrate 50 mcg 50 mcg PRN Q5MIN PRN IV MODERATE PAIN; Start 01/30/17 at 13:30; Stop 01/31/17 at 13:29; Status DC Lactated Ringer's (Iv Lactated Ringers) 1,000 ml @ 30 mls/hr Q24H IV ; Start at 13:20; Stop 01/31/17 at 01:19; Status DC Lidocaine HCl 2 ml PRN 1X PRN ID PRIOR TO IV START; Start 01/30/17 at 13:30; Stop 01/31/17 at 13:29; Status DC Prochlorperazine Edisylate (Compazine) 5 mg PACU PRN PRN IV NAUSEA, MRX1; Start 01/30/17 at 13:30; Stop 01/31/17 at 13:29; Status DC Lidocaine/Sodium Bicarbonate 20 ml 20 ml STK-MED ONCE IJ ; Start 01/30/17 at 13: 26; Stop 01/30/17 at 13:27; Status DC Propofol 20 ml @ As Directed STK-MED ONCE IV ; Start 01/30/17 at 13:33; Stop at 13:34; Status DC Propofol (Diprivan) 20 ml @ As Directed STK-MED ONCE IV ; Start 01/30/17 at 13: 34; Stop 01/30/17 at 13:35; Status DC Ketamine HCl 500 mg STK-MED ONCE .ROUTE ; Start 01/30/17 at 13:39; Stop at 13:40; Status DC Lidocaine/Sodium Bicarbonate (Buffered Lidocaine 1%) 20 ml 1X ONCE IJ Last administered on 01/30/17 14:42; Start 01/30/17 at 14:15; Stop 01/30/17 at 14:16 ; Status DC Iohexol (Omnipaque 300 Mg/ml) 50 ml STK-MED ONCE .ROUTE ; Start 01/30/17 at 14: 34; Stop 01/30/17 at 14:35; Status DC Acetaminophen (Tylenol) 650 mg PRN Q6HRS PRN PO FEVER; Start 01/31/17 at 13:45 Ondansetron HCl (Zofran) 4 mg PRN Q6HRS PRN IV NAUSEA/VOMITING; Start 01/31/17 at 13:45; Stop 02/02/17 at 22:17; Status DC Pantoprazole Sodium 40 mg 40 mg DAILYAC IVP Last administered on 02/02/17 07: 28; Start 01/31/17 at 14:00; Stop 02/02/17 at 22:17; Status DC Ceftriaxone Sodium 2 gm/ Sodium Chloride 100 ml @ 200 mls/hr Q24H IV Last administered on 02/10/17 13:05; Start 02/02/17 at 13:00 Metronidazole (FLAGYL 500Mmg PREMIX) 100 ml @ 100 mls/hr Q8HRS IV Last administered on 02/10/17 13:58; Start 02/02/17 at 14:00 Simethicone (Gas-X) 160 mg PRN Q4HRS PRN PO GAS / BLOATING Last administered on 02/05/17 08:33; Start 02/02/17 at 20:00 Hydromorphone HCl (Dilaudid) 1 mg PRN Q2HRS PRN IV SEVERE PAIN Last administered on 02/03/17 11:33; Start 02/02/17 at 19:30; Stop 02/03/17 at 12:54 ; Status DC Oxycodone HCl (Roxicodone) 1 tab for pain 5-7 2 tabs ... PRN Q6HRS PRN PO PAIN Last administered on 02/03/17 01:58; Start 02/02/17 at 22:15; Stop 02/03/17 at 06:38; Status DC Oxycodone HCl (Roxicodone) 5 mg PRN Q6HRS PRN PO PAIN; Start 02/03/17 at 06:45 ; Stop 02/03/17 at 12:57; Status DC Oxycodone HCl (Roxicodone) 10 mg PRN Q6HRS PRN PO PAIN Last administered on 05:35; Start 02/03/17 at 06:45 Hydromorphone HCl (Dilaudid) 1 mg PRN Q4HRS PRN IV SEVERE PAIN Last administered on 02/05/17 00:38; Start 02/03/17 at 13:00; Stop 02/05/17 at 02:49 ; Status DC Oxycodone HCl (Roxicodone) 5 mg PRN Q6HRS PRN PO MILD PAIN; Start 02/03/17 at 13:00 Iohexol (Omnipaque 240 Mg/ml) 30 ml 1X ONCE PO Last administered on 02/04/17 10:55; Start 02/04/17 at 09:00; Stop 02/04/17 at 09:01; Status DC Iohexol (Omnipaque 300 Mg/ml) 75 ml 1X ONCE IV Last administered on 02/04/17 10:55; Start 02/04/17 at 09:00; Stop 02/04/17 at 09:01; Status DC Info (Do NOT chart on this entry -- for MONITORING) 1 each PRN DAILY PRN MC SEE COMMENTS; Start 02/04/17 at 09:00; Stop 02/06/17 at 08:59; Status DC Polyethylene Glycol (miraLAX PACKET) 17 gm 1X ONCE PO Last administered on 11:53; Start 02/04/17 at 11:45; Stop 02/04/17 at 11:46; Status DC Polyethylene Glycol (miraLAX PACKET) 17 gm DAILY PO ; Start 02/05/17 at 09:00; Stop 02/05/17 at 10:04; Status DC Docusate Sodium (Colace) 100 mg DAILY PO Last administered on 02/04/17 11:53; Start 02/04/17 at 11:45; Stop 02/05/17 at 11:02; Status DC Zolpidem Tartrate (Ambien) 5 mg PRN QHS PRN PO INSOMNIA, MAY REPEAT IN 1HR; Start 02/04/17 at 12:45 Lorazepam (Ativan) 1 mg PRN Q8HRS PRN IV ANXIETY / AGITATION; Start 02/04/17 at 12:45 Hydromorphone HCl (Dilaudid) 2 mg PRN Q2HR PRN IV SEVERE PAIN Last administered on 02/10/17 15:17; Start 02/05/17 at 03:00 Active Scripts Active Reported No Known Medications Prior To Admisstion (Info) Each 1 Each Vitals/I & O Vital Sign - Last 24 Hours 02/09/17 02/09/17 02/09/17 02/09/17 15:35 18:06 18:36 19:00 Temp 97.9 97.9 Pulse 69 Resp 20 B/P 137/74 Pulse Ox 95 O2 Delivery Room Air Room Air Room Air O2 Flow Rate 2.0 02/09/17 02/09/17 02/09/17 02/09/17 20:15 20:22 22:46 23:00 Temp 98.1 98.1 Pulse 67 Resp 20 20 20 B/P 117/73 Pulse Ox 95 95 98 O2 Delivery Room Air Room Air Room Air Room Air 02/10/17 02/10/17 02/10/17 02/10/17 00:49 02:33 03:00 03:03 Resp 20 20 20 Pulse Ox 98 98 98 O2 Delivery Room Air Room Air 02/10/17 02/10/17 02/10/17 02/10/17 05:23 05:53 07:10 08:15 Temp 97.9 97.9 Pulse 60 Resp 20 20 18 B/P 124/84 Pulse Ox 98 98 O2 Delivery Room Air Room Air Room Air 02/10/17 02/10/17 02/10/17 02/10/17 08:20 10:53 10:58 13:05 Temp 98.6 98.6 Pulse 65 Resp 18 B/P 110/73 Pulse Ox 97 O2 Delivery Room Air Room Air Room Air Room Air 02/10/17 02/10/17 02/10/17 13:55 14:45 15:17 Temp 97.7 97.7 Pulse 71 Resp 18 B/P 124/79 Pulse Ox 96 O2 Delivery Room Air Room Air Room Air Intake and Output 02/09/17 02/09/17 02/10/17 15:00 23:00 07:00 Intake Total 500 ml 800 ml 200 ml Balance 500 ml 800 ml 200 ml CORA DEL VALLE MD February 10, 2017 15:33
--- NOTE | 2017-02-10 17:26 | PDOC ---
PROGRESS NOTES Subjective Subjective complains of some worsening of LLQ pain, may be related to eating more, had emesis last night Objective Objective Vital Signs Date Time Temp Pulse Resp B/P Pulse Ox O2 Delivery O2 Flow Rate FiO2 02/10/17 15:53 Room Air 02/10/17 14:45 97.7 71 18 124/79 96 97.7 02/09/17 18:36 2.0 Intake and Output 02/10/17 07:00 Intake Total 1500 ml Balance 1500 ml Intake Oral 1500 ml # Voids 2 Physical Exam Abdomen: Soft (some LLQ tenderness with palpation, no guarding) Heart: Regular rate Extremities: No clubbing, No cyanosis General: Alert, Oriented X3, Cooperative HEENT: Atraumatic Lungs: Clear to auscultation Psych/Mental Status: Mental status NL Skin: No rashes Assessment Assessment Problems Medical Problems: (1) Acute diverticulitis Status: Acute Plan Plan of Care Given worsening pain will recheck CT in AM to reassess; if continued improvement will then work toward discharge Comment Review of Relevant I have reviewed the following items matilde (where applicable) has been applied. Labs Microbiology 01/30/17 Anaerobic/Aerobic Culture - Final, Complete 01/30/17 Anaerobic Culture Result 1 (PRANAV) - Final, Complete 01/30/17 Aerobic Culture - Final, Complete 01/30/17 Aerobic Culture Result 1 (PRANAV) - Final, Complete 01/30/17 Antimicrobic Susceptibility - Final, Complete Medications Current Medications Sodium Chloride (Iv Sodium Chloride 0.9% 1000ml Bag) 1,000 ml @ 1,000 mls/hr Q1H IV Last administered on 01/27/17 01:24; Start 01/27/17 at 01:30; Stop at 02:29; Status DC Fentanyl Citrate (Fentanyl 2ml Vial) 50 mcg 1X ONCE IV Last administered on 01:26; Start 01/27/17 at 01:30; Stop 01/27/17 at 01:31; Status DC Ondansetron HCl (Zofran) 4 mg 1X ONCE IV Last administered on 01/27/17 01:24 ; Start 01/27/17 at 01:30; Stop 01/27/17 at 01:31; Status DC Iohexol (Omnipaque 300 Mg/ml) 75 ml 1X ONCE IV Last administered on 01/27/17 02:00; Start 01/27/17 at 02:00; Stop 01/27/17 at 02:01; Status DC Info (Do NOT chart on this entry -- for MONITORING) 1 each PRN DAILY PRN MC SEE COMMENTS; Start 01/27/17 at 01:45; Stop 01/29/17 at 01:44; Status DC Hydromorphone HCl 1 mg 1 mg 1X ONCE IV Last administered on 01/27/17 02:19; Start 01/27/17 at 02:30; Stop 01/27/17 at 02:31; Status DC Meropenem/Sodium Chloride (Merrem/Iv Sodium Chloride 0.9% 100ml) 100 ml @ 200 mls/hr 1X ONCE IV Last administered on 01/27/17 03:11; Start 01/27/17 at 03: 30; Stop 01/27/17 at 03:59; Status DC Ondansetron HCl 4 mg 4 mg PRN Q8HRS PRN IV NAUSEA/VOMITING; Start 01/27/17 at 03:15; Stop 01/28/17 at 03:14; Status DC Sodium Chloride (Iv Sodium Chloride 0.9% 1000ml Bag) 1,000 ml @ 150 mls/hr Q6H40M IV Last administered on 01/27/17 21:07; Start 01/27/17 at 03:05; Stop 01/28/17 at 03:04; Status DC Acetaminophen (Tylenol) 650 mg PRN Q4HRS PRN PO FEVER Last administered on 01/27 03:56; Start 01/27/17 at 03:15; Stop 01/28/17 at 03:14; Status DC Hydromorphone HCl 1 mg 1 mg PRN Q2HRS PRN IV SEVERE PAIN Last administered on 10:07; Start 01/27/17 at 03:15; Stop 01/27/17 at 10:14; Status DC Potassium Chloride 100 ml @ 100 mls/hr Q1H IV Last administered on 01/27/17 12:48; Start 01/27/17 at 09:30; Stop 01/27/17 at 11:29; Status DC Meropenem/Sodium Chloride (Merrem/Iv Sodium Chloride 0.9% 100ml) 100 ml @ 200 mls/hr Q8HRS IV Last administered on 02/02/17 05:37; Start 01/27/17 at 11:00; Stop 02/02/17 at 11:43; Status DC Morphine Sulfate 10 mg PRN Q2HR PRN IV PAIN; Start 01/27/17 at 10:15; Status UNV Hydromorphone HCl (Dilaudid) 2 mg PRN Q2HRS PRN IV SEVERE PAIN Last administered on 02/02/17 17:24; Start 01/27/17 at 10:15; Stop 02/02/17 at 19:20 ; Status DC Fentanyl Citrate (Fentanyl 2ml Vial) 50 mcg PRN Q2HR PRN IV PAIN; Start at 10:15; Stop 02/02/17 at 22:17; Status DC Fentanyl (Duragesic 12mcg/ Hr Patch) 1 patch 1X ONCE TD Last administered on 10:32; Start 01/28/17 at 09:45; Stop 01/28/17 at 09:47; Status DC Enoxaparin Sodium (Lovenox Per Pharmacy Prophylaxis Dosing) 1 each PRN DAILY PRN MC SEE COMMENTS; Start 01/28/17 at 10:30; Stop 02/05/17 at 12:24; Status DC Enoxaparin Sodium 40 mg 40 mg Q24H SQ Last administered on 02/10/17 10:53; Start 01/28/17 at 11:00 Dextrose/Sodium Chloride (Iv D5% - 1/2 NS) 1,000 ml @ 125 mls/hr Q8H IV Last administered on 02/09/17 20:21; Start 01/28/17 at 15:15; Stop 02/10/17 at 10:18; Status DC Ketorolac Tromethamine (Toradol) 15 mg PRN Q12HR PRN IV PAIN Last administered on 02/03/17 00:04; Start 01/29/17 at 14:45; Stop 02/03/17 at 14:44; Status DC Iohexol (Omnipaque 300 Mg/ml) 75 ml 1X ONCE IV Last administered on 01/30/17 11:08; Start 01/30/17 at 10:00; Stop 01/30/17 at 10:01; Status DC Iohexol (Omnipaque 240 Mg/ml) 50 ml 1X ONCE PO Last administered on 01/30/17t 11:08; Start 01/30/17 at 10:00; Stop 01/30/17 at 10:01; Status DC Info (Do NOT chart on this entry -- for MONITORING) 1 each PRN DAILY PRN MC SEE COMMENTS; Start 01/30/17 at 10:00; Stop 02/01/17 at 09:59; Status DC Ondansetron HCl (Zofran) 4 mg PRN Q6HRS PRN IV NAUSEA/VOMITING; Start 01/30/17 at 13:30; Stop 01/31/17 at 13:29; Status DC Fentanyl Citrate (Fentanyl 2ml Vial) 25 mcg PRN Q5MIN PRN IV MILD PAIN; Start 01/30/17 at 13:30; Stop 01/31/17 at 13:29; Status DC Fentanyl Citrate 50 mcg 50 mcg PRN Q5MIN PRN IV MODERATE PAIN; Start 01/30/17 at 13:30; Stop 01/31/17 at 13:29; Status DC Lactated Ringer's (Iv Lactated Ringers) 1,000 ml @ 30 mls/hr Q24H IV ; Start at 13:20; Stop 01/31/17 at 01:19; Status DC Lidocaine HCl 2 ml PRN 1X PRN ID PRIOR TO IV START; Start 01/30/17 at 13:30; Stop 01/31/17 at 13:29; Status DC Prochlorperazine Edisylate (Compazine) 5 mg PACU PRN PRN IV NAUSEA, MRX1; Start 01/30/17 at 13:30; Stop 01/31/17 at 13:29; Status DC Lidocaine/Sodium Bicarbonate 20 ml 20 ml STK-MED ONCE IJ ; Start 01/30/17 at 13: 26; Stop 01/30/17 at 13:27; Status DC Propofol 20 ml @ As Directed STK-MED ONCE IV ; Start 01/30/17 at 13:33; Stop at 13:34; Status DC Propofol (Diprivan) 20 ml @ As Directed STK-MED ONCE IV ; Start 01/30/17 at 13: 34; Stop 01/30/17 at 13:35; Status DC Ketamine HCl 500 mg STK-MED ONCE .ROUTE ; Start 01/30/17 at 13:39; Stop at 13:40; Status DC Lidocaine/Sodium Bicarbonate (Buffered Lidocaine 1%) 20 ml 1X ONCE IJ Last administered on 01/30/17 14:42; Start 01/30/17 at 14:15; Stop 01/30/17 at 14:16 ; Status DC Iohexol (Omnipaque 300 Mg/ml) 50 ml STK-MED ONCE .ROUTE ; Start 01/30/17 at 14: 34; Stop 01/30/17 at 14:35; Status DC Acetaminophen (Tylenol) 650 mg PRN Q6HRS PRN PO FEVER; Start 01/31/17 at 13:45 Ondansetron HCl (Zofran) 4 mg PRN Q6HRS PRN IV NAUSEA/VOMITING; Start 01/31/17 at 13:45; Stop 02/02/17 at 22:17; Status DC Pantoprazole Sodium 40 mg 40 mg DAILYAC IVP Last administered on 02/02/17 07: 28; Start 01/31/17 at 14:00; Stop 02/02/17 at 22:17; Status DC Ceftriaxone Sodium 2 gm/ Sodium Chloride 100 ml @ 200 mls/hr Q24H IV Last administered on 02/10/17 13:05; Start 02/02/17 at 13:00 Metronidazole (FLAGYL 500Mmg PREMIX) 100 ml @ 100 mls/hr Q8HRS IV Last administered on 02/10/17 13:58; Start 02/02/17 at 14:00 Simethicone (Gas-X) 160 mg PRN Q4HRS PRN PO GAS / BLOATING Last administered on 02/05/17 08:33; Start 02/02/17 at 20:00 Hydromorphone HCl (Dilaudid) 1 mg PRN Q2HRS PRN IV SEVERE PAIN Last administered on 02/03/17 11:33; Start 02/02/17 at 19:30; Stop 02/03/17 at 12:54 ; Status DC Oxycodone HCl (Roxicodone) 1 tab for pain 5-7 2 tabs ... PRN Q6HRS PRN PO PAIN Last administered on 02/03/17 01:58; Start 02/02/17 at 22:15; Stop 02/03/17 at 06:38; Status DC Oxycodone HCl (Roxicodone) 5 mg PRN Q6HRS PRN PO PAIN; Start 02/03/17 at 06:45 ; Stop 02/03/17 at 12:57; Status DC Oxycodone HCl (Roxicodone) 10 mg PRN Q6HRS PRN PO PAIN Last administered on 05:35; Start 02/03/17 at 06:45 Hydromorphone HCl (Dilaudid) 1 mg PRN Q4HRS PRN IV SEVERE PAIN Last administered on 02/05/17 00:38; Start 02/03/17 at 13:00; Stop 02/05/17 at 02:49 ; Status DC Oxycodone HCl (Roxicodone) 5 mg PRN Q6HRS PRN PO MILD PAIN; Start 02/03/17 at 13:00 Iohexol (Omnipaque 240 Mg/ml) 30 ml 1X ONCE PO Last administered on 02/04/17 10:55; Start 02/04/17 at 09:00; Stop 02/04/17 at 09:01; Status DC Iohexol (Omnipaque 300 Mg/ml) 75 ml 1X ONCE IV Last administered on 02/04/17 10:55; Start 02/04/17 at 09:00; Stop 02/04/17 at 09:01; Status DC Info (Do NOT chart on this entry -- for MONITORING) 1 each PRN DAILY PRN MC SEE COMMENTS; Start 02/04/17 at 09:00; Stop 02/06/17 at 08:59; Status DC Polyethylene Glycol (miraLAX PACKET) 17 gm 1X ONCE PO Last administered on 11:53; Start 02/04/17 at 11:45; Stop 02/04/17 at 11:46; Status DC Polyethylene Glycol (miraLAX PACKET) 17 gm DAILY PO ; Start 02/05/17 at 09:00; Stop 02/05/17 at 10:04; Status DC Docusate Sodium (Colace) 100 mg DAILY PO Last administered on 02/04/17 11:53; Start 02/04/17 at 11:45; Stop 02/05/17 at 11:02; Status DC Zolpidem Tartrate (Ambien) 5 mg PRN QHS PRN PO INSOMNIA, MAY REPEAT IN 1HR; Start 02/04/17 at 12:45 Lorazepam (Ativan) 1 mg PRN Q8HRS PRN IV ANXIETY / AGITATION; Start 02/04/17 at 12:45 Hydromorphone HCl (Dilaudid) 2 mg PRN Q2HR PRN IV SEVERE PAIN Last administered on 02/10/17t 15:17; Start 02/05/17 at 03:00 Active Scripts Active Reported No Known Medications Prior To Admisstion (Info) Each 1 Each Vitals/I & O Vital Sign - Last 24 Hours 02/09/17 02/09/17 02/09/17 02/09/17 18:06 18:36 19:00 20:15 Temp 97.9 97.9 Pulse 69 Resp 20 B/P 137/74 Pulse Ox 95 O2 Delivery Room Air Room Air Room Air O2 Flow Rate 2.0 02/09/17 02/09/17 02/09/17 02/10/17 20:22 22:46 23:00 00:49 Temp 98.1 98.1 Pulse 67 Resp 20 20 20 20 B/P 117/73 Pulse Ox 95 95 98 98 O2 Delivery Room Air Room Air Room Air Room Air 02/10/17 02/10/17 02/10/17 02/10/17 02:33 03:00 03:03 05:23 Resp 20 20 20 Pulse Ox 98 98 98 O2 Delivery Room Air Room Air 02/10/17 02/10/17 02/10/17 02/10/17 05:53 07:10 08:15 08:20 Temp 97.9 97.9 Pulse 60 Resp 20 18 B/P 124/84 Pulse Ox 98 O2 Delivery Room Air Room Air Room Air 02/10/17 02/10/17 02/10/17 02/10/17 10:53 10:58 13:05 14:45 Temp 98.6 97.7 98.6 97.7 Pulse 65 71 Resp 18 18 B/P 110/73 124/79 Pulse Ox 97 96 O2 Delivery Room Air Room Air Room Air Room Air 02/10/17 02/10/17 15:17 15:53 O2 Delivery Room Air Room Air Intake and Output 5/1/17 5/1/17 5/2/17 15:00 23:00 07:00 Intake Total 500 ml 800 ml 200 ml Balance 500 ml 800 ml 200 ml MAURICIO TOMAS MD February 10, 2017 17:26
[2017-02-10 19:00] VITALS: BP 134/78
[2017-02-10 23:00] VITALS: BP 126/75
[2017-02-11] MEDS: HYDROmorphone 2 MG/ML VIAL IV PRN ×6 (00:32→14:49)
[2017-02-11 03:00] VITALS: BP 133/90
[2017-02-11] MEDS: METRONIDAZOLE 500mg PREMIX 100 ML IV SCH (05:20)
[2017-02-11] MEDS ORDERED: CONTRAST GIVEN MC PRN (06:45)
[2017-02-11 07:00] VITALS: BP 130/83
[2017-02-11] MEDS ORDERED: IOHEXOL 240 MG/ML 50ML VIAL. PO ONE (07:00)
[2017-02-11] MEDS ORDERED: IOHEXOL 300 MG/ML 75 ML VIAL IV ONE (07:00)
--- NOTE | 2017-02-11 10:24 | RAD ---
Indication follow-up diverticulitis. Abscess. Axial images through the abdomen and pelvis were obtained. Both oral and IV contrast were administered. Comparison is made to an examination 01/30/2017. Note is made of the interventional procedure also 01/30/2017 and the follow-up examination 02/04/2017. Approximately 75 cc of Omnipaque 300 was administered intravenously. Comparison is made to the study 02/04/2017. The lung bases are clear. Pneumoperitoneum, seen previously, has resolved. The liver and spleen appear unremarkable and the gallbladder appears grossly normal. No adrenal pancreatic or renal pathology is seen. An unexpected finding in the abdomen is not seen. Percutaneous drain adjacent to the sigmoid colon is again seen. Inflammatory changes adjacent to the sigmoid colon continue to improve with only minimal inflammation seen on the current study. No significant residual or recurrent abscess is seen. A new finding is that apparent in the pelvis. IMPRESSION: Continued improvement. Inflammatory changes surrounding the sigmoid colon continue to improve. No new finding is seen in the abdomen or pelvis. No significant residual abscess or recurrent abscess is seen. Pneumoperitoneum, seen previously, has resolved PQRS Compliance Statement: One or more of the following individualized dose reduction techniques were utilized for this examination: 1. Automated exposure control 2. Adjustment of the mA and/or kV according to patient size 3. Use of iterative reconstruction technique
--- NOTE | 2017-02-11 10:26 | PDOC ---
Infectious Disease Note Subjective Subjective feeling good, some nausea ROS ROS GEN: Denies fevers, chills, sweats HEENT: Denies blurred vision, sore throat CV: Denies chest pain RESP: Denies shortness of air, cough GI: Denies n/v/d NEURO: Denies confusion, dizziness MSK: Denies weakness, joint pain/swelling Vital Sign Vital Signs Vital Signs Date Time Temp Pulse Resp B/P Pulse Ox O2 Delivery O2 Flow Rate FiO2 02/11/17 10:18 Room Air 02/11/17 07:00 97.7 59 18 130/83 99 97.7 Physical Exam PHYSICAL EXAM GENERAL: NAD, Alert HEENT: PERRL, OC/OP NECK: Supple, no JVD, no LN LUNGS: Clear HEART: S1S2, no gallop, no murmur ABD: Soft, NT, no organomegaly, no rebound EXT: No edema, no cyanosis WEATHER STRIPPER: Alert, oriented x 3, no focal neurologic deficit SKIN: No rash IV: ok Objective Assessment Diverticulitis with perforation. Repeat CT today Abscess s/p drain 01/30 Ecoli and Bacteroides Amox allergy - Plan Plan of Care Cont Rocephin/Flagyl Supportive care soon change to po vantin and flagyl if ct better, then to d/c soon KARTIK HAWTHORNE MD February 11, 2017 10:26
[2017-02-11 11:00] VITALS: BP 128/81
[2017-02-11] MEDS: HYDROmorphone 2 MG TABLET PO PRN ×2 (12:01→16:13)
[2017-02-11] MEDS: ENOXAPARIN 40 MG/0.4 ML SYRINGE. SQ SCH (12:02)
[2017-02-11] MEDS ORDERED: HYDR2TAB13 PO (12:20)
--- NOTE | 2017-02-11 12:28 | PDOC3 ---
Discharge Summary [facility] Date of Admission: Jan 27, 2017 Discharge Date: February 11, 2017 Admitting Diagnosis 1. diverticulitis with micro perf and abscess formation: s/p drain placement RLQ on 01/30. culture growing E.coli and Bacteroids 2. Peritonitis: Flagyl, ceftriaxone 3. Sepsis: resolved 4. Nutrition: starting on clears w/o N/V. advance as per surg service 5. Pain control: IV fentanyl Problems: Final Diagnosis CONSULTS id sx Brief Hospital Course Mr. Sepulveda is a 26 old M, comes for abd pain, was found microperforation with diverticulitis, he got IR drainage on 01/30 on RLQ, cont having abd pain, repeated CT 2 times showing better inflammation. Pt still has the ANKUR, defer to sx if want to remove it. Pt has been on iv abx ever since, dc with 5days of vantin and flagyl. dilaudid 2mg x20 pills. pt still has severe abd pain ,refused to take oxycodone saying making him constipation, but takes dilaudid iv q2hs. the pain is possiblly 2/2 the ANKUR, which has only 5cc drainage daily. no fever, wbc normal. dc home today if ok with sx dc time 35min Physical Exam + anxiety General: Alert, Oriented X3, Cooperative, No acute distress Heart: Regular rate Lungs: Clear Abdomen: Soft, Other (ND, minimal tenderness to lower abdomen, drain in place no drainage) Extremities: No clubbing Skin: No rashes Patient History: Problems: Disposition home CONDITION AT DISCHARGE: Improved Diet regular Scheduled PRN Hydromorphone Hcl (Dilaudid) 2 MG PO PRN Q4HRS PRN PRN PAIN Discontinued Medications Info (No Known Medications Prior To Admisstion) 1 EACH (Reported) Follow Up sx next week CORA DEL VALLE MD February 11, 2017 12:28
--- NOTE | 2017-02-11 13:05 | PDOC ---
PROGRESS NOTES Subjective Subjective doing well Objective Objective Vital Signs Date Time Temp Pulse Resp B/P Pulse Ox O2 Delivery O2 Flow Rate FiO2 02/11/17 12:01 Room Air 02/11/17 11:00 96.3 67 18 128/81 96 96.3 02/09/17 18:36 2.0 Intake and Output 02/11/17 07:00 Intake Total 740 ml Output Total 5 ml Balance 735 ml Intake Oral 540 ml IV Total 200 ml Drainage Total 5 ml # Voids 4 Physical Exam Abdomen: Soft, No tenderness Heart: Regular rate Extremities: No cyanosis General: Alert, Oriented X3, Cooperative HEENT: Atraumatic MUSCULOSKELETAL: No joint tenderness Psych/Mental Status: Mental status NL Assessment Assessment Problems Medical Problems: (1) Acute diverticulitis Status: Acute Plan Plan of Care CT with continued improvement; drain removed; ok to discharge. May FU with me as outpatient in 2-4 weeks, would recommend GI outpatient FU as well since will need colonoscopy Comment Review of Relevant I have reviewed the following items matilde (where applicable) has been applied. Labs Microbiology 01/30/17 Anaerobic/Aerobic Culture - Final, Complete 01/30/17 Anaerobic Culture Result 1 (PRANAV) - Final, Complete 01/30/17 Aerobic Culture - Final, Complete 01/30/17 Aerobic Culture Result 1 (PRANAV) - Final, Complete 01/30/17 Antimicrobic Susceptibility - Final, Complete Medications Current Medications Sodium Chloride (Iv Sodium Chloride 0.9% 1000ml Bag) 1,000 ml @ 1,000 mls/hr Q1H IV Last administered on 01/27/17 01:24; Start 01/27/17 at 01:30; Stop at 02:29; Status DC Fentanyl Citrate (Fentanyl 2ml Vial) 50 mcg 1X ONCE IV Last administered on 01:26; Start 01/27/17 at 01:30; Stop 01/27/17 at 01:31; Status DC Ondansetron HCl (Zofran) 4 mg 1X ONCE IV Last administered on 01/27/17 01:24 ; Start 01/27/17 at 01:30; Stop 01/27/17 at 01:31; Status DC Iohexol (Omnipaque 300 Mg/ml) 75 ml 1X ONCE IV Last administered on 01/27/17 02:00; Start 01/27/17 at 02:00; Stop 01/27/17 at 02:01; Status DC Info (Do NOT chart on this entry -- for MONITORING) 1 each PRN DAILY PRN MC SEE COMMENTS; Start 01/27/17 at 01:45; Stop 01/29/17 at 01:44; Status DC Hydromorphone HCl 1 mg 1 mg 1X ONCE IV Last administered on 01/27/17 02:19; Start 01/27/17 at 02:30; Stop 01/27/17 at 02:31; Status DC Meropenem/Sodium Chloride (Merrem/Iv Sodium Chloride 0.9% 100ml) 100 ml @ 200 mls/hr 1X ONCE IV Last administered on 01/27/17 03:11; Start 01/27/17 at 03: 30; Stop 01/27/17 at 03:59; Status DC Ondansetron HCl 4 mg 4 mg PRN Q8HRS PRN IV NAUSEA/VOMITING; Start 01/27/17 at 03:15; Stop 01/28/17 at 03:14; Status DC Sodium Chloride (Iv Sodium Chloride 0.9% 1000ml Bag) 1,000 ml @ 150 mls/hr Q6H40M IV Last administered on 01/27/17 21:07; Start 01/27/17 at 03:05; Stop 01/28/17 at 03:04; Status DC Acetaminophen (Tylenol) 650 mg PRN Q4HRS PRN PO FEVER Last administered on 01/27 03:56; Start 01/27/17 at 03:15; Stop 01/28/17 at 03:14; Status DC Hydromorphone HCl 1 mg 1 mg PRN Q2HRS PRN IV SEVERE PAIN Last administered on 10:07; Start 01/27/17 at 03:15; Stop 01/27/17 at 10:14; Status DC Potassium Chloride 100 ml @ 100 mls/hr Q1H IV Last administered on 01/27/17 12:48; Start 01/27/17 at 09:30; Stop 01/27/17 at 11:29; Status DC Meropenem/Sodium Chloride (Merrem/Iv Sodium Chloride 0.9% 100ml) 100 ml @ 200 mls/hr Q8HRS IV Last administered on 02/02/17 05:37; Start 01/27/17 at 11:00; Stop 02/02/17 at 11:43; Status DC Morphine Sulfate 10 mg PRN Q2HR PRN IV PAIN; Start 01/27/17 at 10:15; Status UNV Hydromorphone HCl (Dilaudid) 2 mg PRN Q2HRS PRN IV SEVERE PAIN Last administered on 02/02/17 17:24; Start 01/27/17 at 10:15; Stop 02/02/17 at 19:20 ; Status DC Fentanyl Citrate (Fentanyl 2ml Vial) 50 mcg PRN Q2HR PRN IV PAIN; Start at 10:15; Stop 02/02/17 at 22:17; Status DC Fentanyl (Duragesic 12mcg/ Hr Patch) 1 patch 1X ONCE TD Last administered on 10:32; Start 01/28/17 at 09:45; Stop 01/28/17 at 09:47; Status DC Enoxaparin Sodium (Lovenox Per Pharmacy Prophylaxis Dosing) 1 each PRN DAILY PRN MC SEE COMMENTS; Start 01/28/17 at 10:30; Stop 02/05/17 at 12:24; Status DC Enoxaparin Sodium 40 mg 40 mg Q24H SQ Last administered on 02/11/17 12:02; Start 01/28/17 at 11:00 Dextrose/Sodium Chloride (Iv D5% - 1/2 NS) 1,000 ml @ 125 mls/hr Q8H IV Last administered on 02/09/17 20:21; Start 01/28/17 at 15:15; Stop 02/10/17 at 10:18; Status DC Ketorolac Tromethamine (Toradol) 15 mg PRN Q12HR PRN IV PAIN Last administered on 02/03/17 00:04; Start 01/29/17 at 14:45; Stop 02/03/17 at 14:44; Status DC Iohexol (Omnipaque 300 Mg/ml) 75 ml 1X ONCE IV Last administered on 01/30/17 11:08; Start 01/30/17 at 10:00; Stop 01/30/17 at 10:01; Status DC Iohexol (Omnipaque 240 Mg/ml) 50 ml 1X ONCE PO Last administered on 4/21/17at 11:08; Start 01/30/17 at 10:00; Stop 01/30/17 at 10:01; Status DC Info (Do NOT chart on this entry -- for MONITORING) 1 each PRN DAILY PRN MC SEE COMMENTS; Start 01/30/17 at 10:00; Stop 02/01/17 at 09:59; Status DC Ondansetron HCl (Zofran) 4 mg PRN Q6HRS PRN IV NAUSEA/VOMITING; Start 01/30/17 at 13:30; Stop 01/31/17 at 13:29; Status DC Fentanyl Citrate (Fentanyl 2ml Vial) 25 mcg PRN Q5MIN PRN IV MILD PAIN; Start 01/30/17 at 13:30; Stop 01/31/17 at 13:29; Status DC Fentanyl Citrate 50 mcg 50 mcg PRN Q5MIN PRN IV MODERATE PAIN; Start 01/30/17 at 13:30; Stop 01/31/17 at 13:29; Status DC Lactated Ringer's (Iv Lactated Ringers) 1,000 ml @ 30 mls/hr Q24H IV ; Start at 13:20; Stop 01/31/17 at 01:19; Status DC Lidocaine HCl 2 ml PRN 1X PRN ID PRIOR TO IV START; Start 01/30/17 at 13:30; Stop 01/31/17 at 13:29; Status DC Prochlorperazine Edisylate (Compazine) 5 mg PACU PRN PRN IV NAUSEA, MRX1; Start 01/30/17 at 13:30; Stop 01/31/17 at 13:29; Status DC Lidocaine/Sodium Bicarbonate 20 ml 20 ml STK-MED ONCE IJ ; Start 01/30/17 at 13: 26; Stop 01/30/17 at 13:27; Status DC Propofol 20 ml @ As Directed STK-MED ONCE IV ; Start 01/30/17 at 13:33; Stop at 13:34; Status DC Propofol (Diprivan) 20 ml @ As Directed STK-MED ONCE IV ; Start 01/30/17 at 13: 34; Stop 01/30/17 at 13:35; Status DC Ketamine HCl 500 mg STK-MED ONCE .ROUTE ; Start 01/30/17 at 13:39; Stop at 13:40; Status DC Lidocaine/Sodium Bicarbonate (Buffered Lidocaine 1%) 20 ml 1X ONCE IJ Last administered on 01/30/17 14:42; Start 01/30/17 at 14:15; Stop 01/30/17 at 14:16 ; Status DC Iohexol (Omnipaque 300 Mg/ml) 50 ml STK-MED ONCE .ROUTE ; Start 01/30/17 at 14: 34; Stop 01/30/17 at 14:35; Status DC Acetaminophen (Tylenol) 650 mg PRN Q6HRS PRN PO FEVER; Start 01/31/17 at 13:45 Ondansetron HCl (Zofran) 4 mg PRN Q6HRS PRN IV NAUSEA/VOMITING; Start 01/31/17 at 13:45; Stop 02/02/17 at 22:17; Status DC Pantoprazole Sodium 40 mg 40 mg DAILYAC IVP Last administered on 02/02/17 07: 28; Start 01/31/17 at 14:00; Stop 02/02/17 at 22:17; Status DC Ceftriaxone Sodium 2 gm/ Sodium Chloride 100 ml @ 200 mls/hr Q24H IV Last administered on 02/11/17 12:01; Start 02/02/17 at 13:00 Metronidazole (FLAGYL 500Mmg PREMIX) 100 ml @ 100 mls/hr Q8HRS IV Last administered on 02/11/17 05:20; Start 02/02/17 at 14:00; Stop 02/11/17 at 07:36; Status DC Simethicone (Gas-X) 160 mg PRN Q4HRS PRN PO GAS / BLOATING Last administered on 02/05/17 08:33; Start 02/02/17 at 20:00 Hydromorphone HCl (Dilaudid) 1 mg PRN Q2HRS PRN IV SEVERE PAIN Last administered on 02/03/17 11:33; Start 02/02/17 at 19:30; Stop 02/03/17 at 12:54 ; Status DC Oxycodone HCl (Roxicodone) 1 tab for pain 5-7 2 tabs ... PRN Q6HRS PRN PO PAIN Last administered on 02/03/17 01:58; Start 02/02/17 at 22:15; Stop 02/03/17 at 06:38; Status DC Oxycodone HCl (Roxicodone) 5 mg PRN Q6HRS PRN PO PAIN; Start 02/03/17 at 06:45 ; Stop 02/03/17 at 12:57; Status DC Oxycodone HCl (Roxicodone) 10 mg PRN Q6HRS PRN PO PAIN Last administered on 05:35; Start 02/03/17 at 06:45 Hydromorphone HCl (Dilaudid) 1 mg PRN Q4HRS PRN IV SEVERE PAIN Last administered on 02/05/17 00:38; Start 02/03/17 at 13:00; Stop 02/05/17 at 02:49 ; Status DC Oxycodone HCl (Roxicodone) 5 mg PRN Q6HRS PRN PO MILD PAIN; Start 02/03/17 at 13:00 Iohexol (Omnipaque 240 Mg/ml) 30 ml 1X ONCE PO Last administered on 02/04/17 10:55; Start 02/04/17 at 09:00; Stop 02/04/17 at 09:01; Status DC Iohexol (Omnipaque 300 Mg/ml) 75 ml 1X ONCE IV Last administered on 02/04/17 10:55; Start 02/04/17 at 09:00; Stop 02/04/17 at 09:01; Status DC Info (Do NOT chart on this entry -- for MONITORING) 1 each PRN DAILY PRN MC SEE COMMENTS; Start 02/04/17 at 09:00; Stop 02/06/17 at 08:59; Status DC Polyethylene Glycol (miraLAX PACKET) 17 gm 1X ONCE PO Last administered on 11:53; Start 02/04/17 at 11:45; Stop 02/04/17 at 11:46; Status DC Polyethylene Glycol (miraLAX PACKET) 17 gm DAILY PO ; Start 02/05/17 at 09:00; Stop 02/05/17 at 10:04; Status DC Docusate Sodium (Colace) 100 mg DAILY PO Last administered on 02/04/17 11:53; Start 02/04/17 at 11:45; Stop 02/05/17 at 11:02; Status DC Zolpidem Tartrate (Ambien) 5 mg PRN QHS PRN PO INSOMNIA, MAY REPEAT IN 1HR; Start 02/04/17 at 12:45 Lorazepam (Ativan) 1 mg PRN Q8HRS PRN IV ANXIETY / AGITATION; Start 02/04/17 at 12:45 Hydromorphone HCl (Dilaudid) 2 mg PRN Q2HR PRN IV SEVERE PAIN Last administered on 02/11/17 07:50; Start 02/05/17 at 03:00; Stop 02/11/17 at 09:52; Status DC Iohexol (Omnipaque 240 Mg/ml) 30 ml 1X ONCE PO Last administered on 02/11/17 07:00; Start 02/11/17 at 07:00; Stop 02/11/17 at 07:01; Status DC Iohexol (Omnipaque 300 Mg/ml) 75 ml 1X ONCE IV Last administered on 02/11/17 09:38; Start 02/11/17 at 07:00; Stop 02/11/17 at 07:01; Status DC Info (Do NOT chart on this entry -- for MONITORING) 1 each PRN DAILY PRN MC SEE COMMENTS; Start 02/11/17 at 06:45; Stop 02/13/17 at 06:44 Metronidazole (Flagyl) 500 mg Q8HRS PO ; Start 02/11/17 at 14:00 Hydromorphone HCl (Dilaudid) 2 mg PRN Q4HRS PRN IV SEVERE PAIN Last administered on 02/11/17 10:18; Start 02/11/17 at 10:00 Hydromorphone HCl (Dilaudid) 2 mg PRN Q4HRS PRN PO PAIN Last administered on 12:01; Start 02/11/17 at 10:30 Active Scripts Active Dilaudid (Hydromorphone Hcl) 2 Mg Tablet 2 Mg PO PRN Q4HRS PRN Vitals/I & O Vital Sign - Last 24 Hours 02/10/17 02/10/17 02/10/17 02/10/17 13:05 14:45 15:17 17:46 Temp 97.7 97.7 Pulse 71 Resp 18 B/P 124/79 Pulse Ox 96 O2 Delivery Room Air Room Air Room Air Room Air 5/202/10/17 02/10/17 02/10/17 19:00 20:00 20:19 22:34 Temp 97.9 97.9 Pulse 68 Resp 18 B/P 134/78 Pulse Ox 98 96 96 O2 Delivery Room Air Room Air Room Air Room Air 02/10/17 02/11/17 02/11/17 02/11/17 23:00 00:32 03:00 03:18 Temp 98.1 97.7 98.1 97.7 Pulse 63 67 Resp 18 18 B/P 126/75 133/90 Pulse Ox 95 95 99 95 O2 Delivery Room Air Room Air Room Air Room Air 02/11/17 02/11/17 02/11/17 02/11/17 05:20 05:50 07:00 07:50 Temp 97.7 97.7 Pulse 59 Resp 18 B/P 130/83 Pulse Ox 95 95 99 O2 Delivery Room Air Room Air Room Air Room Air 02/11/17 02/11/17 02/11/17 02/11/17 10:18 10:48 11:00 12:01 Temp 96.3 96.3 Pulse 67 Resp 18 B/P 128/81 Pulse Ox 96 O2 Delivery Room Air Room Air Room Air Room Air Intake and Output 02/10/17 02/10/17 02/11/17 15:00 23:00 07:00 Intake Total 120 ml 280 ml 340 ml Output Total 5 ml Balance 120 ml 280 ml 335 ml MAURICIO TOMAS MD February 11, 2017 13:05
[2017-02-11] MEDS ORDERED: METRONIDAZOLE 500 MG TABLET. PO SCH (14:00)
[2017-02-11] MEDS ORDERED: ONDANSETRON PF 4 MG/2 ML VIAL. IV PRN (14:00)
[2017-02-11 15:00] VITALS: BP 19/72
== END 2017-02-11 16:37 | disposition home or self-care (01) | DRG 872 ==
LOC: ER 00:36 → 5 NORTH 03:04
PROVIDERS: ADMIT Internal Medicine; ATTEND Internal Medicine
PROC: 0D9N30Z Drainage of Sigmoid Colon with Drainage Device, Percutaneous Approach (ICD-10-PCS; principal; 2017-01-30 14:00)
DX: A41.9 Sepsis, unspecified organism (principal); K57.20 Diverticulitis of large intestine with perforation and abscess without bleeding; E66.9 Obesity, unspecified; F41.9 Anxiety disorder, unspecified; Z16.11 Resistance to penicillins; M54.30 Sciatica, unspecified side; F12.90 Cannabis use, unspecified, uncomplicated; Z68.36 Body mass index [BMI] 36.0-36.9, adult; Z88.0 Allergy status to penicillin; Z87.442 Personal history of urinary calculi; Z88.5 Allergy status to narcotic agent; Z88.8 Allergy status to other drugs, medicaments and biological substances
CPT/HCPCS: 36415; 49406; 74177; 80048; 80053; 80076; 81001; 82947; 83690; 85027; 87071; 87075; 87186; 87205; 96361; 96374; 96375; A4215; C1729; C1892; C9113; J0696; J1170; J1650; J1885; J2185; J2405; J2704; J3010; J3480; J3490; J7030; Q9966; Q9967; 99285-25

== ENCOUNTER 2017-02-12 00:15 | Inpatient (IN) | payer SELFPAY ==
[~2017-02-12] VITALS: Ht 193 cm; Wt 129.3 kg
[~2017-02-12 00:15] MED LIST: HYDR2TAB13 PO
--- NOTE | 2017-02-12 00:21 | PHYS DOC ---
Past Medical History Past Medical History: Diverticulitis, Diverticulosis, Kidney Stone Past Surgical History: Other Additional Past Surgical Histo: "kidney stone surgury" Alcohol Use: None Drug Use: Marijuana Adult General Chief Complaint Chief Complaint: ABDOMINAL PAIN HPI HPI Patient is a 26 year old male presenting to the emergency department for evaluation of abdominal pain nausea vomiting. He was just admitted to the hospital from January 27 until yesterday at 4 PM and he says he could not control his pain or nausea at home. He has Dilaudid 2 mg prescribed says it is not helping his pain enough and that he cannot hold down anything by mouth. Patient was admitted for diverticulitis microperforation that was treated with the drain and is now removed. He had a CT scan yesterday that showed improvement of all his symptoms. Review of Systems Review of Systems Constitutional: Denies fever or chills [] Eyes: Denies change in visual acuity, redness, or eye pain [] HENT: Denies nasal congestion or sore throat [] Respiratory: Denies cough or shortness of breath [] Cardiovascular: No additional information not addressed in HPI [] GI: + abdominal pain, nausea, vomiting. No bloody stools or diarrhea [] : Denies dysuria or hematuria [] Musculoskeletal: Denies back pain or joint pain [] Integument: Denies rash or skin lesions [] Neurologic: Denies headache, focal weakness or sensory changes [] Current Medications Current Medications Current Medications Medications (Trade) Dose Ordered Sig/Bernardino Start Time Stop Time Status Last Admin Dose Admin Hydromorphone HCl (Dilaudid) 1 mg 1X ONCE 02/12/17 00:45 02/12/17 00:46 DC 02/12/17 00:52 1 MG Ondansetron HCl 8 mg 8 mg 1X ONCE 02/12/17 00:45 02/12/17 00:55 DC Promethazine HCl 12.5 mg/Sodium Chloride 50.5 ml @ 151.5 mls/ hr PRN Q6HRS PRN 02/12/17 01:00 02/12/17 01:08 151.5 MLS/HR Sodium Chloride (Iv Sodium Chloride 0.9% 1000ml Bag) 1,000 ml @ 200 mls/hr Q5H 02/12/17 01:26 02/13/17 01:25 UNV Allergies Allergies Allergies Coded Allergies Type Severity Reaction Last Updated Verified Penicillins Allergy Intermediate hives, TOLERATES CEFTRIAXONE, MEROPENEM Yes morphine Allergy Intermediate n/v, hives 02/11/17 Yes diphenhydramine Adverse Reaction Intermediate Anxiety 02/04/17 Yes ondansetron Adverse Reaction Mild 02/12/17 Yes Physical Exam Physical Exam Constitutional: Well developed, well nourished, no acute distress, non-toxic appearance. [] HENT: Normocephalic, atraumatic, bilateral external ears normal, oropharynx moist, no oral exudates, nose normal. [] Eyes: PERRLA, EOMI, conjunctiva normal, no discharge. [] Neck: Normal range of motion, no tenderness, supple, no stridor. [] Cardiovascular:Heart rate regular rhythm, no murmur [] Lungs & Thorax: Bilateral breath sounds clear to auscultation [] Abdomen: Bowel sounds normal, soft, + diffuse tenderness, voluntary guarding but no rebound, no masses, no pulsatile masses. [] Skin: Warm, dry, no erythema, no rash. [] Back: No tenderness, no CVA tenderness. [] Extremities: No tenderness, no cyanosis, no clubbing, ROM intact, no edema. [] Neurologic: Alert and oriented X 3, normal motor function, normal sensory function, no focal deficits noted. [] Current Patient Data Vital Signs Vital Signs Date Time Temp Pulse Resp B/P Pulse Ox O2 Delivery O2 Flow Rate FiO2 02/12/17 00:15 98.1 117 22 129/70 97 Room Air 98.1 Lab Values Laboratory Tests Test 02/12/17 00:30 White Blood Count 8.5x10^3/uL (4.0-11.0) Red Blood Count 5.67x10^6/uL (4.30-5.70) Hemoglobin 17.2g/dL (13.0-17.5) Hematocrit 50.2% (39.0-53.0) Mean Corpuscular Volume 89fL (79-100) Mean Corpuscular Hemoglobin 30pg (25-35) Mean Corpuscular Hemoglobin Concent 34g/dL (31-37) Red Cell Distribution Width 12.6% (11.5-14.5) Platelet Count 517x10^3/uL (140-400) H Neutrophils (%) (Auto) 58% (31-73) Lymphocytes (%) (Auto) 30% (24-48) Monocytes (%) (Auto) 9% (0-9) Eosinophils (%) (Auto) 2% (0-3) Basophils (%) (Auto) 1% (0-3) Neutrophils # (Auto) 4.9x10^3uL (1.8-7.7) Lymphocytes # (Auto) 2.6x10^3/uL (1.0-4.8) Monocytes # (Auto) 0.8x10^3/uL (0.0-1.1) Eosinophils # (Auto) 0.2x10^3/uL (0.0-0.7) Basophils # (Auto) 0.1x10^3/uL (0.0-0.2) Sodium Level 138mmol/L (136-145) Potassium Level 3.7mmol/L (3.5-5.1) Chloride Level 98mmol/L (98-107) Carbon Dioxide Level 28mmol/L (21-32) Anion Gap 12 (6-14) Blood Urea Nitrogen 12mg/dL (8-26) Creatinine 1.1mg/dL (0.7-1.3) Estimated GFR (Cockcroft-Gault) 80.3 BUN/Creatinine Ratio 11 (6-20) Glucose Level 126mg/dL (70-99) H Calcium Level 9.4mg/dL (8.5-10.1) Total Bilirubin 0.4mg/dL (0.2-1.0) Aspartate Amino Transferase (AST) 30U/L (15-37) Alanine Aminotransferase (ALT) 59U/L (16-63) Alkaline Phosphatase 76U/L (46-116) Total Protein 8.3g/dL (6.4-8.2) H Albumin 3.8g/dL (3.4-5.0) Albumin/Globulin Ratio 0.8 (1.0-1.7) L Lipase 377U/L (73-393) Laboratory Tests 02/12/17 00:30 Laboratory Tests 02/12/17 00:30 EKG EKG [] Radiology/Procedures Radiology/Procedures [] Course & Med Decision Making Course & Med Decision Making Patient is requesting admission for pain and nausea control. We will check labs and reassess and likely admit. Patient's labs unremarkable and CT done yesterday showed improvement so he will be admitted for further pain management. Dragon Disclaimer Dragon Disclaimer This electronic medical record was generated, in whole or in part, using a voice recognition dictation system. Departure Departure Impression: Primary Impression: Intractable abdominal pain Additional Impression: Intractable nausea and vomiting Disposition: ADMITTED INPATIENT Admitting Physician: Poly Pompa Condition: GOOD Referrals: NO PCP (PCP) Problem Qualifiers JAYA MONROY DO February 12, 2017 00:21
[2017-02-12 00:44] LABS: BASO # 0.1 x10^3/uL (0.0-0.2); BASO % 1 % (0-3); EOS % 2 % (0-3); HEMATOCRIT 50.2 % (39.0-53.0); HEMOGLOBIN 17.2 g/dL (13.0-17.5); LYMPH # 2.6 x10^3/uL (1.0-4.8); LYMPH % 30 % (24-48); MEAN CORPUSCULAR HEMOGLOBIN 30 pg (25-35); MEAN CORPUSCULAR HGB CONC 34 g/dL (31-37); MEAN CORPUSCULAR VOLUME 89 fL (79-100); MONO % 9 % (0-9); NEUT % 58 % (31-73); PLATELET COUNT 517 x10^3/uL (140-400); RED BLOOD COUNT 5.67 x10^6/uL (4.30-5.70); RED CELL DISTRIBUTION WIDTH 12.6 % (11.5-14.5); WHITE BLOOD COUNT 8.5 x10^3/uL (4.0-11.0)
[2017-02-12] MEDS ORDERED: HYDROmorphone 2 MG/ML VIAL IV ONE (00:45)
[2017-02-12] MEDS ORDERED: ONDANSETRON PF 4 MG/2 ML VIAL. IV ONE (00:45)
[2017-02-12] MEDS ORDERED: IV NORMAL SALINE 1000ML BAG 1,000 ML IV ONE (00:45)
[2017-02-12 00:53] LABS: CALCIUM 9.4 mg/dL (8.5-10.1); CREATININE 1.1 mg/dL (0.7-1.3); GFR 80.3; POTASSIUM 3.7 mmol/L (3.5-5.1)
[2017-02-12 00:58] LABS: ALBUMIN 3.8 g/dL (3.4-5.0); ALBUMIN/GLOBULIN RATIO 0.8 (1.0-1.7); TOTAL BILIRUBIN 0.4 mg/dL (0.2-1.0); TOTAL PROTEIN 8.3 g/dL (6.4-8.2)
[2017-02-12] MEDS: PROMETHAZINE 12.5 MG in IV NORMAL SALINE 50ML 50 ML IV PRN (01:08)
[2017-02-12] MEDS: HYDROmorphone 2 MG/ML VIAL IV PRN ×5 (02:00→23:14)
[2017-02-12 02:30] VITALS: BP 118/74
[2017-02-12] MEDS: IV NORMAL SALINE 1000ML BAG 1,000 ML IV SCH ×5 (02:40→23:15)
[2017-02-12 07:00] VITALS: BP 122/60
--- NOTE | 2017-02-12 07:57 | ACF ---
Admission Forms Criteria ABDOMINAL PAIN Clinical Indications for Admission to Inpatient Care (Place 'X' for any and all applicable criteria): Admission is indicated for ANY ONE of the following(1)(2)(3)(4)(5): [X]I. Inpatient admission required rather than observation care (Also use Abdominal Pain: Observation Care, as appropriate) because of ANY ONE of the following: [X]a) Severe pain requiring acute inpatient management [ ]b) Identification of etiology/finding that requires inpatient care (eg, aortic dissection, free air) [ ]c) Absent bowel sounds with complete ileus(6) [ ]d) Suspected toxic megacolon [ ]e) Severe electrolyte abnormalities requiring inpatient care [ ]f) High fever or infection requiring inpatient admission as indicated by ANY ONE of following(7)(8): [ ] i) Appropriate outpatient or observational care antimicrobial treatment unavailable, not effective, or not feasible [ ] ii) Documented bacteremia [ ] iii) Temperature > 104.9 degrees F (oral) [ ] iv) T >103.1 F (oral) or < 96.8 F(rectal) that does not respond to all emergency treatment measures [ ]g) Signs of intestinal obstruction [B] [ ]h) Hemodynamic instability [ ]i) IV fluid to replace significant ongoing losses (greater than 3 L/m2 per day) (12)(13) [ ]j) Percutaneous or open drainage (eg, abscess, biliary tract ) procedures [ ]k) Parenteral nutrition regimen that must be implemented on inpatient basis [ ]l) Other condition,treatment or monitoring requiring inpatient admission. [ ]II. Peritoneal signs present [ ]III. Surgery needed that cannot be performed on an ambulatory basis. [ ]IV. Evaluation requires patient to not eat or drink for extended period ( eg, more than 24 hours). [ ]V. Contraindications and/or Inappropriate clinical situations for Observational Care in patients with abdominal pain, when ANY ONE of the following is required: [ ]a) Thorough evaluation is required to prevent catastrophic events due to delays in diagnosing (e.g.Mesenteric ischemia) 1,3 [ ]b) Patient with severe pathology or with chronic symptoms unlikely to improve in the ED stay (3) [ ]. General contraindications and/or Inappropriate clinical situations for Observational Care in patients with abdominal pain, when ANY ONE of the following is required: [ ]a) Prediction of prolongation of LOS based on ANY ONE of the following may be considered as a contraindication for observational care 2, 3, 4, 5, 6, 7, 8, 9, 10, 11 [ ]i) Age > 65 yrs. [ ]ii) Patient arriving by ambulance [ ]iii) Patient with high acuity [ ]iv) Patient requiring vital sign monitoring [ ]v) Patient on IV medication [ ]b) Systolic blood pressures 180mmHg 3,12 [ ]c) Patient with altered mental status including delirium and other alteration of consciousness, (3) [ ]d) Patient whose discharge disposition will be to a longterm home or rehabilitation home should not be managed in Emergency Department Observation Unit. CMS rule requires 3 days hospital stay before such placement.3,13 [ ]e) Patient with failure to thrive due to broad array of etiologies 3,16,17 [ ]f) Inability to ambulate 3,14 Extended stay beyond goal length of stay may be needed for(2)(3): [ ]a) Persistent abdominal pain with suspected intra-abdominal process [ ]b) Diagnosed condition requiring continued stay (e.g., pancreatitis, complicated diverticulitis) [ ]c) Surgery (e.g., colectomy) The original [facility] content created by [employer] has been revised. The portions of the content which have been revised are identified through the use of italic text or in bold, and [facility] has neither reviewed nor approved the modified material.All other unmodified content is copyright [employer]. Please see references footnoted in the original [facility] edition 2016 Admission Criteria Met?: Yes TOY KEENAN February 12, 2017 07:57
[2017-02-12] MEDS ORDERED: HYDROmorphone 2 MG/ML VIAL IV PRN ×2 (08:00→09:00)
[2017-02-12] MEDS ORDERED: ACETAMINOPHEN 325 MG TABLET. PO PRN (08:15)
[2017-02-12] MEDS ORDERED: ONDANSETRON PF 4 MG/2 ML VIAL. IV PRN (08:15)
[2017-02-12] MEDS ORDERED: HYDROmorphone 2 MG TABLET PO PRN (08:15)
[2017-02-12] MEDS: metroNIDAZOLE 500 MG TABLET PO SCH ×2 (09:15→20:10)
[2017-02-12] MEDS: CEFPODOXIME PROXETIL 100 MG TABLET. PO SCH ×2 (09:15→20:10)
--- NOTE | 2017-02-12 10:16 | PDOC2 ---
SERGE BOB WASHER CUTTER 02/12/17 1016: CONSULT Date of Consult Date of Consult DATE: 02/12/17 TIME: 10:05 Reason for Consult Reason for Consult: diverticulitis Referring Physician Referring Physician: Dr Colbert Identification/Chief Complaint Chief Complaint abdominal pain Source Source: Chart review, Patient History of Present Illness Reason for Visit: Discharged yesterday afternoon, returned last night--abdominal pain across lower abdomen, vomiting, and diarrhea. Patient know from last admission, diverticulitis. Prior to discharge he had a CT showing continued improvement, drain was pulled and discharged on oral antibiotics. Past Medical History Cardiovascular: No pertinent hx Pulmonary: No pertinent hx Musculoskeletal: low back pain Rheumatologic: No pertinent hx Infectious disease: No pertinent hx Renal/: No pertinent hx Endocrine: No pertinent hx Past Surgical History Past Surgical History: No pertinent history Family History Family History: No Significant Social History No ALCOHOL: rare Drugs: Marijuana Lives: with Family Current Problem List Problem List Problems Medical Problems: (1) Intractable abdominal pain Status: Acute (2) Intractable nausea and vomiting Status: Acute Current Medications Current Medications Current Medications Hydromorphone HCl (Dilaudid) 1 mg 1X ONCE IV Last administered on 02/12/17 00: 52; Start 02/12/17 at 00:45; Stop 02/12/17 at 00:46; Status DC Ondansetron HCl (Zofran) 8 mg 1X ONCE IV ; Start 02/12/17 at 00:45; Stop at 00:55; Status DC Sodium Chloride 1,000 ml @ 1,000 mls/hr 1X ONCE IV Last administered on 00:51; Start 02/12/17 at 00:45; Stop 02/12/17 at 01:44; Status DC Promethazine HCl 12.5 mg/Sodium Chloride 50.5 ml @ 151.5 mls/ hr PRN Q6HRS PRN IV NAUSEA/VOMITING Last administered on 02/12/17 01:08; Start 02/12/17 at 01: 00 Sodium Chloride 1,000 ml @ 200 mls/hr Q5H IV Last administered on 02/12/17 09: 15; Start 02/12/17 at 01:45; Stop 02/13/17 at 01:44 Hydromorphone HCl (Dilaudid) 1 mg PRN Q2HR PRN IV PAIN Last administered on 02/12 02:00; Start 02/12/17 at 01:45; Stop 02/12/17 at 07:54; Status DC Hydromorphone HCl (Dilaudid) 2 mg PRN Q2HR PRN IV PAIN; Start 02/12/17 at 08:00 ; Stop 02/12/17 at 08:07; Status DC Hydromorphone HCl (Dilaudid) 2 mg PRN Q4HRS PRN IV PAIN Last administered on 09:15; Start 02/12/17 at 09:00 Acetaminophen (Tylenol) 650 mg PRN Q6HRS PRN PO FEVER; Start 02/12/17 at 08:15 Ondansetron HCl (Zofran) 4 mg PRN Q6HRS PRN IV NAUSEA/VOMITING; Start 02/12/17 at 08:15 Hydromorphone HCl (Dilaudid) 2 mg PRN Q4HRS PRN PO PAIN; Start 02/12/17 at 08:15 ; Stop 02/12/17 at 09:08; Status DC Cefpodoxime Proxetil (Vantin) 200 mg BID PO Last administered on 02/12/17 09:15 ; Start 02/12/17 at 09:00 Metronidazole (Flagyl) 500 mg Q12HR PO Last administered on 02/12/17 09:15; Start 02/12/17 at 09:00 Hydromorphone HCl (Dilaudid) 4 mg PRN Q4HRS PRN PO PAIN; Start 02/12/17 at 09:15 Active Scripts Active Dilaudid (Hydromorphone Hcl) 2 Mg Tablet 2 Mg PO PRN Q4HRS PRN Allergies Allergies: Coded Allergies: Penicillins (Verified Allergy, Intermediate, hives, TOLERATES CEFTRIAXONE , MEROPENEM, 02/04/17) morphine (Verified Allergy, Intermediate, n/v, hives, 02/11/17) TOLERATES HYDROMORPHONE diphenhydramine (Verified Adverse Reaction, Intermediate, Anxiety, 02/04/17 ) and rash ondansetron (Verified Adverse Reaction, Mild, 02/12/17) headache ROS General: No: Chills, Other (fevers) PSYCHOLOGICAL ROS: No: Anxiety, Depression Eyes: No Blurry vision, No Double vision HEENT: No: Heacaches, Sore Throat Hematological and Lymphatic: No: Bleeding Problems, Blood Clots Respiratory: No: Cough, Shortness of breath Cardiovascular: No Chest Pain, No Palpitations Gastrointestinal: Yes Other (see hpi) Genitourinary: No Dysuria, No Hematuria Musculoskeletal: No Joint Pain, No Muscle Pain Neurological: No Impaired Coord/balance, No Numbness/Tingling Skin: No Pruritus, No Rash Physical Exam General: Alert, Oriented X3, Cooperative, No acute distress HEENT: PERRLA, Mucous membr. moist/pink Lungs: Clear to auscultation, Normal air movement Heart: Regular rate, Normal S1, Normal S2, No murmurs Abdomen: Soft, Other (ND, moderate TTP to RLQ, pelvic ) Extremities: No clubbing, No cyanosis Skin: No rashes, No breakdown Neuro: Normal speech, Sensation intact Psych/Mental Status: Mental status NL, Mood NL MUSCULOSKELETAL: No deformity, No swelling Vitals VITALS Vital Signs Date Time Temp Pulse Resp B/P (MAP) Pulse Ox O2 Delivery O2 Flow Rate FiO2 02/12/17 09:45 Room Air 02/12/17 07:00 98.0 67 18 122/60 (80) 96 98.0 Labs Labs Laboratory Tests Test 02/12/17 00:30 White Blood Count 8.5 x10^3/uL (4.0-11.0) Red Blood Count 5.67 x10^6/uL (4.30-5.70) Hemoglobin 17.2 g/dL (13.0-17.5) Hematocrit 50.2 % (39.0-53.0) Mean Corpuscular Volume 89 fL (79-100) Mean Corpuscular Hemoglobin 30 pg (25-35) Mean Corpuscular Hemoglobin Concent 34 g/dL (31-37) Red Cell Distribution Width 12.6 % (11.5-14.5) Platelet Count 517 x10^3/uL (140-400) Neutrophils (%) (Auto) 58 % (31-73) Lymphocytes (%) (Auto) 30 % (24-48) Monocytes (%) (Auto) 9 % (0-9) Eosinophils (%) (Auto) 2 % (0-3) Basophils (%) (Auto) 1 % (0-3) Neutrophils # (Auto) 4.9 x10^3uL (1.8-7.7) Lymphocytes # (Auto) 2.6 x10^3/uL (1.0-4.8) Monocytes # (Auto) 0.8 x10^3/uL (0.0-1.1) Eosinophils # (Auto) 0.2 x10^3/uL (0.0-0.7) Basophils # (Auto) 0.1 x10^3/uL (0.0-0.2) Sodium Level 138 mmol/L (136-145) Potassium Level 3.7 mmol/L (3.5-5.1) Chloride Level 98 mmol/L (98-107) Carbon Dioxide Level 28 mmol/L (21-32) Anion Gap 12 (6-14) Blood Urea Nitrogen 12 mg/dL (8-26) Creatinine 1.1 mg/dL (0.7-1.3) Estimated GFR (Cockcroft-Gault) 80.3 BUN/Creatinine Ratio 11 (6-20) Glucose Level 126 mg/dL (70-99) Calcium Level 9.4 mg/dL (8.5-10.1) Total Bilirubin 0.4 mg/dL (0.2-1.0) Aspartate Amino Transf (AST/SGOT) 30 U/L (15-37) Alanine Aminotransferase (ALT/SGPT) 59 U/L (16-63) Alkaline Phosphatase 76 U/L (46-116) Total Protein 8.3 g/dL (6.4-8.2) Albumin 3.8 g/dL (3.4-5.0) Albumin/Globulin Ratio 0.8 (1.0-1.7) Lipase 377 U/L (73-393) Laboratory Tests Test 02/12/17 00:30 White Blood Count 8.5 x10^3/uL (4.0-11.0) Red Blood Count 5.67 x10^6/uL (4.30-5.70) Hemoglobin 17.2 g/dL (13.0-17.5) Hematocrit 50.2 % (39.0-53.0) Mean Corpuscular Volume 89 fL (79-100) Mean Corpuscular Hemoglobin 30 pg (25-35) Mean Corpuscular Hemoglobin Concent 34 g/dL (31-37) Red Cell Distribution Width 12.6 % (11.5-14.5) Platelet Count 517 x10^3/uL (140-400) Neutrophils (%) (Auto) 58 % (31-73) Lymphocytes (%) (Auto) 30 % (24-48) Monocytes (%) (Auto) 9 % (0-9) Eosinophils (%) (Auto) 2 % (0-3) Basophils (%) (Auto) 1 % (0-3) Neutrophils # (Auto) 4.9 x10^3uL (1.8-7.7) Lymphocytes # (Auto) 2.6 x10^3/uL (1.0-4.8) Monocytes # (Auto) 0.8 x10^3/uL (0.0-1.1) Eosinophils # (Auto) 0.2 x10^3/uL (0.0-0.7) Basophils # (Auto) 0.1 x10^3/uL (0.0-0.2) Sodium Level 138 mmol/L (136-145) Potassium Level 3.7 mmol/L (3.5-5.1) Chloride Level 98 mmol/L (98-107) Carbon Dioxide Level 28 mmol/L (21-32) Anion Gap 12 (6-14) Blood Urea Nitrogen 12 mg/dL (8-26) Creatinine 1.1 mg/dL (0.7-1.3) Estimated GFR (Cockcroft-Gault) 80.3 BUN/Creatinine Ratio 11 (6-20) Glucose Level 126 mg/dL (70-99) Calcium Level 9.4 mg/dL (8.5-10.1) Total Bilirubin 0.4 mg/dL (0.2-1.0) Aspartate Amino Transf (AST/SGOT) 30 U/L (15-37) Alanine Aminotransferase (ALT/SGPT) 59 U/L (16-63) Alkaline Phosphatase 76 U/L (46-116) Total Protein 8.3 g/dL (6.4-8.2) Albumin 3.8 g/dL (3.4-5.0) Albumin/Globulin Ratio 0.8 (1.0-1.7) Lipase 377 U/L (73-393) Assessment/Plan Assessment/Plan Diverticulitis, improved on CT prior to discharge yesterday abdominal pain, diarrhea--will check C diff could consider sigmoid resection next week if c diff negative continue Vantin and Flagyl will review with MAURICIO Whalen MD 02/12/17 9908: CONSULT Allergies Allergies: Coded Allergies: Penicillins (Verified Allergy, Intermediate, hives, TOLERATES CEFTRIAXONE , MEROPENEM, 02/04/17) morphine (Verified Allergy, Intermediate, n/v, hives, 02/11/17) TOLERATES HYDROMORPHONE diphenhydramine (Verified Adverse Reaction, Intermediate, Anxiety, 02/04/17 ) and rash ondansetron (Verified Adverse Reaction, Mild, 02/12/17) headache Assessment/Plan Assessment/Plan Pt seen and examined by myself; above history noted, pt discharged yesterday with improving CT scan for diverticulitis; returned with lower abdominal pain, diarrhea, denies fever; PMH/PSH/ROS/SH as above; exam: alert, oriented, comfortable, no neck masses, lungs clear, heart RR and R, abdomen obese, soft, tender low abdomen bilaterally, no guarding, no masses, ext neg for edema or deformity, neuro function grossly intact (sensory and motor) at all 4 extremities; WBC normal. A/P) Abdominal pain, prior diverticulitis with perforation, improving based on labs/CT. Abdominal pain with diarrhea--pain seems more diffuse in lower abdomen, not as focal as before, ?other etiolgy. Agree with Cdiff testing. May take more time for patients symptoms to improve, may be separate etiology unrelated to diverticulitis; surgery with sigmoid colectomy is an option if pain remains recurrent and constant, however seems unlikely that this should be the case due to diverticulitis that is showing the improvement it has. Will follow, continue abx for now, CDiff testing, po intake ok. SERGE BOB APRN February 12, 2017 10:16 MAURICIO TOMAS MD February 12, 2017 17:48
[2017-02-12 11:00] VITALS: BP 114/65
--- NOTE | 2017-02-12 11:30 | PDOC1 ---
History and Physical Date of Admission Date of Admission 02/12/17 Identification/Chief Complaint Chief Complaint abd pain Problems: Source Source: Chart review, Patient History of Present Illness History of Present Illness Mr. Sepulveda is a 26 old M, who came for abd pain 3 weeks ago, was found microperforation with diverticulitis, he got IR drainage on 01/30 on RLQ, cont having abd pain, repeated CT 2 times showing better inflammation. pt cont have abd pain, ANKUR removed on 02/11 and dced on 02/11. Pt refused to take po pain meds when he was here for the past 3 weeks till the last day. Pt said 2mg dilaudid didnot help, has N/V and diarrhea when he went back home, and then came to ER on the night of DC. Past Medical History Cardiovascular: No pertinent hx Pulmonary: No pertinent hx Rheumatologic: No pertinent hx Infectious disease: No pertinent hx Renal/: No pertinent hx Endocrine: No pertinent hx Past Surgical History Past Surgical History: No pertinent history Family History Family History: No Significant Social History Smoke: No ALCOHOL: rare Drugs: Marijuana Current Problem List Problem List Problems Medical Problems: (1) Intractable abdominal pain Status: Acute (2) Intractable nausea and vomiting Status: Acute Current Medications Current Medications Current Medications Medications (Trade) Dose Ordered Sig/Bernardino Start Time Stop Time Status Last Admin Dose Admin Acetaminophen (Tylenol) 650 mg PRN Q6HRS PRN 02/12/17 08:15 Cefpodoxime Proxetil (Vantin) 200 mg BID 02/12/17 09:00 02/12/17 09:15 200 MG Hydromorphone HCl (Dilaudid) 4 mg PRN Q4HRS PRN 02/12/17 09:15 Metronidazole (Flagyl) 500 mg Q12HR 02/12/17 09:00 02/12/17 09:15 500 MG Ondansetron HCl (Zofran) 4 mg PRN Q6HRS PRN 02/12/17 08:15 Promethazine HCl 12.5 mg/Sodium Chloride 50.5 ml @ 151.5 mls/ hr PRN Q6HRS PRN 02/12/17 01:00 02/12/17 01:08 151.5 MLS/HR Sodium Chloride 1,000 ml @ 200 mls/hr Q5H 02/12/17 01:45 02/13/17 01:44 02/12/17 09:15 200 MLS/HR Allergies Allergies Allergies Coded Allergies Type Severity Reaction Last Updated Verified Penicillins Allergy Intermediate hives, TOLERATES CEFTRIAXONE, MEROPENEM Yes morphine Allergy Intermediate n/v, hives 02/11/17 Yes diphenhydramine Adverse Reaction Intermediate Anxiety 02/04/17 Yes ondansetron Adverse Reaction Mild 02/12/17 Yes ROS Review of System CONSTITUTIONAL: No fever or chills EYES: No recent changes SKIN: No rash or itching CARDIOVASCULAR: No chest pain, syncope, palpitations, or edema RESPIRATORY: No SOB or cough GASTROINTESTINAL: No nausea, vomiting or abdominal pain NEUROLOGICAL: No headaches or weakness ENDOCRINE: No cold or heat intolerance GENITOURINARY: No urgency or frequency of urination MUSCULOSKELETAL: No back pain or joint pain LYMPHATICS: No enlarged lymph nodes PSYCHIATRIC: No anxiety or depression Physical Exam Physical Exam GEN.: No apparent distress. Alert and oriented. HEENT: Head is normocephalic, atraumatic NECK: Supple. LUNGS: Clear to auscultation. HEART: RRR, S1, S2 present. Peripheral pulses intact ABDOMEN: Soft, Positive bowel sounds. diffused mild tenderness, mainly RLQ. EXTREMITIES: Without any cyanosis. NEUROLOGIC: Normal speech, normal tone PSYCHIATRIC: Normal affect, normal mood. SKIN: No ulcerations Vitals Vitals Vital Signs Date Time Temp Pulse Resp B/P (MAP) Pulse Ox O2 Delivery O2 Flow Rate FiO2 02/12/17 09:45 Room Air 02/12/17 07:00 98.0 67 18 122/60 (80) 96 98.0 Labs Labs Laboratory Tests Test 02/12/17 00:30 White Blood Count 8.5 x10^3/uL (4.0-11.0) Red Blood Count 5.67 x10^6/uL (4.30-5.70) Hemoglobin 17.2 g/dL (13.0-17.5) Hematocrit 50.2 % (39.0-53.0) Mean Corpuscular Volume 89 fL (79-100) Mean Corpuscular Hemoglobin 30 pg (25-35) Mean Corpuscular Hemoglobin Concent 34 g/dL (31-37) Red Cell Distribution Width 12.6 % (11.5-14.5) Platelet Count 517 x10^3/uL (140-400) Neutrophils (%) (Auto) 58 % (31-73) Lymphocytes (%) (Auto) 30 % (24-48) Monocytes (%) (Auto) 9 % (0-9) Eosinophils (%) (Auto) 2 % (0-3) Basophils (%) (Auto) 1 % (0-3) Neutrophils # (Auto) 4.9 x10^3uL (1.8-7.7) Lymphocytes # (Auto) 2.6 x10^3/uL (1.0-4.8) Monocytes # (Auto) 0.8 x10^3/uL (0.0-1.1) Eosinophils # (Auto) 0.2 x10^3/uL (0.0-0.7) Basophils # (Auto) 0.1 x10^3/uL (0.0-0.2) Sodium Level 138 mmol/L (136-145) Potassium Level 3.7 mmol/L (3.5-5.1) Chloride Level 98 mmol/L (98-107) Carbon Dioxide Level 28 mmol/L (21-32) Anion Gap 12 (6-14) Blood Urea Nitrogen 12 mg/dL (8-26) Creatinine 1.1 mg/dL (0.7-1.3) Estimated GFR (Cockcroft-Gault) 80.3 BUN/Creatinine Ratio 11 (6-20) Glucose Level 126 mg/dL (70-99) Calcium Level 9.4 mg/dL (8.5-10.1) Total Bilirubin 0.4 mg/dL (0.2-1.0) Aspartate Amino Transf (AST/SGOT) 30 U/L (15-37) Alanine Aminotransferase (ALT/SGPT) 59 U/L (16-63) Alkaline Phosphatase 76 U/L (46-116) Total Protein 8.3 g/dL (6.4-8.2) Albumin 3.8 g/dL (3.4-5.0) Albumin/Globulin Ratio 0.8 (1.0-1.7) Lipase 377 U/L (73-393) Laboratory Tests Test 02/12/17 00:30 White Blood Count 8.5 x10^3/uL (4.0-11.0) Red Blood Count 5.67 x10^6/uL (4.30-5.70) Hemoglobin 17.2 g/dL (13.0-17.5) Hematocrit 50.2 % (39.0-53.0) Mean Corpuscular Volume 89 fL (79-100) Mean Corpuscular Hemoglobin 30 pg (25-35) Mean Corpuscular Hemoglobin Concent 34 g/dL (31-37) Red Cell Distribution Width 12.6 % (11.5-14.5) Platelet Count 517 x10^3/uL (140-400) Neutrophils (%) (Auto) 58 % (31-73) Lymphocytes (%) (Auto) 30 % (24-48) Monocytes (%) (Auto) 9 % (0-9) Eosinophils (%) (Auto) 2 % (0-3) Basophils (%) (Auto) 1 % (0-3) Neutrophils # (Auto) 4.9 x10^3uL (1.8-7.7) Lymphocytes # (Auto) 2.6 x10^3/uL (1.0-4.8) Monocytes # (Auto) 0.8 x10^3/uL (0.0-1.1) Eosinophils # (Auto) 0.2 x10^3/uL (0.0-0.7) Basophils # (Auto) 0.1 x10^3/uL (0.0-0.2) Sodium Level 138 mmol/L (136-145) Potassium Level 3.7 mmol/L (3.5-5.1) Chloride Level 98 mmol/L (98-107) Carbon Dioxide Level 28 mmol/L (21-32) Anion Gap 12 (6-14) Blood Urea Nitrogen 12 mg/dL (8-26) Creatinine 1.1 mg/dL (0.7-1.3) Estimated GFR (Cockcroft-Gault) 80.3 BUN/Creatinine Ratio 11 (6-20) Glucose Level 126 mg/dL (70-99) Calcium Level 9.4 mg/dL (8.5-10.1) Total Bilirubin 0.4 mg/dL (0.2-1.0) Aspartate Amino Transf (AST/SGOT) 30 U/L (15-37) Alanine Aminotransferase (ALT/SGPT) 59 U/L (16-63) Alkaline Phosphatase 76 U/L (46-116) Total Protein 8.3 g/dL (6.4-8.2) Albumin 3.8 g/dL (3.4-5.0) Albumin/Globulin Ratio 0.8 (1.0-1.7) Lipase 377 U/L (73-393) VTE Prophylaxis Ordered VTE Prophylaxis Devices: Yes VTE Pharmacological Prophylaxi: Yes Assessment/Plan Assessment/Plan 1. recent diverticulitis with micro perf and abscess formation: s/p drain placement RLQ on 01/30 -02/11. culture growing E.coli and Bacteroids 2. recent Sepsis with 1 plan: sx consult, likely no intervention will be done given improvement showing on CT 02/11 cont vantin and flagyl till end of this week add dilaudid po, encourage pt take po first gi soft diet CORA Valencia dc, MD February 12, 2017 11:30
[2017-02-12] MEDS: HYDROmorphone 2 MG TABLET PO PRN ×2 (12:29→20:10)
[2017-02-12 15:00] VITALS: BP 119/66
[2017-02-12] MEDS: oxyCODONE IR 5 MG TABLET PO PRN (16:54)
[2017-02-12] MEDS: ENOXAPARIN 40 MG/0.4 ML SYRINGE. SQ SCH (16:55)
[2017-02-12 19:00] VITALS: BP 115/63
[2017-02-12 23:00] VITALS: BP 131/78
[2017-02-13] MEDS ORDERED: HYDROmorphone 2 MG/ML VIAL IV ONE ×2 (00:15→08:45)
[2017-02-13] MEDS: HYDROmorphone 2 MG TABLET PO PRN (02:40)
[2017-02-13 03:00] VITALS: BP 139/74
[2017-02-13 04:17] LABS: CALCIUM 8.5 mg/dL (8.5-10.1); CREATININE 0.6 mg/dL (0.7-1.3); GFR 161.6
[2017-02-13 04:19] LABS: BASO % 1 % (0-3); EOS % 2 % (0-3); HEMOGLOBIN 15.8 g/dL (13.0-17.5); LYMPH # 2.6 x10^3/uL (1.0-4.8); LYMPH % 49 % (24-48); MEAN CORPUSCULAR HEMOGLOBIN 30 pg (25-35); MEAN CORPUSCULAR HGB CONC 34 g/dL (31-37); MEAN CORPUSCULAR VOLUME 90 fL (79-100); MONO % 11 % (0-9); NEUT % 37 % (31-73); PLATELET COUNT 140 x10^3/uL (140-400); RED BLOOD COUNT 5.21 x10^6/uL (4.30-5.70); RED CELL DISTRIBUTION WIDTH 12.5 % (11.5-14.5); WHITE BLOOD COUNT 5.4 x10^3/uL (4.0-11.0)
[2017-02-13] MEDS: HYDROmorphone 2 MG/ML VIAL IV PRN ×2 (05:15→20:49)
[2017-02-13 07:00] VITALS: BP 123/77
--- NOTE | 2017-02-13 08:24 | PDOC ---
SERGE BOB DIRECTOR PHARMACOLOGY 02/13/17 0824: SURGICAL PROGRESS NOTE Subjective tolerating diet pain across lower abdomen d/w nurse--lab confirmed + c diff testing--results not in [facility] yet Vital Signs Vital Signs Date Time Temp Pulse Resp B/P (MAP) Pulse Ox O2 Delivery O2 Flow Rate FiO2 02/13/17 05:45 16 Room Air 02/13/17 03:00 97.5 67 139/74 (95) 98 97.5 I&O Intake and Output 02/13/17 07:00 Intake Total 3112 ml Output Total 1 ml Balance 3111 ml Intake Oral 2000 ml Other 1112 ml Stool Total 1 ml # Voids 8 General: Alert, Oriented X3, Cooperative, No acute distress Abdomen: Soft, Other (RLQ tenderness, moderate ) Labs Laboratory Tests Test 02/12/17 00:30 02/13/17 03:00 White Blood Count 8.5 x10^3/uL (4.0-11.0) 5.4 x10^3/uL (4.0-11.0) Red Blood Count 5.67 x10^6/uL (4.30-5.70) 5.21 x10^6/uL (4.30-5.70) Hemoglobin 17.2 g/dL (13.0-17.5) 15.8 g/dL (13.0-17.5) Hematocrit 50.2 % (39.0-53.0) 47.0 % (39.0-53.0) Mean Corpuscular Volume 89 fL (79-100) 90 fL (79-100) Mean Corpuscular Hemoglobin 30 pg (25-35) 30 pg (25-35) Mean Corpuscular Hemoglobin Concent 34 g/dL (31-37) 34 g/dL (31-37) Red Cell Distribution Width 12.6 % (11.5-14.5) 12.5 % (11.5-14.5) Platelet Count 517 x10^3/uL (140-400) 140 x10^3/uL (140-400) Neutrophils (%) (Auto) 58 % (31-73) 37 % (31-73) Lymphocytes (%) (Auto) 30 % (24-48) 49 % (24-48) Monocytes (%) (Auto) 9 % (0-9) 11 % (0-9) Eosinophils (%) (Auto) 2 % (0-3) 2 % (0-3) Basophils (%) (Auto) 1 % (0-3) 1 % (0-3) Neutrophils # (Auto) 4.9 x10^3uL (1.8-7.7) 2.0 x10^3uL (1.8-7.7) Lymphocytes # (Auto) 2.6 x10^3/uL (1.0-4.8) 2.6 x10^3/uL (1.0-4.8) Monocytes # (Auto) 0.8 x10^3/uL (0.0-1.1) 0.6 x10^3/uL (0.0-1.1) Eosinophils # (Auto) 0.2 x10^3/uL (0.0-0.7) 0.1 x10^3/uL (0.0-0.7) Basophils # (Auto) 0.1 x10^3/uL (0.0-0.2) 0.0 x10^3/uL (0.0-0.2) Sodium Level 138 mmol/L (136-145) 137 mmol/L (136-145) Potassium Level 3.7 mmol/L (3.5-5.1) 5.0 mmol/L (3.5-5.1) Chloride Level 98 mmol/L (98-107) 104 mmol/L (98-107) Carbon Dioxide Level 28 mmol/L (21-32) 21 mmol/L (21-32) Anion Gap 12 (6-14) 12 (6-14) Blood Urea Nitrogen 12 mg/dL (8-26) 11 mg/dL (8-26) Creatinine 1.1 mg/dL (0.7-1.3) 0.6 mg/dL (0.7-1.3) Estimated GFR (Cockcroft-Gault) 80.3 161.6 BUN/Creatinine Ratio 11 (6-20) Glucose Level 126 mg/dL (70-99) 81 mg/dL (70-99) Calcium Level 9.4 mg/dL (8.5-10.1) 8.5 mg/dL (8.5-10.1) Total Bilirubin 0.4 mg/dL (0.2-1.0) Aspartate Amino Transf (AST/SGOT) 30 U/L (15-37) Alanine Aminotransferase (ALT/SGPT) 59 U/L (16-63) Alkaline Phosphatase 76 U/L (46-116) Total Protein 8.3 g/dL (6.4-8.2) Albumin 3.8 g/dL (3.4-5.0) Albumin/Globulin Ratio 0.8 (1.0-1.7) Lipase 377 U/L (73-393) Laboratory Tests Test 02/13/17 03:00 White Blood Count 5.4 x10^3/uL (4.0-11.0) Red Blood Count 5.21 x10^6/uL (4.30-5.70) Hemoglobin 15.8 g/dL (13.0-17.5) Hematocrit 47.0 % (39.0-53.0) Mean Corpuscular Volume 90 fL (79-100) Mean Corpuscular Hemoglobin 30 pg (25-35) Mean Corpuscular Hemoglobin Concent 34 g/dL (31-37) Red Cell Distribution Width 12.5 % (11.5-14.5) Platelet Count 140 x10^3/uL (140-400) Neutrophils (%) (Auto) 37 % (31-73) Lymphocytes (%) (Auto) 49 % (24-48) Monocytes (%) (Auto) 11 % (0-9) Eosinophils (%) (Auto) 2 % (0-3) Basophils (%) (Auto) 1 % (0-3) Neutrophils # (Auto) 2.0 x10^3uL (1.8-7.7) Lymphocytes # (Auto) 2.6 x10^3/uL (1.0-4.8) Monocytes # (Auto) 0.6 x10^3/uL (0.0-1.1) Eosinophils # (Auto) 0.1 x10^3/uL (0.0-0.7) Basophils # (Auto) 0.0 x10^3/uL (0.0-0.2) Sodium Level 137 mmol/L (136-145) Potassium Level 5.0 mmol/L (3.5-5.1) Chloride Level 104 mmol/L (98-107) Carbon Dioxide Level 21 mmol/L (21-32) Anion Gap 12 (6-14) Blood Urea Nitrogen 11 mg/dL (8-26) Creatinine 0.6 mg/dL (0.7-1.3) Estimated GFR (Cockcroft-Gault) 161.6 Glucose Level 81 mg/dL (70-99) Calcium Level 8.5 mg/dL (8.5-10.1) Problem List Problems Medical Problems: (1) Intractable abdominal pain Status: Acute (2) Intractable nausea and vomiting Status: Acute Assessment/Plan diverticulitis C diff will consult ID for management of abx --+ cdiff and diverticulitis no surgical needs at this time, will need to treat his cdiff and diverticulitis , then GI FU recommended for colonoscopy will sign off, please call for questions Problems: MAURICIO TOMAS MD 02/13/17 5303: SURGICAL PROGRESS NOTE Assessment/Plan Reviewed, agree with above; Cdiff + explains recent complaints; will sign off Problems: SERGE BOB APRN February 13, 2017 08:24 MAURICIO TOMAS MD February 13, 2017 14:35
--- NOTE | 2017-02-13 08:58 | PDOC ---
Infectious Disease Note Subjective Subjective pt returned with abd pain and diarrhea and now c diff + per verbal report ROS ROS GEN: Denies fevers, chills, sweats HEENT: Denies blurred vision, sore throat CV: Denies chest pain RESP: Denies shortness of air, cough NEURO: Denies confusion, dizziness MSK: Denies weakness, joint pain/swelling Vital Sign Vital Signs Vital Signs Date Time Temp Pulse Resp B/P (MAP) Pulse Ox O2 Delivery O2 Flow Rate FiO2 02/13/17 08:51 Room Air 02/13/17 07:00 96.8 73 18 123/77 (92) 97 96.8 Physical Exam PHYSICAL EXAM GENERAL: NAD, Alert HEENT: PERRL, OC/OP NECK: Supple, no JVD, no LN LUNGS: Clear HEART: S1S2, no gallop, no murmur ABD: Soft, NT, no organomegaly, no rebound EXT: No edema, no cyanosis FOAM MACHINE OPERATOR: Alert, oriented x 3, no focal neurologic deficit SKIN: No rash IV: ok Labs Lab Laboratory Tests Test 02/13/17 03:00 White Blood Count 5.4 x10^3/uL (4.0-11.0) Red Blood Count 5.21 x10^6/uL (4.30-5.70) Hemoglobin 15.8 g/dL (13.0-17.5) Hematocrit 47.0 % (39.0-53.0) Mean Corpuscular Volume 90 fL (79-100) Mean Corpuscular Hemoglobin 30 pg (25-35) Mean Corpuscular Hemoglobin Concent 34 g/dL (31-37) Red Cell Distribution Width 12.5 % (11.5-14.5) Platelet Count 140 x10^3/uL (140-400) Neutrophils (%) (Auto) 37 % (31-73) Lymphocytes (%) (Auto) 49 % (24-48) Monocytes (%) (Auto) 11 % (0-9) Eosinophils (%) (Auto) 2 % (0-3) Basophils (%) (Auto) 1 % (0-3) Neutrophils # (Auto) 2.0 x10^3uL (1.8-7.7) Lymphocytes # (Auto) 2.6 x10^3/uL (1.0-4.8) Monocytes # (Auto) 0.6 x10^3/uL (0.0-1.1) Eosinophils # (Auto) 0.1 x10^3/uL (0.0-0.7) Basophils # (Auto) 0.0 x10^3/uL (0.0-0.2) Sodium Level 137 mmol/L (136-145) Potassium Level 5.0 mmol/L (3.5-5.1) Chloride Level 104 mmol/L (98-107) Carbon Dioxide Level 21 mmol/L (21-32) Anion Gap 12 (6-14) Blood Urea Nitrogen 11 mg/dL (8-26) Creatinine 0.6 mg/dL (0.7-1.3) Estimated GFR (Cockcroft-Gault) 161.6 Glucose Level 81 mg/dL (70-99) Calcium Level 8.5 mg/dL (8.5-10.1) Objective Assessment Diverticulitis with perforation, now better C diff , verbal report it is not officially reported yet Plan Plan of Care KARTIK Painting MD February 13, 2017 08:58
[2017-02-13] MEDS ORDERED: metroNIDAZOLE 500 MG TABLET PO SCH (09:00)
[2017-02-13] MEDS ORDERED: fentaNYL 25MCG/HR PATCH 1 PATCH PATCH.TD72 TD SCH (10:00)
[2017-02-13] MEDS ORDERED: fentaNYL 12MCG/HR PATCH 1 PATCH PATCH.TD72 TD SCH (10:00)
[2017-02-13] MEDS: metroNIDAZOLE 500 MG TABLET PO SCH ×3 (10:12→23:55)
[2017-02-13] MEDS: PROMETHAZINE 12.5 MG in IV NORMAL SALINE 50ML 50 ML IV PRN (10:13)
[2017-02-13 11:13] VITALS: BP 117/68
--- NOTE | 2017-02-13 12:00 | PDOC ---
PROGRESS NOTES Chief Complaint Chief Complaint 1. recent diverticulitis with micro perf and abscess formation: s/p drain placement RLQ on 01/30 -02/11. culture growing E.coli and Bacteroids 2. recent Sepsis with 1 3. cdiff colitis, very mild plan: sx consult, likely no intervention will be done given improvement showing on CT 02/11 dc vantin, flagyl po tid. id consulted add dilaudid po, encourage pt take po first, but pt refused gi soft diet get dr. Wilson consult for pain management, on fentanyl patch now hope dc tmr History of Present Illness History of Present Illness diarrhea only once daily, afebrile, wbc normal, + cdiff pt said oxycodone, dilaudid po wont help, refuses to take them, only require dilaudid iv Vitals Vitals Vital Signs Date Time Temp Pulse Resp B/P (MAP) Pulse Ox O2 Delivery O2 Flow Rate FiO2 02/13/17 11:13 97.7 60 18 117/68 (84) 96 Room Air 97.7 Physical Exam General: Alert, Oriented X3, Cooperative, No acute distress Heart: Regular rate, Normal S1, Normal S2, No murmurs Lungs: Clear Abdomen: Soft, Other (RLQ tenderness, moderate ) Extremities: No clubbing, No cyanosis Skin: No rashes, No breakdown Labs LABS Laboratory Tests Test 02/13/17 03:00 White Blood Count 5.4 x10^3/uL (4.0-11.0) Red Blood Count 5.21 x10^6/uL (4.30-5.70) Hemoglobin 15.8 g/dL (13.0-17.5) Hematocrit 47.0 % (39.0-53.0) Mean Corpuscular Volume 90 fL (79-100) Mean Corpuscular Hemoglobin 30 pg (25-35) Mean Corpuscular Hemoglobin Concent 34 g/dL (31-37) Red Cell Distribution Width 12.5 % (11.5-14.5) Platelet Count 140 x10^3/uL (140-400) Neutrophils (%) (Auto) 37 % (31-73) Lymphocytes (%) (Auto) 49 % (24-48) Monocytes (%) (Auto) 11 % (0-9) Eosinophils (%) (Auto) 2 % (0-3) Basophils (%) (Auto) 1 % (0-3) Neutrophils # (Auto) 2.0 x10^3uL (1.8-7.7) Lymphocytes # (Auto) 2.6 x10^3/uL (1.0-4.8) Monocytes # (Auto) 0.6 x10^3/uL (0.0-1.1) Eosinophils # (Auto) 0.1 x10^3/uL (0.0-0.7) Basophils # (Auto) 0.0 x10^3/uL (0.0-0.2) Sodium Level 137 mmol/L (136-145) Potassium Level 5.0 mmol/L (3.5-5.1) Chloride Level 104 mmol/L (98-107) Carbon Dioxide Level 21 mmol/L (21-32) Anion Gap 12 (6-14) Blood Urea Nitrogen 11 mg/dL (8-26) Creatinine 0.6 mg/dL (0.7-1.3) Estimated GFR (Cockcroft-Gault) 161.6 Glucose Level 81 mg/dL (70-99) Calcium Level 8.5 mg/dL (8.5-10.1) Review of Systems Review of Systems no fever, chills, sob or chest pain Assessment and Plan Assessmemt and Plan Problems Medical Problems: (1) Intractable abdominal pain Status: Acute (2) Intractable nausea and vomiting Status: Acute Problems: Comment Review of Relevant I have reviewed the following items matilde (where applicable) has been applied. Labs Laboratory Tests Test 02/12/17 00:30 02/13/17 03:00 White Blood Count 8.5 x10^3/uL (4.0-11.0) 5.4 x10^3/uL (4.0-11.0) Red Blood Count 5.67 x10^6/uL (4.30-5.70) 5.21 x10^6/uL (4.30-5.70) Hemoglobin 17.2 g/dL (13.0-17.5) 15.8 g/dL (13.0-17.5) Hematocrit 50.2 % (39.0-53.0) 47.0 % (39.0-53.0) Mean Corpuscular Volume 89 fL (79-100) 90 fL (79-100) Mean Corpuscular Hemoglobin 30 pg (25-35) 30 pg (25-35) Mean Corpuscular Hemoglobin Concent 34 g/dL (31-37) 34 g/dL (31-37) Red Cell Distribution Width 12.6 % (11.5-14.5) 12.5 % (11.5-14.5) Platelet Count 517 x10^3/uL (140-400) 140 x10^3/uL (140-400) Neutrophils (%) (Auto) 58 % (31-73) 37 % (31-73) Lymphocytes (%) (Auto) 30 % (24-48) 49 % (24-48) Monocytes (%) (Auto) 9 % (0-9) 11 % (0-9) Eosinophils (%) (Auto) 2 % (0-3) 2 % (0-3) Basophils (%) (Auto) 1 % (0-3) 1 % (0-3) Neutrophils # (Auto) 4.9 x10^3uL (1.8-7.7) 2.0 x10^3uL (1.8-7.7) Lymphocytes # (Auto) 2.6 x10^3/uL (1.0-4.8) 2.6 x10^3/uL (1.0-4.8) Monocytes # (Auto) 0.8 x10^3/uL (0.0-1.1) 0.6 x10^3/uL (0.0-1.1) Eosinophils # (Auto) 0.2 x10^3/uL (0.0-0.7) 0.1 x10^3/uL (0.0-0.7) Basophils # (Auto) 0.1 x10^3/uL (0.0-0.2) 0.0 x10^3/uL (0.0-0.2) Sodium Level 138 mmol/L (136-145) 137 mmol/L (136-145) Potassium Level 3.7 mmol/L (3.5-5.1) 5.0 mmol/L (3.5-5.1) Chloride Level 98 mmol/L (98-107) 104 mmol/L (98-107) Carbon Dioxide Level 28 mmol/L (21-32) 21 mmol/L (21-32) Anion Gap 12 (6-14) 12 (6-14) Blood Urea Nitrogen 12 mg/dL (8-26) 11 mg/dL (8-26) Creatinine 1.1 mg/dL (0.7-1.3) 0.6 mg/dL (0.7-1.3) Estimated GFR (Cockcroft-Gault) 80.3 161.6 BUN/Creatinine Ratio 11 (6-20) Glucose Level 126 mg/dL (70-99) 81 mg/dL (70-99) Calcium Level 9.4 mg/dL (8.5-10.1) 8.5 mg/dL (8.5-10.1) Total Bilirubin 0.4 mg/dL (0.2-1.0) Aspartate Amino Transf (AST/SGOT) 30 U/L (15-37) Alanine Aminotransferase (ALT/SGPT) 59 U/L (16-63) Alkaline Phosphatase 76 U/L (46-116) Total Protein 8.3 g/dL (6.4-8.2) Albumin 3.8 g/dL (3.4-5.0) Albumin/Globulin Ratio 0.8 (1.0-1.7) Lipase 377 U/L (73-393) Laboratory Tests Test 02/13/17 03:00 White Blood Count 5.4 x10^3/uL (4.0-11.0) Red Blood Count 5.21 x10^6/uL (4.30-5.70) Hemoglobin 15.8 g/dL (13.0-17.5) Hematocrit 47.0 % (39.0-53.0) Mean Corpuscular Volume 90 fL (79-100) Mean Corpuscular Hemoglobin 30 pg (25-35) Mean Corpuscular Hemoglobin Concent 34 g/dL (31-37) Red Cell Distribution Width 12.5 % (11.5-14.5) Platelet Count 140 x10^3/uL (140-400) Neutrophils (%) (Auto) 37 % (31-73) Lymphocytes (%) (Auto) 49 % (24-48) Monocytes (%) (Auto) 11 % (0-9) Eosinophils (%) (Auto) 2 % (0-3) Basophils (%) (Auto) 1 % (0-3) Neutrophils # (Auto) 2.0 x10^3uL (1.8-7.7) Lymphocytes # (Auto) 2.6 x10^3/uL (1.0-4.8) Monocytes # (Auto) 0.6 x10^3/uL (0.0-1.1) Eosinophils # (Auto) 0.1 x10^3/uL (0.0-0.7) Basophils # (Auto) 0.0 x10^3/uL (0.0-0.2) Sodium Level 137 mmol/L (136-145) Potassium Level 5.0 mmol/L (3.5-5.1) Chloride Level 104 mmol/L (98-107) Carbon Dioxide Level 21 mmol/L (21-32) Anion Gap 12 (6-14) Blood Urea Nitrogen 11 mg/dL (8-26) Creatinine 0.6 mg/dL (0.7-1.3) Estimated GFR (Cockcroft-Gault) 161.6 Glucose Level 81 mg/dL (70-99) Calcium Level 8.5 mg/dL (8.5-10.1) Medications Current Medications Hydromorphone HCl (Dilaudid) 1 mg 1X ONCE IV Last administered on 02/12/17 00: 52; Start 02/12/17 at 00:45; Stop 02/12/17 at 00:46; Status DC Ondansetron HCl (Zofran) 8 mg 1X ONCE IV ; Start 02/12/17 at 00:45; Stop at 00:55; Status DC Sodium Chloride 1,000 ml @ 1,000 mls/hr 1X ONCE IV Last administered on 00:51; Start 02/12/17 at 00:45; Stop 02/12/17 at 01:44; Status DC Promethazine HCl 12.5 mg/Sodium Chloride 50.5 ml @ 151.5 mls/ hr PRN Q6HRS PRN IV NAUSEA/VOMITING Last administered on 02/13/17 10:13; Start 02/12/17 at 01: 00 Sodium Chloride 1,000 ml @ 200 mls/hr Q5H IV Last administered on 02/12/17 23: 15; Start 02/12/17 at 01:45; Stop 02/13/17 at 01:44; Status DC Hydromorphone HCl (Dilaudid) 1 mg PRN Q2HR PRN IV PAIN Last administered on 02/12 05:45; Start 02/12/17 at 01:45; Stop 02/12/17 at 07:54; Status DC Hydromorphone HCl (Dilaudid) 2 mg PRN Q2HR PRN IV PAIN; Start 02/12/17 at 08:00 ; Stop 02/12/17 at 08:07; Status DC Hydromorphone HCl (Dilaudid) 2 mg PRN Q4HRS PRN IV PAIN Last administered on 09:15; Start 02/12/17 at 09:00; Stop 02/12/17 at 11:30; Status DC Acetaminophen (Tylenol) 650 mg PRN Q6HRS PRN PO FEVER; Start 02/12/17 at 08:15 Ondansetron HCl (Zofran) 4 mg PRN Q6HRS PRN IV NAUSEA/VOMITING; Start 02/12/17 at 08:15 Hydromorphone HCl (Dilaudid) 2 mg PRN Q4HRS PRN PO PAIN; Start 02/12/17 at 08:15 ; Stop 02/12/17 at 09:08; Status DC Cefpodoxime Proxetil (Vantin) 200 mg BID PO Last administered on 02/12/17 20:10 ; Start 02/12/17 at 09:00; Stop 02/13/17 at 08:54; Status DC Metronidazole (Flagyl) 500 mg Q12HR PO Last administered on 02/12/17 20:10; Start 02/12/17 at 09:00; Stop 02/12/17 at 23:41; Status DC Hydromorphone HCl (Dilaudid) 4 mg PRN Q4HRS PRN PO PAIN Last administered on 02:40; Start 02/12/17 at 09:15 Hydromorphone HCl (Dilaudid) 1 mg PRN Q4HRS PRN IV PAIN SEVERE Last administered on 02/12/17 23:14; Start 02/12/17 at 11:30; Stop 02/13/17 at 00:01; Status DC Enoxaparin Sodium (Lovenox 40mg Syringe) 40 mg DAILY16 SQ Last administered on 02/12/17 16:55; Start 02/12/17 at 16:00 Oxycodone HCl (Roxicodone) 10 mg PRN Q6HRS PRN PO PAIN Last administered on 02/12 16:54; Start 02/12/17 at 14:15 Metronidazole (Flagyl) 500 mg TID PO ; Start 02/13/17 at 09:00; Stop 02/13/17 at 09:00; Status DC Hydromorphone HCl (Dilaudid) 2 mg PRN Q4HRS PRN IV PAIN Last administered on 05:15; Start 02/13/17 at 00:00 Hydromorphone HCl (Dilaudid) 1 mg 1X ONCE IV Last administered on 02/13/17 00: 19; Start 02/13/17 at 00:15; Stop 02/13/17 at 00:16; Status DC Hydromorphone HCl (Dilaudid) 1 mg 1X ONCE IV Last administered on 02/13/17 08: 51; Start 02/13/17 at 08:45; Stop 02/13/17 at 08:46; Status DC Metronidazole (Flagyl) 500 mg Q8HRS PO Last administered on 02/13/17 10:12; Start 02/13/17 at 09:00 Fentanyl (Duragesic 25mcg/ Hr Patch) 1 patch Q3DAYS TD Last administered on 02/13 10:14; Start 02/13/17 at 10:00 Fentanyl (Duragesic 12mcg/ Hr Patch) 1 patch Q3DAYS TD Last administered on 02/13 10:15; Start 02/13/17 at 10:00 Active Scripts Active Dilaudid (Hydromorphone Hcl) 2 Mg Tablet 2 Mg PO PRN Q4HRS PRN Vitals/I & O Vital Sign - Last 24 Hours 02/12/17 02/12/17 02/12/17 02/12/17 12:29 13:46 15:00 16:54 Temp 97.8 97.8 Pulse 61 Resp 18 B/P (MAP) 119/66 (83) Pulse Ox 97 O2 Delivery Room Air Room Air Room Air Room Air 02/12/17 02/12/17 02/12/17 02/12/17 17:59 18:50 19:00 20:00 Temp 97.9 97.9 Pulse 61 Resp 18 B/P (MAP) 115/63 (80) Pulse Ox 98 O2 Delivery Room Air Room Air Room Air Room Air 02/12/17 02/12/17 02/12/17 02/12/17 20:10 23:00 23:14 23:44 Temp 97.7 97.7 Pulse 63 Resp 16 18 16 16 B/P (MAP) 131/78 (95) Pulse Ox 97 O2 Delivery Room Air Room Air Room Air Room Air 02/13/17 02/13/17 02/13/17 02/13/17 00:19 00:50 02:40 03:00 Temp 97.5 97.5 Pulse 67 Resp 16 16 16 18 B/P (MAP) 139/74 (95) Pulse Ox 98 O2 Delivery Room Air Room Air Room Air Room Air 02/13/17 02/13/17 02/13/17 02/13/17 03:40 05:15 05:45 07:00 Temp 96.8 96.8 Pulse 73 Resp 16 16 16 18 B/P (MAP) 123/77 (92) Pulse Ox 97 O2 Delivery Room Air Room Air Room Air Room Air 02/13/17 02/13/17 02/13/17 02/13/17 08:51 09:28 10:14 10:15 O2 Delivery Room Air Room Air Room Air Room Air 02/13/17 11:13 Temp 97.7 97.7 Pulse 60 Resp 18 B/P (MAP) 117/68 (84) Pulse Ox 96 O2 Delivery Room Air Intake and Output 02/12/17 02/12/17 02/13/17 15:00 23:00 07:00 Intake Total 3112 ml Output Total 1 ml Balance -1 ml 3112 ml CORA DEL VALLE MD February 13, 2017 12:00
[2017-02-13 14:58] VITALS: BP 126/76
[2017-02-13] MEDS: ENOXAPARIN 40 MG/0.4 ML SYRINGE. SQ SCH (17:43)
[2017-02-13 19:20] VITALS: BP 122/80
[2017-02-13 23:20] VITALS: BP 121/77
[2017-02-14] MEDS: HYDROmorphone 2 MG/ML VIAL IV PRN ×6 (01:03→23:32)
--- NOTE | 2017-02-14 01:20 | CONS ---
DATE OF CONSULTATION: 02/13/2017 ATTENDING PHYSICIAN: Dr. Pompa. The patient was seen at the request of Dr. Colbert for rehab evaluation. 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 He was found with microperforation and diverticulitis while he was here 3 weeks ago, got IR drainage on 01/30/2017 on the right lower quadrant, but continued to have the abdominal pain. Repeat CT scan 2 times showing ____ inflammation, but continued with abdominal pain. ANKUR removed on 02/11/2017 and discharged home on 02/11/2017. He refused to take p.o. pain medication when he was here for about 3 weeks. In the last day, he admits Dilaudid 1 mg IV really helped, but oral pain medication not helping. He had nausea and diarrhea when he went back home, came to the Emergency Room on the night of discharge. The patient was also found with C. diff colitis. At the present time, the patient denies any radiation of pain to the extremities. PHYSICAL EXAMINATION: Today revealed a young male patient in no acute distress. He is alert, oriented to time, place, person and circumstance and follows commands appropriately, moves all 4 extremities voluntarily where he had 5/5 grade muscle strength. He is independent with his mobility and self-care skills. Diffuse mild tenderness, mainly right lower quadrant of the abdomen. ASSESSMENT: Young male with recent diverticulitis with microperforation and abscess formation, status post drainage, right lower quadrant done on 01/30/2017 with culture growing Escherichia coli and Bacteroides and recent sepsis and continued abdominal pain and possible Clostridium difficile colitis and his pain not controlled by oral pain medication. RECOMMENDATIONS: To try fentanyl patch as he had tried it 12 mcg per hour the last hospitalization and it did not make any difference to go up to 37.[address] Colbert, I appreciate asking me to participate in the care of this interesting patient. I will be glad to follow him with you as needed for the rehabilitation. ROBBIE SIEGEL MD DR: RADHA/trini JOB#: [id number] / [id number]
[2017-02-14 03:08] VITALS: BP 118/68
[2017-02-14] MEDS: metroNIDAZOLE 500 MG TABLET PO SCH ×4 (05:07→23:32)
[2017-02-14 07:00] VITALS: BP 121/78
--- NOTE | 2017-02-14 09:31 | PDOC ---
PROGRESS NOTES Subjective Subjective He admits continued abdominal pain and loose stools. Objective Objective Vital Signs Date Time Temp Pulse Resp B/P (MAP) Pulse Ox O2 Delivery O2 Flow Rate FiO2 02/14/17 07:00 97.9 69 20 121/78 (92) 98 Room Air 97.9 Intake and Output 02/14/17 06:59 Intake Total 2560 ml Balance 2560 ml Intake Oral 2560 ml # Voids 7 Physical Exam Physical Exam He has made nursing to take off fentanyl patch as he felt it is making him comatose.He remains independent with his mobility and self care. Assessment Assessment Problems Medical Problems: (1) Intractable abdominal pain Status: Acute (2) Intractable nausea and vomiting Status: Acute Plan Plan of Snf with out patient follow up when medically stable. Comment Review of Relevant I have reviewed the following items matilde (where applicable) has been applied. Labs Laboratory Tests Test 02/13/17 03:00 White Blood Count 5.4 x10^3/uL (4.0-11.0) Red Blood Count 5.21 x10^6/uL (4.30-5.70) Hemoglobin 15.8 g/dL (13.0-17.5) Hematocrit 47.0 % (39.0-53.0) Mean Corpuscular Volume 90 fL (79-100) Mean Corpuscular Hemoglobin 30 pg (25-35) Mean Corpuscular Hemoglobin Concent 34 g/dL (31-37) Red Cell Distribution Width 12.5 % (11.5-14.5) Platelet Count 140 x10^3/uL (140-400) Neutrophils (%) (Auto) 37 % (31-73) Lymphocytes (%) (Auto) 49 % (24-48) Monocytes (%) (Auto) 11 % (0-9) Eosinophils (%) (Auto) 2 % (0-3) Basophils (%) (Auto) 1 % (0-3) Neutrophils # (Auto) 2.0 x10^3uL (1.8-7.7) Lymphocytes # (Auto) 2.6 x10^3/uL (1.0-4.8) Monocytes # (Auto) 0.6 x10^3/uL (0.0-1.1) Eosinophils # (Auto) 0.1 x10^3/uL (0.0-0.7) Basophils # (Auto) 0.0 x10^3/uL (0.0-0.2) Sodium Level 137 mmol/L (136-145) Potassium Level 5.0 mmol/L (3.5-5.1) Chloride Level 104 mmol/L (98-107) Carbon Dioxide Level 21 mmol/L (21-32) Anion Gap 12 (6-14) Blood Urea Nitrogen 11 mg/dL (8-26) Creatinine 0.6 mg/dL (0.7-1.3) Estimated GFR (Cockcroft-Gault) 161.6 Glucose Level 81 mg/dL (70-99) Calcium Level 8.5 mg/dL (8.5-10.1) Medications Current Medications Hydromorphone HCl (Dilaudid) 1 mg 1X ONCE IV Last administered on 02/12/17 00: 52; Start 02/12/17 at 00:45; Stop 02/12/17 at 00:46; Status DC Ondansetron HCl (Zofran) 8 mg 1X ONCE IV ; Start 02/12/17 at 00:45; Stop at 00:55; Status DC Sodium Chloride 1,000 ml @ 1,000 mls/hr 1X ONCE IV Last administered on 00:51; Start 02/12/17 at 00:45; Stop 02/12/17 at 01:44; Status DC Promethazine HCl 12.5 mg/Sodium Chloride 50.5 ml @ 151.5 mls/ hr PRN Q6HRS PRN IV NAUSEA/VOMITING Last administered on 02/13/17 10:13; Start 02/12/17 at 01: 00 Sodium Chloride 1,000 ml @ 200 mls/hr Q5H IV Last administered on 02/12/17 23: 15; Start 02/12/17 at 01:45; Stop 02/13/17 at 01:44; Status DC Hydromorphone HCl (Dilaudid) 1 mg PRN Q2HR PRN IV PAIN Last administered on 02/12 05:45; Start 02/12/17 at 01:45; Stop 02/12/17 at 07:54; Status DC Hydromorphone HCl (Dilaudid) 2 mg PRN Q2HR PRN IV PAIN; Start 02/12/17 at 08:00 ; Stop 02/12/17 at 08:07; Status DC Hydromorphone HCl (Dilaudid) 2 mg PRN Q4HRS PRN IV PAIN Last administered on 09:15; Start 02/12/17 at 09:00; Stop 02/12/17 at 11:30; Status DC Acetaminophen (Tylenol) 650 mg PRN Q6HRS PRN PO FEVER; Start 02/12/17 at 08:15 Ondansetron HCl (Zofran) 4 mg PRN Q6HRS PRN IV NAUSEA/VOMITING; Start 02/12/17 at 08:15 Hydromorphone HCl (Dilaudid) 2 mg PRN Q4HRS PRN PO PAIN; Start 02/12/17 at 08:15 ; Stop 02/12/17 at 09:08; Status DC Cefpodoxime Proxetil (Vantin) 200 mg BID PO Last administered on 02/12/17 20:10 ; Start 02/12/17 at 09:00; Stop 02/13/17 at 08:54; Status DC Metronidazole (Flagyl) 500 mg Q12HR PO Last administered on 02/12/17 20:10; Start 02/12/17 at 09:00; Stop 02/12/17 at 23:41; Status DC Hydromorphone HCl (Dilaudid) 4 mg PRN Q4HRS PRN PO PAIN Last administered on 02:40; Start 02/12/17 at 09:15 Hydromorphone HCl (Dilaudid) 1 mg PRN Q4HRS PRN IV PAIN SEVERE Last administered on 02/12/17 23:14; Start 02/12/17 at 11:30; Stop 02/13/17 at 00:01; Status DC Enoxaparin Sodium (Lovenox 40mg Syringe) 40 mg DAILY16 SQ Last administered on 02/13/17 17:43; Start 02/12/17 at 16:00 Oxycodone HCl (Roxicodone) 10 mg PRN Q6HRS PRN PO PAIN Last administered on 02/12 16:54; Start 02/12/17 at 14:15 Metronidazole (Flagyl) 500 mg TID PO ; Start 02/13/17 at 09:00; Stop 02/13/17 at 09:00; Status DC Hydromorphone HCl (Dilaudid) 2 mg PRN Q4HRS PRN IV PAIN Last administered on 05:07; Start 02/13/17 at 00:00 Hydromorphone HCl (Dilaudid) 1 mg 1X ONCE IV Last administered on 02/13/17 00: 19; Start 02/13/17 at 00:15; Stop 02/13/17 at 00:16; Status DC Hydromorphone HCl (Dilaudid) 1 mg 1X ONCE IV Last administered on 02/13/17 08: 51; Start 02/13/17 at 08:45; Stop 02/13/17 at 08:46; Status DC Metronidazole (Flagyl) 500 mg Q8HRS PO Last administered on 02/14/17 05:07; Start 02/13/17 at 09:00 Fentanyl (Duragesic 25mcg/ Hr Patch) 1 patch Q3DAYS TD Last administered on 02/13 10:14; Start 02/13/17 at 10:00 Fentanyl (Duragesic 12mcg/ Hr Patch) 1 patch Q3DAYS TD Last administered on 02/13 10:15; Start 02/13/17 at 10:00 Active Scripts Active Dilaudid (Hydromorphone Hcl) 2 Mg Tablet 2 Mg PO PRN Q4HRS PRN Vitals/I & O Vital Sign - Last 24 Hours 02/13/17 02/13/17 02/13/17 02/13/17 10:14 10:15 11:13 14:24 Temp 97.7 97.7 Pulse 60 Resp 18 B/P (MAP) 117/68 (84) Pulse Ox 96 O2 Delivery Room Air Room Air Room Air Room Air 02/13/17 02/13/17 02/13/17 02/13/17 14:24 14:58 19:20 19:59 Temp 97.9 98.1 97.9 98.1 Pulse 60 81 Resp 18 18 B/P (MAP) 126/76 (93) 122/80 (94) Pulse Ox 97 95 O2 Delivery Room Air Room Air Room Air Room Air 5/5/17 5/5/17 5/6/17 5/6/17 20:49 23:20 03:08 07:00 Temp 98.1 97.9 97.9 98.1 97.9 97.9 Pulse 72 63 69 Resp 16 16 20 B/P (MAP) 121/77 (92) 118/68 (85) 121/78 (92) Pulse Ox 96 99 98 O2 Delivery Room Air Room Air Room Air Room Air Intake and Output 02/13/17 02/13/17 02/14/17 14:59 22:59 06:59 Intake Total 2160 ml 400 ml Balance 2160 ml 400 ml ROBBIE SIEGEL MD February 14, 2017 09:31
[2017-02-14 11:00] VITALS: BP 120/75
--- NOTE | 2017-02-14 12:01 | PDOC ---
Infectious Disease Note Subjective Subjective Feeling ok, some mild abdominal "burning." Loose stools, Appetite good ROS ROS GEN: Denies fevers, chills, sweats CV: Denies chest pain RESP: Denies shortness of air, cough GI: Denies n/v Vital Sign Vital Signs Vital Signs Date Time Temp Pulse Resp B/P (MAP) Pulse Ox O2 Delivery O2 Flow Rate FiO2 02/14/17 09:41 20 98 Room Air 02/14/17 07:00 97.9 69 121/78 (92) 97.9 Physical Exam PHYSICAL EXAM GENERAL: Resting, NAD HEENT: PERRL, OC/OP pink NECK: Supple, no JVD, no LN LUNGS: Clear HEART: S1S2, no gallop, no murmur ABD: Nondistended, BS present, Soft, NT. Drain out. EXT: No edema, no cyanosis [employer]SPH[employer] ARCHITECT: Alert, oriented x 3, no focal neurologic deficit SKIN: No rash Objective Assessment Diverticulitis with perforation, now better C difficile infection, 02/12. (manual report in chart) h/o abscess s/p drain 01/30. h/o E.coli and Bacteroides Amox allergy Plan Plan of Care po flagyl to QID. Is improving. Would treat 14 days total ID to sign off Attending Co-Sign Attending Co-Sign The patient was seen and interviewed as well as examined at the bedside. The chart was reviewed. The case was discussed. Agree with the plan of care. MIKAL ARREGUIN APRN February 14, 2017 12:01 ENMA GRANDA MD February 14, 2017 14:17
[2017-02-14] MEDS: fentaNYL 12MCG/HR PATCH 1 PATCH PATCH.TD72 TD SCH (13:28)
[2017-02-14 15:00] VITALS: BP 123/72
[2017-02-14] MEDS: ENOXAPARIN 40 MG/0.4 ML SYRINGE. SQ SCH (15:34)
[2017-02-14 19:59] VITALS: BP 133/71
--- NOTE | 2017-02-14 22:34 | PDOC ---
PROGRESS NOTES Chief Complaint Chief Complaint 1. recent diverticulitis with micro perf and abscess formation: s/p drain placement RLQ on 01/30 -02/11. culture growing E.coli and Bacteroids 2. recent Sepsis with 1 3. cdiff colitis, very mild plan: sx consult, likely no intervention will be done given improvement showing on CT 02/11 dc vantin, flagyl po tid. id consulted add dilaudid po, encourage pt take po first, but pt refused gi soft diet get dr. Wilson consult for pain management, on fentanyl patch now hope dc tmr History of Present Illness History of Present Illness pt seen at 1400 diarrhea only once daily, afebrile, wbc normal, + cdiff pt said oxycodone does not help much better pain control w/ dilaudid iv can DC if able to ramona PO meds Vitals Vitals Vital Signs Date Time Temp Pulse Resp B/P (MAP) Pulse Ox O2 Delivery O2 Flow Rate FiO2 02/14/17 19:59 98.6 65 18 133/71 (91) 95 Room Air 98.6 Physical Exam General: Alert, Oriented X3, Cooperative, No acute distress Heart: Regular rate, Normal S1, Normal S2, No murmurs Lungs: Clear Abdomen: Soft, Other (RLQ tenderness, moderate ) Extremities: No clubbing, No cyanosis Skin: No rashes, No breakdown Review of Systems Review of Systems abd pain better Assessment and Plan Assessmemt and Plan Problems Medical Problems: (1) Intractable abdominal pain Status: Acute (2) Intractable nausea and vomiting Status: Acute Problems: Comment Review of Relevant I have reviewed the following items matilde (where applicable) has been applied. Labs Laboratory Tests Test 02/13/17 03:00 White Blood Count 5.4 x10^3/uL (4.0-11.0) Red Blood Count 5.21 x10^6/uL (4.30-5.70) Hemoglobin 15.8 g/dL (13.0-17.5) Hematocrit 47.0 % (39.0-53.0) Mean Corpuscular Volume 90 fL (79-100) Mean Corpuscular Hemoglobin 30 pg (25-35) Mean Corpuscular Hemoglobin Concent 34 g/dL (31-37) Red Cell Distribution Width 12.5 % (11.5-14.5) Platelet Count 140 x10^3/uL (140-400) Neutrophils (%) (Auto) 37 % (31-73) Lymphocytes (%) (Auto) 49 % (24-48) Monocytes (%) (Auto) 11 % (0-9) Eosinophils (%) (Auto) 2 % (0-3) Basophils (%) (Auto) 1 % (0-3) Neutrophils # (Auto) 2.0 x10^3uL (1.8-7.7) Lymphocytes # (Auto) 2.6 x10^3/uL (1.0-4.8) Monocytes # (Auto) 0.6 x10^3/uL (0.0-1.1) Eosinophils # (Auto) 0.1 x10^3/uL (0.0-0.7) Basophils # (Auto) 0.0 x10^3/uL (0.0-0.2) Sodium Level 137 mmol/L (136-145) Potassium Level 5.0 mmol/L (3.5-5.1) Chloride Level 104 mmol/L (98-107) Carbon Dioxide Level 21 mmol/L (21-32) Anion Gap 12 (6-14) Blood Urea Nitrogen 11 mg/dL (8-26) Creatinine 0.6 mg/dL (0.7-1.3) Estimated GFR (Cockcroft-Gault) 161.6 Glucose Level 81 mg/dL (70-99) Calcium Level 8.5 mg/dL (8.5-10.1) Medications Current Medications Hydromorphone HCl (Dilaudid) 1 mg 1X ONCE IV Last administered on 02/12/17 00: 52; Start 02/12/17 at 00:45; Stop 02/12/17 at 00:46; Status DC Ondansetron HCl (Zofran) 8 mg 1X ONCE IV ; Start 02/12/17 at 00:45; Stop at 00:55; Status DC Sodium Chloride 1,000 ml @ 1,000 mls/hr 1X ONCE IV Last administered on 00:51; Start 02/12/17 at 00:45; Stop 02/12/17 at 01:44; Status DC Promethazine HCl 12.5 mg/Sodium Chloride 50.5 ml @ 151.5 mls/ hr PRN Q6HRS PRN IV NAUSEA/VOMITING Last administered on 02/13/17 10:13; Start 02/12/17 at 01: 00 Sodium Chloride 1,000 ml @ 200 mls/hr Q5H IV Last administered on 02/12/17 23: 15; Start 02/12/17 at 01:45; Stop 02/13/17 at 01:44; Status DC Hydromorphone HCl (Dilaudid) 1 mg PRN Q2HR PRN IV PAIN Last administered on 02/12 05:45; Start 02/12/17 at 01:45; Stop 02/12/17 at 07:54; Status DC Hydromorphone HCl (Dilaudid) 2 mg PRN Q2HR PRN IV PAIN; Start 02/12/17 at 08:00 ; Stop 02/12/17 at 08:07; Status DC Hydromorphone HCl (Dilaudid) 2 mg PRN Q4HRS PRN IV PAIN Last administered on 09:15; Start 02/12/17 at 09:00; Stop 02/12/17 at 11:30; Status DC Acetaminophen (Tylenol) 650 mg PRN Q6HRS PRN PO FEVER; Start 02/12/17 at 08:15 Ondansetron HCl (Zofran) 4 mg PRN Q6HRS PRN IV NAUSEA/VOMITING 1ST CHOICE; Start 02/12/17 at 08:15; Stop 02/14/17 at 18:43; Status DC Hydromorphone HCl (Dilaudid) 2 mg PRN Q4HRS PRN PO PAIN; Start 02/12/17 at 08:15 ; Stop 02/12/17 at 09:08; Status DC Cefpodoxime Proxetil (Vantin) 200 mg BID PO Last administered on 02/12/17 20:10 ; Start 02/12/17 at 09:00; Stop 02/13/17 at 08:54; Status DC Metronidazole (Flagyl) 500 mg Q12HR PO Last administered on 02/12/17 20:10; Start 02/12/17 at 09:00; Stop 02/12/17 at 23:41; Status DC Hydromorphone HCl (Dilaudid) 4 mg PRN Q4HRS PRN PO MODERATE PAIN Last administered on 02/13/17 02:40; Start 02/12/17 at 09:15 Hydromorphone HCl (Dilaudid) 1 mg PRN Q4HRS PRN IV PAIN SEVERE Last administered on 02/12/17 23:14; Start 02/12/17 at 11:30; Stop 02/13/17 at 00:01; Status DC Enoxaparin Sodium (Lovenox 40mg Syringe) 40 mg DAILY16 SQ Last administered on 02/14/17 15:34; Start 02/12/17 at 16:00 Oxycodone HCl (Roxicodone) 10 mg PRN Q6HRS PRN PO SEVERE PAIN Last administered on 02/12/17 16:54; Start 02/12/17 at 14:15 Metronidazole (Flagyl) 500 mg TID PO ; Start 02/13/17 at 09:00; Stop 02/13/17 at 09:00; Status DC Hydromorphone HCl (Dilaudid) 2 mg PRN Q4HRS PRN IV PAIN Last administered on 18:44; Start 02/13/17 at 00:00 Hydromorphone HCl (Dilaudid) 1 mg 1X ONCE IV Last administered on 02/13/17 00: 19; Start 02/13/17 at 00:15; Stop 02/13/17 at 00:16; Status DC Hydromorphone HCl (Dilaudid) 1 mg 1X ONCE IV Last administered on 02/13/17 08: 51; Start 02/13/17 at 08:45; Stop 02/13/17 at 08:46; Status DC Metronidazole (Flagyl) 500 mg Q8HRS PO Last administered on 02/14/17 13:31; Start 02/13/17 at 09:00; Stop 02/14/17 at 14:18; Status DC Fentanyl (Duragesic 25mcg/ Hr Patch) 1 patch Q3DAYS TD Last administered on 02/13 10:14; Start 02/13/17 at 10:00; Stop 02/14/17 at 12:02; Status DC Fentanyl (Duragesic 12mcg/ Hr Patch) 1 patch Q3DAYS TD Last administered on 02/13 10:15; Start 02/13/17 at 10:00; Stop 02/14/17 at 12:25; Status DC Fentanyl (Duragesic 12mcg/ Hr Patch) 1 patch Q3DAYS TD Last administered on 02/14 13:28; Start 02/14/17 at 12:30 Metronidazole (Flagyl) 500 mg Q6HRS PO Last administered on 02/14/17 17:40; Start 02/14/17 at 18:00 Active Scripts Active Dilaudid (Hydromorphone Hcl) 2 Mg Tablet 2 Mg PO PRN Q4HRS PRN Vitals/I & O Vital Sign - Last 24 Hours 02/13/17 02/14/17 02/14/17 02/14/17 23:20 03:08 07:00 08:00 Temp 98.1 97.9 97.9 98.1 97.9 97.9 Pulse 72 63 69 Resp 16 16 20 B/P (MAP) 121/77 (92) 118/68 (85) 121/78 (92) Pulse Ox 96 99 98 O2 Delivery Room Air Room Air Room Air Room Air 02/14/17 02/14/17 02/14/17 02/14/17 09:41 11:00 13:28 14:36 Temp 97.9 97.9 Pulse 69 Resp 20 20 20 20 B/P (MAP) 120/75 (90) Pulse Ox 98 98 95 95 O2 Delivery Room Air Room Air Room Air Room Air 02/14/17 02/14/17 02/14/17 02/14/17 15:00 17:28 18:44 19:14 Temp 98.1 98.1 Pulse 65 Resp 20 20 20 B/P (MAP) 123/72 (89) Pulse Ox 95 95 95 95 O2 Delivery Room Air Room Air Room Air Room Air 02/14/17 19:59 Temp 98.6 98.6 Pulse 65 Resp 18 B/P (MAP) 133/71 (91) Pulse Ox 95 O2 Delivery Room Air Intake and Output 02/13/17 02/13/17 02/14/17 15:00 23:00 07:00 Intake Total 2160 ml 400 ml Balance 2160 ml 400 ml FRANCISCA HORN MD February 14, 2017 22:34
[2017-02-14 23:08] VITALS: BP 120/77
[2017-02-15 03:19] VITALS: BP 122/76
[2017-02-15] MEDS: HYDROmorphone 2 MG/ML VIAL IV PRN ×5 (03:29→21:24)
[2017-02-15] MEDS: PROMETHAZINE 12.5 MG in IV NORMAL SALINE 50ML 50 ML IV PRN ×2 (04:59→22:21)
[2017-02-15] MEDS: metroNIDAZOLE 500 MG TABLET PO SCH ×4 (05:48→21:24)
[2017-02-15 07:00] VITALS: BP 123/81
[2017-02-15 10:45] VITALS: BP 121/76
[2017-02-15 14:01] LABS: BILIRUBIN,URINE NEGATIVE (NEG); GLUCOSE,URINE NEGATIVE (NEG); NITRITE,URINE NEGATIVE (NEG); PROTEIN,URINE NEGATIVE (NEG-TRACE); UROBILINOGEN,URINE 0.2 mg/dL (0.2 mg/dL)
[2017-02-15 14:06] LABS: BACTERIA,URINE 0 /HPF (0-FEW); RBC,URINE 0 /HPF (0-2); SQUAMOUS EPITHELIAL CELL,UR OCC /LPF; WBC,URINE RARE /HPF (0-4)
--- NOTE | 2017-02-15 14:25 | PDOC ---
PROGRESS NOTES Chief Complaint Chief Complaint 1. recent diverticulitis with micro perf and abscess formation: s/p drain placement RLQ on 01/30 -02/11. culture growing E.coli and Bacteroids 2. recent Sepsis with 1 3. cdiff colitis, very mild plan: sx consult, likely no intervention will be done given improvement showing on CT 02/11 dc vantin, flagyl po tid. id consulted add dilaudid po, encourage pt take po first, but pt refused gi soft diet get dr. Wilson consult for pain management, on fentanyl patch now hope dc tmr History of Present Illness History of Present Illness pt intolerance of fentanyl patch "it makes me a zombie" nausea last night abd pain more severe, pain with urination, RLW abd pain, worse when sitting up diarrhea has slowed to "muddy" I discussed at length yesterday and today, importance of avoiding IV pain meds as able, he complains of nausea and has vomited he also complained of pain on my exam, he called my exam "stabbing" to his abdomen and chest and even when I tried the same pressure on his arms, He seems above average sensitive to pain, possible upregulation of response due to recent pain, but making more difficult to discharge Vitals Vitals Vital Signs Date Time Temp Pulse Resp B/P (MAP) Pulse Ox O2 Delivery O2 Flow Rate FiO2 02/15/17 13:33 20 95 Room Air 02/15/17 10:45 97.9 59 121/76 (91) 97.9 Physical Exam General: Alert, Oriented X3, Cooperative, No acute distress Heart: Regular rate, Normal S1, Normal S2, No murmurs Lungs: Clear Abdomen: Soft, Other (RLQ tenderness, moderate ) Extremities: No clubbing, No cyanosis Skin: No rashes, No breakdown Labs LABS Laboratory Tests Test 02/15/17 12:45 Urine Collection Type Unknown Urine Color Yellow Urine Clarity Clear Urine pH 6.0 Urine Specific [place] 1.015 Urine Protein Negative mg/dL (NEG-TRACE) Urine Glucose (UA) Negative mg/dL (NEG) Urine Ketones (Stick) Negative mg/dL (NEG) Urine Blood Negative (NEG) Urine Nitrite Negative (NEG) Urine Bilirubin Negative (NEG) Urine Urobilinogen Dipstick 0.2 mg/dL (0.2 mg/dL) Urine Leukocyte Esterase Negative (NEG) Urine RBC 0 /HPF (0-2) Urine WBC Rare /HPF (0-4) Urine Squamous Epithelial Cells Occ /LPF Urine Bacteria 0 /HPF (0-FEW) Urine Mucus Marked /LPF Assessment and Plan Assessmemt and Plan Problems Medical Problems: (1) Intractable abdominal pain Status: Acute (2) Intractable nausea and vomiting Status: Acute Problems: Comment Review of Relevant I have reviewed the following items matilde (where applicable) has been applied. Labs Laboratory Tests Test 02/15/17 12:45 Urine Collection Type Unknown Urine Color Yellow Urine Clarity Clear Urine pH 6.0 Urine Specific [place] 1.015 Urine Protein Negative mg/dL (NEG-TRACE) Urine Glucose (UA) Negative mg/dL (NEG) Urine Ketones (Stick) Negative mg/dL (NEG) Urine Blood Negative (NEG) Urine Nitrite Negative (NEG) Urine Bilirubin Negative (NEG) Urine Urobilinogen Dipstick 0.2 mg/dL (0.2 mg/dL) Urine Leukocyte Esterase Negative (NEG) Urine RBC 0 /HPF (0-2) Urine WBC Rare /HPF (0-4) Urine Squamous Epithelial Cells Occ /LPF Urine Bacteria 0 /HPF (0-FEW) Urine Mucus Marked /LPF Laboratory Tests Test 02/15/17 12:45 Urine Collection Type Unknown Urine Color Yellow Urine Clarity Clear Urine pH 6.0 Urine Specific [place] 1.015 Urine Protein Negative mg/dL (NEG-TRACE) Urine Glucose (UA) Negative mg/dL (NEG) Urine Ketones (Stick) Negative mg/dL (NEG) Urine Blood Negative (NEG) Urine Nitrite Negative (NEG) Urine Bilirubin Negative (NEG) Urine Urobilinogen Dipstick 0.2 mg/dL (0.2 mg/dL) Urine Leukocyte Esterase Negative (NEG) Urine RBC 0 /HPF (0-2) Urine WBC Rare /HPF (0-4) Urine Squamous Epithelial Cells Occ /LPF Urine Bacteria 0 /HPF (0-FEW) Urine Mucus Marked /LPF Medications Current Medications Hydromorphone HCl (Dilaudid) 1 mg 1X ONCE IV Last administered on 02/12/17t 00: 52; Start 02/12/17 at 00:45; Stop 02/12/17 at 00:46; Status DC Ondansetron HCl (Zofran) 8 mg 1X ONCE IV ; Start 02/12/17 at 00:45; Stop at 00:55; Status DC Sodium Chloride 1,000 ml @ 1,000 mls/hr 1X ONCE IV Last administered on 00:51; Start 02/12/17 at 00:45; Stop 02/12/17 at 01:44; Status DC Promethazine HCl 12.5 mg/Sodium Chloride 50.5 ml @ 151.5 mls/ hr PRN Q6HRS PRN IV NAUSEA/VOMITING Last administered on 02/15/17 04:59; Start 02/12/17 at 01: 00 Sodium Chloride 1,000 ml @ 200 mls/hr Q5H IV Last administered on 02/12/17 23: 15; Start 02/12/17 at 01:45; Stop 02/13/17 at 01:44; Status DC Hydromorphone HCl (Dilaudid) 1 mg PRN Q2HR PRN IV PAIN Last administered on 02/12 05:45; Start 02/12/17 at 01:45; Stop 02/12/17 at 07:54; Status DC Hydromorphone HCl (Dilaudid) 2 mg PRN Q2HR PRN IV PAIN; Start 02/12/17 at 08:00 ; Stop 02/12/17 at 08:07; Status DC Hydromorphone HCl (Dilaudid) 2 mg PRN Q4HRS PRN IV PAIN Last administered on 09:15; Start 02/12/17 at 09:00; Stop 02/12/17 at 11:30; Status DC Acetaminophen (Tylenol) 650 mg PRN Q6HRS PRN PO FEVER; Start 02/12/17 at 08:15 Ondansetron HCl (Zofran) 4 mg PRN Q6HRS PRN IV NAUSEA/VOMITING 1ST CHOICE; Start 02/12/17 at 08:15; Stop 02/14/17 at 18:43; Status DC Hydromorphone HCl (Dilaudid) 2 mg PRN Q4HRS PRN PO PAIN; Start 02/12/17 at 08:15 ; Stop 02/12/17 at 09:08; Status DC Cefpodoxime Proxetil (Vantin) 200 mg BID PO Last administered on 02/12/17 20:10 ; Start 02/12/17 at 09:00; Stop 02/13/17 at 08:54; Status DC Metronidazole (Flagyl) 500 mg Q12HR PO Last administered on 02/12/17 20:10; Start 02/12/17 at 09:00; Stop 02/12/17 at 23:41; Status DC Hydromorphone HCl (Dilaudid) 4 mg PRN Q4HRS PRN PO MODERATE PAIN Last administered on 02/13/17 02:40; Start 02/12/17 at 09:15 Hydromorphone HCl (Dilaudid) 1 mg PRN Q4HRS PRN IV PAIN SEVERE Last administered on 02/12/17 23:14; Start 02/12/17 at 11:30; Stop 02/13/17 at 00:01; Status DC Enoxaparin Sodium (Lovenox 40mg Syringe) 40 mg DAILY16 SQ Last administered on 02/14/17 15:34; Start 02/12/17 at 16:00 Oxycodone HCl (Roxicodone) 10 mg PRN Q6HRS PRN PO SEVERE PAIN Last administered on 02/12/17 16:54; Start 02/12/17 at 14:15 Metronidazole (Flagyl) 500 mg TID PO ; Start 02/13/17 at 09:00; Stop 02/13/17 at 09:00; Status DC Hydromorphone HCl (Dilaudid) 2 mg PRN Q4HRS PRN IV PAIN Last administered on 13:03; Start 02/13/17 at 00:00 Hydromorphone HCl (Dilaudid) 1 mg 1X ONCE IV Last administered on 02/13/17 00: 19; Start 02/13/17 at 00:15; Stop 02/13/17 at 00:16; Status DC Hydromorphone HCl (Dilaudid) 1 mg 1X ONCE IV Last administered on 02/13/17 08: 51; Start 02/13/17 at 08:45; Stop 02/13/17 at 08:46; Status DC Metronidazole (Flagyl) 500 mg Q8HRS PO Last administered on 02/14/17 13:31; Start 02/13/17 at 09:00; Stop 02/14/17 at 14:18; Status DC Fentanyl (Duragesic 25mcg/ Hr Patch) 1 patch Q3DAYS TD Last administered on 02/13 10:14; Start 02/13/17 at 10:00; Stop 02/14/17 at 12:02; Status DC Fentanyl (Duragesic 12mcg/ Hr Patch) 1 patch Q3DAYS TD Last administered on 02/13 10:15; Start 02/13/17 at 10:00; Stop 02/14/17 at 12:25; Status DC Fentanyl (Duragesic 12mcg/ Hr Patch) 1 patch Q3DAYS TD Last administered on 02/14 13:28; Start 02/14/17 at 12:30 Metronidazole (Flagyl) 500 mg Q6HRS PO Last administered on 02/15/17 12:54; Start 02/14/17 at 18:00 Active Scripts Active Dilaudid (Hydromorphone Hcl) 2 Mg Tablet 2 Mg PO PRN Q4HRS PRN Vitals/I & O Vital Sign - Last 24 Hours 02/14/17 02/14/17 02/14/17 02/14/17 14:36 15:00 17:28 18:44 Temp 98.1 98.1 Pulse 65 Resp 20 20 20 B/P (MAP) 123/72 (89) Pulse Ox 95 95 95 95 O2 Delivery Room Air Room Air Room Air Room Air 02/14/17 02/14/17 02/15/17 02/15/17 19:59 23:08 03:19 07:00 Temp 98.6 97.9 98.2 97.5 98.6 97.9 98.2 97.5 Pulse 65 60 58 54 Resp 18 18 18 18 B/P (MAP) 133/71 (91) 120/77 (91) 122/76 (91) 123/81 (95) Pulse Ox 95 97 99 97 O2 Delivery Room Air Room Air Room Air Room Air 02/15/17 02/15/17 02/15/17 02/15/17 08:00 09:00 10:45 13:03 Temp 97.9 97.9 Pulse 59 Resp 20 20 20 B/P (MAP) 121/76 (91) Pulse Ox 97 95 95 O2 Delivery Room Air Room Air Room Air Room Air 02/15/17 13:33 Resp 20 Pulse Ox 95 O2 Delivery Room Air Intake and Output 02/14/17 02/14/17 02/15/17 15:00 23:00 07:00 Intake Total 1450 ml Balance 1450 ml FRANCISCA HORN MD February 15, 2017 14:25
[2017-02-15 14:41] VITALS: BP 119/77
[2017-02-15] MEDS: ENOXAPARIN 40 MG/0.4 ML SYRINGE. SQ SCH (16:06)
[2017-02-15 19:00] VITALS: BP 117/79
[2017-02-15] MEDS: oxyCODONE IR 5 MG TABLET PO PRN (21:26)
[2017-02-15 23:17] VITALS: BP 122/71
[2017-02-16] MEDS: HYDROmorphone 2 MG TABLET PO PRN (02:30)
[2017-02-16] MEDS: HYDROmorphone 2 MG/ML VIAL IV PRN ×5 (02:31→20:31)
[2017-02-16 03:23] VITALS: BP 124/76
[2017-02-16] MEDS: metroNIDAZOLE 500 MG TABLET PO SCH ×3 (05:53→18:35)
[2017-02-16] MEDS: PROMETHAZINE 12.5 MG in IV NORMAL SALINE 50ML 50 ML IV PRN ×2 (05:54→21:42)
[2017-02-16 07:00] VITALS: BP 136/71
[2017-02-16 11:00] VITALS: BP 127/74
--- NOTE | 2017-02-16 14:49 | PDOC ---
PROGRESS NOTES Chief Complaint Chief Complaint Intractable abd pain ASSESSMENT AND PLAN: 1. Abd pain: no clear organic etiology, although did have recent diverticulitis with micro perf and abscess formation: s/p drain placement RLQ on 01/30 -02/11, with culture growing E.coli and Bacteroides. had been D/C.ed home on 02/11 2. C.diff colitis: improving clinically. on tid Flagyl per ID 3. Narcotic dependence: insists on IV dilaudid, declines any other med. d/ c.ed fentanyl patch , oxyIR available. decrease dilaudid from 2 to 0.5. ibuprofen PRN. appreciate Dr Wilson's input 4. Nausea: phenergan. (allergy to Zofran) 5. Nutrition: GI soft diet 6. D/C home in AM, hopefully History of Present Illness History of Present Illness feels firmness in R abd, where pain is worst. nausea last nite, able to eat today w/o difficulties. 2 loose BM in past 24h Vitals Vitals Vital Signs Date Time Temp Pulse Resp B/P (MAP) Pulse Ox O2 Delivery O2 Flow Rate FiO2 02/16/17 11:27 Room Air 02/16/17 07:00 98.1 59 16 136/71 (92) 97 98.1 Physical Exam General: Alert, Oriented X3, Cooperative, No acute distress Heart: Regular rate, No murmurs Lungs: Clear Abdomen: Normal bowel sounds, Soft, Other (TTP in R mid abd) Extremities: No clubbing, No edema Skin: No rashes RAJESH KAY MD February 16, 2017 14:49
[2017-02-16 15:00] VITALS: BP 129/75
[2017-02-16] MEDS ORDERED: IBUPROFEN 600 MG TABLET. PO PRN (15:30)
[2017-02-16] MEDS: LACTOBACILLUS ACIDOPH & BULGAR 1 TABLET. PO SCH (17:33)
[2017-02-16] MEDS: ENOXAPARIN 40 MG/0.4 ML SYRINGE. SQ SCH (17:34)
[2017-02-16 19:00] VITALS: BP 140/75
[2017-02-16 23:26] VITALS: BP 120/70
[2017-02-17] MEDS: metroNIDAZOLE 500 MG TABLET PO SCH ×4 (00:29→18:23)
[2017-02-17] MEDS: HYDROmorphone 2 MG/ML VIAL IV PRN ×4 (00:29→13:41)
[2017-02-17 03:23] VITALS: BP 144/78
[2017-02-17 03:56] LABS: BASO # 0.1 x10^3/uL (0.0-0.2); BASO % 1 % (0-3); EOS % 4 % (0-3); HEMATOCRIT 46.5 % (39.0-53.0); HEMOGLOBIN 16.4 g/dL (13.0-17.5); LYMPH # 2.9 x10^3/uL (1.0-4.8); LYMPH % 45 % (24-48); MEAN CORPUSCULAR HEMOGLOBIN 31 pg (25-35); MEAN CORPUSCULAR HGB CONC 35 g/dL (31-37); MEAN CORPUSCULAR VOLUME 87 fL (79-100); MONO % 11 % (0-9); NEUT % 39 % (31-73); PLATELET COUNT 349 x10^3/uL (140-400); RED BLOOD COUNT 5.36 x10^6/uL (4.30-5.70); RED CELL DISTRIBUTION WIDTH 12.6 % (11.5-14.5); WHITE BLOOD COUNT 6.4 x10^3/uL (4.0-11.0)
[2017-02-17 04:17] LABS: ALBUMIN 3.6 g/dL (3.4-5.0); ALBUMIN/GLOBULIN RATIO 0.9 (1.0-1.7); CALCIUM 9.1 mg/dL (8.5-10.1); GFR 89.6; POTASSIUM 3.7 mmol/L (3.5-5.1); TOTAL BILIRUBIN 0.4 mg/dL (0.2-1.0); TOTAL PROTEIN 7.5 g/dL (6.4-8.2)
[2017-02-17 07:00] VITALS: BP 124/73
[2017-02-17] MEDS: LACTOBACILLUS ACIDOPH & BULGAR 1 TABLET. PO SCH ×3 (07:28→18:23)
[2017-02-17] MEDS: oxyCODONE IR 5 MG TABLET PO PRN ×3 (07:28→21:15)
[2017-02-17] MEDS: PROMETHAZINE 12.5 MG in IV NORMAL SALINE 50ML 50 ML IV PRN ×3 (07:29→23:18)
[2017-02-17] MEDS: fentaNYL 12MCG/HR PATCH 1 PATCH PATCH.TD72 TD SCH (07:38)
[2017-02-17 11:00] VITALS: BP 139/80
--- NOTE | 2017-02-17 14:41 | PDOC ---
PROGRESS NOTES Chief Complaint Chief Complaint [error] RAJESH KAY MD February 17, 2017 14:41
[2017-02-17 15:00] VITALS: BP 130/72
[2017-02-17] MEDS: ENOXAPARIN 40 MG/0.4 ML SYRINGE. SQ SCH (16:00)
--- NOTE | 2017-02-17 16:07 | PDOC ---
PROGRESS NOTES Chief Complaint Chief Complaint Intractable abd pain ASSESSMENT AND PLAN: 1. Abd pain: no clear organic etiology, although did have recent diverticulitis with micro perf and abscess formation: s/p drain placement RLQ on 01/30 -02/11, with culture growing E.coli and Bacteroides. had been D/C.ed home on 02/11 2. C.diff colitis: new during current admit. improving clinically. on tid Flagyl per ID. macrobiotics tid 3. Narcotic dependence: stop dilaudid, toradol PRN (or oxy). 4. Nausea: phenergan. (allergy to Zofran) 5. Nutrition: GI soft diet 6. Dysuria: urin on 02/15 completely clean. trial of Pyridium for 3 days 7. D/C home delayed with recurrent nausea History of Present Illness History of Present Illness 2 BM today. threw up breakfast and lunch. c/o severe pain, stated severity incongruous with movements in bed and sitting up. c/o dysuria, sharp pain with urination Vitals Vitals Vital Signs Date Time Temp Pulse Resp B/P (MAP) Pulse Ox O2 Delivery O2 Flow Rate FiO2 02/17/17 14:21 Room Air 02/17/17 11:00 98.1 91 17 139/80 (99) 97 98.1 Physical Exam General: Alert, Oriented X3, Cooperative, No acute distress Heart: Regular rate, No murmurs Lungs: Clear Abdomen: Normal bowel sounds, Soft, Other (TTP in R mid abd) Extremities: No clubbing, No edema Skin: No rashes Labs LABS Laboratory Tests Test 02/17/17 03:15 White Blood Count 6.4 x10^3/uL (4.0-11.0) Red Blood Count 5.36 x10^6/uL (4.30-5.70) Hemoglobin 16.4 g/dL (13.0-17.5) Hematocrit 46.5 % (39.0-53.0) Mean Corpuscular Volume 87 fL (79-100) Mean Corpuscular Hemoglobin 31 pg (25-35) Mean Corpuscular Hemoglobin Concent 35 g/dL (31-37) Red Cell Distribution Width 12.6 % (11.5-14.5) Platelet Count 349 x10^3/uL (140-400) Neutrophils (%) (Auto) 39 % (31-73) Lymphocytes (%) (Auto) 45 % (24-48) Monocytes (%) (Auto) 11 % (0-9) Eosinophils (%) (Auto) 4 % (0-3) Basophils (%) (Auto) 1 % (0-3) Neutrophils # (Auto) 2.5 x10^3uL (1.8-7.7) Lymphocytes # (Auto) 2.9 x10^3/uL (1.0-4.8) Monocytes # (Auto) 0.7 x10^3/uL (0.0-1.1) Eosinophils # (Auto) 0.3 x10^3/uL (0.0-0.7) Basophils # (Auto) 0.1 x10^3/uL (0.0-0.2) Sodium Level 140 mmol/L (136-145) Potassium Level 3.7 mmol/L (3.5-5.1) Chloride Level 102 mmol/L (98-107) Carbon Dioxide Level 29 mmol/L (21-32) Anion Gap 9 (6-14) Blood Urea Nitrogen 10 mg/dL (8-26) Creatinine 1.0 mg/dL (0.7-1.3) Estimated GFR (Cockcroft-Gault) 89.6 BUN/Creatinine Ratio 10 (6-20) Glucose Level 116 mg/dL (70-99) Calcium Level 9.1 mg/dL (8.5-10.1) Total Bilirubin 0.4 mg/dL (0.2-1.0) Aspartate Amino Transf (AST/SGOT) 21 U/L (15-37) Alanine Aminotransferase (ALT/SGPT) 47 U/L (16-63) Alkaline Phosphatase 66 U/L (46-116) Total Protein 7.5 g/dL (6.4-8.2) Albumin 3.6 g/dL (3.4-5.0) Albumin/Globulin Ratio 0.9 (1.0-1.7) RAJESH KAY MD February 17, 2017 16:07
[2017-02-17] MEDS: PHENAZOPYRIDINE 200 MG TABLET. PO PRN (18:23)
[2017-02-17] MEDS: KETOROLAC 15 MG/ML VIAL. IV PRN (18:27)
[2017-02-17 19:00] VITALS: BP 128/69
[2017-02-17] MEDS ORDERED: BENZOCAINE/MENTHOL LOZENGE. PO PRN (20:15)
[2017-02-17 23:07] VITALS: BP 126/71
[2017-02-18] MEDS: KETOROLAC 15 MG/ML VIAL. IV PRN ×2 (00:38→09:13)
[2017-02-18] MEDS: metroNIDAZOLE 500 MG TABLET PO SCH ×3 (00:38→11:48)
[2017-02-18 03:44] VITALS: BP 131/75
[2017-02-18] MEDS: oxyCODONE IR 5 MG TABLET PO PRN ×2 (04:41→11:48)
[2017-02-18 07:00] VITALS: BP 122/80
[2017-02-18] MEDS: PHENAZOPYRIDINE 200 MG TABLET. PO PRN (09:12)
[2017-02-18] MEDS: LACTOBACILLUS ACIDOPH & BULGAR 1 TABLET. PO SCH ×3 (09:13→15:58)
[2017-02-18 10:31] VITALS: BP 117/75
[2017-02-18 14:38] VITALS: BP 122/80
--- NOTE | 2017-02-18 15:26 | PDOC ---
PROGRESS NOTES Chief Complaint Chief Complaint Intractable abd pain ASSESSMENT AND PLAN: 1. Abd pain: no clear organic etiology, although did have recent diverticulitis with micro perf and abscess formation: s/p drain placement RLQ on 01/30 -02/11, with culture growing E.coli and Bacteroides. had been D/C.ed home on 02/11 2. C.diff colitis: new during current admit. improving clinically. on Flagyl per ID. macrobiotics tid 3. Narcotic dependence: stop dilaudid, toradol PRN (or oxy). 4. Nausea: phenergan PRN works well, no further nausea. (allergy to Zofran) 5. Nutrition: GI soft diet 6. Dysuria: urine on 02/15 completely clean. trial of Pyridium for 3 days 7. D/C home today, pt agreeable History of Present Illness History of Present Illness in better spirits, able to eat. still pain, but tolerable. lots of gas Vitals Vitals Vital Signs Date Time Temp Pulse Resp B/P (MAP) Pulse Ox O2 Delivery O2 Flow Rate FiO2 02/18/17 14:38 98.2 72 18 122/80 (94) 96 Room Air 98.2 Physical Exam General: Alert, Cooperative, No acute distress Heart: Regular rate Lungs: Clear Abdomen: Normal bowel sounds, Soft Extremities: No edema Skin: No rashes RAJESH KAY MD February 18, 2017 15:26
[2017-02-18] MEDS: ENOXAPARIN 40 MG/0.4 ML SYRINGE. SQ SCH (16:00)
[2017-02-18] MEDS ORDERED: PROM12.56 PO (16:47)
[2017-02-18] MEDS ORDERED: METR500T PO (16:47)
[2017-02-18] MEDS ORDERED: OXYC5TAB PO (16:47)
[2017-02-18] MEDS ORDERED: ZOLP5TAB PO (16:47)
--- NOTE | 2017-02-21 02:10 | DS ---
DATE OF DISCHARGE: 02/18/2017 CHIEF COMPLAINT: Intractable abdominal pain. HOSPITAL COURSE: The patient is a 26-year-old gentleman who had presented on the 4th, one day after prior discharge from prolonged admission for diverticulitis with microperforation and abscess formation, with intractable abdominal pain. CAT scan was obtained, did not show any recurrence of his abscess. He, however, was diagnosed with C. diff colitis. He was promptly started on Flagyl and macrobiotics. He required high doses of Dilaudid to get him comfortable. It was difficult to wean him off although his pain complaints seemed to be incongruent with his physical exam or his activity level. He did, however, have nausea, which was prolonged, but responded well to Phenergan. He also complained of sharp stabbing pain with urination. Did not feel that Pyridium helped. Urinalysis had not shown any signs of infection. He after a prolonged wean off his narcotics, he was agreeable to discharge home on 02/18/2017. PHYSICAL EXAMINATION: Please refer to note from same day. DISCHARGE DIAGNOSES: 1. Clostridium difficile colitis. 2. Abdominal pain. DISCHARGE DISPOSITION: To home. DISCHARGE CONDITION: Improved. DISCHARGE MEDICATIONS: Please refer to MAR. DISCHARGE INSTRUCTIONS: The patient should find PCP [facility]. RAJESH KAY MD DR: HUANG/nts JOB#: [id number] / [id number] [place]
== END 2017-02-18 18:05 | disposition home or self-care (01) | DRG 372 ==
LOC: ER 00:15 → 4 NORTH 01:25
PROVIDERS: ADMIT Internal Medicine; ATTEND Internal Medicine
DX: A04.7 Enterocolitis due to Clostridium difficile (principal); F11.20 Opioid dependence, uncomplicated; F12.90 Cannabis use, unspecified, uncomplicated; Z88.6 Allergy status to analgesic agent; Z87.442 Personal history of urinary calculi; Z88.0 Allergy status to penicillin; Z88.8 Allergy status to other drugs, medicaments and biological substances
CPT/HCPCS: 36415; 80048; 80053; 81001; 83690; 85027; 87324; 96361; 96374; J1170; J1650; J1885; J2405; J2550; J7030; 99285-25